=== PATIENT | female | born 1945 | race Caucasian/White ===

== ENCOUNTER 2016-08-23 15:45 | Inpatient (IN) | payer OTHER, MEDICAID, MEDICARE ==
[2016-08-23] VITALS (7 sets, daily range): BP systolic 137–163; BP diastolic 74–127; PULSE 76–88; RESP 15–22; TEMP 97.8–98.3; O2SAT 95–100
[~2016-08-23] VITALS: Ht 152.4 cm; Wt 60.0 kg
[~2016-08-23 15:45] MED LIST: AMLO5 PO; APIX5TAB PO; ARIC5TAB PO; ASPI81TA11 PO; Aspirin Chew PO; FLUO20CA4 PO; LIPI10TA PO; METO25TA3 PO; METO50TA PO; VENTAER INH; WHEEMIS3
[2016-08-23] MEDS ORDERED: SODIUM CHLORIDE 0.9% FLUSH 10 ML FLUSH IVF PRN (16:00)
[2016-08-23] MEDS ORDERED: SODIUM CHLORID 0.9% 500 ML INJ 500 ML IV ONE (16:00)
--- NOTE | 2016-08-23 16:12 | PD ---
HPI Chief Complaint: Neuro Symptoms/ Deficits Time Seen by Provider: 15:57 Travel History International Travel<30 days: No Contact w/Intl Traveler<30days: No Traveled to known affect area: No History of Present Illness HPI This 70 year-old woman with a history of CVA who presents to the emergency department with slurred speech, imaging and blacked, and weakness. She is a history of A. fib. She supposed to be on blood thinners, most recently noted as Eliquis. She's had multiple strokes in the past. Granddaughter notes that patient went to bed at around 3 AM and was seen normal at that time. When she woke up she had speech difficulties including slurred speech and weakness. Was at about 3 PM. When the granddaughter went to go check on her she develop progressive symptoms including worsening facial droop, blanca-neglect, and weakness. Symptoms been progressive over the past hour, although again she woke up with symptoms and was last seen normal at 3 AM. History Past Medical History Narrative Medical A. fib CVA Hypertension Hyperlipidemia COPD Depression Influenza Vaccination: Yes Menopausal: Yes Social History Alcohol Use: No Tobacco Use: No (QUIT 04/2016) Allergies-Medications (Allergen,Severity, Reaction): Coded Allergies: Sulfa (Verified Allergy, Intermediate, 08/23/16) Reported Meds & Prescriptions Reported Meds & Active Scripts Active Aricept (Donepezil) 5 Mg Tab 5 Mg PO HS 30 Days Lipitor (Atorvastatin Calcium) 10 Mg Tab 10 Mg PO HS 30 Days Aspirin EC (Aspirin) 81 Mg Tabdr 81 Mg PO DAILY 30 Days Eliquis (Apixaban) 5 Mg Tab 5 Mg PO BID 30 Days Norvasc (Amlodipine Besylate) 5 Mg Tab 5 Mg PO DAILY 30 Days Ventolin Hfa 18 GM Inh (Albuterol Sulfate) 90 Mcg/Act Aer 2 Puff INH Q6H PRN 30 Days Reported [place] (Hydrocodone-Acetaminophen) 10-325 Mg Tab 1 Tab PO Q8HR PRN Baclofen 20 Mg Tab 20 Mg PO TID Metoprolol Tartrate 75 Mg Tab 75 Mg PO BID Fluoxetine (Fluoxetine HCl) 40 Mg Cap 40 Cap PO DAILY Review of Systems Except as stated in HPI: all other systems reviewed are Neg Physical Exam Narrative GENERAL: Ill-appearing 70 year-old woman, right sided gaze preference with left blanca-neglect, garbled speech. SKIN: Warm and dry. HEAD: Atraumatic. Normocephalic. EYES: Right sided gaze preference. ENT: No nasal bleeding or discharge. Mucous membranes pink and moist. NECK: Trachea midline. No JVD. CARDIOVASCULAR: Regular rate and rhythm. No murmur appreciated. RESPIRATORY: No accessory muscle use. Clear to auscultation. Breath sounds equal bilaterally. GASTROINTESTINAL: Abdomen soft, non-tender, nondistended. Hepatic and splenic margins not palpable. MUSCULOSKELETAL: No obvious deformities. No edema. NEUROLOGICAL: Awake but decreased alertness. Right sided gaze preference with left neglect. We'll follow commands. Can move purposefully with the left upper extremity although it's markedly weak. She appears to have no sensation on the left side. Unable to test visual tinsley. Data Data Last Documented VS Vital Signs Date Time Temp Pulse Resp B/P Pulse Ox O2 Delivery O2 Flow Rate FiO2 08/23/16 17:43 88 16 163/127 100 Nasal Cannula 2 08/23/16 15:53 98.3 Orders Electrocardiogram (08/23/16 15:57) Prothrombin Time / Inr (Pt) (08/23/16 15:57) Act Partial Throm Time (Ptt) (08/23/16 15:57) Complete Blood Count With Diff (08/23/16 15:57) Comprehensive Metabolic Panel (08/23/16 15:57) Creatine Kinase (Cpk) (08/23/16 15:57) Troponin I (08/23/16 15:57) Urinalysis - C+S If Indicated (08/23/16 15:57) Ct Brain W/O Iv Contrast(Rout) (08/23/16 15:57) Chest, Single Ap (08/23/16 15:57) Ecg Monitoring (08/23/16 15:57) Iv Access Insert/Monitor (08/23/16 15:57) Oximetry (08/23/16 15:57) Blood Glucose (08/23/16 15:57) Sodium Chloride 0.9% Flush (Ns Flush) (08/23/16 16:00) Sodium Chlorid 0.9% 500 Ml Inj (Ns 500 M (08/23/16 16:00) Admit Order (Ed Use Only) (08/23/16 ) Consult Neurology (08/23/16 ) Labs Laboratory Tests Test 08/23/16 08/23/16 15:56 16:03 White Blood Count 8.5 TH/MM3 Red Blood Count 3.88 MIL/MM3 Hemoglobin 8.4 GM/DL Hematocrit 27.4 % Mean Corpuscular Volume 70.7 FL Mean Corpuscular Hemoglobin 21.7 PG Mean Corpuscular Hemoglobin 30.8 % Concent Red Cell Distribution Width 18.9 % Platelet Count 526 TH/MM3 Mean Platelet Volume 7.4 FL Neutrophils (%) (Auto) 58.3 % Lymphocytes (%) (Auto) 27.8 % Monocytes (%) (Auto) 9.5 % Eosinophils (%) (Auto) 3.5 % Basophils (%) (Auto) 0.9 % Neutrophils # (Auto) 5.0 TH/MM3 Lymphocytes # (Auto) 2.4 TH/MM3 Monocytes # (Auto) 0.8 TH/MM3 Eosinophils # (Auto) 0.3 TH/MM3 Basophils # (Auto) 0.1 TH/MM3 CBC Comment AUTO DIFF Differential Comment AUTO DIFF CONFIRMED Platelet Estimate HIGH Platelet Morphology Comment NORMAL Target Cells 1+ Prothrombin Time 10.1 SEC Prothromb Time International 0.9 RATIO Ratio Activated Partial 24.0 SEC Thromboplast Time Sodium Level 137 MEQ/L Potassium Level 4.1 MEQ/L Chloride Level 104 MEQ/L Carbon Dioxide Level 26.5 MEQ/L Anion Gap 7 MEQ/L Blood Urea Nitrogen 12 MG/DL Creatinine 0.68 MG/DL Estimat Glomerular Filtration 86 ML/MIN Rate Random Glucose 89 MG/DL Calcium Level 8.8 MG/DL Total Bilirubin 0.2 MG/DL Aspartate Amino Transf 15 U/L (AST/SGOT) Alanine Aminotransferase 19 U/L (ALT/SGPT) Alkaline Phosphatase 127 U/L Total Creatine Kinase 84 U/L Troponin I LESS THAN 0.02 NG/ML Total Protein 7.1 GM/DL Albumin 3.1 GM/DL [facility] Medical Decision Making Medical Screen Exam Complete: Yes Emergency Medical Condition: Yes Interpretation(s) My review of EKG: Normal sinus rhythm at a rate of 74, normal axis, normal intervals, no definite evidence of acute ischemia. LABS: CBC remarkable for mild anemia. CMP is unremarkable. Troponins negative. Coags unremarkable. Chest x-ray negative. Head CT: Large areas encephalomalacia involving the right posterior parietal and occipital and temporal lobes in the left posterior parietal-occipital is consistent with old infarcts. No acute hemorrhage, acute infarct, mass effect, or extra-axial fluid collections. Differential Diagnosis CVA, TIA, dissection, seizure, bleed, other Narrative Course Medical decision making INITIAL: This 70 year-old woman presents to the emergency department with symptoms suggestive of large stroke with gaze preference, hemicolectomy neglect , weakness, and speech difficulties. We'll check labs, x-ray, CT head, neurology consult, admission. Symptoms been progressive over the past hour however the exact time of onset is unknown. We'll discuss with neurology whether there would be any role for CTA. Patient is reportedly on blood thinners for history of A. fib all the granddaughter states that she's not sure that she's been getting the medicine or not. FINAL: I spoke with Dr. Liu with urology. He will consult on patient. Patient appears to have new CVA. Initial workups otherwise unremarkable. Patient will be admitted for further evaluation. Diagnosis Primary Impression: CVA (cerebral vascular accident) Curt Barber MD Aug 23, 2016 16:12
--- NOTE | 2016-08-23 16:14 | RADRPT ---
EXAM DATE/TIME: 08/23/2016 16:06 [facility] COMPARISON: CHEST SINGLE AP, April 04, 2016, 16:04. INDICATIONS : Short of breath MEDICAL HISTORY : Cardiovascular disease. SURGICAL HISTORY : None. ENCOUNTER: Initial ACUITY: 1 day PAIN SCORE: Non-responsive. LOCATION: chest FINDINGS: A single view of the chest demonstrates the lungs to be symmetrically aerated without evidence of mas s, infiltrate or effusion. The cardiomediastinal contours are unremarkable. Osseous structures are intact. CONCLUSION: No acute disease. Jb Rodriguez MD on August 23, 2016 at 16:13 Board Certified Radiologist. This report was verified electronically.
[2016-08-23] MEDS ORDERED: METO-426 PO (16:17)
[2016-08-23] MEDS ORDERED: FLUO40CA PO (16:17)
[2016-08-23] MEDS ORDERED: BACL20TA PO (16:18)
[2016-08-23] MEDS ORDERED: HYDR-3366 PO (16:18)
[2016-08-23 16:19] LABS: BASOPHIL # 0.1 TH/MM3 (0-0.2); BASOPHIL % 0.9 % (0.0-2.0); EOSINOPHIL # 0.3 TH/MM3 (0-0.4); EOSINOPHIL % 3.5 % (0.0-4.0); HEMATOCRIT 27.4 % (35.0-46.0); LYMPH % 27.8 % (9.0-44.0); LYMPHOCYTE # 2.4 TH/MM3 (1.0-4.8); MEAN CELL VOLUME 70.7 FL (80.0-100.0); MEAN CORPUSCULAR HEMOGLOBIN 21.7 PG (27.0-34.0); MEAN CORPUSCULAR HGB CONC 30.8 % (32.0-36.0); MONO % 9.5 % (0.0-8.0); NEUT % 58.3 % (16.0-70.0); PLATELET COUNT 526 TH/MM3 (150-450); RED BLOOD COUNT 3.88 MIL/MM3 (4.00-5.30); RED CELL DISTRIBUTION WIDTH 18.9 % (11.6-17.2); WHITE BLOOD COUNT 8.5 TH/MM3 (4.0-11.0)
[2016-08-23 16:29] LABS: HEMO FLAGS AUTO DIFF
[2016-08-23 16:39] LABS: INTERNATIONAL NORMALIZED RATIO 0.9 RATIO; PROTHROMBIN TIME - PATIENT 10.1 SEC (9.8-11.6)
[2016-08-23 16:43] LABS: ALT (GPT) 19 U/L (10-53); ANION GAP 7 MEQ/L (5-15); AST (GOT) 15 U/L (15-37); BICARBONATE 26.5 MEQ/L (21.0-32.0); BLOOD UREA NITROGEN 12 MG/DL (7-18); CHLORIDE 104 MEQ/L (98-107); GLOMERULAR FILTRATION RATE 86 ML/MIN (>89); POTASSIUM 4.1 MEQ/L (3.5-5.1); SODIUM (NA) 137 MEQ/L (136-145)
[2016-08-23 16:47] LABS: ALKALINE PHOSPHATASE 127 U/L (45-117); TOTAL BILIRUBIN ADULT 0.2 MG/DL (0.2-1.0)
[2016-08-23 16:49] LABS: CREATINE KINASE 84 U/L (26-192)
--- NOTE | 2016-08-23 16:49 | RADRPT ---
EXAM DATE/TIME: 08/23/2016 16:29 [facility] COMPARISON: CT BRAIN W/O CONTRAST, May 01, 2016, 15:03. INDICATIONS : Altered mental status and slurred speech. RADIATION DOSE: 28.70 CTDIvol (mGy) MEDICAL HISTORY : Hypertension. Cerebrovascular disease. Chronic obstructive pulmonary disease.Previous stroke. SURGICAL HISTORY : None. ENCOUNTER: Initial ACUITY: 1 day PAIN SCALE: 0/10 LOCATION: cranial TECHNIQUE: Multiple contiguous axial images were obtained of the head. Using automated exposure control and adj ustment of the mA and/or kV according to patient size, radiation dose was kept as low as reasonably a chievable to obtain optimal diagnostic quality images. FINDINGS: There are large areas of encephalomalacia involving the right posterior parietal, occipital and tempo ral lobes and the left posterior parietal and occipital lobes consistent with old infarcts. There is no acute hemorrhage, midline shift or extra-axial fluid collections. The ventricles are stable. CONCLUSION: 1. Large areas of encephalomalacia involving the right posterior parietal, occipital and temporal lob es and left posterior parietal and occipital lobes consistent with old infarcts. 2. No acute hemorrhage, acute infarct, mass effect or extra-axial fluid collections. Jb Rodriguez MD on August 23, 2016 at 16:41 Board Certified Radiologist. This report was verified electronically.
[2016-08-23 17:37] LABS: PLATELET ESTIMATE SMEAR HIGH (NORMAL); PLATELET MORPHOLOGY NORMAL (NORMAL); SCAN/DIFF AUTO DIFF CONFIRMED; TARGET CELLS 1+ (NORMAL)
--- NOTE | 2016-08-23 18:03 | HHI.HP ---
[facility] Service Family Medicine Primary Care Physician Demetrius Villarreal, Admission Diagnosis CVA Diagnoses: International Travel<30 Days: No Contact w/Intl Traveler<30days: No Known Affected Area: No History of Present Illness Patient is a 70-year-old female with history significant for recurrent CVA, A. fib, COPD. Of note patient was recently admitted in April 2016 for similar symptoms and was found to have new acute infarct of left occipital, posterior temporal and right thalamus. Neurology was consulted during that hospitalization and recommended continuing Eliquis and ASA. Today, presented to the ED due to slurred speech and confusion. Patient reports that she does not know why she is in the hospital and that she feels well enough to go home. Granddaughter provided most of the history who stated that she was last seen normal at 3:00 in the morning. She went to bed at that time and did not wake up until 3 PM at which time she had slurred speech and was having confused speech. She was able to walk but was drooling from the left side of her mouth. Since the afternoon, symptoms have progressed and now involve her left arm and left leg. Granddaughter reports that she now is only looking to her right. Her eyes also deviated to the right. At baseline, she had poor vision and would get confused with direction. She also required minimal assistance when walking. Prior to the onset of events, patient was at her baseline and granddaughter denied any other symptoms. Review of Systems ROS Limitations: Clinical Condition Past Family Social History Past Medical History CVA Tobacco abuse Hyperlipidemia Atrial fibrillation Hypertension COPD/emphysema Chronic back pain Depression Dementia Remote history of DVT; patient not sure which side it was on Past Surgical History Vertebral fusion Cholecystectomy Tonsillectomy Reported Medications Reported Meds & Active Scripts Active Aricept (Donepezil) 5 Mg Tab 5 Mg PO HS 30 Days Lipitor (Atorvastatin Calcium) 10 Mg Tab 10 Mg PO HS 30 Days Aspirin EC (Aspirin) 81 Mg Tabdr 81 Mg PO DAILY 30 Days Eliquis (Apixaban) 5 Mg Tab 5 Mg PO BID 30 Days Norvasc (Amlodipine Besylate) 5 Mg Tab 5 Mg PO DAILY 30 Days Ventolin Hfa 18 GM Inh (Albuterol Sulfate) 90 Mcg/Act Aer 2 Puff INH Q6H PRN 30 Days Reported [place] (Hydrocodone-Acetaminophen) 10-325 Mg Tab 1 Tab PO Q8HR PRN Baclofen 20 Mg Tab 20 Mg PO TID Metoprolol Tartrate 75 Mg Tab 75 Mg PO BID Fluoxetine (Fluoxetine HCl) 40 Mg Cap 40 Cap PO DAILY Allergies: Coded Allergies: Sulfa (Verified Allergy, Intermediate, 08/23/16) Family History Mother- DM Type 2, [place] Father- Prostate cancer Social History Tobacco: 1-1.5 ppd x 50 years Alcohol: None Illicit drug use: None Lives with daughter in [place] Physical Exam Vital Signs Vital Signs Date Time Temp Pulse Resp B/P Pulse Ox O2 Delivery O2 Flow Rate FiO2 08/23/16 17:43 88 16 163/127 100 Nasal Cannula 2 08/23/16 15:57 78 16 146/74 99 Nasal Cannula 2 08/23/16 15:53 98.3 76 15 146/74 97 Physical Exam GENERAL: Thin elderly woman laying in bed staring to the right with both her eyes and head. In no acute distress. Poorly follows commands. Does respond better when granddaughter is addressing patient. SKIN: No rashes, ecchymoses or lesions. Cool and dry. EYES: Evaluation limited due to patient not opening her right eye. Small pupils but grossly equal and reactive to light. No scleral icterus. No injection or drainage. ENT: Nose without bleeding, purulent drainage. Throat without erythema, tonsillar hypertrophy or exudate. Uvula slightly deviated to the right. NECK: No lymphadenopathy. CARDIOVASCULAR: Regular rate and rhythm without murmurs, gallops, or rubs. RESPIRATORY: Decreased air movement but clear to auscultation. Breath sounds equal bilaterally. No wheezes, rales, or rhonchi. GASTROINTESTINAL: Abdomen soft, non-tender, nondistended. No hepato-splenomegaly , or palpable masses. No guarding. MUSCULOSKELETAL: Extremities without clubbing, cyanosis, or edema. No calf tenderness. NEUROLOGICAL: Awake and alert. Oriented to name and place. Oriented to current president. States the year 2013. * CN II: intact * CN III, IV,: Eyes deviated to the right * CN V: intact * CN VII: left lower facial drop with decreased facial wrinkles. Left eyelid easily opened again resistance * CN IX-XII: mild right uvula deviation. No tongue deviation. Unable to assses SCD * Left arm/leg: flaccid left arm and leg. No reflexes on L arm and leg. Laboratory Laboratory Tests Test 3/23/17 3/23/17 15:56 16:03 White Blood Count 8.5 Red Blood Count 3.88 Hemoglobin 8.4 Hematocrit 27.4 Mean Corpuscular Volume 70.7 Mean Corpuscular Hemoglobin 21.7 Mean Corpuscular Hemoglobin 30.8 Concent Red Cell Distribution Width 18.9 Platelet Count 526 Mean Platelet Volume 7.4 Neutrophils (%) (Auto) 58.3 Lymphocytes (%) (Auto) 27.8 Monocytes (%) (Auto) 9.5 Eosinophils (%) (Auto) 3.5 Basophils (%) (Auto) 0.9 Neutrophils # (Auto) 5.0 Lymphocytes # (Auto) 2.4 Monocytes # (Auto) 0.8 Eosinophils # (Auto) 0.3 Basophils # (Auto) 0.1 CBC Comment AUTO DIFF Differential Comment AUTO DIFF CONFIRMED Platelet Estimate HIGH Platelet Morphology Comment NORMAL Target Cells 1+ Prothrombin Time 10.1 Prothromb Time International 0.9 Ratio Activated Partial 24.0 Thromboplast Time Sodium Level 137 Potassium Level 4.1 Chloride Level 104 Carbon Dioxide Level 26.5 Anion Gap 7 Blood Urea Nitrogen 12 Creatinine 0.68 Estimat Glomerular Filtration 86 Rate Random Glucose 89 Calcium Level 8.8 Total Bilirubin 0.2 Aspartate Amino Transf 15 (AST/SGOT) Alanine Aminotransferase 19 (ALT/SGPT) Alkaline Phosphatase 127 Total Creatine Kinase 84 Troponin I LESS THAN 0.02 Total Protein 7.1 Albumin 3.1 Result Diagram: 08/23/16 1556 08/23/16 1603 Imaging Last Impressions Head CT 08/23/16 1557 Signed Impressions: Service Date/Time: August 16:29 - CONCLUSION: 1. Large areas of encephalomalacia involving the right posterior parietal, occipital and temporal lobes and left posterior parietal and occipital lobes consistent with old infarcts. 2. No acute hemorrhage, acute infarct, mass effect or extra- axial fluid collections. Jb Rodriguez MD Chest X-Ray 08/23/16 1557 Signed Impressions: Service Date/Time: August 16:06 - CONCLUSION: No acute disease. Jb Rodriguez MD Assessment and Plan Assessment and Plan 70-year-old female with history significant for recurrent CVA, A. fib, COPD. Admitted for acute ischemic stroke. Code Status Full Problem List: (1) CVA (cerebral vascular accident) Status: Acute Plan: History of prior CVA with the most recent in April 2016. Was last seen normal on 0300 on day of admission and was therefore out of the window of TPA. She was also not a candidate for direct thrombolytic due to anticoagulation with Eliquis. New symptoms included slurred speech, left facial droop, eye deviation to the right and left sided flaccid weakness. Etiology of recurrence likely due to extensive tobacco use and/or afib -Permissive HTN, neuro checks, HOB flat -ACS evaluation not indicated due to lack of symptoms and initial EKG and troponin negative -Swallow eval by ST -A1c and lipid panel from 04/2016 were unremarkable -ECHO from 04/2016: EF of 60-65% Neurology consulted: appreciate recommendations Imaging: * MRI and MRA ordered * Head CT: large areas of encephalomalacia involving the right posterior parietal, occipital and temporal lobes and left posterior parietal adn occipital lobes consistent with old infarcts. No acute hemorrhage, acute infarct , mass effect or extra-axial fluid collections. * CXR: negative Medications * upon review of records, Eliquis was resumed after last stroke. However, due to concern for reperfusion hemorrhage and quick review of literature indicating that deferred anticoagulation resumption is warranted, will defer restarting until evaluated by neurology. * Amlodipine (to be started 08/25 * Aspirin 325mg daily * Started Plavix 75mg daily * metoprolol 50mg BID * Increased Atorvastatin to 40mg daily (2) Atrial fibrillation Status: Chronic Plan: Currently rate controlled. -Continue metoprolol at the dosing used at last hospitalization as granddaughter was unsure of dosing -Eliquis has been held until seen by neurology (3) COPD (chronic obstructive pulmonary disease) Status: Chronic Plan: Albuterol + Duo nebs (4) Nutrition, metabolism, and development symptoms Status: Acute Plan: Diet: NPO until eval by ST Electrolytes: unremarkable Fluids: NS at 70 DVT PPX: SCDs, previously on Eliquis but currently being held GI PPX: none indicated Chronic Conditions: * Dementia: Aricept * Depression: Fluoxetine Physician Certification 2 Midnight Certification Type: Admission for Inpatient Services Order for Inpatient Services The services are ordered in accordance with Medicare regulations or non- Medicare payer requirements, as applicable. In the case of services not specified as inpatient-only, they are appropriately provided as inpatient services in accordance with the 2-midnight benchmark. Estimated LOS (days): 2 days is the estimated time the patient will need to remain in the hospital, assuming treatment plan goals are met and no additional complications. Post-Hospital Plan: Not yet determined Laurie Toro MD R2 Aug 23, 2016 18:03
[2016-08-23] MEDS ORDERED: ALBUTEROL SULFATE 90 MCG/ACT HFA 8 GM INHALER INH PRN (18:30)
[2016-08-23] MEDS ORDERED: ENALAPRILAT 1.25 MG/ML VIAL IV PRN (19:00)
[2016-08-23] MEDS ORDERED: SODIUM CHLORIDE 0.9% FLUSH 10 ML FLUSH IV FLUSH PRN (19:00)
[2016-08-23] MEDS ORDERED: DEXTROSE 50% IN WATER 50 ML VIAL(D50) IV PUSH PRN (19:00)
[2016-08-23] MEDS: ASPIRIN 325 MG TAB PO SCH (19:00)
[2016-08-23] MEDS ORDERED: GLUCAGON 1 MG/ML VIAL IM/SQ PRN (19:00)
[2016-08-23 19:37] LABS: BLOOD, URINE NEG (NEG); GLUCOSE,URINE NEG (NEG); KETONE, URINE NEG (NEG); NITRITE,URINE NEG (NEG); PH, URINE 6.5 (5.0-8.5); SQUAMOUS EPITHELIAL CELL URINE <1 /hpf (0-5); URINE COLOR LIGHT-YELLOW (YELLW/STRAW)
[2016-08-23 19:44] LABS: COMMENT (UR) CATH-CULT NOT IND; CULTURE IF INDICATED CATH CULTURE NOT IND
[2016-08-23] MEDS: SODIUM CHLOR 0.9% 1000 ML INJ 1,000 ML IV SCH (20:02)
[2016-08-23] MEDS: SODIUM CHLORIDE 0.9% FLUSH 10 ML FLUSH IV FLUSH SCH (20:02)
[2016-08-23] MEDS: DONEPEZIL HCL 5 MG TAB PO SCH (20:51)
[2016-08-23] MEDS: METOPROLOL TARTRATE 50 MG TAB PO SCH (20:52)
[2016-08-23] MEDS: ATORVASTATIN 40 MG TAB PO SCH (20:52)
[2016-08-23] MEDS ORDERED: ATORVASTATIN 10 MG TAB PO SCH (21:00)
[2016-08-23] MEDS: INSULIN ASPART SUPPLEMENTAL SCALE SQ SCH (21:00)
[2016-08-23] MEDS ORDERED: RESP: ALBUTEROL 2.5 MG/3 ML NEB (PRN) INH (21:45)
[2016-08-23] MEDS ORDERED: ACETAMINOPHEN 325 MG TAB PO PRN (22:00)
[2016-08-23] MEDS ORDERED: RESP: ALBUTEROL 2.5 MG/IPRATROPIUM 0.5 MG NEB (PRN) NEB (22:00)
[2016-08-23] MEDS ORDERED: ACETAMINOPHEN/HYDROcodone 325 MG/7.5 MG TAB PO PRN (22:00)
[2016-08-24 03:58] VITALS: BP 149/75; PULSE 90; RESP 20; TEMP 98.5; O2SAT 95
[2016-08-24 06:02] LABS: AUTOMATED NEUTROPHIL # 6.6 TH/MM3 (1.8-7.7); BASOPHIL # 0.1 TH/MM3 (0-0.2); BASOPHIL % 0.7 % (0.0-2.0); EOSINOPHIL # 0.3 TH/MM3 (0-0.4); EOSINOPHIL % 2.6 % (0.0-4.0); HEMATOCRIT 23.6 % (35.0-46.0); LYMPH % 24.1 % (9.0-44.0); LYMPHOCYTE # 2.6 TH/MM3 (1.0-4.8); MEAN CELL VOLUME 70.7 FL (80.0-100.0); MEAN CORPUSCULAR HEMOGLOBIN 21.5 PG (27.0-34.0); MEAN CORPUSCULAR HGB CONC 30.4 % (32.0-36.0); MONO % 11.4 % (0.0-8.0); NEUT % 61.2 % (16.0-70.0); PLATELET COUNT 440 TH/MM3 (150-450); RED BLOOD COUNT 3.33 MIL/MM3 (4.00-5.30); RED CELL DISTRIBUTION WIDTH 18.7 % (11.6-17.2); WHITE BLOOD COUNT 10.8 TH/MM3 (4.0-11.0)
[2016-08-24 06:12] LABS: HEMO FLAGS AUTO DIFF
[2016-08-24 06:20] LABS: BICARBONATE 25.6 MEQ/L (21.0-32.0); POTASSIUM 3.8 MEQ/L (3.5-5.1)
[2016-08-24] MEDS: INSULIN ASPART SUPPLEMENTAL SCALE SQ SCH ×4 (06:54→22:46)
[2016-08-24 08:08] LABS: SCAN/DIFF AUTO DIFF CONFIRMED; TARGET CELLS 1+ (NORMAL)
[2016-08-24 08:24] VITALS: BP 144/78; PULSE 74; RESP 18; O2SAT 95
--- NOTE | 2016-08-24 08:33 | PD.CONS ---
History of Present Illness Service Neurology Consult Requested By medical Reason for Consult stroke Primary Care Physician Demetrius Villarreal DO History of Present Illness 70-year-old female admitted for possible recurrent stroke. noticed to have left sided weakness and rt gaze by family. ct brain shows old multiple strokes, no ich. hx of afib, was placed on eliquis and aspirin for her previous stroke. was on coumadin and was changed to eliquis late 2015. unclear if she is reliably taking the medication. had confusional episodes and vision changes previous stroke, 04/2016. Review of Systems ROS Limitations: as above and admit hp Past Family Social History Past Medical History CVA Tobacco abuse-has quit Hyperlipidemia Atrial fibrillation Hypertension COPD/emphysema Chronic back pain Depression Dementia Remote history of DVT; patient not sure which side it was on Past Surgical History Vertebral fusion Cholecystectomy Tonsillectomy Reported Medications Reported Meds & Active Scripts Active Aricept (Donepezil) 5 Mg Tab 5 Mg PO HS 30 Days Lipitor (Atorvastatin Calcium) 10 Mg Tab 10 Mg PO HS 30 Days Aspirin EC (Aspirin) 81 Mg Tabdr 81 Mg PO DAILY 30 Days Eliquis (Apixaban) 5 Mg Tab 5 Mg PO BID 30 Days Norvasc (Amlodipine Besylate) 5 Mg Tab 5 Mg PO DAILY 30 Days Ventolin Hfa 18 GM Inh (Albuterol Sulfate) 90 Mcg/Act Aer 2 Puff INH Q6H PRN 30 Days Allergies: Coded Allergies: Sulfa (Verified Allergy, Intermediate, 08/23/16) Family History Mother- DM Type 2, [place] Father- Prostate cancer Social History Tobacco: 1-1.5 ppd x 50 years Alcohol: None Illicit drug use: None Lives with daughter in [place] Review of Systems All other ROS: ROS reviewed as documented in chart Past Family Social History Allergies: Coded Allergies: Sulfa (Verified Allergy, Intermediate, 08/23/16) Active Ordered Medications Current Medications Medications (Trade) Dose Ordered Sig/Haley Route Start Time Stop Time Status Last Admin (Aricept) 5 mg HS PO 08/23/16 21:00 (PROzac) 40 mg DAILY PO 08/24/16 09:00 (Norvasc) 5 mg DAILY PO 08/25/16 09:00 (NS Flush) 2 ml BID IV FLUSH 08/23/16 21:00 08/23/16 20:02 Sodium Chloride 2 ml 2 ml UNSCH PRN IV FLUSH 08/23/16 19:00 (NS 1000 ml Inj) 1,000 ml @ 70 mls/hr [id number] IV 08/23/16 18:52 08/23/16 20:02 (Vasotec Inj) 1.25 mg Q4H PRN IV 08/23/16 19:00 (Aspirin) 325 mg DAILY PO 08/23/16 19:00 (D50w (Vial) Inj) 25 ml UNSCH PRN IV PUSH 08/23/16 19:00 (Glucagon Inj) 1 mg UNSCH PRN IM/SQ 08/23/16 19:00 (Lopressor) 50 mg Q12HR PO 08/23/16 21:00 (Lipitor) 40 mg HS PO 08/23/16 21:00 (Plavix) 75 mg DAILY PO 08/24/16 09:00 (Tylenol) 650 mg Q6H PRN PO 08/23/16 22:00 ([place] 5-325 Mg) 1 tab Q4H PRN PO 08/23/16 22:00 ([place] 7.5-325 Mg) 1 tab Q4H PRN PO 08/23/16 22:00 Exam I&O / VS Vital Signs Date Time Temp Pulse Resp B/P Pulse Ox O2 Delivery O2 Flow Rate FiO2 08/24/16 03:58 98.5 90 20 149/75 95 08/23/16 23:40 97.8 78 20 148/78 98 08/23/16 22:45 86 18 142/76 95 Room Air 08/23/16 20:00 99 08/23/16 19:55 82 22 137/80 96 Room Air 08/23/16 17:43 88 16 163/127 100 Nasal Cannula 2 08/23/16 15:57 78 16 146/74 99 Nasal Cannula 2 08/23/16 15:53 98.3 76 15 146/74 97 General: Alert and Oriented, No acute distress Respiratory: Lungs CTA, Non-labored respirations Cardiology: Irregular Rhythm, Other Musculoskeletal: ROM Neurologic: Alert Psychiatric: Cooperative Exam Comments ox 2. follows, rt gaze preference, ou 3-2mm, left hh>rt, reduced left nlf, left ataxic-hemiparesis 2-3/5, sensory not reliable, gait not assessed 2/2 fall risk Review/Management Diagnosis/Plan: (1) Acute ischemic right MCA stroke Plan: probable new infarct; likely cardioembolic r/o partial sz recs needs to change to alternate OAC if she was compliantly taking eliquis; there is some question that she may not have been on plavix; although OAC is her best protection for stroke recurrence p.t. 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
[2016-08-24] MEDS: SODIUM CHLORIDE 0.9% FLUSH 10 ML FLUSH IV FLUSH SCH ×2 (09:00→22:50)
[2016-08-24] MEDS ORDERED: ASPIRIN EC 81 MG TABEC PO SCH (09:00)
[2016-08-24] MEDS ORDERED: amLODIPine BESYLATE 5 MG TAB PO SCH (09:00)
--- NOTE | 2016-08-24 09:51 | RADRPT ---
EXAM DATE/TIME: 08/24/2016 08:53 [facility] COMPARISON: CT BRAIN W/O CONTRAST, August 23, 2016, 16:29. MRI BRAIN W/O CONTRAST, August 24, 2016, 8:53. INDICATIONS : Stroke. MEDICAL HISTORY : Hypertension. SURGICAL HISTORY : Cholecystectomy. Fusion, lumbar. Tonsillectomy. ENCOUNTER: Initial ACUITY: 2 day PAIN SCORE: 0/10 LOCATION: head Please note a normal MRA of the brain does not entirely exclude the possibility of a small aneurysm, nor the possibility of distal intracranial vessel disease. TECHNIQUE: 3D time of flight MRA was performed. Source images, multiplanar STS MIP, and 3D volume MIP reconstru ctions were reviewed. FINDINGS: There is diffuse tapering of the distal right MCA and attenuation of right MCA branch vessels. The co ntralateral left MCA and anterior cerebral vessels are intact and unremarkable. The posterior circula tion is intact and unremarkable. There is no evidence of aneurysm or vascular malformation. CONCLUSION: Chronic appearing steno-occlusive disease in the right MCA territory. Fidencio Padilla MD on August 24, 2016 at 9:38 Board Certified Radiologist. This report was verified electronically.
[2016-08-24 10:17] VITALS: O2SAT 95
--- NOTE | 2016-08-24 10:27 | HHI.FPPN ---
Subjective Remarks Patient with mild expressive aphagia. Knows why she is here. Reports some pain over her back. Says that she does sometimes forget to take medication as prescribed. Objective Vitals Vital Signs Date Time Temp Pulse Resp B/P Pulse Ox O2 Delivery O2 Flow Rate FiO2 08/24/16 10:17 95 21 08/24/16 08:24 74 18 144/78 95 08/24/16 03:58 98.5 90 20 149/75 95 08/23/16 23:40 97.8 78 20 148/78 98 08/23/16 22:45 86 18 142/76 95 Room Air 08/23/16 20:00 99 08/23/16 19:55 82 22 137/80 96 Room Air 08/23/16 17:43 88 16 163/127 100 Nasal Cannula 2 08/23/16 15:57 78 16 146/74 99 Nasal Cannula 2 08/23/16 15:53 98.3 76 15 146/74 97 Result Diagram: 08/24/16 0431 08/24/16 0431 A/P Assessment and Plan 70-year-old female with history significant for recurrent CVA, A. fib, COPD. Admitted for acute ischemic stroke. Discharge Planning pending further neuro workup, likely 1-2 days Problem List: (1) CVA (cerebral vascular accident) Status: Acute Plan: History of prior CVA with the most recent in April 2016. Was last seen normal on 0300 on day of admission and was therefore out of the window of TPA. She was also not a candidate for direct thrombolytic due to anticoagulation with Eliquis. New symptoms included slurred speech, left facial droop, eye deviation to the right and left sided flaccid weakness. Etiology of recurrence likely due to extensive tobacco use and/or afib -Permissive HTN, neuro checks, HOB flat -ACS evaluation not indicated due to lack of symptoms and initial EKG and troponin negative -Swallow eval by ST -A1c and lipid panel from 04/2016 were unremarkable -ECHO from 04/2016: EF of 60-65% Neurology consulted: appreciate recommendations Imaging: * MRI and MRA ordered * Head CT: large areas of encephalomalacia involving the right posterior parietal, occipital and temporal lobes and left posterior parietal adn occipital lobes consistent with old infarcts. No acute hemorrhage, acute infarct , mass effect or extra-axial fluid collections. * CXR: negative Medications * upon review of records, Eliquis was resumed after last stroke. However, due to concern for reperfusion hemorrhage and quick review of literature indicating that deferred anticoagulation resumption is warranted, will defer restarting until evaluated by neurology. * Amlodipine (to be started 08/25 * Aspirin 325mg daily * Started Plavix 75mg daily * metoprolol 50mg BID * Increased Atorvastatin to 40mg daily (2) Atrial fibrillation Status: Chronic Plan: Currently rate controlled. -Continue metoprolol at the dosing used at last hospitalization as granddaughter was unsure of dosing -Eliquis has been held until seen by neurology (3) COPD (chronic obstructive pulmonary disease) Status: Chronic Plan: Albuterol + Duo nebs (4) Nutrition, metabolism, and development symptoms Status: Acute Plan: Diet: NPO until eval by ST Electrolytes: unremarkable Fluids: NS at 70 DVT PPX: SCDs, previously on Eliquis but currently being held GI PPX: none indicated Chronic Conditions: * Dementia: Aricept * Depression: Fluoxetine Problem Qualifiers (1) Atrial fibrillation: Qualified Code: I48.91 - Atrial fibrillation, unspecified type Rosaura Sandoval MD Aug 24, 2016 10:27
--- NOTE | 2016-08-24 11:06 | RADRPT ---
EXAM DATE/TIME: 08/24/2016 08:53 [facility] COMPARISON: MRI BRAIN W/O CONTRAST, May 01, 2016, 18:43. INDICATIONS : Left sided weakness. Slurred speech. MEDICAL HISTORY : Hypertension. SURGICAL HISTORY : Cholecystectomy. Tonsillectomy. Fusion, lumbar. ENCOUNTER: Initial ACUITY: 2 day PAIN SCORE: 0/10 LOCATION: head TECHNIQUE: Multiplanar, multisequence MRI of the brain was performed without contrast. FINDINGS: CEREBRUM: Old bilateral FLOW MATCH SOFA CUTTER aren't infarcts are identified. There is also an old water shed infarct in the righ t temporal occipital region. However, a new area of diffusion restriction is identified insular richmond x on the right. There is some T2 shine through the posterior right temporoparietal region. No extraa xial fluid collections are seen. The pituitary gland and suprasellar cistern are normal in configura tion. WHITE MATTER: Scattered deep white matter tract and posterior periventricular areas of abnormal signal intensity. POSTERIOR FOSSA: The cerebellum and brainstem are intact. The 4th ventricle is midline. The cerebellopontine angle is unremarkable. The cerebellar tonsils are normal in position. DIFFUSION IMAGING: Linear area of diffusion restriction in the right parietal lobe and insular cortex as well as the whi te matter tract at the junction of the velásquez radiata and centrum semiovale on the right. EXTRACRANIAL: The visualized portions of the orbits and paranasal sinuses are unremarkable. CONCLUSION: 1. Acute or subacute infarct in the right MCA territory involving portions of the parietal lobe, subi nsular cortex and the white matter tract at the junction of the velásquez radiata and centrum semi-ovale . 2. Old infarcts in the FLOW MATCH SOFA CUTTER territories bilaterally as well as the right temporal-parietal/occipital w atershed area. Colin Patterson MD on August 24, 2016 at 10:58 Board Certified Radiologist. This report was verified electronically.
--- NOTE | 2016-08-24 12:48 | HHI.FPPN ---
Subjective Remarks This is a 70-year-old female with history of CVA and atrial fibrillation in April. She usually goes to bed at 3 AM and yesterday afternoon, upon awakening around 3 PM, she was noted to have slurred speech, some confusion and some drooling. Family reports that prior to her going to bed at 3 AM, she was in her normal state of health. While in the emergency department, her symptoms progressed, and she developed left neglect. Does have a smoking history. Patient admits that she has not been taking her Eliquis regularly, when she misses a dose she just takes it the next day. She also presumably is not taking her aspirin on a regular basis. Please see history and physical examination for this admission for additional past, family, social history and review of systems. This morning, patient denies any particular complaints. She is having some back discomfort which could be attributed to her positioning in the bed. Objective Vitals Vital Signs Date Time Temp Pulse Resp B/P Pulse Ox O2 Delivery O2 Flow Rate FiO2 08/24/16 10:17 95 21 08/24/16 08:24 74 18 144/78 95 08/24/16 03:58 98.5 90 20 149/75 95 08/23/16 23:40 97.8 78 20 148/78 98 08/23/16 22:45 86 18 142/76 95 Room Air 08/23/16 20:00 99 08/23/16 19:55 82 22 137/80 96 Room Air 08/23/16 17:43 88 16 163/127 100 Nasal Cannula 2 08/23/16 15:57 78 16 146/74 99 Nasal Cannula 2 08/23/16 15:53 98.3 76 15 146/74 97 Result Diagram: 08/24/16 0431 08/24/16 0431 Other Results Laboratory Tests Test 08/23/16 08/23/16 08/24/16 15:56 16:03 04:31 Red Blood Count 3.88 MIL/MM3 3.33 MIL/MM3 Hemoglobin 8.4 GM/DL 7.2 GM/DL Hematocrit 27.4 % 23.6 % Mean Corpuscular Volume 70.7 FL 70.7 FL Mean Corpuscular Hemoglobin 21.7 PG 21.5 PG Mean Corpuscular Hemoglobin 30.8 % 30.4 % Concent Red Cell Distribution Width 18.9 % 18.7 % Platelet Count 526 TH/MM3 Monocytes (%) (Auto) 9.5 % 11.4 % Platelet Estimate HIGH Target Cells 1+ 1+ Activated Partial 24.0 SEC Thromboplast Time Estimat Glomerular Filtration 86 ML/MIN Rate Alkaline Phosphatase 127 U/L Troponin I LESS THAN 0.02 NG/ML Albumin 3.1 GM/DL Monocytes # (Auto) 1.2 TH/MM3 Imaging Last Impressions Head Magnetic Resonance Angiography 08/24/16 0000 Signed Impressions: Service Date/Time: Wednesday, August 24, 2016 08:53 - CONCLUSION: Chronic appearing steno-occlusive disease in the right MCA territory. Fidencio Padilla MD Brain MRI 08/24/16 0000 Signed Impressions: Service Date/Time: Wednesday, August 24, 2016 08:53 - CONCLUSION: 1. Acute or subacute infarct in the right MCA territory involving portions of the parietal lobe, subinsular cortex and the white matter tract at the junction of the velásquez radiata and centrum semi-ovale. 2. Old infarcts in the BURR BENCH HAND territories bilaterally as well as the right temporal-parietal/occipital watershed area. Colin Patterson MD Head CT 08/23/16 1557 Signed Impressions: Service Date/Time: August 16:29 - CONCLUSION: 1. Large areas of encephalomalacia involving the right posterior parietal, occipital and temporal lobes and left posterior parietal and occipital lobes consistent with old infarcts. 2. No acute hemorrhage, acute infarct, mass effect or extra- axial fluid collections. Jb Rodriguez MD Chest X-Ray 08/23/16 4637 Signed Impressions: Service Date/Time: August 16:06 - CONCLUSION: No acute disease. Jb Rodriguez MD Objective Remarks O. CONSTITUTIONAL/GEN: normally nourished, in NAD. EYES: conjunctiva normal, pupils small and barely reactive, gaze deviated to the right ENT: Mouth and pharynx normal. NECK: Supple LUNGS: clear A-P, respiratory effort is normal. CARDIOVASCULAR: RR without murmur or gallop. No significant edema. GI/ABD: soft without masses, without organomegaly. Nontender NEURO: Left neglect. Absent patellar reflex on the left, right is normal. Sensation in left upper extremity is diminished, she is able to appose her hands and she is able to move her left leg. SKIN: color normal, no rashes noted. HEME/LYMPH: no bruising, petechia or significant adenopathy MUSC: Extremities are normal in appearance. PSYCH/MENTAL STATUS: Alert and oriented x 3. A/P Assessment and Plan 70-year-old female with history significant for recurrent CVA, A. fib, COPD. Admitted for acute ischemic stroke. Discharge Planning pending further neuro workup, likely 1-2 days Attending Attestation Patient seen and examined. Case reviewed and discussed with the resident team. Agree with plan of care as discussed with me and documented in the resident note. Problem List: (1) CVA (cerebral vascular accident) Status: Acute Plan: History of prior CVA with the most recent in April 2016. Was last seen normal on 0300 on day of admission and was therefore out of the window of TPA. She was also not a candidate for direct thrombolytic due to anticoagulation with Eliquis. New symptoms included slurred speech, left facial droop, eye deviation to the right and left sided flaccid weakness. Etiology of recurrence likely due to extensive tobacco use and/or afib -Permissive HTN, neuro checks, HOB flat -ACS evaluation not indicated due to lack of symptoms and initial EKG and troponin negative -Swallow eval by ST -A1c and lipid panel from 04/2016 were unremarkable -ECHO from 04/2016: EF of 60-65% Neurology consulted: appreciate recommendations Imaging: * MRI and MRA obtained; see results above * Head CT: large areas of encephalomalacia involving the right posterior parietal, occipital and temporal lobes and left posterior parietal adn occipital lobes consistent with old infarcts. No acute hemorrhage, acute infarct , mass effect or extra-axial fluid collections. * CXR: negative Medications * Will restart eloquence as patient admits she was not adherent to daily dosing. * Amlodipine (to be started 08/25) * Aspirin 325mg daily * Started Plavix 75mg daily * metoprolol 50mg BID * Increased Atorvastatin to 40mg daily (2) Atrial fibrillation Status: Chronic Plan: Currently rate controlled. -Continue metoprolol at the dosing used at last hospitalization as granddaughter was unsure of dosing -Eliquis has been held until seen by neurology (3) COPD (chronic obstructive pulmonary disease) Status: Chronic Plan: Albuterol + Duo nebs (4) Nutrition, metabolism, and development symptoms Status: Acute Plan: Diet: NPO until eval by ST Electrolytes: unremarkable Fluids: NS at 70 DVT PPX: SCDs, previously on Eliquis, restarted GI PPX: none indicated Chronic Conditions: * Dementia: Aricept * Depression: Fluoxetine (5) Anemia Status: Chronic Plan: Repeat H&H, occult blood for stool ordered. Problem Qualifiers (1) Atrial fibrillation: Qualified Code: I48.91 - Atrial fibrillation, unspecified type (2) Anemia: Qualified Code: D64.9 - Anemia, unspecified type Jessica Pimentel MD Aug 24, 2016 12:48
[2016-08-24 14:02] LABS: HEMOGLOBIN A1a 2.1 %; HEMOGLOBIN A1b 1.8 %; HEMOGLOBIN Ao 84.3 %; HEMOGLOBIN LA1C 1.7 %; HEMOGLOBIN P3 3.8 %
[2016-08-24] MEDS: CLOPIDOGREL 75 MG TAB PO SCH (14:47)
[2016-08-24] MEDS: ASPIRIN 325 MG TAB PO SCH (14:47)
[2016-08-24] MEDS: METOPROLOL TARTRATE 50 MG TAB PO SCH ×2 (14:47→22:48)
[2016-08-24] MEDS: FLUoxetine HCL 20 MG CAP PO SCH (14:47)
[2016-08-24] MEDS: SODIUM CHLOR 0.9% 1000 ML INJ 1,000 ML IV SCH (15:06)
[2016-08-24 15:25] VITALS: BP 132/90; PULSE 78; RESP 17; TEMP 97.9; O2SAT 95
[2016-08-24 16:14] LABS: HEMATOCRIT 25.5 % (35.0-46.0)
[2016-08-24 16:19] LABS: REVIEW FLAG FINAL
[2016-08-24 18:53] VITALS: BP 144/68; RESP 18; TEMP 98.1; O2SAT 97
[2016-08-24 21:04] LABS: MEAN CORPUSCULAR HGB CONC 29.8 % (32.0-36.0)
[2016-08-24 21:50] VITALS: BP 112/75; PULSE 62; RESP 22; TEMP 97.3; O2SAT 95
[2016-08-24] MEDS: ATORVASTATIN 40 MG TAB PO SCH (22:48)
[2016-08-24] MEDS: DONEPEZIL HCL 5 MG TAB PO SCH (22:48)
[2016-08-25] VITALS (8 sets, daily range): BP systolic 111–151; BP diastolic 59–79; PULSE 56–93; RESP 17–20; TEMP 96.8–97.8; O2SAT 94–97
[2016-08-25 05:02] LABS: HEMATOCRIT 26.3 % (35.0-46.0); MEAN CELL VOLUME 71.1 FL (80.0-100.0); MEAN CORPUSCULAR HEMOGLOBIN 21.2 PG (27.0-34.0); PLATELET COUNT 470 TH/MM3 (150-450); RED BLOOD COUNT 3.69 MIL/MM3 (4.00-5.30); RED CELL DISTRIBUTION WIDTH 19.1 % (11.6-17.2); WHITE BLOOD COUNT 9.2 TH/MM3 (4.0-11.0)
[2016-08-25 05:07] LABS: REVIEW FLAG FINAL
[2016-08-25 05:34] LABS: ANION GAP 9 MEQ/L (5-15); BICARBONATE 26.4 MEQ/L (21.0-32.0); BLOOD UREA NITROGEN 7 MG/DL (7-18); CHLORIDE 105 MEQ/L (98-107); GLOMERULAR FILTRATION RATE 108 ML/MIN (>89); POTASSIUM 3.6 MEQ/L (3.5-5.1); SODIUM (NA) 140 MEQ/L (136-145); TRANSFERRIN IRON PROFILE 281 MG/DL (200-360)
[2016-08-25] MEDS: INSULIN ASPART SUPPLEMENTAL SCALE SQ SCH ×4 (07:00→21:00)
[2016-08-25] MEDS: SODIUM CHLORIDE 0.9% FLUSH 10 ML FLUSH IV FLUSH SCH ×2 (09:00→21:00)
[2016-08-25] MEDS: METOPROLOL TARTRATE 50 MG TAB PO SCH ×2 (09:00→21:06)
[2016-08-25] MEDS: amLODIPine BESYLATE 5 MG TAB PO SCH (09:00)
[2016-08-25] MEDS: FLUoxetine HCL 20 MG CAP PO SCH (09:06)
[2016-08-25] MEDS: CLOPIDOGREL 75 MG TAB PO SCH (09:06)
[2016-08-25] MEDS: ASPIRIN 325 MG TAB PO SCH (09:06)
--- NOTE | 2016-08-25 11:16 | HHI.PR ---
Review/Management Diagnosis/Plan: (1) Acute ischemic right MCA stroke Plan: probable new infarct; likely cardioembolic r/o partial sz mri brain images reviewed rt mca steno-occlusive dz recs ok to restart aspirin 81mg and eliquis bid; she states she was only taking it qdaily. her daughter sets her pills for her. 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 Subjective Subjective Comments No acute events reported No headache No chest pain No dyspnea Active Medications Current Medications Medications (Trade) Dose Ordered Sig/Haley Route Start Time Stop Time Status Last Admin (Aricept) 5 mg HS PO 08/23/16 21:00 08/24/16 22:48 (PROzac) 40 mg DAILY PO 08/24/16 09:00 08/25/16 09:06 (Norvasc) 5 mg DAILY PO 08/25/16 09:00 (NS Flush) 2 ml BID IV FLUSH 08/23/16 21:00 08/25/16 09:00 (NS Flush) 2 ml UNSCH PRN IV FLUSH 08/23/16 19:00 (Vasotec Inj) 1.25 mg Q4H PRN IV 08/23/16 19:00 (Aspirin) 325 mg DAILY PO 08/23/16 19:00 08/25/16 09:06 (D50w (Vial) Inj) 25 ml UNSCH PRN IV PUSH 08/23/16 19:00 (Glucagon Inj) 1 mg UNSCH PRN IM/SQ 08/23/16 19:00 (Lopressor) 50 mg Q12HR PO 08/23/16 21:00 08/24/16 22:48 (Lipitor) 40 mg HS PO 08/23/16 21:00 08/24/16 22:48 (Plavix) 75 mg DAILY PO 08/24/16 09:00 08/25/16 09:06 (Tylenol) 650 mg Q6H PRN PO 08/23/16 22:00 ([place] 5-325 Mg) 1 tab Q4H PRN PO 08/23/16 22:00 ([place] 7.5-325 Mg) 1 tab Q4H PRN PO 08/23/16 22:00 Allergies Allergies Coded Allergies Sulfa (Verified Allergy, Intermediate, 08/23/16) Review of Systems All other ROS: ROS reviewed as documented in chart Exam I&O / VS 08/24/16 08/24/16 08/25/16 15:00 23:00 07:00 Intake Total 150 ml Balance 150 ml Intake Oral 150 ml # Voids 1 # Bowel Movements 0 Vital Signs Date Time Temp Pulse Resp B/P Pulse Ox O2 Delivery O2 Flow Rate FiO2 08/25/16 08:00 97.5 62 17 128/63 94 08/25/16 04:00 96.9 93 18 119/59 95 08/25/16 00:00 97.3 60 20 123/79 96 08/24/16 21:50 97.3 62 22 112/75 95 08/24/16 18:53 98.1 18 144/68 97 08/24/16 15:25 97.9 78 17 132/90 95 General: Alert and Oriented, No acute distress Respiratory: Lungs CTA, Non-labored respirations Cardiology: Irregular Rhythm, Other Musculoskeletal: ROM Neurologic: Alert Psychiatric: Cooperative Exam Comments alert. pleasant, ox 2-3. follows, rt gaze preference, ou 3-2mm, left hh>rt, reduced left nlf, left ataxic-hemiparesis 2-3/5, sensory not reliable, gait not assessed 2/2 fall risk Objective Micro and Labs Laboratory Tests Test 08/24/16 08/25/16 15:08 03:45 Hemoglobin 7.9 7.8 Hematocrit 25.5 26.3 White Blood Count 9.2 Red Blood Count 3.69 Mean Corpuscular Volume 71.1 Mean Corpuscular Hemoglobin 21.2 Mean Corpuscular Hemoglobin 29.8 Concent Red Cell Distribution Width 19.1 Platelet Count 470 Mean Platelet Volume 7.6 Sodium Level 140 Potassium Level 3.6 Chloride Level 105 Carbon Dioxide Level 26.4 Anion Gap 9 Blood Urea Nitrogen 7 Creatinine 0.56 Estimat Glomerular Filtration 108 Rate Random Glucose 75 Calcium Level 8.5 Iron Level 17 Total Iron Binding Capacity 393 Percent Iron Saturation 4.3 Problem Qualifiers (1) Atrial fibrillation: Qualified Code: I48.91 - Atrial fibrillation, unspecified type (2) Vascular dementia: Qualified Code: F01.50 - Vascular dementia without behavioral disturbance Gokul Jang MD Aug 25, 2016 11:16
--- NOTE | 2016-08-25 11:17 | EKG ---
Date Performed: 08/23/2016 Time Performed: 15:56:22 PTAGE: 70 years EKG: SUPRAVENTRICULAR RHYTHM BORDERLINE LEFT AXIS DEVIATION INCOMPLETE RIGHT BUNDLE BRANCH BLOCK MODERATE ST DEPRESSION ABNORMAL ECG PREVIOUS TRACING : 05/03/2016 02.07 DOCTOR: Ceasar Danielle Interpretating Date/Time 08/25/2016 11:14:08
--- NOTE | 2016-08-25 11:17 | HHI.FPPN ---
Subjective Remarks No acute events overnight. Vital signs unremarkable. This morning patient reports that she feels well but only has her chronic back pain. She otherwise has no complaints and wants to know when she can go home. (Laurie Toro MD R2) Objective Vitals Vital Signs Date Time Temp Pulse Resp B/P Pulse Ox O2 Delivery O2 Flow Rate FiO2 08/25/16 08:00 97.5 62 17 128/63 94 08/25/16 04:00 96.9 93 18 119/59 95 08/25/16 00:00 97.3 60 20 123/79 96 08/24/16 21:50 97.3 62 22 112/75 95 08/24/16 18:53 98.1 18 144/68 97 08/24/16 15:25 97.9 78 17 132/90 95 I/O 08/24/16 08/24/16 08/24/16 08/25/16 08/25/16 08/25/16 07:00 15:00 23:00 07:00 15:00 23:00 Intake Total 150 ml Balance 150 ml Intake Oral 150 ml # Voids 2 1 1 # Bowel Movements 0 (Laurie Toro MD R2) Result Diagram: 08/25/16 0345 08/25/16 0345 Objective Remarks GEN: Thin normally nourished lady laying in bed. No acute distress. CV: Regular rate and rhythm without obvious murmurs LUNGS: Clear to auscultation bilaterally. Normal respiratory effort. No wheezes , rales, rhonchi. EXT: No edema. No calf tenderness. NEURO/PSYCH: Awake, alert. Eyes more midline and able to make good eye contact. Patient becoming more aware of left side. Able to move left arm purposefully and on command. Dexterity still poor. Limited vision to the left. Appropriate insight and judgment. Slurred but more clear speech. (Laurie Toro MD R2) A/P Assessment and Plan 70-year-old female with history significant for recurrent CVA, A. fib, COPD. Admitted for acute ischemic stroke. Discharge Planning Once cleared by neurology and placement established for rehabilitation * Disposition may be postponed due to prior authorization from insurance required for inpatient rehabilitation dw Dr. Pimentel (Laurie Toro MD R2) Attending Attestation Patient seen and examined. Case reviewed and discussed with the resident team. Agree with plan of care as discussed with me and documented in the resident note. (Jessica Pimentel MD) Problem List: (1) CVA (cerebral vascular accident) Status: Acute Plan: History of prior CVA with the most recent in April 2016. Was last seen normal on 0300 on day of admission and was therefore out of the window of TPA. She was also not a candidate for direct thrombolytic due to anticoagulation with Eliquis. New symptoms included slurred speech, left facial droop, eye deviation to the right and left sided flaccid weakness. Etiology of recurrence likely due to extensive tobacco use and/or afib -A1c and lipid panel from 04/2016 were unremarkable -ECHO from 04/2016: EF of 60-65% Neurology consulted: appreciate recommendations * EEG ordered * will determine timeline of restarting eliquis oncer MRI/MRA is reviewed Imaging: * MRI/MRA: Acute or subacute infarct in the right MCA territory. Old infarcts present in the FOOD SAFETY SCIENTIST territory. Chronic appearing steno-occlusive disease in right MCA territory * Head CT: large areas of encephalomalacia involving the right posterior parietal, occipital and temporal lobes and left posterior parietal and occipital lobes consistent with old infarcts. No acute hemorrhage, acute infarct , mass effect or extra-axial fluid collections. * CXR: negative Medications * Will restart Eliquis as patient admits she was not adherent to daily dosing. * Amlodipine (to be started 08/25) * Aspirin 325mg daily * Started Plavix 75mg daily * metoprolol 50mg BID * Increased Atorvastatin to 40mg daily (2) Atrial fibrillation Status: Chronic Plan: Currently rate controlled. -Continue metoprolol at the dosing used at last hospitalization as granddaughter was unsure of dosing -Eliquis has been held until seen by neurology (3) Anemia Status: Chronic Plan: Repeat H&H, occult blood for stool ordered. -Occult blood not obtained but H&H is stable. Continue to monitor (4) COPD (chronic obstructive pulmonary disease) Status: Chronic Plan: Albuterol + Duo nebs (5) Nutrition, metabolism, and development symptoms Status: Acute Plan: Diet: Heart Healthy by ST Electrolytes: unremarkable Fluids: none DVT PPX: SCDs, previously on Eliquis, restarted GI PPX: none indicated Chronic Conditions: * Dementia: Aricept * Depression: Fluoxetine (Laurie Toro MD R2) Problem Qualifiers (1) Atrial fibrillation: Qualified Code: I48.91 - Atrial fibrillation, unspecified type (2) Anemia: Qualified Code: D64.9 - Anemia, unspecified type Laurie Toro MD R2 Aug 25, 2016 11:17 Jessica Pimentel MD Aug 25, 2016 14:16
[2016-08-25] MEDS ORDERED: METO-309 PO (12:02)
[2016-08-25] MEDS ORDERED: XARE10TA PO (12:02)
[2016-08-25] MEDS ORDERED: LIPI40TA PO (12:02)
[2016-08-25] MEDS ORDERED: XARE20TA PO (12:02)
--- NOTE | 2016-08-25 12:03 | HHI.DCPOC ---
Discharge Care Plan Diagnosis: (1) CVA (cerebral vascular accident) (2) Atrial fibrillation (3) COPD (chronic obstructive pulmonary disease) Goals to Promote Your Health * To prevent worsening of your condition and complications * To maintain your health at the optimal level Directions to Meet Your Goals Take your medications as prescribed Follow your dietary instruction Follow activity as directed Keep your appointments as scheduled Take your immunizations and boosters as scheduled If your symptoms worsen call your PCP, if no PCP go to Urgent Care Center or Emergency Room Smoking is Dangerous to Your Health. Avoid second hand smoke Call the 24-hour hour crisis hotline for domestic abuse at Laurie Toro MD R2 Aug 25, 2016 12:02
[2016-08-25 12:35] LABS: HDL CHOLESTEROL 58.6 MG/DL (40.0-60.0)
--- NOTE | 2016-08-25 16:50 | MG ---
cc: KIEL TREVIZO MD Lab No: [id number] Date: 08/24/16 Age: 70 Sex: F Race: 1945 A 70-year-old history of slurred speech, weakness, previous strokes with neglect. Asymmetric right hemispheric slowing noted. Overall generalized slowing, 20-50 microvolts with sharp transients T3 epoch 10. Limited driving with photic stimulation. Good EEG variability reactivity. Tiny phase reversal T4 epoch 126. Single lead EKG showing sinus rhythm. INTERPRETATION Mild to moderate encephalopathy with asymmetric right frontotemporal region slowing. There are bitemporal tiny sharp transients. No active seizures. Clinical correlation. MD JESSE Spence/ /4:56 PM /5:33 PM
[2016-08-25] MEDS: DONEPEZIL HCL 5 MG TAB PO SCH (21:06)
[2016-08-25] MEDS: ATORVASTATIN 40 MG TAB PO SCH (21:06)
[2016-08-25] MEDS: ACETAMINOPHEN/HYDROcodone 325 MG/5 MG TAB PO PRN (21:06)
[2016-08-26] VITALS (8 sets, daily range): BP systolic 101–129; BP diastolic 56–71; PULSE 55–75; RESP 16–22; TEMP 95.8–97.5; O2SAT 94–98
[2016-08-26 05:54] LABS: HEMATOCRIT 26.1 % (35.0-46.0)
[2016-08-26 06:00] LABS: REVIEW FLAG FINAL
--- NOTE | 2016-08-26 08:30 | HHI.FPPN ---
Subjective Remarks Pt seen and examined this morning. No acute events overnight. Having some back pain, but nothing new. Feels well otherwise. No chest pain, SOB, abdominal pain , leg pain. (Abhay Renteria MD R1) Objective Vitals Vital Signs Date Time Temp Pulse Resp B/P Pulse Ox O2 Delivery O2 Flow Rate FiO2 08/26/16 04:00 96.0 58 22 114/64 98 08/26/16 00:00 96.3 75 18 101/59 95 08/25/16 21:00 58 08/25/16 20:00 97.0 73 20 111/62 97 08/25/16 16:30 97.8 68 18 118/63 95 08/25/16 12:00 96.8 56 18 116/69 97 I/O 08/25/16 08/25/16 08/25/16 08/26/16 08/26/16 08/26/16 07:00 15:00 23:00 07:00 15:00 23:00 Intake Total 150 ml 600 ml 480 ml 240 ml Balance 150 ml 600 ml 480 ml 240 ml Intake Oral 150 ml 600 ml 480 ml 240 ml # Voids 1 4 2 2 # Bowel Movements 0 1 0 (Abhay Renteria MD R1) Result Diagram: 08/26/16 0442 08/25/16 0345 Objective Remarks GEN: Thin normally nourished lady laying in bed. No acute distress. CV: Regular rate and rhythm without obvious murmurs LUNGS: Clear to auscultation bilaterally. No wheezes, rales, rhonchi. EXT: No edema. No calf tenderness. NEURO/PSYCH: Awake, alert. Patient becoming more aware of left side. Eyes tend to drift to gaze toward right. Able to move left arm ok. Decreased strength on left, but improved. Dexterity still poor. Limited vision to the left. Appropriate insight and judgment. (Abhay Renteria MD R1) A/P Assessment and Plan 70-year-old female with history significant for recurrent CVA, A. fib, COPD. Admitted for acute ischemic stroke. Discharge Planning Once cleared by neurology and placement established for rehabilitation * Disposition may be postponed due to prior authorization from insurance required for inpatient rehabilitation dw Dr. Pimentel (Abhay Renteria MD R1) Attending Attestation Patient seen and examined. Case reviewed and discussed with the resident team. Agree with plan of care as discussed with me and documented in the resident note. (Jessica Pimentel MD) Problem List: (1) CVA (cerebral vascular accident) Status: Acute Plan: History of prior CVA with the most recent in April 2016. Was last seen normal on 0300 on day of admission and was therefore out of the window of TPA. She was also not a candidate for direct thrombolytic due to anticoagulation with Eliquis. New symptoms included slurred speech, left facial droop, eye deviation to the right and left sided flaccid weakness. Etiology of recurrence likely due to extensive tobacco use and/or afib -A1c and lipid panel from 04/2016 were unremarkable -ECHO from 04/2016: EF of 60-65% Neurology consulted: appreciate recommendations * Restart anticoagulation * Follow exam Imaging: * MRI/MRA: Acute or subacute infarct in the right MCA territory. Old infarcts present in the SUBASSEMBLY ASSEMBLER territory. Chronic appearing steno-occlusive disease in right MCA territory * Head CT: large areas of encephalomalacia involving the right posterior parietal, occipital and temporal lobes and left posterior parietal and occipital lobes consistent with old infarcts. No acute hemorrhage, acute infarct , mass effect or extra-axial fluid collections. * CXR: negative * EEG: MIld to moderate encephalopathy with asymmetric right frontotemporal slowing. Bitemporal tiny sharp transients. No active seizures Medications * Started Xarelto this morning (10mg daily x 2w, then 20mg daily; to improve compliance vs Eliquis) * Amlodipine * Aspirin 325mg daily * Plavix 75mg daily * Metoprolol 50mg BID * Increased Atorvastatin to 40mg daily (2) Atrial fibrillation Status: Chronic Plan: Currently rate controlled. -Continue metoprolol at the dosing used at last hospitalization as granddaughter was unsure of dosing -Change to Xarelto from Eliquis to improve compliance (3) Anemia Status: Chronic Plan: Repeat H&H, occult blood for stool ordered. -Occult blood not obtained but H&H is stable. Continue to monitor (4) COPD (chronic obstructive pulmonary disease) Status: Chronic Plan: Albuterol + Duo nebs (5) Nutrition, metabolism, and development symptoms Status: Acute Plan: Diet: Heart Healthy by ST Electrolytes: unremarkable Fluids: none DVT PPX: SCDs, Xarelto GI PPX: none indicated Chronic Conditions: * Dementia: Aricept * Depression: Fluoxetine (Abhay Renteria MD R1) Problem Qualifiers (1) CVA (cerebral vascular accident): Qualified Code: I63.9 - Cerebrovascular accident (CVA), unspecified mechanism (2) Atrial fibrillation: Qualified Code: I48.91 - Atrial fibrillation, unspecified type (3) Anemia: Qualified Code: D64.9 - Anemia, unspecified type (4) COPD (chronic obstructive pulmonary disease): Qualified Code: J44.9 - Chronic obstructive pulmonary disease, unspecified COPD type Abhay Renteria MD R1 Aug 26, 2016 08:30 Jessica Pimentel MD Aug 26, 2016 10:29
[2016-08-26] MEDS: SODIUM CHLORIDE 0.9% FLUSH 10 ML FLUSH IV FLUSH SCH ×2 (09:00→19:42)
[2016-08-26] MEDS: ASPIRIN EC 81 MG TABEC PO SCH (09:04)
[2016-08-26] MEDS: METOPROLOL TARTRATE 50 MG TAB PO SCH ×2 (09:04→19:42)
[2016-08-26] MEDS: amLODIPine BESYLATE 5 MG TAB PO SCH (09:04)
[2016-08-26] MEDS: RIVAROXABAN 10 MG TAB PO SCH (09:04)
[2016-08-26] MEDS: FLUoxetine HCL 20 MG CAP PO SCH (09:04)
--- NOTE | 2016-08-26 10:13 | HHI.PR ---
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 Subjective Subjective Comments No acute events reported No headache No chest pain No dyspnea Active Medications Current Medications Medications (Trade) Dose Ordered Sig/Haley Route Start Time Stop Time Status Last Admin (Aricept) 5 mg HS PO 08/23/16 21:00 08/25/16 21:06 (PROzac) 40 mg DAILY PO 08/24/16 09:00 08/26/16 09:04 (Norvasc) 5 mg DAILY PO 08/25/16 09:00 08/26/16 09:04 (NS Flush) 2 ml BID IV FLUSH 08/23/16 21:00 08/26/16 09:00 (NS Flush) 2 ml UNSCH PRN IV FLUSH 08/23/16 19:00 (Vasotec Inj) 1.25 mg Q4H PRN IV 08/23/16 19:00 (Lopressor) 50 mg Q12HR PO 08/23/16 21:00 08/26/16 09:04 (Lipitor) 40 mg HS PO 08/23/16 21:00 08/25/16 21:06 (Tylenol) 650 mg Q6H PRN PO 08/23/16 22:00 ([place] 5-325 Mg) 1 tab Q4H PRN PO 08/23/16 22:00 08/25/16 21:06 ([place] 7.5-325 Mg) 1 tab Q4H PRN PO 08/23/16 22:00 (Ecotrin Ec) 81 mg DAILY PO 08/26/16 09:00 08/26/16 09:04 (Xarelto) 10 mg DAILY PO 08/26/16 09:00 08/26/16 09:04 (Ferrous Sulfate) 325 mg DAILY PO 08/27/16 09:00 Allergies Allergies Coded Allergies Sulfa (Verified Allergy, Intermediate, 08/23/16) Review of Systems All other ROS: ROS reviewed as documented in chart Exam I&O / VS 08/25/16 08/25/16 08/26/16 15:00 23:00 07:00 Intake Total 600 ml 480 ml 240 ml Balance 600 ml 480 ml 240 ml Intake Oral 600 ml 480 ml 240 ml # Voids 4 2 2 # Bowel Movements 1 0 Vital Signs Date Time Temp Pulse Resp B/P Pulse Ox O2 Delivery O2 Flow Rate FiO2 08/26/16 08:00 96.9 59 19 129/59 98 08/26/16 04:00 96.0 58 22 114/64 98 08/26/16 00:00 96.3 75 18 101/59 95 08/25/16 21:00 58 08/25/16 20:00 97.0 73 20 111/62 97 08/25/16 16:30 97.8 68 18 118/63 95 08/25/16 12:00 96.8 56 18 116/69 97 General: Alert and Oriented, No acute distress Respiratory: Lungs CTA, Non-labored respirations Cardiology: Irregular Rhythm, Other Musculoskeletal: ROM Neurologic: Alert Psychiatric: Cooperative Exam Comments alert. pleasant, ox 2, not to date. follows, rt gaze preference, ou 3-2mm, left hh>rt, reduced left nlf, left ataxic-hemiparesis 2-3/5, sensory not reliable, gait not assessed 2/2 fall risk Objective Micro and Labs Laboratory Tests Test 08/26/16 04:42 Hemoglobin 8.1 Hematocrit 26.1 Problem Qualifiers (1) Atrial fibrillation: Qualified Code: I48.91 - Atrial fibrillation, unspecified type (2) Vascular dementia: Qualified Code: F01.50 - Vascular dementia without behavioral disturbance Gokul Jang MD Aug 26, 2016 10:13 Qualified Code: F01.50 - Vascular dementia without behavioral disturbance Gokul Jang MD Aug 26, 2016 10:13
[2016-08-26] MEDS: DONEPEZIL HCL 5 MG TAB PO SCH (19:42)
[2016-08-26] MEDS: ATORVASTATIN 40 MG TAB PO SCH (19:42)
[2016-08-27] VITALS (8 sets, daily range): BP systolic 104–134; BP diastolic 56–74; PULSE 50–101; RESP 16–18; TEMP 96.6–97.7; O2SAT 94–98
[2016-08-27 06:21] LABS: HEMATOCRIT 28.1 % (35.0-46.0)
[2016-08-27 06:24] LABS: REVIEW FLAG FINAL
[2016-08-27] MEDS: amLODIPine BESYLATE 5 MG TAB PO SCH (08:34)
[2016-08-27] MEDS: FERROUS SULFATE 325 MG (65 MG ELEMENTAL IRON) TAB PO SCH (08:34)
[2016-08-27] MEDS: RIVAROXABAN 10 MG TAB PO SCH (08:34)
[2016-08-27] MEDS: ASPIRIN EC 81 MG TABEC PO SCH (08:34)
[2016-08-27] MEDS: DOCUSATE SODIUM 50 MG/SENNA 8.6 MG TAB PO SCH (08:34)
[2016-08-27] MEDS: METOPROLOL TARTRATE 50 MG TAB PO SCH ×2 (08:34→20:33)
[2016-08-27] MEDS: FLUoxetine HCL 20 MG CAP PO SCH (08:34)
[2016-08-27] MEDS: SODIUM CHLORIDE 0.9% FLUSH 10 ML FLUSH IV FLUSH SCH ×2 (08:37→20:34)
--- NOTE | 2016-08-27 09:05 | HHI.FPPN ---
Subjective Remarks No acute events overnight. Vital signs unremarkable. This morning patient reports that she feels well and wants to go home. She is agreeable to go to rehab (Laurie Toro MD R2) Objective Vitals Vital Signs Date Time Temp Pulse Resp B/P Pulse Ox O2 Delivery O2 Flow Rate FiO2 08/27/16 08:00 96.6 56 18 110/69 94 08/27/16 04:00 97.0 55 17 117/56 94 08/27/16 00:00 97.7 58 16 134/61 94 08/26/16 23:15 66 08/26/16 20:00 97.5 66 16 122/58 96 116/59 08/26/16 16:00 95.8 56 19 128/71 98 08/26/16 12:35 55 08/26/16 12:00 96.4 61 19 108/56 94 I/O 08/26/16 08/26/16 08/26/16 08/27/16 08/27/16 08/27/16 07:00 15:00 23:00 07:00 15:00 23:00 Intake Total 240 ml 720 ml 240 ml 240 ml Balance 240 ml 720 ml 240 ml 240 ml Intake Oral 240 ml 720 ml 240 ml 240 ml # Voids 2 2 2 2 # Bowel Movements 0 0 0 0 (Laurie Toro MD R2) Result Diagram: 08/27/16 0549 08/25/16 0345 Objective Remarks GEN: Thin normally nourished lady laying in bed. No acute distress. CV: Regular rate and rhythm without obvious murmurs LUNGS: Clear to auscultation bilaterally. No wheezes, rales, rhonchi. EXT: No edema. No calf tenderness. NEURO/PSYCH: Awake, alert. Patient becoming more aware of left side. Makes good eye contact. Able to look and move to the left. Appropriate insight and judgment. (Laurie Toro MD R2) A/P Assessment and Plan 70-year-old female with history significant for recurrent CVA, A. fib, COPD. Admitted for acute ischemic stroke. Discharge Planning Today pending authorization from insurance. dw Dr. Renteria and Dr. Pimentel (Laurie Toro MD R2) Attending Attestation Patient seen and examined. Case reviewed and discussed with the resident team. Agree with plan of care as discussed with me and documented in the resident note. (Jessica Pimentel MD) Problem List: (1) CVA (cerebral vascular accident) Status: Acute Plan: History of prior CVA with the most recent in April 2016. Was last seen normal on 0300 on day of admission and was therefore out of the window of TPA. She was also not a candidate for direct thrombolytic due to anticoagulation with Eliquis. Etiology of recurrence likely due to extensive tobacco use and/or afib -A1c and lipid panel from 04/2016 were unremarkable -ECHO from 04/2016: EF of 60-65% Neurology consulted: appreciate recommendations * Restart anticoagulation Imaging: * MRI/MRA: Acute or subacute infarct in the right MCA territory. 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 Chronic appearing steno-occlusive disease in right MCA territory * Head CT: large areas of encephalomalacia involving the right posterior parietal, occipital and temporal lobes and left posterior parietal and occipital lobes consistent with old infarcts. No acute hemorrhage, acute infarct , mass effect or extra-axial fluid collections. * CXR: negative * EEG: Mild to moderate encephalopathy with asymmetric right frontotemporal slowing. Bitemporal tiny sharp transients. No active seizures Medications * Xarelto (10mg daily x 2w, then 20mg daily; to improve compliance vs Eliquis) * Amlodipine * Aspirin 81mg daily * Plavix 75mg daily * Metoprolol 50mg BID * Atorvastatin to 40mg daily (2) Atrial fibrillation Status: Chronic Plan: Currently rate controlled. -Continue metoprolol at the dosing used at last hospitalization as granddaughter was unsure of dosing (3) Anemia Status: Chronic Plan: Repeat H&H, occult blood for stool ordered. -Occult blood not obtained but H&H is stable. -iron supplementation (4) COPD (chronic obstructive pulmonary disease) Status: Chronic Plan: Albuterol + Duo nebs (5) Nutrition, metabolism, and development symptoms Status: Acute Plan: Diet: Heart Healthy by ST Electrolytes: unremarkable Fluids: none DVT PPX: SCDs, Xarelto GI PPX: none indicated Chronic Conditions: * Dementia: Aricept * Depression: Fluoxetine (Laurie Toro MD R2) Problem Qualifiers (1) CVA (cerebral vascular accident): Qualified Code: I63.9 - Cerebrovascular accident (CVA), unspecified mechanism (2) Atrial fibrillation: Qualified Code: I48.91 - Atrial fibrillation, unspecified type (3) Anemia: Qualified Code: D64.9 - Anemia, unspecified type (4) COPD (chronic obstructive pulmonary disease): Qualified Code: J44.9 - Chronic obstructive pulmonary disease, unspecified COPD type aLurie Toro MD R2 Aug 27, 2016 09:04 Jessica Pimentel MD Aug 27, 2016 09:10
[2016-08-27] MEDS: ACETAMINOPHEN/HYDROcodone 325 MG/5 MG TAB PO PRN (17:45)
[2016-08-27] MEDS: ATORVASTATIN 40 MG TAB PO SCH (20:33)
[2016-08-27] MEDS: DONEPEZIL HCL 5 MG TAB PO SCH (20:33)
[2016-08-28] VITALS (9 sets, daily range): BP systolic 89–145; BP diastolic 54–63; PULSE 48–58; RESP 16–18; TEMP 96.6–97.8; O2SAT 94–98
--- NOTE | 2016-08-28 08:24 | HHI.PR ---
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 Subjective Subjective Comments No acute events reported No headache No chest pain No dyspnea Active Medications Current Medications Medications (Trade) Dose Ordered Sig/Haley Route Start Time Stop Time Status Last Admin (Aricept) 5 mg HS PO 08/23/16 21:00 08/27/16 20:33 (PROzac) 40 mg DAILY PO 08/24/16 09:00 08/27/16 08:34 (Norvasc) 5 mg DAILY PO 08/25/16 09:00 08/27/16 08:34 (NS Flush) 2 ml BID IV FLUSH 08/23/16 21:00 08/27/16 08:37 (NS Flush) 2 ml UNSCH PRN IV FLUSH 08/23/16 19:00 (Vasotec Inj) 1.25 mg Q4H PRN IV 08/23/16 19:00 (Lopressor) 50 mg Q12HR PO 08/23/16 21:00 08/27/16 20:33 (Lipitor) 40 mg HS PO 08/23/16 21:00 08/27/16 20:33 (Tylenol) 650 mg Q6H PRN PO 08/23/16 22:00 ([place] 5-325 Mg) 1 tab Q4H PRN PO 08/23/16 22:00 08/27/16 17:45 ([place] 7.5-325 Mg) 1 tab Q4H PRN PO 08/23/16 22:00 (Ecotrin Ec) 81 mg DAILY PO 08/26/16 09:00 08/27/16 08:34 (Xarelto) 10 mg DAILY PO 08/26/16 09:00 08/27/16 08:34 (Ferrous Sulfate) 325 mg DAILY PO 08/27/16 09:00 08/27/16 08:34 (Aylin-Colace) 1 tab DAILY PO 08/27/16 09:00 08/27/16 08:34 Allergies Allergies Coded Allergies Sulfa (Verified Allergy, Intermediate, 3/23/17) Review of Systems All other ROS: ROS reviewed as documented in chart Exam I&O / VS 08/27/16 08/27/16 08/28/16 14:59 22:59 06:59 Intake Total 1200 ml 240 ml 240 ml Balance 1200 ml 240 ml 240 ml Intake Oral 1200 ml 240 ml 240 ml # Voids 2 1 1 # Bowel Movements 0 0 0 Vital Signs Date Time Temp Pulse Resp B/P Pulse Ox O2 Delivery O2 Flow Rate FiO2 08/28/16 06:50 Room Air 08/28/16 04:00 97.1 53 16 117/63 94 08/28/16 03:00 53 08/28/16 00:00 96.6 48 17 145/59 96 08/27/16 22:00 55 08/27/16 20:04 51 16 120/61 94 08/27/16 20:00 96.9 50 16 114/65 94 08/27/16 16:00 97.4 101 18 107/66 98 08/27/16 12:00 96.8 57 18 104/74 94 General: Alert and Oriented, No acute distress Respiratory: Lungs CTA, Non-labored respirations Cardiology: Irregular Rhythm, Other Musculoskeletal: ROM Neurologic: Alert Psychiatric: Cooperative Exam Comments alert. pleasant, ox 2, not to date. follows, rt gaze preference, ou 3-2mm, left hh>rt, reduced left nlf, left ataxic-hemiparesis 2-3/5, sensory not reliable, gait not assessed 2/2 fall risk Problem Qualifiers (1) Atrial fibrillation: Qualified Code: I48.91 - Atrial fibrillation, unspecified type (2) Vascular dementia: Qualified Code: F01.50 - Vascular dementia without behavioral disturbance Gokul Jang MD Aug 28, 2016 08:24
[2016-08-28] MEDS: SODIUM CHLORIDE 0.9% FLUSH 10 ML FLUSH IV FLUSH SCH ×2 (08:49→20:20)
[2016-08-28] MEDS: ASPIRIN EC 81 MG TABEC PO SCH (08:49)
[2016-08-28] MEDS: RIVAROXABAN 10 MG TAB PO SCH (08:50)
[2016-08-28] MEDS: METOPROLOL TARTRATE 50 MG TAB PO SCH ×2 (08:50→20:20)
[2016-08-28] MEDS: FERROUS SULFATE 325 MG (65 MG ELEMENTAL IRON) TAB PO SCH (08:50)
[2016-08-28] MEDS: amLODIPine BESYLATE 5 MG TAB PO SCH (08:50)
[2016-08-28] MEDS: DOCUSATE SODIUM 50 MG/SENNA 8.6 MG TAB PO SCH (08:50)
[2016-08-28] MEDS: FLUoxetine HCL 20 MG CAP PO SCH (08:50)
--- NOTE | 2016-08-28 12:22 | HHI.FPPN ---
Subjective Remarks Pt seen and examined this morning. No acute events overnight. Pt feels improved , ready to go to rehab. Complains of chronic lower back pain, no other concerns. (Abhay Renteria MD R1) Objective Vitals Vital Signs Date Time Temp Pulse Resp B/P Pulse Ox O2 Delivery O2 Flow Rate FiO2 08/28/16 12:03 58 08/28/16 12:03 57 08/28/16 11:37 96.8 57 17 89/54 96 08/28/16 08:14 97.6 55 18 113/57 98 08/28/16 06:50 Room Air 08/28/16 04:00 97.1 53 16 117/63 94 08/28/16 03:00 53 08/28/16 00:00 96.6 48 17 145/59 96 08/27/16 22:00 55 08/27/16 20:04 51 16 120/61 94 08/27/16 20:00 96.9 50 16 114/65 94 08/27/16 16:00 97.4 101 18 107/66 98 I/O 08/27/16 08/27/16 08/27/16 08/28/16 08/28/16 08/28/16 07:00 15:00 23:00 07:00 15:00 23:00 Intake Total 240 ml 1200 ml 240 ml 240 ml Balance 240 ml 1200 ml 240 ml 240 ml Intake Oral 240 ml 1200 ml 240 ml 240 ml # Voids 2 2 1 1 # Bowel Movements 0 0 0 0 (Abhay Renteria MD R1) Result Diagram: 08/27/16 0549 08/25/16 0345 Objective Remarks GEN: Thin normally nourished lady sitting up in bed. NAD. CV: Regular rate and rhythm without obvious murmurs LUNGS: Clear to auscultation bilaterally. No wheezes, rales, rhonchi. EXT: No edema. No calf tenderness. NEURO/PSYCH: Awake, alert. Makes good eye contact. Gaze improving. Able to look and move to the left. Appropriate insight and judgment. Strength improving. ( Abhay Renteria MD R1) A/P Assessment and Plan 70-year-old female with history significant for recurrent CVA, A. fib, COPD. Admitted for acute ischemic stroke. Discharge Planning Today pending authorization from insurance. (Abhay Renteria MD R1) Attending Attestation Patient seen and examined. Case reviewed and discussed with the resident team. Agree with plan of care as discussed with me and documented in the resident note. (Jessica Pimentel MD) Problem List: (1) CVA (cerebral vascular accident) Status: Acute Plan: History of prior CVA with the most recent in April 2016. Was last seen normal on 0300 on day of admission and was therefore out of the window of TPA. She was also not a candidate for direct thrombolytic due to anticoagulation with Eliquis. Etiology of recurrence likely due to extensive tobacco use and/or afib -A1c and lipid panel from 04/2016 were unremarkable -ECHO from 04/2016: EF of 60-65% Neurology consulted: appreciate recommendations * Restart anticoagulation Imaging: * MRI/MRA: Acute or subacute infarct in the right MCA territory. 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 Chronic appearing steno-occlusive disease in right MCA territory * Head CT: large areas of encephalomalacia involving the right posterior parietal, occipital and temporal lobes and left posterior parietal and occipital lobes consistent with old infarcts. No acute hemorrhage, acute infarct , mass effect or extra-axial fluid collections. * CXR: negative * EEG: Mild to moderate encephalopathy with asymmetric right frontotemporal slowing. Bitemporal tiny sharp transients. No active seizures Medications * Xarelto (10mg daily x 2w, then 20mg daily; to improve compliance vs Eliquis) * Amlodipine * Aspirin 81mg daily * Plavix 75mg daily * Metoprolol 50mg BID * Atorvastatin to 40mg daily (2) Atrial fibrillation Status: Chronic Plan: Currently rate controlled. -Continue metoprolol at the dosing used at last hospitalization as granddaughter was unsure of dosing (3) Anemia Status: Chronic Plan: Repeat H&H, occult blood for stool ordered. -Occult blood not obtained but H&H is stable. -iron supplementation (4) COPD (chronic obstructive pulmonary disease) Status: Chronic Plan: Albuterol + Duo nebs (5) Nutrition, metabolism, and development symptoms Status: Acute Plan: Diet: Heart Healthy by ST Electrolytes: unremarkable Fluids: none DVT PPX: SCDs, Xarelto GI PPX: none indicated Chronic Conditions: * Dementia: Aricept * Depression: Fluoxetine (Abhay Renteria MD R1) Problem Qualifiers (1) CVA (cerebral vascular accident): Qualified Code: I63.9 - Cerebrovascular accident (CVA), unspecified mechanism (2) Atrial fibrillation: Qualified Code: I48.91 - Atrial fibrillation, unspecified type (3) Anemia: Qualified Code: D64.9 - Anemia, unspecified type (4) COPD (chronic obstructive pulmonary disease): Qualified Code: J44.9 - Chronic obstructive pulmonary disease, unspecified COPD type Abhay Renteria MD R1 Aug 28, 2016 12:22 Jessica Pimentel MD Aug 29, 2016 09:14
[2016-08-28] MEDS: ATORVASTATIN 40 MG TAB PO SCH (20:20)
[2016-08-28] MEDS: DONEPEZIL HCL 5 MG TAB PO SCH (20:20)
[2016-08-29 00:30] VITALS: BP 106/52; PULSE 62; RESP 18; TEMP 96.6; O2SAT 95
[2016-08-29 03:40] VITALS: BP 118/58; PULSE 53; RESP 16; TEMP 97.5; O2SAT 95
[2016-08-29 07:30] VITALS: BP 133/71; PULSE 62; RESP 20; TEMP 97.5; O2SAT 93
[2016-08-29] MEDS: METOPROLOL TARTRATE 50 MG TAB PO SCH (08:48)
[2016-08-29] MEDS: ASPIRIN EC 81 MG TABEC PO SCH (08:48)
[2016-08-29] MEDS: FERROUS SULFATE 325 MG (65 MG ELEMENTAL IRON) TAB PO SCH (08:48)
[2016-08-29] MEDS: DOCUSATE SODIUM 50 MG/SENNA 8.6 MG TAB PO SCH (08:49)
[2016-08-29] MEDS: amLODIPine BESYLATE 5 MG TAB PO SCH (08:49)
[2016-08-29] MEDS: FLUoxetine HCL 20 MG CAP PO SCH (08:49)
[2016-08-29] MEDS: RIVAROXABAN 10 MG TAB PO SCH (08:49)
[2016-08-29] MEDS: ACETAMINOPHEN/HYDROcodone 325 MG/5 MG TAB PO PRN (08:50)
--- NOTE | 2016-08-29 09:59 | HHI.FPPN ---
Subjective Remarks No acute events overnight. VS unremarkable except for some low BP but patient has been asymptomatic. This morning patient reports feeling well and has no concerns except for wanting to be discharged. (Laurie Toro MD R2) Objective Vitals Vital Signs Date Time Temp Pulse Resp B/P Pulse Ox O2 Delivery O2 Flow Rate FiO2 08/29/16 07:30 97.5 62 20 133/71 93 08/29/16 03:40 97.5 53 16 118/58 95 08/29/16 00:30 96.6 62 18 106/52 95 08/28/16 20:00 96 Room Air 08/28/16 20:00 58 08/28/16 20:00 58 08/28/16 19:50 96.8 58 18 103/55 96 08/28/16 15:40 97.8 57 18 89/58 95 08/28/16 12:03 58 08/28/16 12:03 57 08/28/16 11:37 96.8 57 17 89/54 96 I/O 08/28/16 08/28/16 08/28/16 08/29/16 08/29/16 08/29/16 07:00 15:00 23:00 07:00 15:00 23:00 Intake Total 240 ml 480 ml 600 ml 600 ml Balance 240 ml 480 ml 600 ml 600 ml Intake Oral 240 ml 480 ml 600 ml 600 ml # Voids 1 2 3 2 # Bowel Movements 0 2 0 0 (Laurie Toro MD R2) Result Diagram: 08/27/16 0549 08/25/16 0345 Objective Remarks GEN: Thin normally nourished lady sitting up in bed eating breakfast. NAD. CV: Regular rate and rhythm without obvious murmurs LUNGS: Clear to auscultation bilaterally. No wheezes, rales, rhonchi. NEURO/PSYCH: Awake, alert. Makes good eye contact. Gaze improving. Able to look and move to the left. Appropriate insight and judgment. Strength improving. ( Laurie Toro MD R2) A/P Assessment and Plan 70-year-old female with history significant for recurrent CVA, A. fib, COPD. Admitted for acute ischemic stroke. Discharge Planning Today, pre auth approved. sdw Dr. Pimentel (Laurie Toro MD R2) Attending Attestation Patient seen and examined. Case reviewed and discussed with the resident team. Agree with plan of care as discussed with me and documented in the resident note. (Jessica Pimentel MD) Problem List: (1) CVA (cerebral vascular accident) Status: Acute Plan: History of prior CVA with the most recent in April 2016. Was last seen normal on 0300 on day of admission and was therefore out of the window of TPA. She was also not a candidate for direct thrombolytic due to anticoagulation with Eliquis. Etiology of recurrence likely due to extensive tobacco use and/or afib -A1c and lipid panel from 04/2016 were unremarkable -ECHO from 04/2016: EF of 60-65% Neurology consulted: appreciate recommendations * Restart anticoagulation Imaging: * MRI/MRA: Acute or subacute infarct in the right MCA territory. 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 Chronic appearing steno-occlusive disease in right MCA territory * Head CT: large areas of encephalomalacia involving the right posterior parietal, occipital and temporal lobes and left posterior parietal and occipital lobes consistent with old infarcts. No acute hemorrhage, acute infarct , mass effect or extra-axial fluid collections. * CXR: negative * EEG: Mild to moderate encephalopathy with asymmetric right frontotemporal slowing. Bitemporal tiny sharp transients. No active seizures Medications * Xarelto (10mg daily x 2w, then 20mg daily; to improve compliance vs Eliquis) * Amlodipine * Aspirin 81mg daily * Plavix 75mg daily * Metoprolol 50mg BID * Atorvastatin to 40mg daily (2) Atrial fibrillation Status: Chronic Plan: Currently rate controlled. -Continue metoprolol at the dosing used at last hospitalization as granddaughter was unsure of dosing (3) Anemia Status: Chronic Plan: Repeat H&H, occult blood for stool ordered. -Occult blood not obtained but H&H is stable. -iron supplementation (4) COPD (chronic obstructive pulmonary disease) Status: Chronic Plan: Albuterol + Duo nebs (5) Nutrition, metabolism, and development symptoms Status: Acute Plan: Diet: Heart Healthy by ST Electrolytes: unremarkable Fluids: none DVT PPX: SCDs, Xarelto GI PPX: none indicated Chronic Conditions: * Dementia: Aricept * Depression: Fluoxetine (Laurie Toro MD R2) Problem Qualifiers (1) CVA (cerebral vascular accident): Qualified Code: I63.9 - Cerebrovascular accident (CVA), unspecified mechanism (2) Atrial fibrillation: Qualified Code: I48.91 - Atrial fibrillation, unspecified type (3) Anemia: Qualified Code: D64.9 - Anemia, unspecified type (4) COPD (chronic obstructive pulmonary disease): Qualified Code: J44.9 - Chronic obstructive pulmonary disease, unspecified COPD type Laurie Toro MD R2 Aug 29, 2016 09:59 Jessica Pimentel MD Aug 29, 2016 13:40
[2016-08-29] MEDS ORDERED: FERR325T PO (10:02)
[2016-08-29] MEDS ORDERED: XARE20TA PO (10:02)
[2016-08-29] MEDS ORDERED: XARE10TA PO (10:02)
[2016-08-29 11:20] VITALS: BP 114/58; PULSE 56; RESP 12; TEMP 96.8; O2SAT 95
--- NOTE | 2016-08-29 15:00 | HHI.DS ---
Discharge Summary Admission Date Aug 23, 2016 at 18:01 Discharge Date: Aug 29, 2016 Admitting Diagnosis CVA (1) CVA (cerebral vascular accident) Plan: History of prior CVA with the most recent in April 2016. Was last seen normal on 0300 on day of admission and was therefore out of the window of TPA. She was also not a candidate for direct thrombolytic due to anticoagulation with Eliquis. Etiology of recurrence likely due to extensive tobacco use and/or afib -A1c and lipid panel from 04/2016 were unremarkable -ECHO from 04/2016: EF of 60-65% Neurology consulted: appreciate recommendations * Restart anticoagulation Imaging: * MRI/MRA: Acute or subacute infarct in the right MCA territory. Old infarcts present in the [employer] territory. Chronic appearing steno-occlusive disease in right MCA territory * Head CT: large areas of encephalomalacia involving the right posterior parietal, occipital and temporal lobes and left posterior parietal and occipital lobes consistent with old infarcts. No acute hemorrhage, acute infarct , mass effect or extra-axial fluid collections. * CXR: negative * EEG: Mild to moderate encephalopathy with asymmetric right frontotemporal slowing. Bitemporal tiny sharp transients. No active seizures Medications * Xarelto (10mg daily x 2w, then 20mg daily; to improve compliance vs Eliquis) * Amlodipine * Aspirin 81mg daily * Plavix 75mg daily * Metoprolol 50mg BID * Atorvastatin to 40mg daily (2) Atrial fibrillation Plan: Currently rate controlled. -Continue metoprolol at the dosing used at last hospitalization as granddaughter was unsure of dosing (3) Anemia Plan: Repeat H&H, occult blood for stool ordered. -Occult blood not obtained but H&H is stable. -iron supplementation (4) COPD (chronic obstructive pulmonary disease) Plan: Albuterol + Duo nebs (5) Nutrition, metabolism, and development symptoms Plan: Diet: Heart Healthy by ST Electrolytes: unremarkable Fluids: none DVT PPX: SCDs, Xarelto GI PPX: none indicated Chronic Conditions: * Dementia: Aricept * Depression: Fluoxetine [facility] Neu[facility] Brief History Patient is a 70-year-old female with history significant for recurrent CVA, A. fib, COPD. Of note patient was recently admitted in April 2016 for similar symptoms and was found to have new acute infarct of left occipital, posterior temporal and right thalamus. Neurology was consulted during that hospitalization and recommended continuing Eliquis and ASA. Today, presented to the ED due to slurred speech and confusion. Patient reports that she does not know why she is in the hospital and that she feels well enough to go home. Granddaughter provided most of the history who stated that she was last seen normal at 3:00 in the morning. She went to bed at that time and did not wake up until 3 PM at which time she had slurred speech and was having confused speech. She was able to walk but was drooling from the left side of her mouth. Since the afternoon, symptoms have progressed and now involve her left arm and left leg. Granddaughter reports that she now is only looking to her right. Her eyes also deviated to the right. At baseline, she had poor vision and would get confused with direction. She also required minimal assistance when walking. Prior to the onset of events, patient was at her baseline and granddaughter denied any other symptoms. CBC/BMP: 08/27/16 0549 08/25/16 0345 Significant Findings Laboratory Tests Test 08/27/16 05:49 Hemoglobin 8.3 GM/DL (11.6-15.3) Hematocrit 28.1 % (35.0-46.0) Imaging Last Impressions Head Magnetic Resonance Angiography 08/24/16 0000 Signed Impressions: Service Date/Time: Wednesday, August 24, 2016 08:53 - CONCLUSION: Chronic appearing steno-occlusive disease in the right MCA territory. Fidencio Padilla MD Brain MRI 08/24/16 0000 Signed Impressions: Service Date/Time: Wednesday, August 24, 2016 08:53 - CONCLUSION: 1. Acute or subacute infarct in the right MCA territory involving portions of the parietal lobe, subinsular cortex and the white matter tract at the junction of the velásquez radiata and centrum semi-ovale. 2. Old infarcts in the [employer] territories bilaterally as well as the right temporal-parietal/occipital watershed area. Colin Patterson MD Head CT 08/23/16 1557 Signed Impressions: Service Date/Time: August 16:29 - CONCLUSION: 1. Large areas of encephalomalacia involving the right posterior parietal, occipital and temporal lobes and left posterior parietal and occipital lobes consistent with old infarcts. 2. No acute hemorrhage, acute infarct, mass effect or extra- axial fluid collections. Jb Rodriguez MD Chest X-Ray 08/23/16 1557 Signed Impressions: Service Date/Time: August 16:06 - CONCLUSION: No acute disease. Jb Rodriguez MD PE at Discharge GEN: Thin normally nourished lady sitting up in bed eating breakfast. NAD. CV: Regular rate and rhythm without obvious murmurs LUNGS: Clear to auscultation bilaterally. No wheezes, rales, rhonchi. NEURO/PSYCH: Awake, alert. Makes good eye contact. Gaze improving. Able to look and move to the left. Appropriate insight and judgment. Strength improving. Hospital Course 70-year-old female with history significant for recurrent CVA, A. fib, COPD. Presented due to slurred speech and left-sided weakness that was suspected to be due to stroke. Patient was not a candidate for TPA due to timeline as well as patient being on Eliquis. MRI was significant for acute/subacute infarct in the right MCA territory. Symptomatically, patient developed left-sided neglect and flaccid paralysis that did improve during hospitalization. Patient was noncompliant with anticoagulant and was then changed to Xarelto as this is only a daily dosing. Patient was otherwise asymptomatic and was discharged in stable condition to inpatient rehabilitation. Pt Condition on Discharge: Stable Discharge Disposition: Rehab Inpatient Discharge Instructions DIET: Follow Instructions for: Heart Healthy Diet Activities you can perform: See Additionl Instruction Other Activity Instructions: Per PT recommendation Follow up Referrals: Appointment for Follow Up - 1 Week with Demetrius Villarreal DO Neurology - 1 Week with Gokul Jang MD New Medications: Rivaroxaban (Xarelto) 20 Mg Tab 20 MG PO DAILY Take the Xarelto 10mg for 10days before starting Xarelto 20mg. DO NOT TAKE BOTH AT THE SAME TIME Blood Clot Prevention #60 Ref 0 TAB Ferrous Sulfate (Ferrous Sulfate) 325 Mg Tab 325 MG PO DAILY #30 TAB Metoprolol Tartrate (Lopressor) 50 Mg Tab 50 MG PO Q12HR #60 TAB Rivaroxaban (Xarelto) 10 Mg Tab 10 MG PO DAILY Complete Xarelto 10mg before beginning Xarelto 20mg. DO NOT TAKE BOTH AT THE SAME TIME #10 TAB Continued Medications: Albuterol 18 GM Inh (Ventolin Hfa 18 GM Inh) 90 Mcg/Act Aer 2 PUFF INH Q6H PRN SHORTNESS OF BREATH Days 30 INHALER Amlodipine (Norvasc) 5 Mg Tab 5 MG PO DAILY Days [address] (Aspirin EC) 81 Mg Tabdr 81 MG PO DAILY Days 30 TAB Baclofen (Baclofen) 20 Mg Tab 20 MG PO TID Muscle Spasm Ref 0 TAB Donepezil (Aricept) 5 Mg Tab 5 MG PO HS Days 30 TAB Fluoxetine (Fluoxetine) 40 Mg Cap 40 CAP PO DAILY #30 Ref 0 CAP Hydrocodone-Acetaminophen (Brashear) 10-325 Mg Tab 1 TAB PO Q8HR PRN PAIN Ref 0 TAB Discontinued Medications: Apixaban (Eliquis) 5 Mg Tab 5 MG PO BID Days 30 TAB Atorvastatin (Lipitor) 10 Mg Tab 10 MG PO HS Days 30 TAB Metoprolol Tartrate (Metoprolol Tartrate) 75 Mg Tab 75 MG PO BID #60 Ref 0 TAB Laurie Toro MD R2 Aug 29, 2016 15:00
[2016-09-10] MEDS ORDERED: ATOR40TA16 PO (13:05)
[2016-09-10] MEDS ORDERED: AMLO10 PO (13:05)
[2016-09-10] MEDS ORDERED: FOLI1TAB4 PO (13:05)
[2016-09-10] MEDS ORDERED: BACL10TA PO (13:05)
[2016-09-10] MEDS ORDERED: XARE20TA PO ×2 (13:05→13:14)
[2016-09-10] MEDS ORDERED: FERR325T PO (13:05)
[2016-09-10] MEDS ORDERED: ARIC5TAB PO (13:05)
[2016-09-10] MEDS ORDERED: Pill Splitter OTHER (13:05)
[2016-09-10] MEDS ORDERED: FLUO40CA PO (13:05)
[2016-09-10] MEDS ORDERED: ASPI81TA11 PO (13:05)
[2016-09-10] MEDS ORDERED: VENTAER INH (13:05)
[2016-09-11] MEDS ORDERED: PANT20 PO (08:57)
[2016-09-11] MEDS ORDERED: HYDR-3516 PO (09:02)
[2016-09-11] MEDS ORDERED: METO25TA3 PO (09:03)
[2016-09-11] MEDS ORDERED: COMMODE 3-IN-11 MIS ×2 (11:32→11:40)
[2016-09-11] MEDS ORDERED: GETGO ROLLING W1 MI1 (11:32)
== END 2016-08-29 11:23 | DRG 65 ==
LOC: NEPE 15:45 → NEDA 18:01 → NEPFCDU 23:37 → N06A 08-24 20:32
PROVIDERS: ADMIT Family Medicine; ATTEND Family Medicine
DX: I63.511 Cerebral infarction due to unspecified occlusion or stenosis of right middle cerebral artery (principal); R41.4 Neurologic neglect syndrome; G81.04 Flaccid hemiplegia affecting left nondominant side; I48.91 Unspecified atrial fibrillation; F01.50 Vascular dementia, unspecified severity, without behavioral disturbance, psychotic disturbance, mood disturbance, and anxiety; I10 Essential (primary) hypertension; F32.9 Major depressive disorder, single episode, unspecified; R47.81 Slurred speech; R29.810 Facial weakness; J44.9 Chronic obstructive pulmonary disease, unspecified; E78.5 Hyperlipidemia, unspecified; D64.9 Anemia, unspecified; F17.210 Nicotine dependence, cigarettes, uncomplicated; Z86.73 Personal history of transient ischemic attack (TIA), and cerebral infarction without residual deficits; Z79.02 Long term (current) use of antithrombotics/antiplatelets; Z91.19 Patient's noncompliance with other medical treatment and regimen; Z86.718 Personal history of other venous thrombosis and embolism; G89.29 Other chronic pain; M54.5 Low back pain
CPT/HCPCS: 70450; 70544; 70551; 71010; 80048; 80053; 80061; 81001; 82550; 82948; 83036; 83540; 83550; 83735; 84484; 85014; 85018; 85025; 85027; 85610; 85730; 93005; 95819; 96360; J7030; J7040

== ENCOUNTER 2016-09-20 10:00 | Inpatient (IN) | payer OTHER, MEDICAID, MEDICARE ==
[2016-09-20] VITALS (14 sets, daily range): BP systolic 62–117; BP diastolic 40–65; PULSE 70–119; RESP 15–18; TEMP 97.4–98.4; O2SAT 97–99
[~2016-09-20] VITALS: Ht 152.4 cm; Wt 62.2 kg
[~2016-09-20 10:00] MED LIST changes: +AMLO10 PO; -AMLO5 PO; -APIX5TAB PO; +ATOR40TA16 PO; -Aspirin Chew PO; +BACL10TA PO; +COMMODE 3-IN-11 MIS; +FERR325T PO; -FLUO20CA4 PO; +FLUO40CA PO; +FOLI1TAB4 PO; +GETGO ROLLING W1 MI1; +HYDR-3516 PO; -LIPI10TA PO; -METO50TA PO; +PANT20 PO; +Pill Splitter OTHER; -WHEEMIS3; +XARE20TA PO
[2016-09-20] MEDS ORDERED: SODIUM CHLOR 0.9% 1000 ML INJ 1,000 ML IV ONE ×2 (10:15→11:15)
[2016-09-20] MEDS ORDERED: SODIUM CHLOR 0.9% 1000 ML INJ 1,000 ML IV SCH (10:15)
[2016-09-20] MEDS ORDERED: SODIUM CHLORIDE 0.9% FLUSH 10 ML FLUSH IVF PRN (10:15)
[2016-09-20 10:53] LABS: BASOPHIL # 0.1 TH/MM3 (0-0.2); BASOPHIL % 0.7 % (0.0-2.0); EOSINOPHIL # 0.2 TH/MM3 (0-0.4); EOSINOPHIL % 2.2 % (0.0-4.0); LYMPH % 21.8 % (9.0-44.0); LYMPHOCYTE # 2.2 TH/MM3 (1.0-4.8); MEAN CELL VOLUME 76.9 FL (80.0-100.0); MEAN CORPUSCULAR HEMOGLOBIN 23.8 PG (27.0-34.0); MONO % 6.4 % (0.0-8.0); NEUT % 68.9 % (16.0-70.0); PLATELET COUNT 510 TH/MM3 (150-450); RED BLOOD COUNT 2.28 MIL/MM3 (4.00-5.30); WHITE BLOOD COUNT 10.1 TH/MM3 (4.0-11.0)
--- NOTE | 2016-09-20 10:59 | RADRPT ---
EXAM DATE/TIME: 09/20/2016 10:27 [facility] COMPARISON: CT ABDOMEN & PELVIS W/O CONTRAST, September 20, 2016, 10:27. INDICATIONS : Nausea and vomiting. Evaluate for aneurysm. RADIATION DOSE: 5.32 CTDIvol (mGy) ; Combined studies - Thorax/Abdomen/Pelvis MEDICAL HISTORY : Hypertension. Stroke Chronic obstructive pulmonary disease. SURGICAL HISTORY : Cholecystectomy. Spinal fusion ENCOUNTER: Initial ACUITY: 1 day PAIN SCALE: 5/10 LOCATION: Bilateral cranial TECHNIQUE: Volumetric scanning of the chest was performed. Using automated exposure control and adjustment of the mA and/or kV according to patient size, radiation dose was kept as low as reasonab ly achievable to obtain optimal diagnostic quality images. FINDINGS: The lungs are clear without infiltrate, nodule, or mass. There is no pleural effusion. No appreciab le pathological adenopathy is seen within the mediastinum. There are tiny gas bubbles anterior to the sternum in the subcutaneous tissues of the couplet gas bubbles adjacent to the right internal mammar y chain could be postprocedural if the patient has had injections at these sites. Coronary artery michael cifications are seen typically seen with CAD and need to be evaluated clinically. There is an approxi mate 2.3 cm cystic mass in the left hepatic lobe not adequately characterize possibly a small cyst. T here is also an approximate 2.6 cm mass in the left adrenal gland low attenuating possibly an adenoma . CONCLUSION: 1. Cystic mass in the liver possibly simple cyst, however not adequately characterized. 2. Left adrenal mass most likely an adenoma. 3. Gas bubbles anterior to the sternum in the subcutaneous tissues of the couplet gas bubbles adjacen t to the right internal mammary chain could be postprocedural if the patient has had injections at [facility] sites. Jordi Bañuelos MD on September 20, 2016 at 10:50 Board Certified Radiologist. This report was verified electronically.
[2016-09-20 11:00] LABS: HEMO FLAGS AUTO DIFF
[2016-09-20 11:01] LABS: INTERNATIONAL NORMALIZED RATIO 1.4 RATIO; PROTHROMBIN TIME - PATIENT 15.3 SEC (9.8-11.6)
[2016-09-20 11:02] LABS: HEMATOCRIT 17.5 % (35.0-46.0)
[2016-09-20 11:11] LABS: ALT (GPT) 25 U/L (10-53); ANION GAP 11 MEQ/L (5-15); AST (GOT) 17 U/L (15-37); BICARBONATE 24.2 MEQ/L (21.0-32.0); BLOOD UREA NITROGEN 21 MG/DL (7-18); CHLORIDE 105 MEQ/L (98-107); GLOMERULAR FILTRATION RATE 73 ML/MIN (>89); POTASSIUM 3.7 MEQ/L (3.5-5.1); SODIUM (NA) 140 MEQ/L (136-145)
--- NOTE | 2016-09-20 11:13 | RADRPT ---
EXAM DATE/TIME: 09/20/2016 10:27 [facility] COMPARISON: No previous studies available for comparison. INDICATIONS : Nausea and vomiting. Evaluate for aneurysm. ORAL CONTRAST: No oral contrast ingested. RADIATION DOSE: 5.32 CTDIvol (mGy) ; Combined studies - Thorax/Abdomen/Pelvis MEDICAL HISTORY : Stroke. Hypertension. Chronic obstructive pulmonary disease. SURGICAL HISTORY : Cholecystectomy. Spinal fusion ENCOUNTER: Initial ACUITY: 1 day PAIN SCALE: 5/10 LOCATION: Bilateral cranial TECHNIQUE: Volumetric scanning of the abdomen and pelvis was performed. Using automated exposure control and ad justment of the mA and/or kV according to patient size, radiation dose was kept as low as reasonably achievable to obtain optimal diagnostic quality images. FINDINGS: CT Abdomen: There is an approximate 2.4 cm cyst in the left hepatic lobe. There is an approximate 2.6 cm mass in the left adrenal gland possibly an adenoma, however indeterminant. The spleen, pancreas, left kidney, right adrenal are unremarkable. There is no evidence for any appreciable pathological ad enopathy, free fluid, or bowel obstruction. There is evidence for prior cholecystectomy. There are p unctate calcifications in the kidneys probably vascular. There is probably a tiny exophytic 1 cm cyst coming off the right lower pole kidney. CT pelvis: There is no evidence for abscess formation, or any significant adenopathy within the pelvi s. There are calcified fibroids in the uterus. Old healed fracture of right inferior pubic ramus is s een. There are postsurgical changes in the right lowers lumbosacral spine and deformity of the sacrum due to old trauma. CONCLUSION: 1. Left adrenal mass nonspecific most likely an adenoma. 2. Hepatic cystic mass not adequately characterized most likely a simple cyst. 3. Uterine fibroids. Jordi Bañuelos MD on September 20, 2016 at 10:57 Board Certified Radiologist. This report was verified electronically.
--- NOTE | 2016-09-20 11:14 | RADRPT ---
EXAM DATE/TIME: 09/20/2016 10:27 [facility] COMPARISON: CT BRAIN W/O CONTRAST, August 23, 2016, 16:29. INDICATIONS : Cephalgia, nausea, and dizziness. History of stroke. RADIATION DOSE: 56.35 CTDIvol (mGy) MEDICAL HISTORY : Hypertension. Chronic obstructive pulmonary disease. Stroke. SURGICAL HISTORY : Cholecystectomy. Spinal fusion ENCOUNTER: Initial ACUITY: 1 day PAIN SCALE: 5/10 LOCATION: Bilateral cranial TECHNIQUE: Multiple contiguous axial images were obtained of the head. Using automated exposure control and adj ustment of the mA and/or kV according to patient size, radiation dose was kept as low as reasonably a chievable to obtain optimal diagnostic quality images. FINDINGS: CEREBRUM: Encephalomalacia consistent with prior strokes remain evident in both occipital lobes and in the righ t parietal lobe. No significant changes seen compared to the most recent study. There is no evidence of new stroke or hemorrhage. There is no evidence of mass effect. POSTERIOR FOSSA: The cerebellum and brainstem are intact. The 4th ventricle is midline. The cerebellopontine angle i s unremarkable. EXTRACRANIAL: The visualized portion of the orbits is intact. SKULL: The calvaria is intact. No evidence of skull fracture. CONCLUSION: Stable evaluation of the brain demonstrating post infarct encephalomalacia in the the right parietal and occipital lobes. No evidence of acute infarct, hemorrhage, mass or increasing edema. Isaias Sandhu MD on September 20, 2016 at 11:09 Board Certified Radiologist. This report was verified electronically.
[2016-09-20] MEDS ORDERED: SODIUM CHLOR 0.9% 250 ML INJ 250 ML IV ONE (11:15)
[2016-09-20 11:17] LABS: BLOOD, URINE NEG (NEG); GLUCOSE,URINE NEG (NEG); HYALINE CAST, URINE 1 /lpf (RARE); KETONE, URINE NEG (NEG); MUCUS URINE FEW /lpf (OCC); NITRITE,URINE NEG (NEG); SQUAMOUS EPITHELIAL CELL URINE 1 /hpf (0-5); URINE COLOR YELLOW (YELLW/STRAW)
[2016-09-20 11:19] LABS: COMMENT (UR) CATH-CULT NOT IND; CULTURE IF INDICATED CATH CULTURE NOT IND
[2016-09-20 11:21] LABS: ALKALINE PHOSPHATASE 92 U/L (45-117); TOTAL BILIRUBIN ADULT 0.2 MG/DL (0.2-1.0)
[2016-09-20 11:23] LABS: CREATINE KINASE 61 U/L (26-192)
--- NOTE | 2016-09-20 11:25 | PD ---
HPI Chief Complaint: Altered Mental Status Time Seen by Provider: 10:15 Travel History International Travel<30 days: No Contact w/Intl Traveler<30days: No Traveled to known affect area: No History of Present Illness HPI 70-year-old female came to the emergency room with history of dizziness, altered mental status. Her granddaughter brought her in saying that this morning when she woke up she was complaining of dizziness, headache and no back pain. Patient has a home health care nurse visiting her and she was there and she checked her blood pressure. She was told that the blood pressure was very high and the patient should be taken to the emergency room. However upon arrival to the emergency room triage patient's blood pressure was 68 systolic. She appeared to be in distress and she was brought back emergently. Once in the room, and her blood pressure had to be obtained which was 60 systolic. Patient was awake and answering questions but appeared to be anxious. She kept saying her head was hurting. Patient has history of recent CVA bleeding to hospitalization followed by rehabilitation and then was at home for past 2 weeks. Her granddaughter is her main health care provider. Patient appeared to be very pale as well. [facility] Past Medical History Narrative Medical List of her past medical, surgical, social and family history the nursing note. Hx Anticoagulant Therapy: Yes (ELIQUIS) Arthritis: Yes (back, hands, knees / OSTEOARTHRITIS) Asthma: Yes Atrial Fibrillation: Yes Autoimmune Disease: No Blood Disorders: No Anxiety: Yes Depression: Yes Heart Rhythm Problems: Yes (A-fib w/ RVR) Cancer: No Cardiovascular Problems: Yes (A-FIB / HYPERTENSION) High Cholesterol: Yes Chemotherapy: No Chest Pain: No Congestive Heart Failure: No COPD: Yes Cerebrovascular Accident: Yes (MULTIPLE STROKES just dc from [place] 09/11/16) Diabetes: No Diminished Hearing: Yes Endocrine: No Gastrointestinal Disorders: Yes GERD: Yes Glaucoma: No Genitourinary: Yes (urge incontinence) Headaches: Yes Hiatal Hernia: No Hypertension: Yes Immune Disorder: No Implanted Vascular Access Dvce: Yes Kidney Stones: No Musculoskeletal: Yes Neurologic: Yes (CVA) Psychiatric: Yes Reproductive: No Respiratory: Yes (COPD) Migraines: Yes Myocardial Infarction: No Radiation Therapy: No Renal Failure: No Seizures: No Sickle Cell Disease: No Sleep Apnea: No Thyroid Disease: No Ulcer: No Tetanus Vaccination: Unknown Influenza Vaccination: Yes Menopausal: Yes Past Surgical History Abdominal Surgery: Yes (gallbladder removal ) AICD: No Arteriovenous Shunt: No Body Medical Devices: nuts and bolts in back Cardiac Surgery: No Cholecystectomy: Yes Ear Surgery: No Endocrine Surgery: No Eye Surgery: No Genitourinary Surgery: No Gynecologic Surgery: No Insulin Pump: No Joint Replacement: No Neurologic Surgery: Yes (SPINAL FUSION) Oral Surgery: No Pacemaker: No Thoracic Surgery: No Tonsillectomy: Yes Other Surgery: Yes (BACK FUSION, GALL BLADDER REMOVAL,TONSILECTOMY) Social History Alcohol Use: No Tobacco Use: No (QUIT 04/2016) Substance Use: No (PT DENIES) Allergies-Medications (Allergen,Severity, Reaction): Coded Allergies: Sulfa (Verified Allergy, Intermediate, 08/29/16) Comments List of her allergies reviewed from the nursing note. Reported Meds & Prescriptions Reported Meds & Active Scripts Active Commode 3-in-1 (Device) 1 Mis Mis 1 Ea .ROUTE DIRECTED Walker Rolling/GetGo (Device) 1 Mis Mis 1 Ea .ROUTE DIRECTED Metoprolol Tartrate 25 Mg Tab 12.5 Mg PO Q12HR Protonix (Pantoprazole Sodium) 20 Mg Tab 20 Mg PO DAILY Xarelto (Rivaroxaban) 20 Mg Tab 20 Mg PO DAILY [Pill Splitter] 1 EA Misc 1 Ea OTHER UNSCH PRN Folate (Folic Acid) 1 Mg Tab 1 Mg PO DAILY Atorvastatin (Atorvastatin Calcium) 40 Mg Tab 40 Mg PO HS Norvasc (Amlodipine Besylate) 10 Mg Tab 10 Mg PO DAILY Ferrous Sulfate 325 Mg Tab 325 Mg PO DAILY Fluoxetine (Fluoxetine HCl) 40 Mg Cap 40 Cap PO DAILY Aricept (Donepezil) 5 Mg Tab 5 Mg PO HS 30 Days Aspirin EC (Aspirin) 81 Mg Tabdr 81 Mg PO DAILY 30 Days Ventolin Hfa 18 GM Inh (Albuterol Sulfate) 90 Mcg/Act Aer 2 Puff INH Q6H PRN 30 Days Reported Hydrocodone-Acetaminophen 10-325 mg Tab 1 Tab PO Q8HR PRN Narrative Medication List of her home medications reviewed from the nursing note. Review of Systems Except as stated in HPI: all other systems reviewed are Neg Physical Exam Narrative GENERAL: Anxious, moderate distress, looks older than her age SKIN: Focused skin assessment warm/dry. Pale HEAD: Atraumatic. Normocephalic. EYES: Pupils equal and round. No scleral icterus. No injection or drainage. Pallor ENT: No nasal bleeding or discharge. Mucous membranes pink and moist. NECK: Trachea midline. No JVD. CARDIOVASCULAR: Regular rate and rhythm. No murmur appreciated. RESPIRATORY: No accessory muscle use. Clear to auscultation. Breath sounds equal bilaterally. GASTROINTESTINAL: Abdomen soft, non-tender, nondistended. Hepatic and splenic margins not palpable. MUSCULOSKELETAL: No obvious deformities. No clubbing. No cyanosis. No edema. NEUROLOGICAL: Awake and alert. No obvious cranial nerve deficits. Motor grossly within normal limits. Normal speech. PSYCHIATRIC: Appropriate mood and affect; insight and judgment normal. Data Data Last Documented VS Vital Signs Date Time Temp Pulse Resp B/P Pulse Ox O2 Delivery O2 Flow Rate FiO2 09/20/16 11:34 105 95/50 Nasal Cannula 2 Manual Cuff/Auscultation 09/20/16 10:04 97.7 15 99 Orders Complete Blood Count With Diff (09/20/16 10:15) Comprehensive Metabolic Panel (09/20/16 10:15) Creatine Kinase (Cpk) (09/20/16 10:15) Prothrombin Time / Inr (Pt) (09/20/16 10:15) Troponin I (09/20/16 10:15) Thyroid Stimulating Hormone (09/20/16 10:15) Lactic Acid Sepsis Protocol (09/20/16 10:15) Urinalysis - C+S If Indicated (09/20/16 10:15) Blood Culture (09/20/16 10:15) Chest, Single Ap (09/20/16 10:15) Ct Brain W/O Iv Contrast(Rout) (09/20/16 10:15) Blood Glucose (09/20/16 10:15) Ecg Monitoring (09/20/16 10:15) Iv Access Insert/Monitor (09/20/16 10:15) Oximetry (09/20/16 10:15) Sodium Chloride 0.9% Flush (Ns Flush) (09/20/16 10:15) Sodium Chlor 0.9% 1000 Ml Inj (Ns 1000 M (09/20/16 10:15) Ct Thorax/ Chest Wo Iv Contras (09/20/16 ) Ct Abd/Pel W/O Iv Contrast (09/20/16 ) Type And Screen (09/20/16 10:15) Sodium Chlor 0.9% 1000 Ml Inj (Ns 1000 M (09/20/16 10:15) Red Blood Cells (Rbc) (09/20/16 11:06) Blood Product Administration .UPON TRANSFUSION (09/20/16 11:06) Sodium Chlor 0.9% 250 Ml Inj (Ns 250 Ml (09/20/16 11:15) Sodium Chlor 0.9% 1000 Ml Inj (Ns 1000 M (09/20/16 11:15) Pantoprazole Inj (Protonix Inj) (09/20/16 12:15) Pantoprazole Inj (Protonix Inj) (09/20/16 12:15) Admit To Inpatient (09/20/16 ) Code Status (09/20/16 11:44) Vital Signs (Adult) DANYEL.Q1H (09/20/16 11:44) Diet Npo (09/20/16 Lunch) Sodium Chlor 0.9% 1000 Ml Inj (Ns 1000 M (09/20/16 12:00) Sodium Chloride 0.9% Flush (Ns Flush) (09/20/16 11:45) Sodium Chloride 0.9% Flush (Ns Flush) (09/20/16 21:00) Albuterol-Ipratropium Neb (Duoneb Neb) (09/20/16 11:45) Complete Blood Count With Diff (09/21/16 04:00) Comprehensive Metabolic Panel (09/21/16 04:00) Sputum Culture And Gram Stain (09/20/16 11:44) Urine Culture (09/20/16 11:44) Chest, Single Ap (09/21/16 ) Fulfillment Coordinator / Telemetry DANYEL.Q8H (09/20/16 11:44) Scd Bilateral/Knee High DANYEL.BID (09/20/16 11:44) Nicolás Bilateral/Knee High DANYEL.QSHIFT (09/20/16 11:44) ^ Initiate Protocol (09/20/16 11:44) ^ Instruction (09/20/16 11:44) Misc Nursing Information (09/20/16 11:45) Chlorhexidine 2% Cloth (Chlorhexidine 2% (09/21/16 04:00) Chlorhexidine 2% Cloth (Chlorhexidine 2% (09/20/16 11:45) Mrsa Pcr Surveillance (09/20/16 11:44) Inpatient Certification (09/20/16 ) Hemoglobin (Hgb) (09/20/16 21:00) Hemoglobin (Hgb) (09/21/16 13:00) Hemoglobin (Hgb) (09/21/16 21:00) Fresh Frozen Plasma (Ffp) (09/20/16 11:48) Serum Total Iron (Fe) (09/20/16 11:49) Admit Order (Ed Use Only) (09/20/16 11:50) Labs Laboratory Tests Test 09/20/16 09/20/16 09/20/16 09/20/16 10:00 10:20 11:20 11:48 White Blood Count 10.1 TH/MM3 Red Blood Count 2.28 MIL/MM3 Hemoglobin 5.4 GM/DL Hematocrit 17.5 % Mean Corpuscular Volume 76.9 FL Mean Corpuscular Hemoglobin 23.8 PG Mean Corpuscular Hemoglobin 31.0 % Concent Red Cell Distribution Width 26.0 % Platelet Count 510 TH/MM3 Mean Platelet Volume 7.6 FL Neutrophils (%) (Auto) 68.9 % Lymphocytes (%) (Auto) 21.8 % Monocytes (%) (Auto) 6.4 % Eosinophils (%) (Auto) 2.2 % Basophils (%) (Auto) 0.7 % Neutrophils # (Auto) 7.0 TH/MM3 Lymphocytes # (Auto) 2.2 TH/MM3 Monocytes # (Auto) 0.7 TH/MM3 Eosinophils # (Auto) 0.2 TH/MM3 Basophils # (Auto) 0.1 TH/MM3 CBC Comment AUTO DIFF Differential Comment AUTO DIFF CONFIRMED Platelet Estimate HIGH Platelet Morphology Comment NORMAL Prothrombin Time 15.3 SEC Prothromb Time International 1.4 RATIO Ratio Sodium Level 140 MEQ/L Potassium Level 3.7 MEQ/L Chloride Level 105 MEQ/L Carbon Dioxide Level 24.2 MEQ/L Anion Gap 11 MEQ/L Blood Urea Nitrogen 21 MG/DL Creatinine 0.78 MG/DL Estimat Glomerular Filtration 73 ML/MIN Rate Random Glucose 145 MG/DL Lactic Acid Level 2.8 mmol/L Calcium Level 8.3 MG/DL Iron Level 9 MCG/DL Total Bilirubin 0.2 MG/DL Aspartate Amino Transf 17 U/L (AST/SGOT) Alanine Aminotransferase 25 U/L (ALT/SGPT) Alkaline Phosphatase 92 U/L Total Creatine Kinase 61 U/L Troponin I LESS THAN 0.02 NG/ML Total Protein 6.0 GM/DL Albumin 2.9 GM/DL Thyroid Stimulating Hormone 4.280 uIU/ML 3rd Gen Urine Color YELLOW Urine Turbidity CLEAR Urine pH 5.0 Urine Specific [place] 1.016 Urine Protein NEG mg/dL Urine Glucose (UA) NEG mg/dL Urine Ketones NEG mg/dL Urine Occult Blood NEG Urine Nitrite NEG Urine Bilirubin NEG Urine Urobilinogen LESS THAN 2.0 MG/DL Urine Leukocyte Esterase TRACE Urine RBC LESS THAN 1 /hpf Urine WBC 2 /hpf Urine Squamous Epithelial 1 /hpf Cells Urine Hyaline Casts 1 /lpf Urine Mucus FEW /lpf Microscopic Urinalysis Comment CATH-CULT NOT IND Blood Type O POSITIVE Antibody Screen NEGATIVE Crossmatch Leukocyte-Reduced Red Blood Cells Blood Bank Comment MDM Medical Decision Making Medical Screen Exam Complete: Yes Emergency Medical Condition: Yes Medical Record Reviewed: Yes Interpretation(s) Twelve-lead EKG was reviewed by me. Atrial fibrillation, normal axis, RVR. Heart rate of 108 bpm Differential Diagnosis AAA, GI bleed, anemia, dehydration Narrative Course 11:21 AM patient was resuscitated with IV fluid. So far she has received 2 L of IV fluid bolus and a third one has been ordered. Her current blood pressure is 97 systolic. Patient has critical hemoglobin of 5.5. I've ordered 2 units of PRBC for transfusion. I've been in constant communication with her and daughter and answered all her questions to the best of my ability. I have started her on Protonix bolus and drip as well. I spoke with Dr. Venegas from GI. She will consult on the patient and do an endoscopy. Awaiting for the seasoning mixer to call back for admission. I'm still unclear about the etiology her profound hypotension. Could be a combination of the anemia along with patient taking her blood pressure medication and hydrocodone 10 mg this morning prior to coming to the emergency room. Critical Care Narrative Aggregate critical care time was 75 minutes. Time to perform other separately billable procedures was not included in the critical care time. My time did not include minutes spent treating any other patients simultaneously or on activities that did not directly contribute to the patient's treatment. The services I provided to this patient were to treat and/or prevent clinically significant deterioration that could result in: Severe hypertension, symptomatic anemia, GI bleed I provided critical care services requiring my management, as noted below: Chart data review, documentation time, medication orders and management, vital sign assessments/reviewing monitor data, ordering and reviewing lab tests, ordering and interpreting/reviewing x-rays and diagnostic studies, care of the patient and discussion of the patient with the admitting physicians. Procedures EKG Prior to Arrival: Yes HemaPrompt Point of Care Internal Pos. & Neg. Controls: Passed Fecal Specimen Occult Blood: Positive Physician Communication Physician Communication Dr. Venegas, Dr. Nicolas Diagnosis Primary Impression: Hypovolemic shock Additional Impressions: Hypotension Qualified Code: I95.9 - Hypotension, unspecified hypotension type GI bleed Qualified Code: K92.2 - Gastrointestinal hemorrhage, unspecified gastrointestinal hemorrhage type Symptomatic anemia Atrial fibrillation Qualified Code: I48.91 - Atrial fibrillation, unspecified type Admitting Information Admitting Physician Requests: Nomi Hand MD Sep 20, 2016 11:25
[2016-09-20] MEDS ORDERED: HYDR-3583 PO (11:38)
--- NOTE | 2016-09-20 11:39 | RADRPT ---
EXAM DATE/TIME: 09/20/2016 10:56 [facility] COMPARISON: CHEST SINGLE AP, August 23, 2016, 16:06. INDICATIONS : Syncope, nausea, vomiting. MEDICAL HISTORY : Hypertension. SURGICAL HISTORY : None. ENCOUNTER: Initial ACUITY: 1 day PAIN SCORE: 0/10 LOCATION: Bilateral chest FINDINGS: A single view of the chest demonstrates the lungs to be symmetrically aerated without evidence of mas s, infiltrate or effusion. The cardiomediastinal contours are unremarkable except for some stable to rtuosity of the mid descending thoracic aorta. Osseous structures are intact. CONCLUSION: No acute cardiopulmonary process. Colin Patterson MD on September 20, 2016 at 11:35 Board Certified Radiologist. This report was verified electronically.
[2016-09-20] MEDS ORDERED: CHLORHEXIDINE GLUCONATE 2 % 1 PACK (2 CLOTHS) TOP PRN (11:45)
[2016-09-20] MEDS ORDERED: SODIUM CHLORIDE 0.9% FLUSH 10 ML FLUSH IV FLUSH PRN (11:45)
[2016-09-20] MEDS ORDERED: RESP: ALBUTEROL 2.5 MG/IPRATROPIUM 0.5 MG NEB (PRN) INH (11:45)
[2016-09-20] MEDS ORDERED: MISCELLANEOUS NURSING INFORMATION XX SCH (11:45)
[2016-09-20 11:53] LABS: PLATELET ESTIMATE SMEAR HIGH (NORMAL)
[2016-09-20 11:54] LABS: PLATELET MORPHOLOGY NORMAL (NORMAL); SCAN/DIFF AUTO DIFF CONFIRMED
--- NOTE | 2016-09-20 12:13 | PD.CONS ---
HPI History of Present Illness This is a 70 year old female with hx of past CVAs, DVT, CVA, Atrial Fibrillation , HTN, Hyperlipidemia, and COPD, who was recently hospitalized in August with slurred speech and left sided weakness and was found to have an acute vs. subacute infarct in the right MCA territory and old infarcts in the S[employer] territory. She was started on Xarelto and admitted to [facility] on 08/29 for intensive rehabilitation prior to her discharge home on 09/11. She has since been at home with her granddaughter. She reports that she has been weak at home, but able to ambulate with a walker. This morning, she reports that she was having lightheadedness, dizziness, and "was unable to function." She was brought to the ER for evaluation and found to have severe anemia with an HH of 5.4/17.5. Of note, her HH on 09/09 was 8.3/27.5. She denies any prior hx of GI blood loss or peptic ulcer disease. She has never had an EGD or colonoscopy. She denies does report that she has GERD and will have breakthrough symptoms about twice a week, despite taking Protonix 40mg po daily. She had one episode of nausea and vomiting this am, with a small amount of emesis, but she cannot tell me if this was dark or had blood in it. She denies any abdominal pain, melena, or hematochezia. She has only had sips of water with her pills, but does believe she took her Xarelto this am. (Yadi Lopez) PFSH Past Medical History Multiple CVAs Atrial fibrillation COPD HTN Hyperlipidemia DVT Recent hospitalization for acute vs. subacute infarct in the right MCA territory and old infarcts in the [employer] territory. Depression Dementia Past Surgical History Cholecystectomy Lumbar spine fusion Tonsillectomy (Yadi Lopez) Coded Allergies: Sulfa (Verified Allergy, Intermediate, 08/29/16) Medications Allergies Coded Allergies Type Severity Reaction Last Updated Verified Sulfa Allergy Intermediate 08/29/16 Yes Active Scripts Medications Dose Route/Sig Days Date Category Hydrocodone-Acetaminophen 10-325 mg Tab 1 Tab PO Q8HR PRN 09/20/16 Reported Commode 3-in-1 (Device) 1 Mis Mis 1 Ea .ROUTE DIRECTED 09/11/16 Rx Walker Rolling/GetGo (Device) 1 Mis Mis 1 Ea .ROUTE DIRECTED 09/11/16 Rx Metoprolol Tartrate 25 Mg Tab 12.5 Mg PO Q12HR 09/11/16 Rx Protonix (Pantoprazole Sodium) 20 Mg Tab 20 Mg PO DAILY 09/11/16 Rx Xarelto (Rivaroxaban) 20 Mg Tab 20 Mg PO DAILY 09/10/16 Rx [Pill Splitter] 1 EA Misc 1 Ea OTHER UNSCH PRN 09/10/16 Rx Folate (Folic Acid) 1 Mg Tab 1 Mg PO DAILY 09/10/16 Rx Atorvastatin (Atorvastatin Calcium) 40 Mg Tab 40 Mg PO HS 09/10/16 Rx Norvasc (Amlodipine Besylate) 10 Mg Tab 10 Mg PO DAILY 09/10/16 Rx Ferrous Sulfate 325 Mg Tab 325 Mg PO DAILY 09/10/16 Rx Fluoxetine (Fluoxetine HCl) 40 Mg Cap 40 Cap PO DAILY 09/10/16 Rx Aricept (Donepezil) 5 Mg Tab 5 Mg PO HS 30 09/10/16 Rx Aspirin EC (Aspirin) 81 Mg Tabdr 81 Mg PO DAILY 30 09/10/16 Rx Ventolin Hfa 18 GM Inh (Albuterol Sulfate) 90 Mcg/Act Aer 2 Puff INH Q6H PRN 30 09/10/16 Rx Family History According to EMR, mother had DM, from [place] Father had prostate cancer. Social History Smoked 1-1.5 PPD x 50 years, recently quit No ETOH use. (Yadi Lopez) Review of Systems Constitutional: COMPLAINS OF: Fatigue, Dizziness, DENIES: Fever, Weight loss, Chills Eyes: COMPLAINS OF: Blurred vision Respiratory: DENIES: Cough Cardiovascular: DENIES: Chest pain Gastrointestinal: COMPLAINS OF: Nausea, Vomiting, Heartburn, DENIES: Abdominal pain, Black stools, Bloody stools, Constipation, Diarrhea Musculoskeletal: COMPLAINS OF: Joint pain, Back pain Integumentary: DENIES: Abnormal pigmentation Hematologic/lymphatic: DENIES: Bruising Neurologic: DENIES: Headache Psychiatric: DENIES: Confusion (Yadi Lopez) GI Exam Vitals I&O Vital Signs Date Time Temp Pulse Resp B/P Pulse Ox O2 Delivery O2 Flow Rate FiO2 09/20/16 11:34 105 95/50 Nasal Cannula 2 Manual Cuff/Auscultation 09/20/16 11:02 Nasal Cannula 2 09/20/16 10:51 88 94/62 Nasal Cannula 2 Automatic Cuff 09/20/16 10:07 70 62/40 09/20/16 10:04 97.7 104 15 64/44 99 Imaging Last Impressions Head CT 09/20/16 1015 Signed Impressions: Service Date/Time: September 10:27 - CONCLUSION: Stable evaluation of the brain demonstrating post infarct encephalomalacia in the the right parietal and occipital lobes. No evidence of acute infarct, hemorrhage , mass or increasing edema. Isaias Sandhu MD Chest CT 09/20/16 0000 Signed Impressions: Service Date/Time: September 10:27 - CONCLUSION: 1. Cystic mass in the liver possibly simple cyst, however not adequately characterized. 2. Left adrenal mass most likely an adenoma. 3. Gas bubbles anterior to the sternum in the subcutaneous tissues of the couplet gas bubbles adjacent to the right internal mammary chain could be postprocedural if the patient has had injections at these sites. Jordi Bañuelos MD Abdomen/Pelvis CT 09/20/16 0000 Signed Impressions: Service Date/Time: September 10:27 - CONCLUSION: 1. Left adrenal mass nonspecific most likely an adenoma. 2. Hepatic cystic mass not adequately characterized most likely a simple cyst. 3. Uterine fibroids. Jordi Bañuelos MD Laboratory Test 09/20/16 09/20/16 10:00 10:20 White Blood Count 10.1 TH/MM3 Red Blood Count 2.28 MIL/MM3 Hemoglobin 5.4 GM/DL Hematocrit 17.5 % Mean Corpuscular Volume 76.9 FL Mean Corpuscular Hemoglobin 23.8 PG Mean Corpuscular Hemoglobin 31.0 % Concent Red Cell Distribution Width 26.0 % Platelet Count 510 TH/MM3 Mean Platelet Volume 7.6 FL Neutrophils (%) (Auto) 68.9 % Lymphocytes (%) (Auto) 21.8 % Monocytes (%) (Auto) 6.4 % Eosinophils (%) (Auto) 2.2 % Basophils (%) (Auto) 0.7 % Neutrophils # (Auto) 7.0 TH/MM3 Lymphocytes # (Auto) 2.2 TH/MM3 Monocytes # (Auto) 0.7 TH/MM3 Eosinophils # (Auto) 0.2 TH/MM3 Basophils # (Auto) 0.1 TH/MM3 CBC Comment AUTO DIFF Differential Comment AUTO DIFF CONFIRMED Platelet Estimate HIGH Platelet Morphology Comment NORMAL Prothrombin Time 15.3 SEC Prothromb Time International 1.4 RATIO Ratio Sodium Level 140 MEQ/L Potassium Level 3.7 MEQ/L Chloride Level 105 MEQ/L Carbon Dioxide Level 24.2 MEQ/L Anion Gap 11 MEQ/L Blood Urea Nitrogen 21 MG/DL Creatinine 0.78 MG/DL Estimat Glomerular Filtration 73 ML/MIN Rate Random Glucose 145 MG/DL Calcium Level 8.3 MG/DL Total Bilirubin 0.2 MG/DL Aspartate Amino Transf 17 U/L (AST/SGOT) Alanine Aminotransferase 25 U/L (ALT/SGPT) Alkaline Phosphatase 92 U/L Total Creatine Kinase 61 U/L Troponin I LESS THAN 0.02 NG/ML Total Protein 6.0 GM/DL Albumin 2.9 GM/DL Thyroid Stimulating Hormone 4.280 uIU/ML 3rd Gen Urine Color YELLOW Urine Turbidity CLEAR Urine pH 5.0 Urine Specific [place] 1.016 Urine Protein NEG mg/dL Urine Glucose (UA) NEG mg/dL Urine Ketones NEG mg/dL Urine Occult Blood NEG Urine Nitrite NEG Urine Bilirubin NEG Urine Urobilinogen LESS THAN 2.0 MG/DL Urine Leukocyte Esterase TRACE Urine RBC LESS THAN 1 /hpf Urine WBC 2 /hpf Urine Squamous Epithelial 1 /hpf Cells Urine Hyaline Casts 1 /lpf Urine Mucus FEW /lpf Microscopic Urinalysis Comment CATH-CULT NOT IND Date/Time Procedure Status Source Growth 09/20/16 10:52 Aerobic Blood Culture Received Blood Peripheral Pending 09/20/16 10:52 Anaerobic Blood Culture Received Blood Peripheral Pending Physical Examination HEENT: Normocephalic; atraumatic; no jaundice. CHEST: CTA CARDIAC: RRR. ABDOMEN: Soft, nondistended, nontender; no hepatosplenomegaly; bowel sounds are present in all four quadrants. EXTREMITIES: No clubbing, cyanosis, or edema. SKIN: Normal; no rash; no jaundice. 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 Somewhat poor historian (Yadi Lopez) Assessment and Plan Plan ASSESSMENT: - Severe anemia. Presented to ER with lightheadedness, dizziness, AMS. On admission to the ER, she was found to have HH of 5.4/17.5. She was recently hospitalized for an acute vs. subacute CVA and HH on 09/09 was 8.3/27.5. She is on Xarelto and last had this this am. She has GERD, with breakthrough symptoms about twice a week despite protonix. She denies any hx of GIB or PUD. She has never had an EGD/Colonoscopy. PRBC has been ordered. Protonix Gtt. Will need EGD , timing to be determined- will d/w Dr. Venegas. - Hx multiple CVAs and recent hospitalization in August for acute vs. subacute infarct in the right MCA territory and old infarcts in the [employer] territory. She was started on Xarelto and admitted to [facility] on 08/29/16 for intensive rehabilitation prior to her discharge home on 09/11. - Atrial fibrillation, Hx DVT, Multiple CVAs, per primary. On Xarelto at home, had today. - Elevated TSH 4.280. Per primary - HTN, Hyperlipidemia, COPD per primary PLAN: - Plan for EGD- timing to be determined after I speak with Dr. Venegas (had xarelto this am) - Obtain consents - NPO for now - Protonix Gtt - Agree with transfusion - Monitor HH - Transfuse as necessary - Hold Xarelto for now - Supportive care - Further recommendations to follow based on results of above - Pt seen and examined by Dr. Venegas and myself and this note is written on her behalf (Yadi Lopez) Physician Comments seen, examined agree with above if egd negative will need a colonoscopy (Leigh Ann Venegas MD) Yadi Lopez Sep 20, 2016 12:13 Leigh Ann Venegas MD Sep 20, 2016 18:35
[2016-09-20] MEDS ORDERED: PANTOPRAZOLE INJ 80 MG in SODIUM CHLORIDE 0.9% INJ 35 ML IV ONE (12:15)
[2016-09-20] MEDS: SODIUM CHLOR 0.9% 1000 ML INJ 1,000 ML IV SCH ×2 (12:22→23:44)
[2016-09-20] MEDS: PANTOPRAZOLE INJ 80 MG in SODIUM CHLORIDE 0.9% INJ 100 ML IV SCH ×2 (13:51→23:44)
--- NOTE | 2016-09-20 15:44 | HHI.HP ---
[facility] Service Critical Care Medicine Primary Care Physician Demetrius Villarreal, DO Admission Diagnosis hypovolemic shock, symptomatic anemia Diagnosis: (1) Hypotension Diagnosis: Principal (2) Symptomatic anemia Diagnosis: Principal (3) GI bleed Diagnosis: Principal (4) Elevated INR Diagnosis: Principal (5) CVA (cerebral vascular accident) Diagnosis: Secondary (6) Thrombocytosis Diagnosis: Secondary (7) Hyperlipidemia Diagnosis: Secondary (8) COPD (chronic obstructive pulmonary disease) Diagnosis: Secondary Chief Complaint: Anemia, hypotension, dizziness Travel History International Travel<30 Days: No Contact w/Intl Traveler <30 Da: No Traveled to Known Affected Are: No Sepsis Criteria SIRS Criteria (2 or more): Heart rate over 90 Severe Sepsis (+one): Lactate >2 History of Present Illness Patient is a 70-year-old female with history of chronic atrial fibrillation on Xarelto, history of recurrent CVA, DVT,HTN, Hyperlipidemia, and COPD, who was recently admitted (08/23/16) to [facility] with acute vs.subacute infarct in the right MCA territory. During this hospitalization she was started on Xarelto. Patient was transferred to [facility] on 08/29/16 and from the discharged home on 09/11/16. This morning am patient was dizzy, light headed, and was brought to the ER for evaluation. Lab work showed hemoglobin/hematocrit 5.4/ 17.5. Last admission Hb was 8.3. She deniesany blood in stools or any hematemesis. Initially patient was very hypotensive 64/44 in the ED. She was given a total of 3 L of IV fluids normal saline, systolic blood pressure improvement to 90s. Patient was ordered 2 units of PRBC, I have added [address] head showed old infarcts. CT chest abdomen pelvis negative for any acute source of infection or bleeding. Hemoccult was positive. GI had been consulted. I evaluated the patient in ICU. Lactic acid came back at 2.8. She appears critically ill systolic blood pressure in the 90s and HR 110-115. I placed her on empiric Zosyn also. She is receiving her first units of PRBC. 2-D echo done on May 02, 2016 showed EF normal Review of Systems ROS Limitations: Other (as per HPI) Past Family Social History Allergies: Coded Allergies: Sulfa (Verified Allergy, Intermediate, 08/29/16) Past Medical History Multiple CVAs Atrial fibrillation COPD History of DVT Hypertension Hyperlipidemia Recent hospitalization for acute vs. subacute infarct in the right MCA territory and old infarcts in the [employer] territory. Depression Dementia Past Surgical History Cholecystectomy Lumbar spine fusion Tonsillectomy Reported Medications Metoprolol Tartrate 25 Mg Tab 12.5 Mg PO Q12HR Protonix (Pantoprazole Sodium) 20 Mg Tab 20 Mg PO DAILY Xarelto (Rivaroxaban) 20 Mg Tab 20 Mg PO DAILY Folate (Folic Acid) 1 Mg Tab 1 Mg PO DAILY Atorvastatin (Atorvastatin Calcium) 40 Mg Tab 40 Mg PO HS Norvasc (Amlodipine Besylate) 10 Mg Tab 10 Mg PO DAILY Ferrous Sulfate 325 Mg Tab 325 Mg PO DAILY Fluoxetine (Fluoxetine HCl) 40 Mg Cap 40 Cap PO DAILY Aricept (Donepezil) 5 Mg Tab 5 Mg PO HS 30 Days Aspirin EC (Aspirin) 81 Mg Tabdr 81 Mg PO DAILY 30 Days Ventolin Hfa 18 GM Inh (Albuterol Sulfate) 90 Mcg/Act Aer 2 Puff INH Q6H PRN 30 Days Hydrocodone-Acetaminophen 10-325 mg Tab 1 Tab PO Q8HR PRN Active Ordered Medications Reviewed Family History CAD in family Social History Quit smoking recently, no alcohol use Physical Exam Vital Signs Vital Signs Date Time Temp Pulse Resp B/P Pulse Ox O2 Delivery O2 Flow Rate FiO2 09/20/16 14:00 107 09/20/16 14:00 97.4 103 16 103/52 97 09/20/16 12:26 103 84/56 09/20/16 11:34 105 95/50 Nasal Cannula 2 Manual Cuff/Auscultation 09/20/16 11:02 Nasal Cannula 2 09/20/16 10:51 88 94/62 Nasal Cannula 2 Automatic Cuff 09/20/16 10:07 70 62/40 09/20/16 10:04 97.7 104 15 64/44 99 Physical Exam GENERAL: 70-year-old female who is anxious, appears. SKIN: Skin warm/dry. Pale HEAD: Atraumatic. Normocephalic. EYES: Pupils equal and round. No scleral icterus. No injection or drainage. severe pallor ENT: No nasal bleeding or discharge. Mucous membranes pink and moist. NECK: Trachea midline. No JVD. CARDIOVASCULAR: Tachycardic rate and rhythm. No murmur appreciated. RESPIRATORY: No accessory muscle use. Clear to auscultation. Breath sounds equal bilaterally. GASTROINTESTINAL: Abdomen soft, non-tender, nondistended. No organomegaly MUSCULOSKELETAL: No obvious deformities. No clubbing. No cyanosis. No edema. NEUROLOGICAL: Awake and alert. No obvious cranial nerve deficits. Motor grossly within normal limits. Normal speech. Laboratory Laboratory Tests Test 09/20/16 09/20/16 09/20/16 09/20/16 10:00 10:20 11:20 11:48 White Blood Count 10.1 Red Blood Count 2.28 Hemoglobin 5.4 Hematocrit 17.5 Mean Corpuscular Volume 76.9 Mean Corpuscular Hemoglobin 23.8 Mean Corpuscular Hemoglobin 31.0 Concent Red Cell Distribution Width 26.0 Platelet Count 510 Mean Platelet Volume 7.6 Neutrophils (%) (Auto) 68.9 Lymphocytes (%) (Auto) 21.8 Monocytes (%) (Auto) 6.4 Eosinophils (%) (Auto) 2.2 Basophils (%) (Auto) 0.7 Neutrophils # (Auto) 7.0 Lymphocytes # (Auto) 2.2 Monocytes # (Auto) 0.7 Eosinophils # (Auto) 0.2 Basophils # (Auto) 0.1 CBC Comment AUTO DIFF Differential Comment AUTO DIFF CONFIRMED Platelet Estimate HIGH Platelet Morphology Comment NORMAL Prothrombin Time 15.3 Prothromb Time International 1.4 Ratio Sodium Level 140 Potassium Level 3.7 Chloride Level 105 Carbon Dioxide Level 24.2 Anion Gap 11 Blood Urea Nitrogen 21 Creatinine 0.78 Estimat Glomerular Filtration 73 Rate Random Glucose 145 Lactic Acid Level 2.8 Calcium Level 8.3 Iron Level 9 Total Bilirubin 0.2 Aspartate Amino Transf 17 (AST/SGOT) Alanine Aminotransferase 25 (ALT/SGPT) Alkaline Phosphatase 92 Total Creatine Kinase 61 Troponin I LESS THAN 0.02 Total Protein 6.0 Albumin 2.9 Thyroid Stimulating Hormone 4.280 3rd Gen Urine Color YELLOW Urine Turbidity CLEAR Urine pH 5.0 Urine Specific [place] 1.016 Urine Protein NEG Urine Glucose (UA) NEG Urine Ketones NEG Urine Occult Blood NEG Urine Nitrite NEG Urine Bilirubin NEG Urine Urobilinogen LESS THAN 2.0 Urine Leukocyte Esterase TRACE Urine RBC LESS THAN 1 Urine WBC 2 Urine Squamous Epithelial 1 Cells Urine Hyaline Casts 1 Urine Mucus FEW Microscopic Urinalysis Comment CATH-CULT NOT IND Blood Type O POSITIVE Antibody Screen NEGATIVE Crossmatch Leukocyte-Reduced Red Blood Cells Blood Bank Comment Date/Time Procedure Status Source Growth 09/20/16 10:52 Aerobic Blood Culture Received Blood Peripheral Pending 09/20/16 10:52 Anaerobic Blood Culture Received Blood Peripheral Pending Result Diagram: 09/20/16 1000 09/20/16 1000 Imaging Images reviewed Septic Shock Reassessment Heart: Irregular, Other (tachycardic) Lungs: Diminished Skin: Cold Peripheral Pulses: Weak Right Radial Weak Left Radial Assessment and Plan Assessment and Plan NEURO: Multiple CVAs in the past -Minimize sedation -Hold Aricept and fluoxetine RESP: Previous tobacco abuse Probable COPD -Nasal cannula oxygen -Every 6 hours when necessary CV: Hypotension secondary to hypovolemia and severe anemia History of hypertension Chronic atrial fibrillation on Xarelto -Normal saline IV fluids 3L bolus and 84 ml per hor -Trend lactic acid, 2d echo 05/02/16 EF 60% -Levophed if needed to keep map of 65 -Hold Xarelto and aspirin due to GI bleed -Beta blockers and Norvasc held due to hypotension GI/HEME: GI bleed Severe anemia requiring transfusion -GI consult of plan for EGD and possibly colonoscopy -Continue Protonix infusion -Transfuse to keep hemoglobin more than 8 due to hypotension -2 units of PRBC and 2 units of FFP ordered : -Monitor renal function closely. Aggressive hydration as above ID: -No Evidence of infection, but sepsis is possible with hypotension and elevated lactic acid -Empiric Treatment with Zosyn until cultures are back ENDO: -Electrolyte replacement protocol PROPH: -Bilateral lower extremity SCDs. Chemical DVT prophylaxis is contraindicated due to GI bleed LINES: -Utilize peripheral IVs, central line if needed CC time 45 min Code Status Full Discussed Condition With Dr. Daigle Problem Qualifiers (1) Hypotension: Qualified Code: I95.9 - Hypotension, unspecified hypotension type (2) GI bleed: Qualified Code: K92.2 - Gastrointestinal hemorrhage, unspecified gastrointestinal hemorrhage type Kiko Nicolas MD Sep 20, 2016 15:44
[2016-09-20] MEDS: PIPERACIL-TAZO 3.375 GM PREMIX 50 ML IV SCH ×2 (17:22→23:43)
[2016-09-20] MEDS: SODIUM CHLORIDE 0.9% FLUSH 10 ML FLUSH IV FLUSH SCH (23:43)
[2016-09-20] MEDS: CHLORHEXIDINE GLUCONATE 2 % 1 PACK (2 CLOTHS) TOP SCH (23:44)
[2016-09-21] VITALS (14 sets, daily range): BP systolic 121–140; BP diastolic 62–85; PULSE 69–132; RESP 15–18; TEMP 98–98.6; O2SAT 91–99
--- NOTE | 2016-09-21 04:57 | RADRPT ---
EXAM DATE/TIME: 09/21/2016 04:07 [facility] COMPARISON: CHEST SINGLE AP, September 20, 2016, 10:56. INDICATIONS : Shortness of breath. MEDICAL HISTORY : Hypertension. SURGICAL HISTORY : None. ENCOUNTER: Subsequent ACUITY: 2 days PAIN SCORE: Non-responsive. LOCATION: chest FINDINGS: A single view of the chest demonstrates the lungs to be symmetrically aerated without evidence of mas s, infiltrate or effusion. The cardiomediastinal contours are unremarkable. Osseous structures are intact. CONCLUSION: No acute disease. Gerard Hernandes Jr., MD on September 21, 2016 at 4:55 Board Certified Radiologist. This report was verified electronically.
[2016-09-21] MEDS: SODIUM CHLOR 0.9% 1000 ML INJ 1,000 ML IV SCH (05:09)
[2016-09-21] MEDS: PIPERACIL-TAZO 3.375 GM PREMIX 50 ML IV SCH ×4 (05:09→19:50)
[2016-09-21 05:22] LABS: AUTOMATED NEUTROPHIL # 7.3 TH/MM3 (1.8-7.7); BASOPHIL # 0.1 TH/MM3 (0-0.2); BASOPHIL % 0.6 % (0.0-2.0); EOSINOPHIL # 0.2 TH/MM3 (0-0.4); EOSINOPHIL % 1.9 % (0.0-4.0); HEMATOCRIT 26.3 % (35.0-46.0); HEMO FLAGS DIFF FINAL; LYMPHOCYTE # 1.7 TH/MM3 (1.0-4.8); MEAN CELL VOLUME 79.6 FL (80.0-100.0); MEAN CORPUSCULAR HEMOGLOBIN 25.5 PG (27.0-34.0); MEAN CORPUSCULAR HGB CONC 32.1 % (32.0-36.0); NEUT % 71.5 % (16.0-70.0); PLATELET COUNT 345 TH/MM3 (150-450); WHITE BLOOD COUNT 10.2 TH/MM3 (4.0-11.0)
[2016-09-21 05:52] LABS: ALKALINE PHOSPHATASE 101 U/L (45-117); ALT (GPT) 57 U/L (10-53); ANION GAP 7 MEQ/L (5-15); AST (GOT) 42 U/L (15-37); BICARBONATE 25.7 MEQ/L (21.0-32.0); BLOOD UREA NITROGEN 8 MG/DL (7-18); CHLORIDE 108 MEQ/L (98-107); GLOMERULAR FILTRATION RATE 120 ML/MIN (>89); SODIUM (NA) 141 MEQ/L (136-145); TOTAL BILIRUBIN ADULT 0.8 MG/DL (0.2-1.0)
[2016-09-21] MEDS ORDERED: POTASSIUM PHOSPHATE MONOBASIC 500 MG TAB PO PRN (08:00)
[2016-09-21] MEDS ORDERED: POTASSIUM PHOSPHATE MONOBASIC 500 MG TAB PO/TUBE PRN (08:00)
[2016-09-21] MEDS ORDERED: POTASSIUM PHOSPHATE INJ 30 MMOL in SODIUM CHLOR 0.9% 250 ML INJ 250 ML IV PRN (08:00)
[2016-09-21] MEDS ORDERED: MAGNESIUM SULFATE INJ 2 GM in SODIUM CHLORIDE 0.9% INJ 96 ML IV PRN (08:00)
[2016-09-21] MEDS ORDERED: POTASSIUM CHLOR 40 MEQ PREMIX 100 ML IV PRN ×2 (08:00)
[2016-09-21] MEDS ORDERED: MAGNESIUM OXIDE 400 MG TAB PO PRN (08:00)
[2016-09-21] MEDS ORDERED: SODIUM PHOSPHATE INJ 30 MMOL in SODIUM CHLOR 0.9% 250 ML INJ 240 ML IV PRN (08:00)
[2016-09-21] MEDS ORDERED: MAGNESIUM SULFATE INJ 4 GM in SODIUM CHLORIDE 0.9% INJ 92 ML IV PRN (08:00)
[2016-09-21] MEDS ORDERED: POTASSIUM CHLOR 20 MEQ PREMIX 100 ML IV PRN (08:00)
[2016-09-21] MEDS ORDERED: POTASSIUM CHLORIDE 25 MEQ EFFERVESCENT TAB PO PRN (08:00)
[2016-09-21] MEDS: POTASSIUM CHLOR 20 MEQ PREMIX 100 ML IV PRN ×4 (08:10→16:48)
[2016-09-21] MEDS: SODIUM CHLORIDE 0.9% FLUSH 10 ML FLUSH IV FLUSH SCH ×2 (08:11→19:50)
[2016-09-21] MEDS: PANTOPRAZOLE INJ 80 MG in SODIUM CHLORIDE 0.9% INJ 100 ML IV SCH ×2 (08:11→19:48)
--- NOTE | 2016-09-21 08:22 | PD.TRANSFR ---
Transfer Summary Admission Date Sep 20, 2016 at 11:52 Admitting Diagnosis hypovolemic shock, symptomatic anemia Diagnoses: (1) Hypotension Diagnosis: Principal (2) Symptomatic anemia Diagnosis: Principal (3) GI bleed Diagnosis: Principal (4) Elevated INR Diagnosis: Principal (5) CVA (cerebral vascular accident) Diagnosis: Secondary (6) Thrombocytosis Diagnosis: Secondary (7) Hyperlipidemia Diagnosis: Secondary (8) COPD (chronic obstructive pulmonary disease) Diagnosis: Secondary Transfer Summary/Subjective Patient is a 70-year-old female with history of chronic atrial fibrillation on Xarelto, history of recurrent CVA, DVT, HTN, Hyperlipidemia, and COPD, who was recently admitted (08/23/16) to [facility] with acute vs.subacute infarct in the right MCA territory. During this hospitalization she was started on Xarelto. Patient was transferred to [facility] on 08/29/16 and from there discharged home on 09/11/16. This am (09/20/16) patient was dizzy, light headed, and was brought to the ER for evaluation. Lab work showed hemoglobin/hematocrit 5.4/17.5. Last admission Hb was 8.3. She denies any blood in stools or any hematemesis. Initially patient was very hypotensive 64/44 in the ED. She was given a total of 3 L of IV fluids normal saline, systolic blood pressure improvement to 90s. Patient was ordered to get 2 units of PRBC, I have added [address] head showed old infarcts. CT chest abdomen pelvis negative for any acute source of infection or bleeding. Hemoccult was positive. GI had been consulted. I evaluated the patient in ICU. Lactic acid came back at 2.8. She appears critically ill systolic blood pressure in the 90s and HR 110-115. I placed her on empiric Zosyn also. She is receiving her first units of PRBC. 2- D echo done on May 02, 2016 showed EF normal SUBJ: Patient remained stable overnight. Hemoglobin is 8.4 today. No active bleeding. GI planning on endoscopy today Objective Vital Signs Date Time Temp Pulse Resp B/P Pulse Ox O2 Delivery O2 Flow Rate FiO2 09/21/16 06:00 75 09/21/16 04:00 98.0 15 135/63 96 09/20/16 20:03 Nasal Cannula 2.00 Intake and Output 09/20/16 09/20/16 09/21/16 08:00 16:00 00:00 Intake Total 437 ml 1390 ml Output Total 400 ml 900 ml Balance 37 ml 490 ml Result Diagram: 09/21/1642409/21/16424 Imaging Images reviewed Objective Remarks GENERAL: 70-year-old female who is anxious, pale. SKIN: Skin warm/dry. Pale HEAD: Atraumatic. Normocephalic. EYES: Pupils equal and round. No scleral icterus. No injection or drainage. ENT: No nasal bleeding or discharge. Mucous membranes pink and moist. NECK: Trachea midline. No JVD. CARDIOVASCULAR: Tachycardic rate and rhythm. No murmur appreciated. RESPIRATORY: No accessory muscle use. Clear to auscultation. Breath sounds equal bilaterally. GASTROINTESTINAL: Abdomen soft, non-tender, nondistended. No organomegaly MUSCULOSKELETAL: No obvious deformities. No clubbing. No cyanosis. No edema. NEUROLOGICAL: Awake and alert. No obvious cranial nerve deficits. Motor grossly within normal limits. Normal speech. Urinary Catheter: Yes Assessment to: Continue Vascular Central Line Catheter: Yes Assessment to: Continue A/P Assessment and Plan NEURO: Multiple CVAs in the past -Minimize sedation -Resume Aricept and fluoxetine RESP: Previous tobacco abuse Probable COPD -Nasal cannula oxygen -DuoNeb every 6 hours when necessary CV: Hypotension secondary to hypovolemia and severe anemia History of hypertension Chronic atrial fibrillation on Xarelto -s/p Normal saline IV fluids 3L bolus and 84 ml per hour. Will DC IVF today -Trend lactic acid, 2d echo 05/02/16 EF 60% -Hold Xarelto and aspirin due to GI bleed -Beta blockers and Norvasc held due to hypotension GI/HEME: GI bleed Severe anemia requiring transfusion -GI consulted, plan for Endoscopy today -Continue Protonix infusion -Transfuse to keep hemoglobin more than 8 due to hypotension -s/p 2 units of PRBC and 2 units of FFP : -Monitor renal function closely. Aggressive hydration as above ID: -No Evidence of infection, but sepsis is possible with hypotension and elevated lactic acid -Empiric treatment with Zosyn until cultures are back ENDO: Hypokalemia -Electrolyte replacement protocol PROPH: -Bilateral lower extremity SCDs. Chemical DVT prophylaxis is contraindicated due to GI bleed LINES: -Utilize peripheral IVs, central line if needed Level 2. [facility] consulted to assume care in am 09/21/16 Kiko Nicolas MD Sep 21, 2016 08:22
[2016-09-21 08:28] LABS: MAGNESIUM 1.8 MG/DL (1.5-2.5)
[2016-09-21] MEDS ORDERED: PROPOFOL 200 MG/20 ML AMP IV ONE (09:56)
--- NOTE | 2016-09-21 10:02 | GIPROC ---
[facility] [address] [facility]. [facility], [address] EGD PROCEDURE REPORT EXAM DATE: 09/21/2016 PATIENT NAME: Ale Carroll MR #: [id number] BIRTHDATE: 1945 ATTENDING: Leigh Ann Venegas MD ORDER #: [id number] LOAN REVIEW MANAGER: Benedicto Wray and Ezekiel Easley STATUS: inpatient INDICATIONS: The patient is a 70 yr old female here for an EGD due to anemia PROCEDURE PERFORMED: EGD w/ biopsy MEDICATIONS: None and Per Anesthesia. TOPICAL ANESTHETIC: none CONSENT: The patient understands the risks and benefits of the procedure and understands that these risks include, but are not limited to: sedation, allergic reaction, infection, perforation and/or bleeding. Alternative means of evaluation and treatment include, among others: physical exam, x-rays, and/or surgical intervention. The patient elects to proceed with this endoscopic procedure. medical equipment was checked for proper function. Hand hygiene and appropriate measures for infection prevention was taken. After the risks, benefits and alternatives of the procedure were thoroughly explained, Informed consent was verified, confirmed and timeout was successfully executed by the treatment team. The patient was anesthetized with topical anesthesia and the [employer] [id number] endoscope was introduced through the mouth and advanced to the second portion of the duodenum. Retroflexed views revealed a hiatal hernia The gastroscope was then slowly withdrawn and removed. Gastritis antrum-biopsy. Irregular z line-biopsy duodenum normal-biopsy. ADVERSE EVENTS: There were no complications. IMPRESSIONS: 1. Gastritis antrum-biopsy 2. Retroflexed views revealed a hiatal hernia RECOMMENDATIONS: 1. Await biopsy results. Biopsy results will not be ready for 7-10 days. If you don't hear from us in two weeks, call our office for biopsy results. 2. Avoid NSAIDS 3. Clear liquid diet colonoscopy in am PATIENT CONDITION: stable DISPOSITION: Inpatient REPEAT EXAM: EGD pending biopsy results Leigh Ann Venegas MD eSigned: Leigh Ann Venegas MD 09/21/2016 10:02 AM cc: PATIENT NAME: Ale Carroll MR#: [id number]
[2016-09-21] MEDS ORDERED: MAGNESIUM CITRATE SOLN 300 ML BTL PO ONE (10:15)
[2016-09-21] MEDS: FLUoxetine HCL 20 MG CAP PO SCH (11:08)
[2016-09-21] MEDS ORDERED: DO NOT ADM ANY ANTICOAGULANT DRUGS PRN (11:15)
--- NOTE | 2016-09-21 18:46 | EKG ---
Date Performed: 09/20/2016 Time Performed: 10:09:54 PTAGE: 70 years EKG: ATRIAL FIBRILLATION WITH RAPID VENTRICULAR RESPONSE INDETERMINATE AXIS INCOMPLETE RIGHT BUN DLE BRANCH BLOCK MODERATE ST DEPRESSION Compared to previous tracing, atrial fibrillation has replace d Sinus rhythm ABNORMAL ECG PREVIOUS TRACING : 08/23/2016 15.56 DOCTOR: Quoc Dixon Interpretating Date/Time 09/21/2016 18:42:21
[2016-09-21] MEDS: DONEPEZIL HCL 5 MG TAB PO SCH (19:48)
[2016-09-21] MEDS ORDERED: METOPROLOL TARTRATE 5 MG/5 ML VIAL IV PUSH ONE ×2 (23:15→23:45)
[2016-09-22] VITALS (14 sets, daily range): BP systolic 98–115; BP diastolic 53–87; PULSE 61–129; RESP 14–20; TEMP 97.3–98.6; O2SAT 95–100
[2016-09-22] MEDS: PANTOPRAZOLE INJ 80 MG in SODIUM CHLORIDE 0.9% INJ 100 ML IV SCH ×2 (03:22→18:56)
[2016-09-22] MEDS: CHLORHEXIDINE GLUCONATE 2 % 1 PACK (2 CLOTHS) TOP SCH (03:22)
[2016-09-22] MEDS: PIPERACIL-TAZO 3.375 GM PREMIX 50 ML IV SCH ×4 (03:22→21:53)
[2016-09-22] MEDS ORDERED: AMIODARONE INJ 150 MG in DEXTROSE 5% IN WATER 100ML INJ 97 ML IV ONE ×2 (03:30)
[2016-09-22] MEDS ORDERED: AMIODARONE INJ 450 MG in DEXTROSE 5% IN WATE(EXCEL) INJ 241 ML IV SCH ×2 (03:30)
[2016-09-22 09:03] LABS: BICARBONATE 28.8 MEQ/L (21.0-32.0); POTASSIUM 3.2 MEQ/L (3.5-5.1)
[2016-09-22] MEDS ORDERED: PILL SPLITTER OTHER PRN (09:15)
[2016-09-22] MEDS: FLUoxetine HCL 20 MG CAP PO SCH (09:36)
[2016-09-22] MEDS: SODIUM CHLORIDE 0.9% FLUSH 10 ML FLUSH IV FLUSH SCH ×2 (09:45→20:46)
[2016-09-22 10:28] LABS: AUTOMATED NEUTROPHIL # 6.9 TH/MM3 (1.8-7.7); BASOPHIL % 0.2 % (0.0-2.0); EOSINOPHIL # 0.2 TH/MM3 (0-0.4); EOSINOPHIL % 2.6 % (0.0-4.0); HEMO FLAGS DIFF FINAL; LYMPH % 14.5 % (9.0-44.0); LYMPHOCYTE # 1.4 TH/MM3 (1.0-4.8); MEAN CELL VOLUME 78.3 FL (80.0-100.0); MEAN CORPUSCULAR HEMOGLOBIN 25.2 PG (27.0-34.0); MEAN CORPUSCULAR HGB CONC 32.2 % (32.0-36.0); MONO % 8.7 % (0.0-8.0); PLATELET COUNT 468 TH/MM3 (150-450); RED BLOOD COUNT 4.09 MIL/MM3 (4.00-5.30); RED CELL DISTRIBUTION WIDTH 21.4 % (11.6-17.2); WHITE BLOOD COUNT 9.4 TH/MM3 (4.0-11.0)
[2016-09-22] MEDS ORDERED: MAGNESIUM SULFATE 1 GM PREMIX 100 ML IV ONE (10:30)
[2016-09-22] MEDS: METOPROLOL TARTRATE 25 MG TAB PO SCH ×2 (11:32→20:47)
[2016-09-22] MEDS: POTASSIUM CHLOR 10 MEQ PREMIX 100 ML IV SCH ×3 (11:33→20:46)
[2016-09-22] MEDS ORDERED: LACTATED RINGER'S 1000 ML INJ 1,000 ML IV ONE (12:00)
[2016-09-22] MEDS ORDERED: PROPOFOL 200 MG/20 ML AMP IV ONE (15:40)
--- NOTE | 2016-09-22 16:59 | GIPROC ---
[facility] [address] [facility]. [facility], [address] COLONOSCOPY PROCEDURE REPORT EXAM DATE: 09/22/2016 PATIENT NAME: Ale Carroll MR #: [id number] BIRTHDATE: 1945 ENDOSCOPIST: Leigh Ann Venegas MD ORDER #: [id number] SERVICE CREW LEADER: Sheyla Adams Hogan, Darren, and Olinda Rose STATUS: inpatient INDICATIONS: The patient is a 70 yr old female here for a colonoscopy due to anemia, questionable gi bleeding PROCEDURE PERFORMED: clip applience MEDICATIONS: Per Anesthesia and None. PREP QUALITY: 30 % obscured PREP TYPE:Magnesium Citrate ESTIMATED BLOOD LOSS: None CONSENT: The patient understands the risks and benefits of the procedure and understands that these risks include, but are not limited to: sedation, allergic reaction, infection, perforation and/or bleeding. Alternative means of evaluation and treatment include, among others: physical exam, x-rays, and/or surgical intervention. The patient elects to proceed with this endoscopic procedure. medical equipment was checked for proper function. Hand hygiene and appropriate measures for infection prevention was taken. After the risks, benefits and alternatives of the procedure were thoroughly explained, Informed consent was verified, confirmed and timeout was successfully executed by the treatment team. A digital exam revealed external hemorrhoids The [employer] [id number] endoscope was introduced through the anus and advanced to the cecum, which was identified by both the appendix and ileocecal valve. The instrument was then slowly withdrawn as the colon was fully examined. COLON FINDINGS: Diverticulosis sigmoid,descending pedunculated polyp in descending polyp -2 cm-hot snare polypectomy with complete removal, one clip applied at the base to prevent bleeding sessile polyp at solenic flexure-7 mm-hot snare polypectomy with complete removal two sessile polyps in midtransverse-8 mm-each-hot snare polypectomy with complete removal two polyps hepatic felxure-one 8 mm-hot snare polypectomy with complete removal-net used to retrieve, another5 mm falt polyp near it-hot snare polypectomy two polyps in ascending colon-flat 9 mm each hot snare polypectomy with complete removal prominent IC valve/polyp-biopsy. Retroflexed views revealed internal hemorrhoids and Retroflexed views revealed small internal hemorrhoids The scope was then completely withdrawn from the patient and the procedure terminated. see record ADVERSE EVENTS: There were no complications. IMPRESSIONS: 1. Diverticulosis sigmoid,descending pedunculated polyp in descending polyp -2 cm-hot snare polypectomy with complete removal, one clip applied at the base to prevent bleeding sessile polyp at solenic flexure-7 mm-hot snare polypectomy with complete removal two sessile polyps in midtransverse-8 mm-each-hot snare polypectomy with complete removal two polyps hepatic felxure-one 8 mm-hot snare polypectomy with complete removal-net used to retrieve, another5 mm falt polyp near it-hot snare polypectomy two polyps in ascending colon-flat 9 mm each hot snare polypectomy with complete removal prominent IC valve/polyp-biopsy 2. Retroflexed views revealed internal hemorrhoids 3. Retroflexed views revealed small internal hemorrhoids 4. Revealed external hemorrhoids RECOMMENDATIONS: 1. Await biopsy results. Biopsy results will not be ready for 7-10 days. If you don't hear from us in two weeks, call our office for results. 2. Benefiber 2 tsp daily 3. Avoid NSAIDS and Aspirin 4. Probiotics from any [facility] or health food store 5. Yearly rectal exams 6. Resume diet RECALL: Colonoscopy, pending biopsy results 2-4 weeks Leigh Ann Venegas MD eSigned: Leigh Ann Venegas MD 09/22/2016 4:59 PM cc: PATIENT NAME: Ale Carroll MR#: [id number]
[2016-09-22 18:16] LABS: HEMATOCRIT 31.3 % (35.0-46.0)
[2016-09-22 18:30] LABS: REVIEW FLAG FINAL
--- NOTE | 2016-09-22 18:35 | HHI.PR ---
Subjective Remarks patient seen this morning prior to colonoscopy. Says she is feeling better than on admission. Reports fatigue is improved. Denies any chest pain. Objective Vital Signs Date Time Temp Pulse Resp B/P Pulse Ox O2 Delivery O2 Flow Rate FiO2 09/22/16 16:55 97.9 76 14 114/51 95 09/22/16 16:00 61 09/22/16 16:00 98.6 105 20 115/87 97 09/22/16 14:00 106 09/22/16 12:00 110 09/22/16 10:00 113 09/22/16 08:06 95 Nasal Cannula 2.00 09/22/16 08:00 102 09/22/16 08:00 97.6 102 16 110/71 98 09/22/16 06:00 109 09/22/16 04:00 98.4 129 18 101/63 98 09/22/16 04:00 129 09/22/16 02:00 114 09/22/16 00:00 117 09/21/16 23:21 98.6 129 18 121/65 96 09/21/16 22:00 132 09/21/16 20:00 85 09/21/16 19:51 98.1 88 18 139/71 97 09/21/16 19:05 97 Nasal Cannula 2.00 I/O 09/21/16 09/21/16 09/21/16 09/22/16 09/22/16 09/22/16 07:00 15:00 23:00 07:00 15:00 23:00 Intake Total 702 ml 1639 ml 674 ml 188 ml 450 ml 500 ml Output Total 1500 ml 1450 ml 2900 ml 925 ml Balance -798 ml 189 ml 674 ml -2712 ml -475 ml 500 ml Intake Oral 350 ml IV Total 702 ml 1139 ml 674 ml 188 ml 450 ml Other 150 ml 500 ml Output Urine Total 1500 ml 1450 ml 2900 ml 925 ml # Bowel Movements 7 2 Result Diagram: 09/22/16 0936 09/22/16 0813 Objective Remarks GENERAL: 70-year-old female who appears older than stated age. She is awake and alert. SKIN: Warm and dry. HEAD: Normocephalic. EYES: No scleral icterus. No injection or drainage. NECK: Supple, trachea midline. No JVD. CARDIOVASCULAR: Regular rate and rhythm without murmurs, gallops, or rubs. RESPIRATORY: Breath sounds equal bilaterally. No accessory muscle use. GASTROINTESTINAL: Abdomen soft, non-tender, nondistended. MUSCULOSKELETAL: No cyanosis, or edema. BACK: Nontender without obvious deformity. No CVA tenderness. A/P Assessment and Plan NEURO: //Multiple CVAs in the past -Minimize sedation -Continue Aricept and fluoxetine RESP: //Previous tobacco abuse //Probable COPD -Nasal cannula oxygen -DuoNeb every 6 hours when necessary -Estrace test stable. Continue to monitor. CV: //Hypotension secondary to hypovolemia and severe anemia //History of hypertension //Chronic atrial fibrillation on Xarelto //Atrial fibrillation RVR overnight 09/2121. -s/p Normal saline IV fluids 3L bolus and 84 ml per hour. Will DC IVF today -Lactic acid initially elevated from hypovolemic shock, improved., 2d echo 05/02 EF 60% -Hold Xarelto and aspirin due to GI bleed -Norvasc held due to hypotension -09/22. A. fib with RVR. Restart metoprolol. Return to Sinus Rhythm after amiodarone load. We'll start on by mouth amiodarone and taper. -Continue to monitor blood pressure and heart rate. Continue to hold anticoagulation in setting of GI bleed. GI/HEME: //GI bleed //Severe anemia requiring transfusion -GI consulted, plan for Endoscopy today -Continue Protonix infusion -Transfuse to keep hemoglobin more than 8 due to hypotension -s/p 2 units of PRBC and 2 units of FFP = 09/22. Hemoglobin improved. Appreciate GI assistance. Status post colonoscopy. Follow results. : -Monitor renal function closely. Aggressive hydration as above //Hypokalemia. Replace. Follow. PROPH: -Bilateral lower extremity SCDs. Chemical DVT prophylaxis is contraindicated due to GI bleed Discharge Planning physical therapy evaluation ordered. Can be transferred to [facility]. May need IV medications for atrial fibrillation if recurs overnight. Reji Rogers MD Sep 22, 2016 18:35
[2016-09-22] MEDS: DONEPEZIL HCL 5 MG TAB PO SCH (20:47)
[2016-09-22] MEDS: AMIODARONE 200 MG TAB PO SCH (20:47)
[2016-09-23] VITALS (12 sets, daily range): BP systolic 96–136; BP diastolic 51–63; PULSE 61–78; RESP 14–20; TEMP 98–98.6; O2SAT 89–100
[2016-09-23 01:00] LABS: HEMATOCRIT 26.8 % (35.0-46.0); REVIEW FLAG FINAL
[2016-09-23] MEDS: CHLORHEXIDINE GLUCONATE 2 % 1 PACK (2 CLOTHS) TOP SCH (04:00)
[2016-09-23] MEDS: PANTOPRAZOLE INJ 80 MG in SODIUM CHLORIDE 0.9% INJ 100 ML IV SCH (04:15)
[2016-09-23] MEDS: PIPERACIL-TAZO 3.375 GM PREMIX 50 ML IV SCH ×4 (04:15→21:57)
[2016-09-23 06:41] LABS: AUTOMATED NEUTROPHIL # 8.1 TH/MM3 (1.8-7.7); BASOPHIL # 0.1 TH/MM3 (0-0.2); BASOPHIL % 0.8 % (0.0-2.0); EOSINOPHIL # 0.3 TH/MM3 (0-0.4); EOSINOPHIL % 2.7 % (0.0-4.0); HEMATOCRIT 27.3 % (35.0-46.0); HEMO FLAGS DIFF FINAL; LYMPH % 13.6 % (9.0-44.0); LYMPHOCYTE # 1.5 TH/MM3 (1.0-4.8); MEAN CORPUSCULAR HEMOGLOBIN 25.4 PG (27.0-34.0); MEAN CORPUSCULAR HGB CONC 32.1 % (32.0-36.0); MONO % 10.1 % (0.0-8.0); NEUT % 72.8 % (16.0-70.0); PLATELET COUNT 462 TH/MM3 (150-450); RED BLOOD COUNT 3.46 MIL/MM3 (4.00-5.30); RED CELL DISTRIBUTION WIDTH 21.8 % (11.6-17.2); WHITE BLOOD COUNT 11.2 TH/MM3 (4.0-11.0)
[2016-09-23 07:03] LABS: BICARBONATE 22.8 MEQ/L (21.0-32.0); MAGNESIUM 2.2 MG/DL (1.5-2.5)
[2016-09-23 07:21] LABS: POTASSIUM 4.7 MEQ/L (3.5-5.1)
[2016-09-23] MEDS: SODIUM CHLORIDE 0.9% FLUSH 10 ML FLUSH IV FLUSH SCH ×2 (08:33→21:57)
[2016-09-23] MEDS: FLUoxetine HCL 20 MG CAP PO SCH (08:33)
[2016-09-23] MEDS: AMIODARONE 200 MG TAB PO SCH ×2 (08:33→21:57)
[2016-09-23] MEDS: METOPROLOL TARTRATE 25 MG TAB PO SCH ×2 (08:33→21:57)
--- NOTE | 2016-09-23 09:30 | HHI.GIFU ---
Subjective Remarks Pt overall feeling better today. Pt tolerating oral diet She reports several loose stools yesterday but none so far today No reported melena or BRBPR Denies any abd pain (Laureen Farias E BREANA) Objective Vitals I&O Vital Signs Date Time Temp Pulse Resp B/P Pulse Ox O2 Delivery O2 Flow Rate FiO2 09/23/16 08:08 Nasal Cannula 3.50 09/23/16 06:00 61 09/23/16 04:00 72 09/23/16 04:00 98.6 72 14 120/56 100 09/23/16 02:00 68 09/23/16 00:00 66 09/23/16 00:00 98.2 67 16 113/58 100 09/22/16 22:00 66 09/22/16 20:00 69 09/22/16 20:00 97.3 69 14 98/53 100 09/22/16 19:02 100 Nasal Cannula 2.00 09/22/16 18:00 70 09/22/16 17:15 77 16 115/67 94 09/22/16 16:55 97.9 76 14 114/51 95 09/22/16 16:00 61 09/22/16 16:00 98.6 105 20 115/87 97 09/22/16 14:00 106 09/22/16 12:00 110 09/22/16 10:00 113 I/O 09/22/16 09/22/16 09/22/16 09/23/16 09/23/16 09/23/16 07:00 15:00 23:00 07:00 15:00 23:00 Intake Total 188 ml 450 ml 1525 ml 639 ml Output Total 2900 ml 925 ml 600 ml 800 ml Balance -2712 ml -475 ml 925 ml -161 ml Intake Oral 250 ml 250 ml IV Total 188 ml 450 ml 775 ml 389 ml Other 500 ml Output Urine Total 2900 ml 925 ml 600 ml 800 ml # Bowel Movements 2 0 0 Laboratory Laboratory Tests Test 09/22/16 09/22/16 09/23/16 09/23/16 09:36 17:52 00:34 05:01 White Blood Count 9.4 11.2 Red Blood Count 4.09 3.46 Hemoglobin 10.3 9.6 8.7 8.8 Hematocrit 32.0 31.3 26.8 27.3 Mean Corpuscular Volume 78.3 79.0 Mean Corpuscular Hemoglobin 25.2 25.4 Mean Corpuscular Hemoglobin 32.2 32.1 Concent Red Cell Distribution Width 21.4 21.8 Platelet Count 468 462 Mean Platelet Volume 7.6 7.5 Neutrophils (%) (Auto) 74.0 72.8 Lymphocytes (%) (Auto) 14.5 13.6 Monocytes (%) (Auto) 8.7 10.1 Eosinophils (%) (Auto) 2.6 2.7 Basophils (%) (Auto) 0.2 0.8 Neutrophils # (Auto) 6.9 8.1 Lymphocytes # (Auto) 1.4 1.5 Monocytes # (Auto) 0.8 1.1 Eosinophils # (Auto) 0.2 0.3 Basophils # (Auto) 0.0 0.1 CBC Comment DIFF FINAL DIFF FINAL Differential Comment Sodium Level 136 Potassium Level 4.7 Chloride Level 104 Carbon Dioxide Level 22.8 Anion Gap 9 Blood Urea Nitrogen 6 Creatinine 0.61 Estimat Glomerular Filtration 98 Rate Random Glucose 81 Calcium Level 8.0 Phosphorus Level 3.4 Magnesium Level 2.2 Albumin 2.4 Date/Time Procedure Status Source Growth 09/20/16 10:52 Aerobic Blood Culture - Preliminary Resulted Blood Peripheral Staphylococcus Epidermidis 09/20/16 10:52 Anaerobic Blood Culture - Preliminary Resulted Blood Peripheral NO GROWTH IN 2 DAYS 09/20/16 10:20 Urine Culture - Final Complete Urine Catheterized Urine NO GROWTH IN 48 HOURS. Imaging Last Impressions Chest X-Ray 09/21/16 0000 Signed Impressions: Service Date/Time: Wednesday, September 21, 2016 04:07 - CONCLUSION: No acute disease. Gerard Hernandes Jr., MD Head CT 09/20/16 1015 Signed Impressions: Service Date/Time: September 10:27 - CONCLUSION: Stable evaluation of the brain demonstrating post infarct encephalomalacia in the the right parietal and occipital lobes. No evidence of acute infarct, hemorrhage , mass or increasing edema. Isaias Sandhu MD Chest CT 09/20/16 0000 Signed Impressions: Service Date/Time: September 10:27 - CONCLUSION: 1. Cystic mass in the liver possibly simple cyst, however not adequately characterized. 2. Left adrenal mass most likely an adenoma. 3. Gas bubbles anterior to the sternum in the subcutaneous tissues of the couplet gas bubbles adjacent to the right internal mammary chain could be postprocedural if the patient has had injections at these sites. Jordi Bañuelos MD Abdomen/Pelvis CT 09/20/16 0000 Signed Impressions: Service Date/Time: September 10:27 - CONCLUSION: 1. Left adrenal mass nonspecific most likely an adenoma. 2. Hepatic cystic mass not adequately characterized most likely a simple cyst. 3. Uterine fibroids. Jordi Bañuelos MD Physical Exam HEENT: Pupils round and reactive to light; normocephalic; atraumatic; no jaundice. Throat is clear. NECK: Neck is supple. CHEST: CTA CARDIAC: Regular ABDOMEN: +BS, soft, nondistended, nontender EXTREMITIES: No clubbing, cyanosis, or edema. SKIN: Normal; no rash; no jaundice. 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 Presented to ER with lightheadedness, dizziness, AMS. On admission to the ER, she was found to have HH of 5.4/17.5. She was recently hospitalized for an acute vs. subacute CVA and HH on 09/09 was 8.3/27.5. She was on Xarelto and last took this on 09/20. Protonix Gtt. Pt was transfused with 2 units of PRBCs on 09/20/16. Pt s/p EGD on 09/21/16 ---> Gastritis and hiatal hernia. Pt s/p colonoscopy on 09/22/16 ---> Diverticulosis sigmoid, descending pedunculated polyp in descending polyp s/p polypectomy s/p clip applied at the base to prevent bleeding, sessile polyp at splenic flexure, two sessile polyps in midtransverse, two polyps at the hepatic flexure, another 5 mm flat polyp near it, two polyps in the ascending colon, and prominent IC valve/ polyp s/p biopsy, internal hemorrhoids, and external hemorrhoids. H/H 8.8/27.3 today - Hx multiple CVAs and recent hospitalization in August for acute vs. subacute infarct in the right MCA territory and old infarcts in the GEAR INSPECTOR territory. She was started on Xarelto and admitted to [facility] on 08/29/16 for intensive rehabilitation prior to her discharge home on 09/11. - Atrial fibrillation, Hx DVT, Multiple CVAs, per primary. On Xarelto at home, had today. - Elevated TSH 4.280. Per primary - HTN, Hyperlipidemia, COPD per primary PLAN: - Change Protonix Gtt to Protonix 40mg po BID - Monitor HH - Transfuse as necessary - Xarelto is on hold currently - Supportive care - Further recommendations as the case develops - Pt seen and examined by Dr. Venegas and myself and this note is written on her behalf (Laureen Farias) Physician Comments seen, examined agree with above ok to restart anticoagulation in 2 days will need repeat colonoscopy if no malignancy capsule endoscopy op consult hematology-anaemia (Leigh Ann Venegas MD) Laureen Farias Sep 23, 2016 09:30 Leigh Ann Venegas MD Sep 23, 2016 16:46
[2016-09-23 10:54] LABS: HEMATOCRIT 29.3 % (35.0-46.0); REVIEW FLAG FINAL
--- NOTE | 2016-09-23 16:10 | HHI.PR ---
Subjective Remarks Patient seen this morning around 11 AM. Says she is feeling well. Denies any chest pain or shortness of breath. Denies any abdominal pain. Like going home. Reviewed PTs note, which says rehabilitation. Objective Vital Signs Date Time Temp Pulse Resp B/P Pulse Ox O2 Delivery O2 Flow Rate FiO2 09/23/16 14:00 61 09/23/16 12:00 98.0 63 14 96/51 97 09/23/16 12:00 63 09/23/16 10:00 66 09/23/16 08:08 Nasal Cannula 3.50 09/23/16 08:00 73 09/23/16 08:00 98.5 64 16 104/53 100 09/23/16 06:00 61 09/23/16 04:00 72 09/23/16 04:00 98.6 72 14 120/56 100 09/23/16 02:00 68 09/23/16 00:00 66 09/23/16 00:00 98.2 67 16 113/58 100 09/22/16 22:00 66 09/22/16 20:00 69 09/22/16 20:00 97.3 69 14 98/53 100 09/22/16 19:02 100 Nasal Cannula 2.00 09/22/16 18:00 70 09/22/16 17:15 77 16 115/67 94 09/22/16 16:55 97.9 76 14 114/51 95 I/O 09/22/16 09/22/16 09/22/16 09/23/16 09/23/16 09/23/16 07:00 15:00 23:00 07:00 15:00 23:00 Intake Total 188 ml 450 ml 1525 ml 639 ml 502 ml Output Total 2900 ml 925 ml 600 ml 800 ml 600 ml Balance -2712 ml -475 ml 925 ml -161 ml -98 ml Intake Oral 250 ml 250 ml 400 ml IV Total 188 ml 450 ml 775 ml 389 ml 102 ml Other 500 ml Output Urine Total 2900 ml 925 ml 600 ml 800 ml 600 ml # Bowel Movements 2 0 0 3 Result Diagram: 09/23/16 1023 09/23/16 0501 Objective Remarks GENERAL: 70-year-old female who appears older than stated age. She is awake and alert. Exam unchanged from day prior. SKIN: Warm and dry. HEAD: Normocephalic. EYES: No scleral icterus. No injection or drainage. NECK: Supple, trachea midline. No JVD. CARDIOVASCULAR: Regular rate and rhythm without murmurs, gallops, or rubs. RESPIRATORY: Breath sounds equal bilaterally. No accessory muscle use. GASTROINTESTINAL: Abdomen soft, non-tender, nondistended. MUSCULOSKELETAL: No cyanosis, or edema. BACK: Nontender without obvious deformity. No CVA tenderness. A/P Assessment and Plan NEURO: //Multiple CVAs in the past -Minimize sedation -Continue Aricept and fluoxetine RESP: //Previous tobacco abuse //Probable COPD -Nasal cannula oxygen -DuoNeb every 6 hours when necessary -Respiratory status continues stable. Continue to monitor. CV: //Hypotension secondary to hypovolemia and severe anemia //History of hypertension //Chronic atrial fibrillation on Xarelto //Atrial fibrillation RVR overnight 09/2121. -s/p Normal saline IV fluids 3L bolus and 84 ml per hour. Will DC IVF today -Lactic acid initially elevated from hypovolemic shock, improved., 2d echo 05/02 EF 60% -Hold Xarelto and aspirin due to GI bleed -Norvasc held due to hypotension -09/22. A. fib with RVR. Restart metoprolol. Return to Sinus Rhythm after amiodarone load. We'll start on by mouth amiodarone and taper. -09/23. Atrial fibrillationnow in sinus rhythm. Taper amiodarone. Continue on metoprolol. -Continue to monitor blood pressure and heart rate. Continue to hold anticoagulation in setting of GI bleed. GI/HEME: //GI bleed //Severe anemia requiring transfusion -GI consulted, plan for Endoscopy today -Continue Protonix infusion -Transfuse to keep hemoglobin more than 8 due to hypotension -s/p 2 units of PRBC and 2 units of FFP = 09/22. Hemoglobin improved. Appreciate GI assistance. Status post colonoscopy. Follow results. = 09/23. Diverticulosis on colonoscopy. Hemoglobin stable. Continue to monitor. : -Monitor renal function closely. Aggressive hydration as above //Hypokalemia. Resolved after replacement. Follow. PROPH: -Bilateral lower extremity SCDs. Chemical DVT prophylaxis is contraindicated due to GI bleed Discharge Planning physical therapy to commence rehabilitation. Case management consult ordered [facility] be [facility]. Reji Rogers MD Sep 23, 2016 16:10
[2016-09-23] MEDS: PANTOPRAZOLE SOD 40 MG DELAYED RELEASE TAB PO SCH (21:57)
[2016-09-23] MEDS: DONEPEZIL HCL 5 MG TAB PO SCH (21:57)
[2016-09-24] VITALS (7 sets, daily range): BP systolic 110–135; BP diastolic 55–81; PULSE 63–72; RESP 16–19; TEMP 97.3–98.1; O2SAT 95–100
[2016-09-24] MEDS: PIPERACIL-TAZO 3.375 GM PREMIX 50 ML IV SCH ×2 (04:00→10:11)
[2016-09-24] MEDS: CHLORHEXIDINE GLUCONATE 2 % 1 PACK (2 CLOTHS) TOP SCH (04:00)
[2016-09-24] MEDS: FLUoxetine HCL 20 MG CAP PO SCH (08:42)
[2016-09-24] MEDS: METOPROLOL TARTRATE 25 MG TAB PO SCH ×2 (08:42→20:45)
[2016-09-24] MEDS: PANTOPRAZOLE SOD 40 MG DELAYED RELEASE TAB PO SCH ×2 (08:42→20:45)
[2016-09-24] MEDS: AMIODARONE 200 MG TAB PO SCH ×2 (08:42→20:46)
[2016-09-24] MEDS: SODIUM CHLORIDE 0.9% FLUSH 10 ML FLUSH IV FLUSH SCH ×2 (08:42→20:49)
[2016-09-24 09:01] LABS: AUTOMATED NEUTROPHIL # 5.4 TH/MM3 (1.8-7.7); BASOPHIL # 0.1 TH/MM3 (0-0.2); BASOPHIL % 1.5 % (0.0-2.0); EOSINOPHIL # 0.4 TH/MM3 (0-0.4); HEMO FLAGS DIFF FINAL; LYMPH % 18.2 % (9.0-44.0); LYMPHOCYTE # 1.5 TH/MM3 (1.0-4.8); MEAN CELL VOLUME 77.6 FL (80.0-100.0); MEAN CORPUSCULAR HEMOGLOBIN 25.8 PG (27.0-34.0); MEAN CORPUSCULAR HGB CONC 33.2 % (32.0-36.0); MONO % 10.3 % (0.0-8.0); PLATELET COUNT 378 TH/MM3 (150-450); RED BLOOD COUNT 3.48 MIL/MM3 (4.00-5.30); RED CELL DISTRIBUTION WIDTH 21.1 % (11.6-17.2); WHITE BLOOD COUNT 8.3 TH/MM3 (4.0-11.0)
[2016-09-24 09:12] LABS: BICARBONATE 30.5 MEQ/L (21.0-32.0); POTASSIUM 3.2 MEQ/L (3.5-5.1)
[2016-09-24] MEDS ORDERED: METOPROLOL TARTRATE 25 MG TAB PO ONE (10:00)
[2016-09-24] MEDS ORDERED: IRON SUCROSE INJ 200 MG in SODIUM CHLORIDE 0.9% INJ 100 ML IV ONE (10:00)
--- NOTE | 2016-09-24 11:00 | MB ---
cc: BENSON SALAZAR M.D. DATE OF CONSULTATION 09/24/2016 HISTORY OF PRESENT ILLNESS She is 70 years old, seen in neurological consultation. She was admitted on 09/20 with dizziness and found to be hypotensive in the emergency room with a history of the GI bleed and anemia. She takes Xarelto for her chronic atrial fibrillation. She has had multiple strokes in the past. In August she was admitted with the a right middle cerebral artery ischemic stroke and previous strokes involved both posterior cerebral arteries and also I believe the right middle cerebral artery. She had been previously on Eliquis and aspirin. She is now feeling that she is ready to go back home. PHYSICAL EXAMINATION She was awake, alert pleasant, cooperative. She just had a bowel movement and she is dirty and needs to be cleaned. The nursing staff was assisting her. Therefore my exam was somewhat limited. She was pleasant, cooperative. Ocular movements were full and she has fairly severe visual loss and has difficulty counting fingers and appears to have some preservation of central vision. There is no facial weakness. She is verbalizing and expressing herself well. She is moving the upper and lower extremities while sitting on the commode and I did not get her up. She admits that she uses a walker to get around. CURRENT LABS White count today 8.3, hemoglobin 9.0, platelets 378. Chemistry: Sodium 140, potassium 3.2, otherwise essentially normal basic chemistry. Calcium is 8.3. INR is 1.4. ASSESSMENT Multiple cerebrovascular ischemic events in the past. On this relatively limited search of her records, I did not see any hemorrhagic events. She has atrial fibrillation and she was treated with Eliquis and aspirin in the past but apparently when she fell, this was switched to Xarelto and aspirin which she is currently taking. She is admitted with hypotension and apparent GI bleed. She takes donepezil and Prozac on a chronic basis and apparently functioning at home with the care of family members and uses a walker. She has severe visual loss peripherally bilaterally from the bi-hemisphere occipital lobe strokes. Evidently, due to her cardiac arrhythmia, she is at high risk for additional ischemic embolic events and unless absolutely contraindicated, anticoagulation ought to be continued. This is a difficult decision and the benefits and risks need to be balanced. Please let me know if there is any other neurological concerns. Thank you for asking us to assist in her care. MD DARLYN Lala/RAAD /9:59 AM /10:52 AM
[2016-09-24 12:01] LABS: TRANSFERRIN IRON PROFILE 246 MG/DL (200-360)
[2016-09-24 12:04] LABS: FERRITIN 14 NG/ML (8-252)
[2016-09-24] MEDS ORDERED: POTASSIUM CHLORIDE 10 MEQ CONTROLLED RELEASE TAB PO ONE (13:00)
--- NOTE | 2016-09-24 13:29 | HHI.PR ---
Subjective Remarks seen this morning around 10 AM. Says she is feeling well. Denies any chest pain or shortness of breath. Denies any lightheadedness or dizziness. Objective Vital Signs Date Time Temp Pulse Resp B/P Pulse Ox O2 Delivery O2 Flow Rate FiO2 09/24/16 12:30 97.3 67 18 113/65 100 09/24/16 08:50 Nasal Cannula 2.00 09/24/16 08:47 69 09/24/16 08:24 97.7 72 18 126/71 95 09/24/16 04:00 97.4 66 19 110/55 99 09/24/16 00:00 97.9 70 19 128/81 97 09/23/16 22:12 Nasal Cannula 2.00 09/23/16 21:38 99 Nasal Cannula 2.00 09/23/16 20:00 98.6 74 19 136/63 100 09/23/16 17:35 98.6 78 20 118/58 100 09/23/16 16:00 73 09/23/16 16:00 98.6 67 18 114/58 97 09/23/16 14:00 61 I/O 09/23/16 09/23/16 09/23/16 09/24/16 09/24/16 09/24/16 07:00 15:00 23:00 07:00 15:00 23:00 Intake Total 639 ml 502 ml 220 ml Output Total 800 ml 600 ml Balance -161 ml -98 ml 220 ml Intake Oral 250 ml 400 ml 220 ml IV Total 389 ml 102 ml Output Urine Total 800 ml 600 ml # Voids 2 # Bowel Movements 0 3 Result Diagram: 09/24/16 0809 09/24/16 0809 Objective Remarks GENERAL: 70-year-old female who appears older than stated age. She is awake and alert. Eating up on edge of bed. Appears comfortable. SKIN: Warm and dry. HEAD: Normocephalic. EYES: No scleral icterus. No injection or drainage. NECK: Supple, trachea midline. No JVD. CARDIOVASCULAR: Regular rate and rhythm without murmurs, gallops, or rubs. RESPIRATORY: Breath sounds equal bilaterally. No accessory muscle use. GASTROINTESTINAL: Abdomen soft, non-tender, nondistended. MUSCULOSKELETAL: No cyanosis, or edema. BACK: Nontender without obvious deformity. No CVA tenderness. A/P Assessment and Plan NEURO: //Multiple CVAs in the past -Patient has both carotid plaque on ultrasound carotids, as well as history of atrial fibrillation. -Previous admission for recurrent CVA was thought to be secondary to poor compliance data coagulation. -Minimize sedation -Continue Aricept and fluoxetine -Necessary to hold anticoagulation with acute anemia. - have discussed with neurology. Given patient's acute presentation with suspected GI bleed from diverticulosis, is a difficult situation at this time. In the past I have seen patients manage with rhythm control for atrial fibrillation without will anticoagulation is a compromise between bleeding risk and stroke risk. Nevertheless, patient will need low-dose aspirin at least, as she does have a history of bilateral carotid atherosclerosis. Start aspirin. We'll consult cardiology for recommendations regarding rhythm control, with the understanding that there is no ideal regimen. RESP: //Previous tobacco abuse //Probable COPD -Nasal cannula oxygen -DuoNeb every 6 hours when necessary -Respiratory status continues stable. Continue to monitor. CV: //Hypotension secondary to hypovolemia and severe anemia //History of hypertension //Chronic atrial fibrillation on Xarelto //Atrial fibrillation RVR overnight 09/2121. -s/p Normal saline IV fluids 3L bolus and 84 ml per hour. Will DC IVF today -Lactic acid initially elevated from hypovolemic shock, improved., 2d echo 05/02 EF 60% -Hold Xarelto and aspirin due to GI bleed -Norvasc held due to hypotension -09/22. A. fib with RVR. Restart metoprolol. Return to Sinus Rhythm after amiodarone load. We'll start on by mouth amiodarone and taper. -09/23. Atrial fibrillationnow in sinus rhythm. Taper amiodarone. Continue on metoprolol. -Continue to monitor blood pressure and heart rate. Continue to hold anticoagulation in setting of GI bleed. -09/24. Continue amiodarone. Increase metoprolol. Consult cardiology for recommendations regarding rhythm control to possibly avoid full and coagulation. GI/HEME: //GI bleed //Severe anemia requiring transfusion -GI consulted, plan for Endoscopy today -Continue Protonix infusion -Transfuse to keep hemoglobin more than 8 due to hypotension -s/p 2 units of PRBC and 2 units of FFP = 09/22. Hemoglobin improved. Appreciate GI assistance. Status post colonoscopy. Follow results. = 09/23. Diverticulosis on colonoscopy. Hemoglobin stable. Continue to monitor. -09/24. Hematology consulted by gastroenterology. Await recommendations. I've also discussed with neurology, as well as consult cardiology to give recommendations regarding ongoing and coagulation in this patient at risk for diverticular bleed. Appreciate assistance. : -Monitor renal function closely. //Hypokalemia. Resolved after replacement. Follow. ID //1 out of 4 blood cultures on admission positive for staph epidermidis. This growth took over 24 hours. Contamination. Discontinue antibiotics. PROPH: -Bilateral lower extremity SCDs. Chemical DVT prophylaxis is contraindicated due to GI bleed Discharge Planning -We'll need to decide on anticoagulation going home as patient has suspected GI bleed with history of recurrent CVA. added aspirin back 09/24 --cardiology and hematology consultations. -She can likely discharge to SNF or rehab in the next 1-2 days. Reji Rogers MD Sep 24, 2016 13:29
[2016-09-24] MEDS: ASPIRIN EC 81 MG TABEC PO SCH (14:36)
[2016-09-24] MEDS: DONEPEZIL HCL 5 MG TAB PO SCH (20:45)
[2016-09-24] MEDS ORDERED: FERROUS FUMARATE 325 MG TAB (106 MG ELEMENTAL IRON) PO SCH (21:00)
[2016-09-25] VITALS (7 sets, daily range): BP systolic 117–144; BP diastolic 57–75; PULSE 62–89; RESP 14–18; TEMP 97.2–98.3; O2SAT 94–98
[2016-09-25] MEDS: CHLORHEXIDINE GLUCONATE 2 % 1 PACK (2 CLOTHS) TOP SCH (04:00)
[2016-09-25] MEDS: ASPIRIN EC 81 MG TABEC PO SCH (07:27)
[2016-09-25] MEDS: AMIODARONE 200 MG TAB PO SCH ×2 (07:27→20:45)
[2016-09-25] MEDS: FLUoxetine HCL 20 MG CAP PO SCH (07:27)
[2016-09-25] MEDS: METOPROLOL TARTRATE 25 MG TAB PO SCH ×2 (07:27→20:45)
[2016-09-25] MEDS: FERROUS FUMARATE 325 MG TAB (106 MG ELEMENTAL IRON) PO SCH ×3 (07:27→17:07)
[2016-09-25] MEDS: PANTOPRAZOLE SOD 40 MG DELAYED RELEASE TAB PO SCH ×2 (07:27→20:44)
[2016-09-25] MEDS: SODIUM CHLORIDE 0.9% FLUSH 10 ML FLUSH IV FLUSH SCH ×2 (07:28→20:44)
--- NOTE | 2016-09-25 07:44 | MB ---
cc: ANIHAYLIE DATE OF CONSULTATION: 09/24/2016 HISTORY OF PRESENT ILLNESS Ms. [facility] is a 70-year-old white female with a history of multiple CVAs, chronic atrial fibrillation and COPD. She was admitted on 08/23/2016 with a right MCA infarct and was started on Xarelto. She was discharged to rehabilitation and subsequently home. She was re-admitted with dizziness, lightheadedness and severe hypotension. She was found to have GI bleeding. She was transfused with improvement of her symptoms. She denies any chest pain, shortness of breath, PND, orthopnea, dizziness, lightheadedness, palpitations or peripheral edema. PAST MEDICAL HISTORY 1. Recurrent CVAs. 2. Chronic atrial fibrillation. 3. COPD. 4. DVT. 5. Hypertension. 6. Dyslipidemia. 7. Depression. 8. Dementia. PAST SURGICAL HISTORY 1. Tonsillectomy. 2. Lumbar spine fusion. 3. Cholecystectomy. MEDICATIONS 1. Metoprolol. 2. Iron. 3. Amiodarone 200 mg a day. 4. Aspirin. 5. Pantoprazole. 6. Omeprazole. 7. Fluoxetine. ALLERGIES SULFA. SOCIAL HISTORY The patient does not smoke but used to smoke in the past, quit smoking about six months ago. She does not drink alcohol. FAMILY HISTORY Negative for heart disease. REVIEW OF SYSTEMS Otherwise negative. PHYSICAL EXAMINATION VITAL SIGNS: Blood pressure 116/56, pulse 67 and irregular. HEENT: Negative. NECK: 2+ carotid upstrokes. No bruits. LUNGS: Clear. HEART: Irregularly irregular. No murmur, gallop or rub. ABDOMEN: Soft. No bruit. EXTREMITIES: Without edema. 2+ distal pulses. NEUROLOGIC: Grossly nonfocal. She has significant impairment of her vision. EKG EKG was reviewed and showed atrial fibrillation, normal axis, incomplete right bundle branch block and nonspecific ST-T changes. LABORATORY Hemoglobin 9.0. Potassium 3.2. Creatinine 0.5. DIAGNOSIS 1. GI bleeding. 2. Paroxysmal atrial fibrillation with rapid ventricular response. 3. Recurrent CVA. 4. Hypertension. 5. Anemia. 6. COPD. DISPOSITION Ms. [facility] has converted to sinus rhythm. I recommend to continue amiodarone to keep her in sinus rhythm at this time. She has high risk of stroke given her history of atrial fibrillation and high CHADS2-VASc score. I recommend to monitor her on telemetry. I will follow her for cardiology during her hospitalization. She has a history of chronic atrial fibrillation and at this time she is not a candidate for cardioversion due to high risk of stroke. I recommend to restart Xarelto as soon as it is OK with GI. I recommend to continue metoprolol for rate control and discontinue amiodarone. MD REY Antonio/EDEL /6:20 PM /7:31 AM [id number]
[2016-09-25 08:06] LABS: BASOPHIL # 0.1 TH/MM3 (0-0.2); BASOPHIL % 0.9 % (0.0-2.0); EOSINOPHIL # 0.4 TH/MM3 (0-0.4); EOSINOPHIL % 5.4 % (0.0-4.0); HEMATOCRIT 28.6 % (35.0-46.0); LYMPHOCYTE # 1.1 TH/MM3 (1.0-4.8); MEAN CORPUSCULAR HEMOGLOBIN 24.8 PG (27.0-34.0); MEAN CORPUSCULAR HGB CONC 31.4 % (32.0-36.0); NEUT % 70.7 % (16.0-70.0); PLATELET COUNT 437 TH/MM3 (150-450); RED BLOOD COUNT 3.63 MIL/MM3 (4.00-5.30); RED CELL DISTRIBUTION WIDTH 20.9 % (11.6-17.2); WHITE BLOOD COUNT 7.1 TH/MM3 (4.0-11.0)
[2016-09-25 08:11] LABS: HEMO FLAGS AUTO DIFF
[2016-09-25 08:25] LABS: BICARBONATE 30.5 MEQ/L (21.0-32.0); MAGNESIUM 2.1 MG/DL (1.5-2.5); POTASSIUM 3.4 MEQ/L (3.5-5.1)
[2016-09-25 09:07] LABS: PLATELET ESTIMATE SMEAR HIGH (NORMAL); PLATELET MORPHOLOGY NORMAL (NORMAL); SCAN/DIFF AUTO DIFF CONFIRMED
--- NOTE | 2016-09-25 14:53 | PD.CARD.PN ---
Subjective Subjective Remarks No CP or SOB, feels better Objective Medications Current Medications Medications (Trade) Dose Ordered Sig/Haley Route Start Time Stop Time Status Last Admin (NS Flush) 2 ml UNSCH PRN IV FLUSH 09/20/16 11:45 (NS Flush) 2 ml BID IV FLUSH 09/20/16 21:00 09/25/16 07:28 Miscellaneous Information 1 Q361D XX 09/20/16 11:45 (Chlorhexidine 2% Cloth) 3 pack Taper DAILY@04 TOP 09/21/16 04:00 09/17/17 03:59 09/23/16 04:00 (Chlorhexidine 2% Cloth) 3 pack UNSCH PRN TOP 09/20/16 11:45 (Aricept) 5 mg HS PO 09/21/16 21:00 09/24/16 20:45 (PROzac) 40 mg DAILY PO 09/21/16 09:00 09/25/16 07:27 (Pill Splitter) 1 ea UNSCH PRN OTHER 09/22/16 09:15 (Protonix) 40 mg Q12HR PO 09/23/16 21:00 09/25/16 07:27 (Lopressor) 25 mg Q12HR PO 09/24/16 21:00 09/25/16 07:27 (Cordarone) 200 mg Q12HR PO 09/24/16 21:00 09/25/16 07:27 (Ecotrin Ec) 81 mg DAILY PO 09/24/16 14:15 09/25/16 07:27 (Hemocyte) 325 mg TID PO 09/25/16 09:00 09/25/16 12:13 Vital Signs / I&O Vital Signs Date Time Temp Pulse Resp B/P Pulse Ox O2 Delivery O2 Flow Rate FiO2 09/25/16 12:00 97.4 70 16 129/75 95 09/25/16 07:52 64 09/25/16 07:47 Room Air 09/25/16 04:00 97.2 89 16 144/73 94 09/25/16 00:00 97.6 62 14 119/57 94 09/24/16 20:00 97.9 64 16 135/71 100 09/24/16 20:00 Nasal Cannula 2.00 09/24/16 20:00 63 09/24/16 16:22 98.1 67 18 116/56 98 I/O 09/24/16 09/24/16 09/24/16 09/25/16 09/25/16 09/25/16 07:00 15:00 23:00 07:00 15:00 23:00 Intake Total 220 ml 720 ml 0 ml 720 ml 480 ml Output Total 900 ml Balance 220 ml 720 ml 0 ml 720 ml -420 ml Intake Oral 220 ml 720 ml 0 ml 720 ml 480 ml Output Urine Total 900 ml # Voids 2 3 1 4 # Bowel Movements 3 0 0 2 Physical Exam GENERAL: In NAD SKIN: Warm and dry. HEAD: Normocephalic. EYES: No scleral icterus. No injection or drainage. NECK: Supple, trachea midline. No JVD or lymphadenopathy. CARDIOVASCULAR: Regular rate and rhythm without murmurs, gallops, or rubs. RESPIRATORY: Breath sounds equal bilaterally. No accessory muscle use. GASTROINTESTINAL: Abdomen soft, non-tender, nondistended. MUSCULOSKELETAL: No cyanosis, or edema. Laboratory Laboratory Tests Test 09/25/16 07:13 White Blood Count 7.1 TH/MM3 Red Blood Count 3.63 MIL/MM3 Hemoglobin 9.0 GM/DL Hematocrit 28.6 % Mean Corpuscular Volume 79.0 FL Mean Corpuscular Hemoglobin 24.8 PG Mean Corpuscular Hemoglobin 31.4 % Concent Red Cell Distribution Width 20.9 % Platelet Count 437 TH/MM3 Mean Platelet Volume 7.1 FL Neutrophils (%) (Auto) 70.7 % Lymphocytes (%) (Auto) 15.0 % Monocytes (%) (Auto) 8.0 % Eosinophils (%) (Auto) 5.4 % Basophils (%) (Auto) 0.9 % Neutrophils # (Auto) 5.0 TH/MM3 Lymphocytes # (Auto) 1.1 TH/MM3 Monocytes # (Auto) 0.6 TH/MM3 Eosinophils # (Auto) 0.4 TH/MM3 Basophils # (Auto) 0.1 TH/MM3 CBC Comment AUTO DIFF Differential Comment AUTO DIFF CONFIRMED Platelet Estimate HIGH Platelet Morphology Comment NORMAL Sodium Level 141 MEQ/L Potassium Level 3.4 MEQ/L Chloride Level 104 MEQ/L Carbon Dioxide Level 30.5 MEQ/L Anion Gap 7 MEQ/L Blood Urea Nitrogen 7 MG/DL Creatinine 0.46 MG/DL Estimat Glomerular Filtration 135 ML/MIN Rate Random Glucose 83 MG/DL Calcium Level 8.6 MG/DL Phosphorus Level 3.0 MG/DL Magnesium Level 2.1 MG/DL Albumin 2.6 GM/DL Imaging Last Impressions Chest X-Ray 09/21/16 0000 Signed Impressions: Service Date/Time: Wednesday, September 21, 2016 04:07 - CONCLUSION: No acute disease. Gerard Hernandes Jr., MD Head CT 09/20/16 1015 Signed Impressions: Service Date/Time: September 10:27 - CONCLUSION: Stable evaluation of the brain demonstrating post infarct encephalomalacia in the the right parietal and occipital lobes. No evidence of acute infarct, hemorrhage , mass or increasing edema. Isaias Sandhu MD Chest CT 09/20/16 0000 Signed Impressions: Service Date/Time: September 10:27 - CONCLUSION: 1. Cystic mass in the liver possibly simple cyst, however not adequately characterized. 2. Left adrenal mass most likely an adenoma. 3. Gas bubbles anterior to the sternum in the subcutaneous tissues of the couplet gas bubbles adjacent to the right internal mammary chain could be postprocedural if the patient has had injections at these sites. Jordi Bañuelos MD Abdomen/Pelvis CT 09/20/16 0000 Signed Impressions: Service Date/Time: September 10:27 - CONCLUSION: 1. Left adrenal mass nonspecific most likely an adenoma. 2. Hepatic cystic mass not adequately characterized most likely a simple cyst. 3. Uterine fibroids. Jordi Bañuelos MD Assessment and Plan Problem List: (1) CVA (cerebral vascular accident) (2) GI bleed (3) Atrial fibrillation (4) Hypertension (5) Anemia Assessment and Plan No cardiac symptoms. Continue amio for maintenance of SR. Restart Xarelto once OK w GI. Risk of stroke with a fib off anticoagulation is high. Increase activities. Problem Qualifiers (1) GI bleed: Qualified Code: K92.2 - Gastrointestinal hemorrhage, unspecified gastrointestinal hemorrhage type (2) Atrial fibrillation: Qualified Code: I48.91 - Atrial fibrillation, unspecified type Nicholas Snow MD Sep 25, 2016 14:53
[2016-09-25] MEDS ORDERED: IRON SUCROSE INJ 200 MG in SODIUM CHLORIDE 0.9% INJ 100 ML IV SCH (16:15)
[2016-09-25] MEDS ORDERED: RIVAROXABAN 20 MG TAB PO ONE (16:30)
--- NOTE | 2016-09-25 16:30 | HHI.PR ---
Subjective Remarks seen this morning around 9:30 AM. Weeping, wakes up for exam. Says she is feeling all right. Denies any chest pain or shortness of breath. Denies any bleeding. Objective Vital Signs Date Time Temp Pulse Resp B/P Pulse Ox O2 Delivery O2 Flow Rate FiO2 09/25/16 12:00 97.4 70 16 129/75 95 09/25/16 07:52 64 09/25/16 07:47 Room Air 09/25/16 04:00 97.2 89 16 144/73 94 09/25/16 00:00 97.6 62 14 119/57 94 09/24/16 20:00 97.9 64 16 135/71 100 09/24/16 20:00 Nasal Cannula 2.00 09/24/16 20:00 63 09/24/16 16:22 98.1 67 18 116/56 98 I/O 09/24/16 09/24/16 09/24/16 09/25/16 09/25/16 09/25/16 07:00 15:00 23:00 07:00 15:00 23:00 Intake Total 220 ml 720 ml 0 ml 720 ml 480 ml Output Total 900 ml Balance 220 ml 720 ml 0 ml 720 ml -420 ml Intake Oral 220 ml 720 ml 0 ml 720 ml 480 ml Output Urine Total 900 ml # Voids 2 3 1 4 # Bowel Movements 3 0 0 2 Result Diagram: 09/25/1671209/25/16712 Objective Remarks GENERAL: 70-year-old female who appears older than stated age. Sleeping, wakes up for exam. Appears comfortable. SKIN: Warm and dry. HEAD: Normocephalic. EYES: No scleral icterus. No injection or drainage. NECK: Supple, trachea midline. No JVD. CARDIOVASCULAR: Regular rate and rhythm without murmurs, gallops, or rubs. RESPIRATORY: Breath sounds equal bilaterally. No accessory muscle use. GASTROINTESTINAL: Abdomen soft, non-tender, nondistended. MUSCULOSKELETAL: No cyanosis, or edema. BACK: Nontender without obvious deformity. No CVA tenderness. A/P Assessment and Plan Patient with recurrent CVAs in the past, history of atrial fibrillation on rivaroxaban, who came in with a GI bleed, acute life-threatening anemia. Transfused, held anticoagulation with improvement in anemia. Panendoscopy with only diverticulosis and internal hemorrhoids. GI recommends restarting anticoagulation for atrial fibrillation on 09/25. Hospital course was palpated by atrial fibrillation with RVR, which patient was converted to sinus after amiodarone. If patient develops recurrent GI bleed, we'll need to balance the risks of stroke with the risks of GI bleed.-Patient is in sinus rhythm on amiodarone, and as a compromise could consider continuation of rhythm control with amiodarone and avoid full anticoagulation. NEURO: //Multiple CVAs in the past -Patient has both carotid plaque on ultrasound carotids, as well as history of atrial fibrillation. -Previous admission for recurrent CVA was thought to be secondary to poor compliance data coagulation. -Minimize sedation -Continue Aricept and fluoxetine -Necessary to hold anticoagulation with acute anemia. -09/24 have discussed with neurology. Given patient's acute presentation with suspected GI bleed from diverticulosis, is a difficult situation at this time. In the past I have seen patients manage with rhythm control for atrial fibrillation without will anticoagulation is a compromise between bleeding risk and stroke risk. Nevertheless, patient will need low-dose aspirin at least, as she does have a history of bilateral carotid atherosclerosis. Start aspirin. We'll consult cardiology for recommendations regarding rhythm control, with the understanding that there is no ideal regimen. 09/25. Discussed with hematology. Difficult situation. Will transfuse IV iron. Restart anticoagulation as per GI.. Appreciate assistance. Monitor hemoglobin for bleeding. RESP: //Previous tobacco abuse //Probable COPD -Nasal cannula oxygen -DuoNeb every 6 hours when necessary -Respiratory status continues stable. Continue to monitor. CV: //Hypotension secondary to hypovolemia and severe anemia //History of hypertension //Chronic atrial fibrillation on Xarelto //Atrial fibrillation RVR overnight 09/2121. -s/p Normal saline IV fluids 3L bolus and 84 ml per hour. Will DC IVF today -Lactic acid initially elevated from hypovolemic shock, improved., 2d echo 05/02 EF 60% -Hold Xarelto and aspirin due to GI bleed -Norvasc held due to hypotension -09/22. A. fib with RVR. Restart metoprolol. Return to Sinus Rhythm after amiodarone load. We'll start on by mouth amiodarone and taper. -09/23. Atrial fibrillationnow in sinus rhythm. Taper amiodarone. Continue on metoprolol. -Continue to monitor blood pressure and heart rate. Continue to hold anticoagulation in setting of GI bleed. -09/24. Continue amiodarone. Increase metoprolol. Consult cardiology for recommendations regarding rhythm control to possibly avoid full and coagulation. -09/25. Appreciate cardiology assistance. Cardiology says to continue amiodarone for rate control, that she would not be candidate for cardioversion, however she appears to be in sinus rhythm. Will get EKG. GI/HEME: //GI bleed //Severe anemia requiring transfusion -GI consulted, plan for Endoscopy today -Continue Protonix infusion -Transfuse to keep hemoglobin more than 8 due to hypotension -s/p 2 units of PRBC and 2 units of FFP = 09/22. Hemoglobin improved. Appreciate GI assistance. Status post colonoscopy. Follow results. = 09/23. Diverticulosis on colonoscopy. Hemoglobin stable. Continue to monitor. -09/24. Hematology consulted by gastroenterology. Await recommendations. I've also discussed with neurology, as well as consult cardiology to give recommendations regarding ongoing and coagulation in this patient at risk for diverticular bleed. Appreciate assistance. -09/25. Continue IV iron day 2 of 3. Discussed with hematology. No perfect answer. We'll restart anticoagulation as per GI recommendations. Monitor hemoglobin. : -Monitor renal function closely. //Hypokalemia. Resolved after replacement. Follow. ID //1 out of 4 blood cultures on admission positive for staph epidermidis. This growth took over 24 hours. Contamination. Discontinued antibiotics 09/24. PROPH: -Bilateral lower extremity SCDs. Restarting anticoagulation for atrial fibrillation. Discharge Planning - added aspirin back 09/24. Added back Rivaroxaban . Continue to monitor hemoglobin. --cardiology and hematology consultations. -If Hemoglobin stable by tomorrow with no bleeding, and after having completed her third dose of IV iron, consider discharge to SNF. Reji Rogers MD Sep 25, 2016 16:30
[2016-09-25] MEDS: SODIUM FERRIC GLUCONATE INJ 125 MG in SODIUM CHLORIDE 0.9% INJ 100 ML IV SCH (17:38)
--- NOTE | 2016-09-25 20:18 | MB ---
cc: JUANI CAMPBELL MD, AARON DO DATE OF CONSULTATION: 09/25/2016 Date of : 1945 CONSULT REQUESTED BY: Gastroenterology service REASON FOR CONSULTATION Microcytic anemia. CURRENT TREATMENT The patient is on intravenous iron replacement therapy with iron dextran. CHIEF COMPLAINT 1. 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 2. Generalized fatigue and weakness. She reports feeling as if there was "no strength in her legs on the day she came into the hospital." HISTORY OF PRESENT ILLNESS Ms. Carroll is a 70-year-old female, she is originally from [place]. 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 She also reports having close to 55 pack-year history of smoking about a pack a day. The patient has had recurrent ischemic strokes with significant encephalomalacia and with resultant cortical blindness (per the patient). She reports having had an ischemic stroke most recently about a month ago. She spent some time in rehab and was just recently discharged to her home. She reports feeling increasingly fatigued and tired, especially when ambulating short distances. She was brought into [facility] emergency department and was noted at the time of admission to have a hemoglobin of 5.4 gm/dl. This was associated with a hematocrit of 17.5 and an MCV of 76.9. She had a reactive thrombocytosis at that time. Serum iron studies performed following multiple transfusions indicated iron deficiency. The patient at the time of admission had been on therapeutic anticoagulation with Eliquis 5 mg twice daily. She has been evaluated by gastroenterology who performed an EGD on 09/21/2016. She was noted to have gastritis but no obvious bleeding. Biopsies were performed and there was no evidence of significant abnormalities appreciated. On 09/24/2016 she underwent a colonoscopy and multiple biopsies were obtained. 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 An additional tubulovillous adenoma was identified in the hepatic flexure. Stool for occult blood testing was negative on 09/25/2016. She has been initiated on therapeutic anticoagulation with Xarelto and has also been initiated on iron replacement therapy. The patient has been seen by steward/stewardess banquet as well as neurologist during this admission. PAST MEDICAL HISTORY 1. Personal history tobaccoism. 2. Peripheral arterial disease. 3. Anemia. 4. Recurrent strokes. 5. Reported history of deep venous thrombosis. 6. Atrial fibrillation 7. COPD. 8. Hyperlipidemia. 9. Dementia. PAST SURGICAL HISTORY 1. Cholecystectomy. 2. Spinal fusion. 3. Tonsillectomy. FAMILY HISTORY Father had prostate cancer, mom of complication of diabetes. 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 Reports smoking a pack a day for most of her adult life. She quit about a year ago. She lives at home presently with her granddaughter. ECOG performance status of three at baseline. ALLERGIES SULFA. CURRENT INPATIENT MEDICATIONS: 1. Ferrous gluconate 125 milligrams daily. 2. Amiodarone 200 milligrams p.o. q12 hours. 3. Aspirin 81 milligrams daily. 4. Aricept 5 milligrams p.o. q hs. 5. Ferrous sulfate 325 milligrams t.i.d. 6. Fluoxetine 40 milligrams daily. 7. Metoprolol 25 milligrams p.o. q12 hours. 8. Pantoprazole 40 milligrams p.o. q12 hours. REVIEW OF SYSTEMS: A 15 point review of systems are obtained. The following are the pertinent positives. The patient reports fatigue, weakness. She reports having a good appetite. She denies fevers, chills or night sweats. HEENT: She reports poor vision, she denies headaches, she tells me she is only able to make out some shapes, colors and light versus dark. She is unable to make out much more detail. Respiratory: Reports difficulty breathing with minimal exertion, denies cough or hemoptysis. Denies pleuritic chest pain. Cardiovascular: Denies angina-like chest pain, PND, orthopnea, lower extremity swelling. : Denies dysuria, hematuria, urine incontinence. GI: Denies change in bowel habits, gross hematuria (she admits she would not be able to tell if she was having hematuria). She denies diarrhea. 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 She reports her legs are generally weak. She reports recent stroke. PHYSICAL EXAMINATION Vital signs: Temperature 98.1 degrees Fahrenheit, heart rate 62 beats minute, respiratory rate 16, blood pressure 135/63, O2 sats 96% on room air. General physical appearance: Ms. Carroll is an elderly lady, she is laying in bed, she appears to be in no acute distress. HEENT: Head atraumatic, normocephalic, conjunctive are pale. Sclerae are anicteric. Pupils are not reactive to light or accommodation. She has cataracts bilaterally. EOMI. Oral exam: No pharyngeal erythema. Neck: Palpable cervical or supraclavicular lymphadenopathy. Respiratory exam: Prolonged expiratory phase, no added breath sounds. Cardiovascular: Irregular rhythm, S1-S2. No obvious murmurs, rubs or gallops. Abdomen: Thin belly, soft and nontender, nondistended, no palpable organ enlargement. Extremities: Lower extremities, no pretibial edema or calf tenderness. EGG PASTEURIZER: No focal sensory motor deficits. LABORATORY FINDINGS Blood work dated 09/25/2016: Sodium 141, potassium 3.4, chloride 104, bicarbonate 30.5, BUN 7, creatinine 0.46, EGFR 135, random glucose 83, calcium 8.6, phosphorus 3, magnesium 2.1, iron level 24, percent iron saturation 7%, ferritin level 14, albumin 2.6. CBC: Dated 09/25/2016, WBC count 7, hemoglobin 9 gm/dl, hematocrit 28.6%, MCV 79, platelet count 437. 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 ASSESSMENT Ms. Carroll is a very pleasant 70-year-old female with peripheral arterial disease, she has had an extensive past history of tobaccoism (proximal 55 pack years). Consequent to this and other contributing factors including hypertension and hyperlipidemia, she has had multiple strokes which has been mostly ischemic strokes. She has cortical blindness. She also has atrial fibrillation. For management of the atrial fibrillation and recurrent strokes, she had been on anticoagulation with Eliquis. She developed increasing fatigue and weakness prior to this admission and was brought into the hospital. She was found to have a hemoglobin of 5.5 gm/dl associated with microcytosis. The patient, after undergoing a GI evaluation was found to have no evidence of active bleeding and stool for occult blood was also negative. The patient has been initiated on iron replacement therapy appropriately and after undergoing a GI workup which revealed no evidence of active bleeding was resumed on both anticoagulation with Xarelto 20 mg daily as well as low dose enteric-coated aspirin 81 mg daily. RECOMMENDATIONS Iron deficiency anemia: I would recommend continuation of intravenous iron replacement with any of the current formulations. She is also on oral iron replacement therapy. I do anticipate her MCV and hemoglobin/hematocrit to improve. Unfortunately, she will remain at risk for recurrent GI bleeding given the ongoing therapy with aspirin and Xarelto. Unfortunately her history of recurrent strokes and consequent neurological deficits almost necessitate some form of treatment. I suspect her disease course will be punctuated in the future with recurrent GI bleeding. When she does bleed, she will likely have to come off of anticoagulation and be supported. I will arrange follow up with either myself or one of my associated in the outpatient setting. MD TITUS Britt/GRACIE /7:08 PM /7:33 PM
[2016-09-25] MEDS: DONEPEZIL HCL 5 MG TAB PO SCH (20:45)
[2016-09-26] VITALS (8 sets, daily range): BP systolic 115–140; BP diastolic 60–65; PULSE 58–71; RESP 16–20; TEMP 98–98.7; O2SAT 95–98
[2016-09-26] MEDS: CHLORHEXIDINE GLUCONATE 2 % 1 PACK (2 CLOTHS) TOP SCH (03:24)
[2016-09-26] MEDS: SODIUM CHLORIDE 0.9% FLUSH 10 ML FLUSH IV FLUSH SCH ×2 (09:00→20:18)
[2016-09-26] MEDS: METOPROLOL TARTRATE 25 MG TAB PO SCH ×2 (09:32→20:12)
[2016-09-26] MEDS: FERROUS FUMARATE 325 MG TAB (106 MG ELEMENTAL IRON) PO SCH ×3 (09:32→18:00)
[2016-09-26] MEDS: RIVAROXABAN 20 MG TAB PO SCH (09:32)
[2016-09-26] MEDS: ASPIRIN EC 81 MG TABEC PO SCH (09:32)
[2016-09-26] MEDS: AMIODARONE 200 MG TAB PO SCH ×2 (09:33→20:12)
[2016-09-26] MEDS: FLUoxetine HCL 20 MG CAP PO SCH (09:33)
[2016-09-26] MEDS: PANTOPRAZOLE SOD 40 MG DELAYED RELEASE TAB PO SCH ×2 (09:33→20:12)
--- NOTE | 2016-09-26 11:02 | HHI.PR ---
Review/Management Daily Summary 09/26 no cx pleasant and cooperative peripheral field loss bilaterally follows commands and happy poing home today GI eval seen and appreciated xarelto order in place could consider going off asa to reduce recurrence of GI bleed will follow prn Subjective Subjective Comments No acute events reported No headache No chest pain No dyspnea Active Medications Current Medications Medications (Trade) Dose Ordered Sig/Haley Route Start Time Stop Time Status Last Admin (NS Flush) 2 ml UNSCH PRN IV FLUSH 09/20/16 11:45 (NS Flush) 2 ml BID IV FLUSH 09/20/16 21:00 09/26/16 09:00 Miscellaneous Information 1 Q361D XX 09/20/16 11:45 (Chlorhexidine 2% Cloth) Taper DAILY@04 TOP 09/21/16 04:00 09/17/17 03:59 09/23/16 04:00 (Chlorhexidine 2% Cloth) 3 pack UNSCH PRN TOP 09/20/16 11:45 (Aricept) 5 mg HS PO 09/21/16 21:00 09/25/16 20:45 (PROzac) 40 mg DAILY PO 09/21/16 09:00 09/26/16 09:33 (Pill Splitter) 1 ea UNSCH PRN OTHER 09/22/16 09:15 (Protonix) 40 mg Q12HR PO 09/23/16 21:00 09/26/16 09:33 (Lopressor) 25 mg Q12HR PO 09/24/16 21:00 09/26/16 09:32 (Cordarone) 200 mg Q12HR PO 09/24/16 21:00 09/26/16 09:33 (Ecotrin Ec) 81 mg DAILY PO 09/24/16 14:15 09/26/16 09:32 (Hemocyte) 325 mg TID PO 09/25/16 09:00 09/26/16 09:32 Rivaroxaban 20 mg 20 mg DAILY PO 09/26/16 09:00 09/26/16 09:32 (Ferrlecit Inj/ NS Inj) 110 ml @ 110 mls/hr DAILY@18 IV 09/25/16 18:00 09/26/16 18:59 09/25/16 17:38 Allergies Allergies Coded Allergies Sulfa (Verified Allergy, Intermediate, 08/29/16) Review of Systems All other ROS: ROS reviewed as documented in chart Exam I&O / VS 09/25/16 09/25/16 09/26/16 15:00 23:00 07:00 Intake Total 480 ml 480 ml 240 ml Output Total 900 ml 700 ml 400 ml Balance -420 ml -220 ml -160 ml Intake Oral 480 ml 480 ml 240 ml Output Urine Total 900 ml 700 ml 400 ml # Bowel Movements 2 1 0 Vital Signs Date Time Temp Pulse Resp B/P Pulse Ox O2 Delivery O2 Flow Rate FiO2 09/26/16 09:45 Room Air 09/26/16 08:02 98.2 71 18 135/65 96 09/26/16 07:20 58 09/26/16 04:00 98.1 61 16 124/60 95 09/26/16 00:00 98.1 61 16 115/65 96 09/25/16 20:00 66 09/25/16 20:00 Room Air 09/25/16 20:00 98.3 69 18 117/71 98 09/25/16 17:38 96 Nasal Cannula 2.00 09/25/16 16:00 98.1 62 16 135/63 96 09/25/16 12:00 97.4 70 16 129/75 95 General: Alert and Oriented, No acute distress Respiratory: Lungs CTA, Non-labored respirations Cardiology: Irregular Rhythm, Other Musculoskeletal: ROM Neurologic: Alert Psychiatric: Cooperative Objective Micro and Labs Date/Time Procedure Status Source Growth 09/25/16 08:30 Stool Occult Blood ([facility]IRNA) - Final Complete Stool Stool HEMOCCULT NEGATIVE Rosalind Jackson MD Sep 26, 2016 11:01
[2016-09-26] MEDS ORDERED: POTASSIUM CHLORIDE 10 MEQ CONTROLLED RELEASE TAB PO ONE (11:30)
--- NOTE | 2016-09-26 13:56 | HHI.PR ---
Subjective Remarks Patient feels fine denies cp/sob denies dizziness stable vital signs hemoglobin stable As per RN the patient's heart rate dropping down to the high 40s to 50s. Objective Vitals Vital Signs Date Time Temp Pulse Resp B/P Pulse Ox O2 Delivery O2 Flow Rate FiO2 09/26/16 09:45 Room Air 09/26/16 08:02 98.2 71 18 135/65 96 09/26/16 07:20 58 09/26/16 04:00 98.1 61 16 124/60 95 09/26/16 00:00 98.1 61 16 115/65 96 09/25/16 20:00 66 09/25/16 20:00 Room Air 09/25/16 20:00 98.3 69 18 117/71 98 09/25/16 17:38 96 Nasal Cannula 2.00 09/25/16 16:00 98.1 62 16 135/63 96 I/O 09/25/16 09/25/16 09/25/16 09/26/16 09/26/16 09/26/16 07:00 15:00 23:00 07:00 15:00 23:00 Intake Total 720 ml 480 ml 480 ml 240 ml Output Total 900 ml 700 ml 400 ml Balance 720 ml -420 ml -220 ml -160 ml Intake Oral 720 ml 480 ml 480 ml 240 ml Output Urine Total 900 ml 700 ml 400 ml # Voids 4 # Bowel Movements 0 2 1 0 Result Diagram: 09/25/16 0713 09/25/16 0713 Imaging Last Impressions Chest X-Ray 09/21/16 0000 Signed Impressions: Service Date/Time: Wednesday, September 21, 2016 04:07 - CONCLUSION: No acute disease. Gerard Hernandes Jr., MD Head CT 09/20/16 1015 Signed Impressions: Service Date/Time: September 10:27 - CONCLUSION: Stable evaluation of the brain demonstrating post infarct encephalomalacia in the the right parietal and occipital lobes. No evidence of acute infarct, hemorrhage , mass or increasing edema. Isaias Sandhu MD Chest CT 09/20/16 0000 Signed Impressions: Service Date/Time: September 10:27 - CONCLUSION: 1. Cystic mass in the liver possibly simple cyst, however not adequately characterized. 2. Left adrenal mass most likely an adenoma. 3. Gas bubbles anterior to the sternum in the subcutaneous tissues of the couplet gas bubbles adjacent to the right internal mammary chain could be postprocedural if the patient has had injections at these sites. Jordi Bañuelos MD Abdomen/Pelvis CT 09/20/16 0000 Signed Impressions: Service Date/Time: September 10:27 - CONCLUSION: 1. Left adrenal mass nonspecific most likely an adenoma. 2. Hepatic cystic mass not adequately characterized most likely a simple cyst. 3. Uterine fibroids. Jordi Bañuelos MD Objective Remarks GENERAL: 70-year-old female who appears older than stated age. Sleeping, wakes up for exam. Appears comfortable. SKIN: Warm and dry. HEAD: Normocephalic. EYES: No scleral icterus. No injection or drainage. NECK: Supple, trachea midline. No JVD. CARDIOVASCULAR: Regular rate and rhythm without murmurs, gallops, or rubs. RESPIRATORY: Breath sounds equal bilaterally. No accessory muscle use. GASTROINTESTINAL: Abdomen soft, non-tender, nondistended. MUSCULOSKELETAL: No cyanosis, or edema. BACK: Nontender without obvious deformity. No CVA tenderness. Procedures EGD performed on 09/21/16 show gastritis, esophageal irregular Z line. Colonoscopy with polypectomies and biopsies on 09/22/16 which showed diverticulosis. Medications and IVs Current Medications Medications (Trade) Dose Ordered Sig/Haley Route Start Time Stop Time Status Last Admin (NS Flush) 2 ml UNSCH PRN IV FLUSH 09/20/16 11:45 (NS Flush) 2 ml BID IV FLUSH 09/20/16 21:00 09/26/16 09:00 Miscellaneous Information 1 Q361D XX 09/20/16 11:45 (Chlorhexidine 2% Cloth) Taper DAILY@04 TOP 09/21/16 04:00 09/17/17 03:59 09/23/16 04:00 (Chlorhexidine 2% Cloth) 3 pack UNSCH PRN TOP 09/20/16 11:45 (Aricept) 5 mg HS PO 09/21/16 21:00 09/25/16 20:45 (PROzac) 40 mg DAILY PO 09/21/16 09:00 09/26/16 09:33 (Pill Splitter) 1 ea UNSCH PRN OTHER 09/22/16 09:15 (Protonix) 40 mg Q12HR PO 09/23/16 21:00 09/26/16 09:33 (Lopressor) 25 mg Q12HR PO 09/24/16 21:00 09/26/16 09:32 (Cordarone) 200 mg Q12HR PO 09/24/16 21:00 09/26/16 09:33 (Ecotrin Ec) 81 mg DAILY PO 09/24/16 14:15 09/26/16 09:32 (Hemocyte) 325 mg TID PO 09/25/16 09:00 09/26/16 11:55 Rivaroxaban 20 mg 20 mg DAILY PO 09/26/16 09:00 09/26/16 09:32 (Ferrlecit Inj/ NS Inj) 110 ml @ 110 mls/hr DAILY@18 IV 09/25/16 18:00 09/26/16 18:59 09/25/16 17:38 Urinary Catheter: No Vascular Central Line Catheter: No A/P Problem List: (1) Hypotension ICD Code: I95.9 Status: Resolved Plan: Secondary to hypovolemia and severe anemia. Status post normal saline IV fluids to clear bolus and then maintenance. At the [facility] initially elevated from hypovolemic shock, now improved. Hypotension resolved. Blood pressure now stable. Continue to monitor vital signs. (2) Symptomatic anemia ICD Code: D64.9 Status: Resolved Plan: Status post transfusion of 2 units of packed red blood cells. Symptomatic anemia likely secondary to GI bleed. Iron studies showed iron deficiency anemia. Status post treatment with IV iron and oral iron as well. Hematology consulted. Patient will need to E on chronic anticoagulation given the history of CVA and atrial fibrillation. (3) GI bleed ICD Code: K92.2 Status: Resolved Plan: GI consulted. The patient was initially treated with Protonix infusion and packed red blood cell transfusion for severe anemia. Patient underwent EGD and colonoscopy. EGD showed gastritis and esophageal irregular Z line. Colonoscopy showed diverticulosis and polypectomy and biopsies were taken. 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 The patient will require repeat colonoscopy as per gastroenterology recommendations as an outpatient. (4) Elevated INR ICD Code: R79.1 Status: Chronic Plan: Due to chronic anti-coagulation. Continue to monitor INR. (5) Thrombocytosis ICD Code: D47.3 Status: Resolved Plan: Likely reactive thrombocytosis to severe iron deficiency anemia. Platelets trending down and now within normal level. (6) Hyperlipidemia ICD Code: E78.5 Status: Chronic Plan: Some statin. (7) COPD (chronic obstructive pulmonary disease) ICD Code: J44.9 Status: Chronic Plan: Seems to be stable. Continue DuoNeb as needed. (8) Atrial fibrillation ICD Code: I48.91 Status: Chronic Plan: Patient had episode of A. fib with RVR. Cardiology consulted. Amiodarone continue for rate control, not a candidate for cardioversion. EKG obtained on 09/25/16 shows sinus rhythm. Continue Xarelto. (9) Bradycardia ICD Code: R00.1 Status: Acute Plan: As per RN report, the patient with asymptomatic bradycardia. I will decrease the dose of the Toprol from 25 minutes by mouth twice a day to 12.5 mg by mouth twice a day and continue to monitor on telemetry. (10) Hypertension ICD Code: I10 Status: Chronic Plan: Pressure seems to be stable. Continue antihypertensive medications. The patient currently on metoprolol tartrate 25 maintenance by mouth every 12 hours which will be decreased to 12.5 mg by mouth twice a day. Monitor and if necessary resume the patient's amlodipine. Assessment and Plan GI prophylaxis: Continue pantoprazole 40 mg by mouth twice a day. DVT prophylaxis: SCDs. Currently on Xarelto. Discharge Planning Patient got her first dose of Xarelto today. Will monitor today as inpatient for bleeding. If hemoglobin stable tomorrow then the patient will be discharged home since patient and family do not want the patient to go to SNF. This was discussed with case management. Problem Qualifiers (1) Hypotension: Qualified Code: I95.9 - Hypotension, unspecified hypotension type (2) GI bleed: Qualified Code: K92.2 - Gastrointestinal hemorrhage, unspecified gastrointestinal hemorrhage type (3) Hyperlipidemia: Qualified Code: E78.5 - Hyperlipidemia, unspecified hyperlipidemia type (4) COPD (chronic obstructive pulmonary disease): Qualified Code: J44.9 - Chronic obstructive pulmonary disease, unspecified COPD type (5) Atrial fibrillation: Qualified Code: I48.91 - Atrial fibrillation, unspecified type Brooks Ritchie MD Sep 26, 2016 13:56
--- NOTE | 2016-09-26 14:29 | EKG ---
Date Performed: 09/25/2016 Time Performed: 17:57:39 PTAGE: 70 years EKG: Sinus rhythm BORDERLINE LEFT AXIS DEVIATION INCOMPLETE RIGHT BUNDLE BRANCH BLOCK Compared to the previous tracing the patient is no longer in atrial fibrillation BORDERLINE ECG PREVIOUS TRACING : 09/20/2016 10.09 DOCTOR: Thea Alvarenga Interpretating Date/Time 09/26/2016 14:29:15
[2016-09-26] MEDS: SODIUM FERRIC GLUCONATE INJ 125 MG in SODIUM CHLORIDE 0.9% INJ 100 ML IV SCH (18:00)
--- NOTE | 2016-09-26 18:50 | PD.CARD.PN ---
Subjective Subjective Remarks No CP or SOB, feels much better Objective Medications Current Medications Medications (Trade) Dose Ordered Sig/Haley Route Start Time Stop Time Status Last Admin (NS Flush) 2 ml UNSCH PRN IV FLUSH 09/20/16 11:45 (NS Flush) 2 ml BID IV FLUSH 09/20/16 21:00 09/26/16 09:00 Miscellaneous Information 1 Q361D XX 09/20/16 11:45 (Chlorhexidine 2% Cloth) Taper DAILY@04 TOP 09/21/16 04:00 09/17/17 03:59 09/23/16 04:00 (Chlorhexidine 2% Cloth) 3 pack UNSCH PRN TOP 09/20/16 11:45 (Aricept) 5 mg HS PO 09/21/16 21:00 09/25/16 20:45 (PROzac) 40 mg DAILY PO 09/21/16 09:00 09/26/16 09:33 (Pill Splitter) 1 ea UNSCH PRN OTHER 09/22/16 09:15 (Protonix) 40 mg Q12HR PO 09/23/16 21:00 09/26/16 09:33 (Cordarone) 200 mg Q12HR PO 09/24/16 21:00 09/26/16 09:33 (Ecotrin Ec) 81 mg DAILY PO 09/24/16 14:15 09/26/16 09:32 (Hemocyte) 325 mg TID PO 09/25/16 09:00 09/26/16 11:55 Rivaroxaban 20 mg 20 mg DAILY PO 09/26/16 09:00 09/26/16 09:32 (Ferrlecit Inj/ NS Inj) 110 ml @ 110 mls/hr DAILY@18 IV 09/25/16 18:00 09/26/16 18:59 09/25/16 17:38 (Lipitor) 40 mg HS PO 09/26/16 21:00 (Lopressor) 12.5 mg Q12HR PO 09/26/16 21:00 Vital Signs / I&O Vital Signs Date Time Temp Pulse Resp B/P Pulse Ox O2 Delivery O2 Flow Rate FiO2 09/26/16 09:45 Room Air 09/26/16 08:28 96 21 09/26/16 08:02 98.2 71 18 135/65 96 09/26/16 07:20 58 09/26/16 04:00 98.1 61 16 124/60 95 09/26/16 00:00 98.1 61 16 115/65 96 09/25/16 20:00 66 09/25/16 20:00 Room Air 09/25/16 20:00 98.3 69 18 117/71 98 I/O 09/25/16 09/25/16 09/25/16 09/26/16 09/26/16 09/26/16 07:00 15:00 23:00 07:00 15:00 23:00 Intake Total 720 ml 480 ml 480 ml 240 ml Output Total 900 ml 700 ml 400 ml Balance 720 ml -420 ml -220 ml -160 ml Intake Oral 720 ml 480 ml 480 ml 240 ml Output Urine Total 900 ml 700 ml 400 ml # Voids 4 # Bowel Movements 0 2 1 0 Physical Exam GENERAL: In NAD SKIN: Warm and dry. HEAD: Normocephalic. EYES: No scleral icterus. No injection or drainage. NECK: Supple, trachea midline. No JVD or lymphadenopathy. CARDIOVASCULAR: Regular rate and rhythm without murmurs, gallops, or rubs. RESPIRATORY: Breath sounds equal bilaterally. No accessory muscle use. GASTROINTESTINAL: Abdomen soft, non-tender, nondistended. MUSCULOSKELETAL: No cyanosis, or edema. Laboratory Laboratory Tests Test 09/24/16 09/25/16 08:09 07:13 Iron Level 24 MCG/DL Total Iron Binding Capacity 344 MCG/DL Percent Iron Saturation 7.0 % Ferritin 14 NG/ML White Blood Count 7.1 TH/MM3 Red Blood Count 3.63 MIL/MM3 Hemoglobin 9.0 GM/DL Hematocrit 28.6 % Mean Corpuscular Volume 79.0 FL Mean Corpuscular Hemoglobin 24.8 PG Mean Corpuscular Hemoglobin 31.4 % Concent Red Cell Distribution Width 20.9 % Platelet Count 437 TH/MM3 Mean Platelet Volume 7.1 FL Neutrophils (%) (Auto) 70.7 % Lymphocytes (%) (Auto) 15.0 % Monocytes (%) (Auto) 8.0 % Eosinophils (%) (Auto) 5.4 % Basophils (%) (Auto) 0.9 % Neutrophils # (Auto) 5.0 TH/MM3 Lymphocytes # (Auto) 1.1 TH/MM3 Monocytes # (Auto) 0.6 TH/MM3 Eosinophils # (Auto) 0.4 TH/MM3 Basophils # (Auto) 0.1 TH/MM3 CBC Comment AUTO DIFF Differential Comment AUTO DIFF CONFIRMED Platelet Estimate HIGH Platelet Morphology Comment NORMAL Sodium Level 141 MEQ/L Potassium Level 3.4 MEQ/L Chloride Level 104 MEQ/L Carbon Dioxide Level 30.5 MEQ/L Anion Gap 7 MEQ/L Blood Urea Nitrogen 7 MG/DL Creatinine 0.46 MG/DL Estimat Glomerular Filtration 135 ML/MIN Rate Random Glucose 83 MG/DL Calcium Level 8.6 MG/DL Phosphorus Level 3.0 MG/DL Magnesium Level 2.1 MG/DL Albumin 2.6 GM/DL Imaging Last Impressions Chest X-Ray 09/21/16 0000 Signed Impressions: Service Date/Time: Wednesday, September 21, 2016 04:07 - CONCLUSION: No acute disease. Gerard Hernandes Jr., MD Head CT 09/20/16 1015 Signed Impressions: Service Date/Time: September 10:27 - CONCLUSION: Stable evaluation of the brain demonstrating post infarct encephalomalacia in the the right parietal and occipital lobes. No evidence of acute infarct, hemorrhage , mass or increasing edema. Isaias Sandhu MD Chest CT 09/20/16 0000 Signed Impressions: Service Date/Time: September 10:27 - CONCLUSION: 1. Cystic mass in the liver possibly simple cyst, however not adequately characterized. 2. Left adrenal mass most likely an adenoma. 3. Gas bubbles anterior to the sternum in the subcutaneous tissues of the couplet gas bubbles adjacent to the right internal mammary chain could be postprocedural if the patient has had injections at these sites. Jordi Bañuelos MD Abdomen/Pelvis CT 09/20/16 0000 Signed Impressions: Service Date/Time: September 10:27 - CONCLUSION: 1. Left adrenal mass nonspecific most likely an adenoma. 2. Hepatic cystic mass not adequately characterized most likely a simple cyst. 3. Uterine fibroids. Jordi Bañuelos MD Assessment and Plan Problem List: (1) CVA (cerebral vascular accident) (2) GI bleed (3) Atrial fibrillation (4) Hypertension (5) Anemia Assessment and Plan No cardiac symptoms. Continue amiodarone for maintenance of SR. Started on Xarelto for stroke prevention, risk of stroke with a fib off anticoagulation is high. Increase activities. Anticipate discharge soon. Problem Qualifiers (1) GI bleed: Qualified Code: K92.2 - Gastrointestinal hemorrhage, unspecified gastrointestinal hemorrhage type (2) Atrial fibrillation: Qualified Code: I48.91 - Atrial fibrillation, unspecified type Nicholas Snow MD Sep 26, 2016 18:50
[2016-09-26] MEDS: DONEPEZIL HCL 5 MG TAB PO SCH (20:12)
[2016-09-26] MEDS ORDERED: ATORVASTATIN 40 MG TAB PO SCH (21:00)
[2016-09-27] VITALS (7 sets, daily range): BP systolic 119–138; BP diastolic 60–68; PULSE 58–74; RESP 16–20; TEMP 98–98.3; O2SAT 94–98
[2016-09-27] MEDS: CHLORHEXIDINE GLUCONATE 2 % 1 PACK (2 CLOTHS) TOP SCH (03:50)
[2016-09-27 06:46] LABS: HEMATOCRIT 30.2 % (35.0-46.0); MEAN CELL VOLUME 78.8 FL (80.0-100.0); MEAN CORPUSCULAR HEMOGLOBIN 25.5 PG (27.0-34.0); MEAN CORPUSCULAR HGB CONC 32.4 % (32.0-36.0); PLATELET COUNT 458 TH/MM3 (150-450); RED BLOOD COUNT 3.83 MIL/MM3 (4.00-5.30); RED CELL DISTRIBUTION WIDTH 21.3 % (11.6-17.2); REVIEW FLAG FINAL; WHITE BLOOD COUNT 7.8 TH/MM3 (4.0-11.0)
[2016-09-27 06:55] LABS: BICARBONATE 29.2 MEQ/L (21.0-32.0); POTASSIUM 3.5 MEQ/L (3.5-5.1)
[2016-09-27] MEDS: ASPIRIN EC 81 MG TABEC PO SCH (09:19)
[2016-09-27] MEDS: RIVAROXABAN 20 MG TAB PO SCH (09:19)
[2016-09-27] MEDS: PANTOPRAZOLE SOD 40 MG DELAYED RELEASE TAB PO SCH (09:19)
[2016-09-27] MEDS: METOPROLOL TARTRATE 25 MG TAB PO SCH (09:19)
[2016-09-27] MEDS: SODIUM CHLORIDE 0.9% FLUSH 10 ML FLUSH IV FLUSH SCH (09:20)
[2016-09-27] MEDS: FLUoxetine HCL 20 MG CAP PO SCH (09:20)
[2016-09-27] MEDS: FERROUS FUMARATE 325 MG TAB (106 MG ELEMENTAL IRON) PO SCH ×3 (09:20→16:33)
[2016-09-27] MEDS: AMIODARONE 200 MG TAB PO SCH (09:20)
--- NOTE | 2016-09-27 12:44 | PD.CARD.PN ---
Subjective Subjective Remarks No CP or SOB, feels well Objective Medications Current Medications Medications (Trade) Dose Ordered Sig/Haley Route Start Time Stop Time Status Last Admin (NS Flush) 2 ml UNSCH PRN IV FLUSH 09/20/16 11:45 (NS Flush) 2 ml BID IV FLUSH 09/20/16 21:00 09/27/16 09:20 Miscellaneous Information 1 Q361D XX 09/20/16 11:45 (Chlorhexidine 2% Cloth) Taper DAILY@04 TOP 09/21/16 04:00 09/17/17 03:59 09/23/16 04:00 (Chlorhexidine 2% Cloth) 3 pack UNSCH PRN TOP 09/20/16 11:45 (Aricept) 5 mg HS PO 09/21/16 21:00 09/26/16 20:12 (PROzac) 40 mg DAILY PO 09/21/16 09:00 09/27/16 09:20 (Pill Splitter) 1 ea UNSCH PRN OTHER 09/22/16 09:15 (Protonix) 40 mg Q12HR PO 09/23/16 21:00 09/27/16 09:19 (Cordarone) 200 mg Q12HR PO 09/24/16 21:00 09/27/16 09:20 (Ecotrin Ec) 81 mg DAILY PO 09/24/16 14:15 09/27/16 09:19 (Hemocyte) 325 mg TID PO 09/25/16 09:00 09/27/16 09:20 (Xarelto) 20 mg DAILY PO 09/26/16 09:00 09/27/16 09:19 (Lipitor) 40 mg HS PO 09/26/16 21:00 09/26/16 20:12 (Lopressor) 12.5 mg Q12HR PO 09/26/16 21:00 09/27/16 09:19 Vital Signs / I&O Vital Signs Date Time Temp Pulse Resp B/P Pulse Ox O2 Delivery O2 Flow Rate FiO2 09/27/16 12:00 98.3 60 18 119/68 96 09/27/16 09:25 63 09/27/16 09:25 Room Air 09/27/16 08:00 98.0 62 18 129/65 98 09/27/16 04:00 98.1 58 16 138/65 95 09/27/16 00:00 98.0 74 20 121/60 95 09/26/16 20:00 98.7 61 20 140/63 96 09/26/16 20:00 Room Air 09/26/16 20:00 58 09/26/16 16:03 98.0 62 18 123/60 98 I/O 09/26/16 09/26/16 09/26/16 09/27/16 09/27/16 09/27/16 07:00 15:00 23:00 07:00 15:00 23:00 Intake Total 240 ml 280 ml 240 ml Output Total 400 ml 840 ml Balance -160 ml 280 ml -600 ml Intake Oral 240 ml 280 ml 240 ml Output Urine Total 400 ml 840 ml # Voids 4 # Bowel Movements 0 1 Physical Exam GENERAL: In NAD SKIN: Warm and dry. HEAD: Normocephalic. EYES: No scleral icterus. No injection or drainage. NECK: Supple, trachea midline. No JVD or lymphadenopathy. CARDIOVASCULAR: Regular rate and rhythm without murmurs, gallops, or rubs. RESPIRATORY: Breath sounds equal bilaterally. No accessory muscle use. GASTROINTESTINAL: Abdomen soft, non-tender, nondistended. MUSCULOSKELETAL: No cyanosis, or edema. Laboratory Laboratory Tests Test 09/27/16 05:50 White Blood Count 7.8 TH/MM3 Red Blood Count 3.83 MIL/MM3 Hemoglobin 9.8 GM/DL Hematocrit 30.2 % Mean Corpuscular Volume 78.8 FL Mean Corpuscular Hemoglobin 25.5 PG Mean Corpuscular Hemoglobin 32.4 % Concent Red Cell Distribution Width 21.3 % Platelet Count 458 TH/MM3 Mean Platelet Volume 7.3 FL Sodium Level 141 MEQ/L Potassium Level 3.5 MEQ/L Chloride Level 105 MEQ/L Carbon Dioxide Level 29.2 MEQ/L Anion Gap 7 MEQ/L Blood Urea Nitrogen 7 MG/DL Creatinine 0.47 MG/DL Estimat Glomerular Filtration 132 ML/MIN Rate Random Glucose 85 MG/DL Calcium Level 8.7 MG/DL Imaging Last Impressions Chest X-Ray 09/21/16 0000 Signed Impressions: Service Date/Time: Wednesday, September 21, 2016 04:07 - CONCLUSION: No acute disease. Gerard Hernandes Jr., MD Head CT 09/20/16 1015 Signed Impressions: Service Date/Time: September 10:27 - CONCLUSION: Stable evaluation of the brain demonstrating post infarct encephalomalacia in the the right parietal and occipital lobes. No evidence of acute infarct, hemorrhage , mass or increasing edema. Isaias Sandhu MD Chest CT 09/20/16 0000 Signed Impressions: Service Date/Time: September 10:27 - CONCLUSION: 1. Cystic mass in the liver possibly simple cyst, however not adequately characterized. 2. Left adrenal mass most likely an adenoma. 3. Gas bubbles anterior to the sternum in the subcutaneous tissues of the couplet gas bubbles adjacent to the right internal mammary chain could be postprocedural if the patient has had injections at these sites. Jordi Bañuelos MD Abdomen/Pelvis CT 09/20/16 0000 Signed Impressions: Service Date/Time: September 10:27 - CONCLUSION: 1. Left adrenal mass nonspecific most likely an adenoma. 2. Hepatic cystic mass not adequately characterized most likely a simple cyst. 3. Uterine fibroids. Jordi Bañuelos MD Assessment and Plan Problem List: (1) CVA (cerebral vascular accident) (2) GI bleed (3) Atrial fibrillation (4) Hypertension (5) Anemia Assessment and Plan No new cardiac issues. Continue amiodarone for maintenance of SR. Started on Xarelto for stroke prevention, risk of stroke with a fib off anticoagulation is high. Increase activities. Stable from cardiac standpoint. Anticipate discharge soon. Problem Qualifiers (1) GI bleed: Qualified Code: K92.2 - Gastrointestinal hemorrhage, unspecified gastrointestinal hemorrhage type (2) Atrial fibrillation: Qualified Code: I48.91 - Atrial fibrillation, unspecified type Nicholas Snow MD Sep 27, 2016 12:43
--- NOTE | 2016-09-27 15:10 | HHI.FF ---
Face to Face Verification Diagnosis: (1) Symptomatic anemia (2) GI bleed (3) Hypertension (4) Weakness Physical Therapy Order: Improve ambulation, Strength and gait training Home Health Nursing Order: Medical education Signs/symptoms of disease process Nursing assessment with vital signs I have seen patient Ale Carroll on 09/27/16. My clinical findings support the need for the requested home health care services because: Deconditioned w/ increased weakness Need for psychosocial assistance Impaired cognition/judgement High risk of falls I certify that my clinical findings support that this patient is homebound because: Unsteady gait/balance Unsafe to leave home unassisted Unable to use public transportation Brooks Ritchie MD Sep 27, 2016 15:10
[2016-09-27] MEDS ORDERED: METO25TA3 PO (15:28)
[2016-09-27] MEDS ORDERED: HEMO324T PO (15:28)
[2016-09-27] MEDS ORDERED: PANT40TA3 PO (15:28)
[2016-09-27] MEDS ORDERED: AMIO200T PO (15:28)
[2016-09-27] MEDS ORDERED: XARE20TA PO (15:28)
--- NOTE | 2016-09-27 15:43 | HHI.DS ---
Discharge Summary Admission Date Sep 20, 2016 at 11:52 Discharge Date: Sep 27, 2016 Admitting Diagnosis hypovolemic shock, symptomatic anemia (1) Hypotension ICD Code: I95.9 Diagnosis: Principal (2) Symptomatic anemia ICD Code: D64.9 Diagnosis: Principal (3) GI bleed ICD Code: K92.2 Diagnosis: Principal (4) Elevated INR ICD Code: R79.1 Diagnosis: Principal (5) Thrombocytosis ICD Code: D47.3 Diagnosis: Principal (6) Hyperlipidemia ICD Code: E78.5 Diagnosis: Secondary (7) COPD (chronic obstructive pulmonary disease) ICD Code: J44.9 Diagnosis: Secondary (8) Atrial fibrillation ICD Code: I48.91 Diagnosis: Principal (9) Bradycardia ICD Code: R00.1 Diagnosis: Principal (10) Hypertension ICD Code: I10 Diagnosis: Secondary (11) Chronic anticoagulation ICD Code: Z79.01 Diagnosis: Principal (12) Iron deficiency anemia ICD Code: D50.9 Diagnosis: Principal Procedures EGD performed on 09/21/16 show gastritis, esophageal irregular Z line. Colonoscopy with polypectomies and biopsies on 09/22/16 which showed diverticulosis. Brief History - From Admission Patient is a 70-year-old female with history of chronic atrial fibrillation on Xarelto, history of recurrent CVA, DVT,HTN, Hyperlipidemia, and COPD, who was recently admitted (08/23/16) to [facility] with acute vs.subacute infarct in the right MCA territory. During this hospitalization she was started on Xarelto. Patient was transferred to [facility] on 08/29/16 and from the discharged home on 09/11/16. This morning am patient was dizzy, light headed, and was brought to the ER for evaluation. Lab work showed hemoglobin/hematocrit 5.4/ 17.5. Last admission Hb was 8.3. She deniesany blood in stools or any hematemesis. Initially patient was very hypotensive 64/44 in the ED. She was given a total of 3 L of IV fluids normal saline, systolic blood pressure improvement to 90s. Patient was ordered 2 units of PRBC, I have added [address] head showed old infarcts. CT chest abdomen pelvis negative for any acute source of infection or bleeding. Hemoccult was positive. GI had been consulted. I evaluated the patient in ICU. Lactic acid came back at 2.8. She appears critically ill systolic blood pressure in the 90s and HR 110-115. I placed her on empiric Zosyn also. She is receiving her first units of PRBC. 2-D echo done on May 02, 2016 showed EF normal CBC/BMP: 09/27/16 0550 09/27/16 0550 Significant Findings Laboratory Tests Test 09/25/16 09/27/16 07:13 05:50 Red Blood Count 3.63 MIL/MM3 3.83 MIL/MM3 (4.00-5.30) (4.00-5.30) Hemoglobin 9.0 GM/DL 9.8 GM/DL (11.6-15.3) (11.6-15.3) Hematocrit 28.6 % 30.2 % (35.0-46.0) (35.0-46.0) Mean Corpuscular Volume 79.0 FL 78.8 FL (80.0-100.0) (80.0-100.0) Mean Corpuscular Hemoglobin 24.8 PG 25.5 PG (27.0-34.0) (27.0-34.0) Mean Corpuscular Hemoglobin 31.4 % Concent (32.0-36.0) Red Cell Distribution Width 20.9 % 21.3 % (11.6-17.2) (11.6-17.2) Neutrophils (%) (Auto) 70.7 % (16.0-70.0) Eosinophils (%) (Auto) 5.4 % (0.0-4.0) Platelet Estimate HIGH (NORMAL) Potassium Level 3.4 MEQ/L (3.5-5.1) Creatinine 0.46 MG/DL 0.47 MG/DL (0.50-1.00) (0.50-1.00) Albumin 2.6 GM/DL (3.4-5.0) Platelet Count 458 TH/MM3 (150-450) PE at Discharge GENERAL: 70-year-old female who appears older than stated age. Sleeping, wakes up for exam. Appears comfortable. SKIN: Warm and dry. HEAD: Normocephalic. EYES: No scleral icterus. No injection or drainage. NECK: Supple, trachea midline. No JVD. CARDIOVASCULAR: Regular rate and rhythm without murmurs, gallops, or rubs. RESPIRATORY: Breath sounds equal bilaterally. No accessory muscle use. GASTROINTESTINAL: Abdomen soft, non-tender, nondistended. MUSCULOSKELETAL: No cyanosis, or edema. BACK: Nontender without obvious deformity. No CVA tenderness. Transfer Summary Patient is a 70-year-old female with history of chronic atrial fibrillation on Xarelto, history of recurrent CVA, DVT, HTN, Hyperlipidemia, and COPD, who was recently admitted (08/23/16) to [facility] with acute vs.subacute infarct in the right MCA territory. During this hospitalization she was started on Xarelto. Patient was transferred to [facility] on 08/29/16 and from there discharged home on 09/11/16. This am (09/20/16) patient was dizzy, light headed, and was brought to the ER for evaluation. Lab work showed hemoglobin/hematocrit 5.4/17.5. Last admission Hb was 8.3. She denies any blood in stools or any hematemesis. Initially patient was very hypotensive 64/44 in the ED. She was given a total of 3 L of IV fluids normal saline, systolic blood pressure improvement to 90s. Patient was ordered to get 2 units of PRBC, I have added [address] head showed old infarcts. CT chest abdomen pelvis negative for any acute source of infection or bleeding. Hemoccult was positive. GI had been consulted. I evaluated the patient in ICU. Lactic acid came back at 2.8. She appears critically ill systolic blood pressure in the 90s and HR 110-115. I placed her on empiric Zosyn also. She is receiving her first units of PRBC. 2- D echo done on May 02, 2016 showed EF normal SUBJ: Patient remained stable overnight. Hemoglobin is 8.4 today. No active bleeding. GI planning on endoscopy today Pt update on day of discharge The patient denies chest pain, short of breath. Denies dizziness. The patient' s hemoglobin remained stable and in fact is trending up being 9.8 on the day of discharge. There are no reports of hematochezia or melena. Hospital Course (1) Hypotension Secondary to hypovolemia and severe anemia. Status post normal saline IV fluids bolus and then maintenance. Patient initially with hypovolemic shock improved after IV fluids and blood transfusion. (2) Symptomatic anemia Status post transfusion of 2 units of packed red blood cells. Symptomatic anemia likely secondary to GI bleed. Iron studies showed iron deficiency anemia. Status post treatment with IV iron and oral iron as well. Hematology consulted. Patient will need to be on chronic anticoagulation given the history of CVA and atrial fibrillation. (3) GI bleed GI consulted. The patient was initially treated with Protonix infusion and packed red blood cell transfusion for severe anemia. Patient underwent EGD and colonoscopy. EGD showed gastritis and esophageal irregular Z line. Colonoscopy showed diverticulosis and polypectomy and biopsies were taken. 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 The patient will require repeat colonoscopy as per gastroenterology recommendations as an outpatient. (4) Elevated INR Due to chronic anti-coagulation. Continue to monitor INR. (5) Thrombocytosis Likely reactive thrombocytosis to severe iron deficiency anemia. These were monitored during hospital stay and trended down to normal levels. (6) Hyperlipidemia Statins were continued during hospital stay. Mitral lipid panel as an outpatient. (7) COPD (chronic obstructive pulmonary disease) Seems to be stable. Continue DuoNeb as needed. (8) Atrial fibrillation Patient had episode of A. fib with RVR. Cardiology consulted. Amiodarone continue for rate control, not a candidate for cardioversion. EKG obtained on 09/25/16 shows sinus rhythm. (9) Bradycardia As per RN report, the patient with asymptomatic bradycardia. Metoprolol dose was decreased from 25 mg twice a day to 12.5 mg by mouth twice a day with resolution of bradycardia. The patient was monitored on telemetry during hospital stay. (10) Hypertension Initially antihypertensive medications were held due to the patient in hypotensive. Later the Toprol was resumed, however the dose was decreased as is stated above due to some bradycardia. The patient's blood pressure remained stable without the need of restarting the patient's amlodipine. GI prophylaxis: Pantoprazole 40 mg by mouth twice a day. DVT prophylaxis: SCDs. Currently on Xarelto. Pt Condition on Discharge: Stable Discharge Disposition: Disch w/ Home Health Serv Discharge Time: > 30 minutes Discharge Instructions DIET: Follow Instructions for: Heart Healthy Diet Activities you can perform: See Additionl Instruction Other Activity Instructions: OOB with assitance Follow up Referrals: Appointment for Follow Up - 3 Weeks with Roberto Argueta MD Gastroenterology - 2 Weeks PCP Follow-up - 3-5 Days New Medications: Amiodarone (Amiodarone) 200 Mg Tab 200 MG PO Q12HR afib #62 TAB Ferrous Fumarate (Hemocyte) 324 Mg Tab 325 MG PO TID anemia #93 TAB Metoprolol Tartrate (Metoprolol Tartrate) 25 Mg Tab 12.5 MG PO Q12HR afib #62 TAB Pantoprazole (Pantoprazole) 40 Mg Tab 40 MG PO Q12HR gastritis #62 TAB Rivaroxaban (Xarelto) 20 Mg Tab 20 MG PO DAILY afib #31 TAB Continued Medications: Albuterol 18 GM Inh (Ventolin Hfa 18 GM Inh) 90 Mcg/Act Aer 2 PUFF INH Q6H PRN SHORTNESS OF BREATH Days 30 Ref 1 INHALER Atorvastatin (Atorvastatin) 40 Mg Tab 40 MG PO HS Cholesterol Management #30 Ref 1 TAB Donepezil (Aricept) 5 Mg Tab 5 MG PO HS Days 30 Ref 1 TAB Fluoxetine (Fluoxetine) 40 Mg Cap 40 CAP PO DAILY Depression Control #30 Ref 1 CAP Folic Acid (Folate) 1 Mg Tab 1 MG PO DAILY Nutritional Supplement #30 Ref 1 TAB Hydrocodone-Acetaminophen (Hydrocodone-Acetaminophen) 10-325 mg Tab 1 TAB PO Q8HR PRN PAIN #30 Ref 0 TAB Discontinued Medications: Amlodipine (Norvasc) 10 Mg Tab 10 MG PO DAILY Blood Pressure Management #30 Ref [address] (Aspirin EC) 81 Mg Tabdr 81 MG PO DAILY Stroke Prevention Days 30 TAB Ferrous Sulfate (Ferrous Sulfate) 325 Mg Tab 325 MG PO DAILY #30 Ref 1 TAB Metoprolol Tartrate (Metoprolol Tartrate) 25 Mg Tab 12.5 MG PO Q12HR #60 Ref 1 TAB Pantoprazole (Protonix) 20 Mg Tab 20 MG PO DAILY Reflux #30 Ref 1 TAB Rivaroxaban (Xarelto) 20 Mg Tab 20 MG PO DAILY Stroke Prevention #30 Ref 1 TAB ([Pill Splitter]) 1 EA MISC 1 EA OTHER UNSCH PRN SEE LABEL COMMENTS #1 EA Brooks Ritchie MD Sep 27, 2016 15:43
== END 2016-09-27 17:30 | disposition home health service (06) | DRG 377 ==
LOC: NEPE 10:00 → NEDH 11:52 → HIMN 13:25 → N04B 09-23 17:35
PROVIDERS: ADMIT Hospitalist; ATTEND Hospitalist
PROC: 30233K1 Transfusion of Nonautologous Frozen Plasma into Peripheral Vein, Percutaneous Approach (ICD-10-PCS; 2016-09-20)
PROC: 30233N1 Transfusion of Nonautologous Red Blood Cells into Peripheral Vein, Percutaneous Approach (ICD-10-PCS; 2016-09-20)
PROC: 0DB68ZX Excision of Stomach, Via Natural or Artificial Opening Endoscopic, Diagnostic (ICD-10-PCS; principal; 2016-09-21 09:35)
PROC: 0DBK8ZX Excision of Ascending Colon, Via Natural or Artificial Opening Endoscopic, Diagnostic (ICD-10-PCS; 2016-09-22)
PROC: 0DBL8ZX Excision of Transverse Colon, Via Natural or Artificial Opening Endoscopic, Diagnostic (ICD-10-PCS; 2016-09-22)
PROC: 0DBM8ZX Excision of Descending Colon, Via Natural or Artificial Opening Endoscopic, Diagnostic (ICD-10-PCS; 2016-09-22)
PROC: 0DBH8ZX Excision of Cecum, Via Natural or Artificial Opening Endoscopic, Diagnostic (ICD-10-PCS; 2016-09-22)
PROC: 0DBH8ZX Excision of Cecum, Via Natural or Artificial Opening Endoscopic, Diagnostic (ICD-10-PCS; 2016-09-22)
DX: K92.2 Gastrointestinal hemorrhage, unspecified (principal); R57.1 Hypovolemic shock; I48.0 Paroxysmal atrial fibrillation; D64.9 Anemia, unspecified; Z98.1 Arthrodesis status; J44.9 Chronic obstructive pulmonary disease, unspecified; I10 Essential (primary) hypertension; K21.9 Gastro-esophageal reflux disease without esophagitis; H91.90 Unspecified hearing loss, unspecified ear; E78.00 Pure hypercholesterolemia, unspecified; J45.909 Unspecified asthma, uncomplicated; M47.9 Spondylosis, unspecified; M19.90 Unspecified osteoarthritis, unspecified site; F41.9 Anxiety disorder, unspecified; F32.9 Major depressive disorder, single episode, unspecified; Z79.02 Long term (current) use of antithrombotics/antiplatelets; Z87.891 Personal history of nicotine dependence; D75.89 Other specified diseases of blood and blood-forming organs; E78.5 Hyperlipidemia, unspecified; F03.90 Unspecified dementia, unspecified severity, without behavioral disturbance, psychotic disturbance, mood disturbance, and anxiety; Z86.718 Personal history of other venous thrombosis and embolism; Z88.2 Allergy status to sulfonamides; H54.7 Unspecified visual loss; I69.398 Other sequelae of cerebral infarction; I45.10 Unspecified right bundle-branch block; H47.619 Cortical blindness, unspecified side of brain; K29.70 Gastritis, unspecified, without bleeding; I73.9 Peripheral vascular disease, unspecified; K57.90 Diverticulosis of intestine, part unspecified, without perforation or abscess without bleeding; K64.8 Other hemorrhoids; E87.6 Hypokalemia; K44.9 Diaphragmatic hernia without obstruction or gangrene; D12.4 Benign neoplasm of descending colon; D12.3 Benign neoplasm of transverse colon; D12.2 Benign neoplasm of ascending colon; K64.4 Residual hemorrhoidal skin tags; I65.23 Occlusion and stenosis of bilateral carotid arteries; R00.1 Bradycardia, unspecified
CPT/HCPCS: 36430; 70450; 71010; 71250; 74176; 76937; 80048; 80053; 80069; 81001; 82272; 82550; 82728; 83540; 83550; 83605; 83735; 84100; 84443; 84484; 85014; 85018; 85025; 85027; 85610; 86850; 86900; 86901; 86920; 86927; 87040; 87086; 87186; 87205; 87641; 88305; 88312; 93005; 96360; 96361; 99292; C9113; J0282; J1756; J2543; J2916; J3475; J3480; J7030; J7060; J7120; P9016; P9017

== ENCOUNTER 2018-05-18 00:59 | Inpatient (IN) ==
[2018-05-18] MEDS ORDERED: Piperacil/Tazo 4.5 GM Premix 4.5 GM/100 ML BAG IV.SIG SCH (02:15)
[2018-05-18] MEDS ORDERED: Sod Chloride 0.9% Inj 1,000 ML IV.SIG SCH (02:15)
--- NOTE | 2018-05-18 02:48 | XR ---
EXAM DATE: 05/18/2018 2:36 AM EST AGE/SEX: 72 years / Female INDICATIONS: Shortness of breath. Nausea and vomiting today. CLINICAL DATA: This is the patient's initial encounter. Patient reports that signs and symptoms have been present for 1 day and indicates a pain score of 0/10. MEDICAL/SURGICAL HISTORY: Hypertension. Fusion, lumbar. COMPARISON: No prior exams available for comparison. FINDINGS: A single AP view of the chest demonstrates the lungs to be symmetrically aerated without evidence of mass, infiltrate or effusion. The cardiomediastinal contours are unremarkable. Osseous structures a re intact. CONCLUSION: No acute abnormality is seen. Electronically signed by: Fidencio Emanuel MD Board Certified Radiologist 05/18/2018 2:46 AM EST
[2018-05-18 02:50] LABS: Baso # (Auto) 0.5 th/mm3 (0.0-0.2); Baso % (Auto) 1.3 % (0.0-2.0); Hematocrit 26.2 % (35.0-46.0); Lymph # (Auto) 0.8 th/mm3 (1.0-4.8); Lymph % (Auto) 2.1 % (9.0-44.0); Mean Platelet Volume 8.3 fL (7.0-11.0); Mono # (Auto) 2.1 th/mm3 (0.0-0.9); Mono % (Auto) 5.9 % (0.0-8.0); Neut # (Auto) 32.4 th/mm3 (1.8-7.7); Neut % (Auto) 90.7 % (16.0-70.0); Platelet Count 403 th/mm3 (150-450); Red Blood Count 4.29 mil/mm3 (4.00-5.30); Red Cell Distribution Width 22.2 % (11.6-17.2); White Blood Count 35.7 th/mm3 (4.0-11.0)
--- NOTE | 2018-05-18 02:50 | ED ---
HPI General Chief Complaint: Altered Mental Status Stated Complaint: V/N/D/AMS Time Seen by Provider: 05/18/18 02:05 Source: patient and family Mode of arrival: ambulatory Limitations: no limitations History of Present Illness MD complaint: Reports altered mental status, confusion and weakness Onset (ago): day(s) (3) Timing confirmed by: family member Severity: severe Consistency of symptoms: getting worse Context: Reports recent fever (100.4 F yesterday) and other (Patient with 3 days of progressive worsening associated with multiple episodes of nausea vomiting stomach contents without hematemesis or coffee-ground emesis and loose watery stools without gross blood. Patient is prescribed Eliquis for diagnosis of atrial fibrillation and has not been able to take her Eliquis and has not been able to take her blood pressure medication or medication for rate control of her atrial fibrillation due to multiple episodes of vomiting. Patient had poor oral intake. Patient was noted to have fever of 100.4 F. Patient has not recently been on antibiotic. Patient has had history of previous gastritis with GI bleed and anemia. Patient lives with her granddaughter who presents providing most of the history.); Denies alcohol abuse, drug abuse, diabetes and liver disease Associated symptoms: Reports fever (100.4 F), chills, loss of appetite, malaise , nausea/vomiting, weakness and diarrhea; Denies chest pain, cough, diaphoresis , headaches, seizure, shortness of breath, syncope and incontinence Treatments prior to arrival: Denies glucose, IV fluid, oxygen, intubation and spinal immobilization Related Data Home Medications Medication Instructions Recorded Confirmed amlodipine [Norvasc] 5 mg PO DAILY 05/18/18 05/18/18 atorvastatin [Lipitor] 20 mg PO DAILY 05/18/18 05/18/18 donepezil [Aricept] 10 mg PO DAILY 05/18/18 05/18/18 metoprolol tartrate 25 mg PO BID 05/18/18 05/18/18 pantoprazole [Protonix] 40 mg PO DAILY 05/18/18 05/18/18 rivaroxaban [Xarelto] 10 mg PO DAILY 05/18/18 05/18/18 Allergies Allergy/AdvReac Type Severity Reaction Status Date / Time Sulfa (Sulfonamide Allergy Intermediate Difficulty Verified 05/18/18 01:32 Antibiotics) Breathing Review of Systems ROS: all other systems reviewed are negative PMFSH History History Provided By: Family Member (Granddaughter: CVA anemia GI bleed atrial fibrillation copd coagulopathy) Medical History Medical History A-fib (Acute) Anemia (Acute) CVA (cerebral vascular accident) (Acute) Social History Social History Substance History: No History of Abuse Second Hand Smoke Exposure: Yes Smoking Status: Former smoker Tobacco Type: Cigarettes How Often Do You Have a Drink Containing Alcohol: Never Recent Travel in [facility] within the Last 8 Weeks: No Recent Out of Country Travel within the Last 8 Weeks: No Immunization History Tetanus Immunization: Unsure Exam Narrative Exam Narrative: GENERAL: Well-nourished, well-developed patient very ill appearing elderly female with pallor; mentation at baseline mildly altered due to dementia worsened per her granddaughter GCS 14 SKIN: Focused skin assessment warm/dry. HEAD: Normocephalic. EYES: No scleral icterus. No injection or drainage. Marked conjunctival pallor NECK: Supple, trachea midline. No JVD or lymphadenopathy. CARDIOVASCULAR: Increased irregularly irregular rate and rhythm without murmurs , gallops, or rubs. RESPIRATORY: Breath sounds equal bilaterally. No accessory muscle use. GASTROINTESTINAL: Abdomen soft, mildly diffusely tender without guarding or rebound, nondistended. Rectal exam watery brown stool briskly Hemoccult positive MUSCULOSKELETAL: No cyanosis, or edema. BACK: Nontender without obvious deformity. No CVA tenderness. Course Consultations Consultation #1: Discussed with and accepted by Dr. Leo Initial Documented Vital Signs Temperature 97.4 F L 05/18/18 01:46 Pulse Rate 137 H 05/18/18 01:46 Respiratory Rate 22 05/18/18 01:46 Blood Pressure 160/71 H 05/18/18 01:46 Pulse Oximetry 100 05/18/18 01:46 Last Documented Vital Signs Temperature 98.3 F 05/18/18 04:13 Pulse Rate 120 H 05/18/18 05:15 Respiratory Rate 18 05/18/18 05:15 Blood Pressure 140/60 05/18/18 05:15 Pulse Oximetry 99 05/18/18 05:15 Critical Care Time Critical Care Time: Yes Total Critical Care Time: 40 Attestation: Aggregate critical care time was 40 minutes. Time to perform other separately billable procedures was not included in the critical care time. My time did not include minutes spent treating any other patients simultaneously or on activities that did not directly contribute to the patient's treatment. The services I provided to this patient were to treat and/or prevent clinically significant deterioration that could result in: Cardiogenic shock septic shock hemorrhagic shock I provided critical care services requiring my management, as noted below: Chart data review, documentation time, medication orders and management, vital sign assessments/reviewing monitor data, ordering and reviewing lab tests, ordering and interpreting/reviewing x-rays and diagnostic studies, care of the patient and discussion of the patient with the admitting physicians. Medical Decision Making MDM Narrative Medical decision making narrative: Elderly very ill-appearing female with conjunctival pallor concerning for acute blood loss with tachycardia associated with probable blood loss along with sepsis as well as not able to take her medications due to vomiting and noted to have loose diarrheal-like stools without recent antibiotic use. Patient is also had fever 100.4 F at home. Concerning for colitis mesenteric ischemia prior history of gastritis/upper GI bleed and inadequate control of regular rate with history of atrial fibrillation on novel oral anticoagulant therapy. IV access obtained specimens collections of resulting patient placed on carbon furnace operator helper with continuous pulse oximetry bolus with normal saline times 1 L type and screen with blood products ordered. Anticipate patient will require at least 1 unit of transfused blood. Patient presumptively administered Zosyn 4.5 g IV piggyback will send for CT brain noncontrast in view of history of altered mentation and Eliquis use as well as CT abdomen pelvis to evaluate for possible GI etiology of fever. Chest x-ray performed shows no lobar infiltrate; EKG is atrial fibrillation with rapid ventricular rate of 144 patient has a right bundle branch block without acute ST elevation of the anterior posterior block. 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 Javier; will be coming in to see the patient is aware heparin has been ordered and request call placed to general surgery Patient's case discussed with Dr. Cabral states he will be available to Dr. Javier as needed. Dr. Javier informed of final reading of imaging study per reading radiologist Dr. Donato with proximal SMA occlusion and transverse colon induration and thickening concerning for ischemia. Medical Screen Exam Complete: Yes Emergency Medical Condition: Yes Lab Data Result diagrams: 05/18/18 02:20 05/18/18 02:20 Lab Results 05/18/18 05/18/18 05/18/18 Range/Units 02:20 02:20 02:20 WBC 35.7 H (4.0-11.0) th/mm3 RBC 4.29 (4.00-5.30) mil/mm3 Hgb 6.9 L* (11.6-15.3) gm/dL Hct 26.2 L (35.0-46.0) % MCV 61.0 L (80.0-100.0) fL MCH 16.0 L (27.0-34.0) pg MCHC 26.2 L (32.0-36.0) % RDW 22.2 H (11.6-17.2) % Plt Count 403 (150-450) th/mm3 MPV 8.3 (7.0-11.0) fL Prelim Diff (Auto) Slide review pending Neut % (Auto) 90.7 H (16.0-70.0) % Lymph % (Auto) 2.1 L (9.0-44.0) % Ogle % (Auto) 5.9 (0.0-8.0) % Eos % (Auto) 0.0 (0.0-4.0) % Baso % (Auto) 1.3 (0.0-2.0) % Neut # (Auto) 32.4 H (1.8-7.7) th/mm3 Lymph # (Auto) 0.8 L (1.0-4.8) th/mm3 Ogle # (Auto) 2.1 H (0.0-0.9) th/mm3 Eos # (Auto) 0.0 (0.0-0.4) th/mm3 Baso # (Auto) 0.5 H (0.0-0.2) th/mm3 WBC Differential Manual diff final Seg Neuts % (Manual) 74 H (16-70) % Band Neuts % (Manual) 14 H (0-6) % Lymphocytes % (Manual) 4 L (9-44) % Monocytes % (Manual) 8 (0-8) % Abs Neuts (Manual) 31.4 H (1.8-7.7) th/mm3 Nucleated RBCs/100 WBC 12 H (0-0) /100 WBC Differential Comment . Toxic Vacuolation Present H (None) Dohle Bodies Present H (None) Platelet Estimate Normal (Normal) Platelet Morphology Normal (Normal) Basophilic Stippling Faint H (None) Ovalocytes 1+ H (None) Acanthocytes (Spur) Occ H (None) PT 12.6 H (9.8-11.6) sec INR 1.2 Ratio APTT 24.5 (23.4-31.7) sec Puncture Site Patient Temperature O2 Saturation (90-100) % ABG pH (7.380-7.420) ABG pCO2 (38-42) mmHg ABG pO2 (61-120) mmHg ABG HCO3 (22-26) mmol/L ABG O2 Content (12.0-20.0) Vol % ABG Base Excess (-2-2) mmol/L ABG Methemoglobin (0-2) % Luke Test Hemoglobin (12.0-16.0) G/DL Carboxyhemoglobin (0-4) % O2 Delivery Device Inspired O2 % Critical Value Sodium 130 L (136-145) meq/L Potassium 3.0 L (3.5-5.1) meq/L Chloride 92 L (98-107) meq/L Carbon Dioxide 17.0 L (21.0-32.0) meq/L Anion Gap 21 H (5-15) meq/L BUN 20 H (7-18) mg/dL Creatinine 1.19 H (0.50-1.00) mg/dL Estimated GFR 45 L (>89) mL/min Random Glucose 163 H (74-106) mg/dL Lactic Acid (0.4-2.0) mmol/L Calcium 8.6 (8.5-10.1) mg/dL Magnesium 2.3 (1.5-2.5) mg/dL Total Bilirubin 1.1 H (0.2-1.0) mg/dL AST 62 H (15-37) U/L ALT 26 (10-53) U/L Alkaline Phosphatase 159 H (45-117) U/L Ammonia (11-32) mcmol/L Total Creatine Kinase 81 (26-192) U/L Troponin I 0.56 H (0.02-0.05) ng/mL Total Protein 8.5 H (6.4-8.2) g/dL Albumin 3.0 L (3.4-5.0) g/dL TSH 1.700 (0.358-3.740) uIU/mL Urine Color (Yellw/Straw) Urine Clarity (Clear) Urine pH (5.0-8.5) Ur Specific [place] (1.002-1.035) Urine Protein (Neg-Trace) mg/dL Urine Glucose (UA) (Negative) mg/dL Urine Ketones (Negative) mg/dL Urine Occult Blood (Negative) Urine Nitrate (Negative) Urine Bilirubin (Negative) Urine Urobilinogen (Less than 2) mg/dL Ur Leukocyte Esterase (Negative) Urine RBC (0-3) /hpf Urine WBC (0-5) /hpf Ur Squamous Epith Cells (0-5) /hpf Amorphous Sediment (None) /hpf Urine Bacteria (None) /hpf Hyaline Casts (0-3) /lpf Granular Casts (None) /lpf Urine Mucus (Occasional) /lpf Micro UA Comment Ur Microscopic Review Urine Culture Comments Blood Type Antibody Screen MTS Gel Crossmatch 05/18/18 05/18/18 05/18/18 Range/Units 02:20 02:20 02:20 WBC (4.0-11.0) th/mm3 RBC (4.00-5.30) mil/mm3 Hgb (11.6-15.3) gm/dL Hct (35.0-46.0) % MCV (80.0-100.0) fL MCH (27.0-34.0) pg MCHC (32.0-36.0) % RDW (11.6-17.2) % Plt Count (150-450) th/mm3 MPV (7.0-11.0) fL Prelim Diff (Auto) Neut % (Auto) (16.0-70.0) % Lymph % (Auto) (9.0-44.0) % Ogle % (Auto) (0.0-8.0) % Eos % (Auto) (0.0-4.0) % Baso % (Auto) (0.0-2.0) % Neut # (Auto) (1.8-7.7) th/mm3 Lymph # (Auto) (1.0-4.8) th/mm3 Ogle # (Auto) (0.0-0.9) th/mm3 Eos # (Auto) (0.0-0.4) th/mm3 Baso # (Auto) (0.0-0.2) th/mm3 WBC Differential Seg Neuts % (Manual) (16-70) % Band Neuts % (Manual) (0-6) % Lymphocytes % (Manual) (9-44) % Monocytes % (Manual) (0-8) % Abs Neuts (Manual) (1.8-7.7) th/mm3 Nucleated RBCs/100 WBC (0-0) /100 WBC Differential Comment Toxic Vacuolation (None) Dohle Bodies (None) Platelet Estimate (Normal) Platelet Morphology (Normal) Basophilic Stippling (None) Ovalocytes (None) Acanthocytes (Spur) (None) PT (9.8-11.6) sec INR Ratio APTT (23.4-31.7) sec Puncture Site Patient Temperature O2 Saturation (90-100) % ABG pH (7.380-7.420) ABG pCO2 (38-42) mmHg ABG pO2 (61-120) mmHg ABG HCO3 (22-26) mmol/L ABG O2 Content (12.0-20.0) Vol % ABG Base Excess (-2-2) mmol/L ABG Methemoglobin (0-2) % Luke Test Hemoglobin (12.0-16.0) G/DL Carboxyhemoglobin (0-4) % O2 Delivery Device Inspired O2 % Critical Value Sodium (136-145) meq/L Potassium (3.5-5.1) meq/L Chloride (98-107) meq/L Carbon Dioxide (21.0-32.0) meq/L Anion Gap (5-15) meq/L BUN (7-18) mg/dL Creatinine (0.50-1.00) mg/dL Estimated GFR (>89) mL/min Random Glucose (74-106) mg/dL Lactic Acid 14.0 H* (0.4-2.0) mmol/L Calcium (8.5-10.1) mg/dL Magnesium (1.5-2.5) mg/dL Total Bilirubin (0.2-1.0) mg/dL AST (15-37) U/L ALT (10-53) U/L Alkaline Phosphatase (45-117) U/L Ammonia 23 (11-32) mcmol/L Total Creatine Kinase (26-192) U/L Troponin I (0.02-0.05) ng/mL Total Protein (6.4-8.2) g/dL Albumin (3.4-5.0) g/dL TSH (0.358-3.740) uIU/mL Urine Color (Yellw/Straw) Urine Clarity (Clear) Urine pH (5.0-8.5) Ur Specific [place] (1.002-1.035) Urine Protein (Neg-Trace) mg/dL Urine Glucose (UA) (Negative) mg/dL Urine Ketones (Negative) mg/dL Urine Occult Blood (Negative) Urine Nitrate (Negative) Urine Bilirubin (Negative) Urine Urobilinogen (Less than 2) mg/dL Ur Leukocyte Esterase (Negative) Urine RBC (0-3) /hpf Urine WBC (0-5) /hpf Ur Squamous Epith Cells (0-5) /hpf Amorphous Sediment (None) /hpf Urine Bacteria (None) /hpf Hyaline Casts (0-3) /lpf Granular Casts (None) /lpf Urine Mucus (Occasional) /lpf Micro UA Comment Ur Microscopic Review Urine Culture Comments Blood Type O Positive Antibody Screen Negative MTS Gel Crossmatch See Detail 05/18/18 05/18/18 05/18/18 Range/Units 04:00 04:20 04:59 WBC (4.0-11.0) th/mm3 RBC (4.00-5.30) mil/mm3 Hgb (11.6-15.3) gm/dL Hct (35.0-46.0) % MCV (80.0-100.0) fL MCH (27.0-34.0) pg MCHC (32.0-36.0) % RDW (11.6-17.2) % Plt Count (150-450) th/mm3 MPV (7.0-11.0) fL Prelim Diff (Auto) Neut % (Auto) (16.0-70.0) % Lymph % (Auto) (9.0-44.0) % Ogle % (Auto) (0.0-8.0) % Eos % (Auto) (0.0-4.0) % Baso % (Auto) (0.0-2.0) % Neut # (Auto) (1.8-7.7) th/mm3 Lymph # (Auto) (1.0-4.8) th/mm3 Ogle # (Auto) (0.0-0.9) th/mm3 Eos # (Auto) (0.0-0.4) th/mm3 Baso # (Auto) (0.0-0.2) th/mm3 WBC Differential Seg Neuts % (Manual) (16-70) % Band Neuts % (Manual) (0-6) % Lymphocytes % (Manual) (9-44) % Monocytes % (Manual) (0-8) % Abs Neuts (Manual) (1.8-7.7) th/mm3 Nucleated RBCs/100 WBC (0-0) /100 WBC Differential Comment Toxic Vacuolation (None) Dohle Bodies (None) Platelet Estimate (Normal) Platelet Morphology (Normal) Basophilic Stippling (None) Ovalocytes (None) Acanthocytes (Spur) (None) PT (9.8-11.6) sec INR Ratio APTT (23.4-31.7) sec Puncture Site Right radial Patient Temperature 98.6 O2 Saturation 89 L* (90-100) % ABG pH 7.44 H (7.380-7.420) ABG pCO2 35 L (38-42) mmHg ABG pO2 66 (61-120) mmHg ABG HCO3 23 (22-26) mmol/L ABG O2 Content 9.1 L (12.0-20.0) Vol % ABG Base Excess -0.7 (-2-2) mmol/L ABG Methemoglobin 0.9 (0-2) % Luke Test Present Hemoglobin 7.1 L* (12.0-16.0) G/DL Carboxyhemoglobin 2.0 (0-4) % O2 Delivery Device Room air Inspired O2 21 % Critical Value Yes Sodium (136-145) meq/L Potassium (3.5-5.1) meq/L Chloride (98-107) meq/L Carbon Dioxide (21.0-32.0) meq/L Anion Gap (5-15) meq/L BUN (7-18) mg/dL Creatinine (0.50-1.00) mg/dL Estimated GFR (>89) mL/min Random Glucose (74-106) mg/dL Lactic Acid 7.5 H* (0.4-2.0) mmol/L Calcium (8.5-10.1) mg/dL Magnesium (1.5-2.5) mg/dL Total Bilirubin (0.2-1.0) mg/dL AST (15-37) U/L ALT (10-53) U/L Alkaline Phosphatase (45-117) U/L Ammonia (11-32) mcmol/L Total Creatine Kinase (26-192) U/L Troponin I (0.02-0.05) ng/mL Total Protein (6.4-8.2) g/dL Albumin (3.4-5.0) g/dL TSH (0.358-3.740) uIU/mL Urine Color Yellow (Yellw/Straw) Urine Clarity Hazy H (Clear) Urine pH 5.0 (5.0-8.5) Ur Specific [place] 1.018 (1.002-1.035) Urine Protein 100 H (Neg-Trace) mg/dL Urine Glucose (UA) Negative (Negative) mg/dL Urine Ketones Trace H (Negative) mg/dL Urine Occult Blood Small H (Negative) Urine Nitrate Negative (Negative) Urine Bilirubin Negative (Negative) Urine Urobilinogen Less than 2 (Less than 2) mg/dL Ur Leukocyte Esterase Negative (Negative) Urine RBC Less than 1 (0-3) /hpf Urine WBC 3 (0-5) /hpf Ur Squamous Epith Cells <1 (0-5) /hpf Amorphous Sediment Rare H (None) /hpf Urine Bacteria Few H (None) /hpf Hyaline Casts 37 (0-3) /lpf Granular Casts 11 (None) /lpf Urine Mucus Few H (Occasional) /lpf Micro UA Comment Cath-culture ind Ur Microscopic Review Not Reportable Urine Culture Comments Cath-cult indicated Blood Type Antibody Screen MTS Gel Crossmatch 05/18/18 Range/Units 05:20 WBC (4.0-11.0) th/mm3 RBC (4.00-5.30) mil/mm3 Hgb (11.6-15.3) gm/dL Hct (35.0-46.0) % MCV (80.0-100.0) fL MCH (27.0-34.0) pg MCHC (32.0-36.0) % RDW (11.6-17.2) % Plt Count (150-450) th/mm3 MPV (7.0-11.0) fL Prelim Diff (Auto) Neut % (Auto) (16.0-70.0) % Lymph % (Auto) (9.0-44.0) % Ogle % (Auto) (0.0-8.0) % Eos % (Auto) (0.0-4.0) % Baso % (Auto) (0.0-2.0) % Neut # (Auto) (1.8-7.7) th/mm3 Lymph # (Auto) (1.0-4.8) th/mm3 Ogle # (Auto) (0.0-0.9) th/mm3 Eos # (Auto) (0.0-0.4) th/mm3 Baso # (Auto) (0.0-0.2) th/mm3 WBC Differential Seg Neuts % (Manual) (16-70) % Band Neuts % (Manual) (0-6) % Lymphocytes % (Manual) (9-44) % Monocytes % (Manual) (0-8) % Abs Neuts (Manual) (1.8-7.7) th/mm3 Nucleated RBCs/100 WBC (0-0) /100 WBC Differential Comment Toxic Vacuolation (None) Dohle Bodies (None) Platelet Estimate (Normal) Platelet Morphology (Normal) Basophilic Stippling (None) Ovalocytes (None) Acanthocytes (Spur) (None) PT (9.8-11.6) sec INR Ratio APTT (23.4-31.7) sec Puncture Site Right radial Patient Temperature 98.6 O2 Saturation 86 L* (90-100) % ABG pH 7.45 H (7.380-7.420) ABG pCO2 34 L (38-42) mmHg ABG pO2 55 L* (61-120) mmHg ABG HCO3 24 (22-26) mmol/L ABG O2 Content 9.1 L (12.0-20.0) Vol % ABG Base Excess 0.3 (-2-2) mmol/L ABG Methemoglobin 0.7 (0-2) % Luke Test Present Hemoglobin 7.5 L* (12.0-16.0) G/DL Carboxyhemoglobin 2.0 (0-4) % O2 Delivery Device Room air Inspired O2 21 % Critical Value Yes Sodium (136-145) meq/L Potassium (3.5-5.1) meq/L Chloride (98-107) meq/L Carbon Dioxide (21.0-32.0) meq/L Anion Gap (5-15) meq/L BUN (7-18) mg/dL Creatinine (0.50-1.00) mg/dL Estimated GFR (>89) mL/min Random Glucose (74-106) mg/dL Lactic Acid (0.4-2.0) mmol/L Calcium (8.5-10.1) mg/dL Magnesium (1.5-2.5) mg/dL Total Bilirubin (0.2-1.0) mg/dL AST (15-37) U/L ALT (10-53) U/L Alkaline Phosphatase (45-117) U/L Ammonia (11-32) mcmol/L Total Creatine Kinase (26-192) U/L Troponin I (0.02-0.05) ng/mL Total Protein (6.4-8.2) g/dL Albumin (3.4-5.0) g/dL TSH (0.358-3.740) uIU/mL Urine Color (Yellw/Straw) Urine Clarity (Clear) Urine pH (5.0-8.5) Ur Specific [place] (1.002-1.035) Urine Protein (Neg-Trace) mg/dL Urine Glucose (UA) (Negative) mg/dL Urine Ketones (Negative) mg/dL Urine Occult Blood (Negative) Urine Nitrate (Negative) Urine Bilirubin (Negative) Urine Urobilinogen (Less than 2) mg/dL Ur Leukocyte Esterase (Negative) Urine RBC (0-3) /hpf Urine WBC (0-5) /hpf Ur Squamous Epith Cells (0-5) /hpf Amorphous Sediment (None) /hpf Urine Bacteria (None) /hpf Hyaline Casts (0-3) /lpf Granular Casts (None) /lpf Urine Mucus (Occasional) /lpf Micro UA Comment Ur Microscopic Review Urine Culture Comments Blood Type Antibody Screen MTS Gel Crossmatch Imaging Data Radiologist's impression: Chest X-Ray 05/18/18 02:05 CONCLUSION: No acute abnormality is seen. Head CT 05/18/18 02:12 CONCLUSION: 1. Bilateral areas of encephalomalacia being worse on the right. These findings were present on the prior exam. 2. No acute areas of hemorrhage or mass effect are seen. 3. Small foci of fat seen in the posterior aspect of the superior sagittal sinus region. This is very likely an incidental finding. . Thoracic Aorta CT 05/18/18 04:01 CONCLUSION: 1. 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 There is filling of the mid and distal aspects of the SMA via collaterals. 2. Thickening of the transverse colon. Given the vascular abnormality one could consider ischemia in this region. 3. Small bowel dilatation likely related to obstruction or ileus. There is also some dilatation of the stomach and esophagus. 4. Occlusion of the left external iliac and common femoral arteries. 5. Hypodensities in the liver likely related to cysts or hemangiomas. 6. Bilateral adrenal gland masses. These are nonspecific. They likely represent adenomas. 7. Degenerative and postoperative change in the lumbar spine. There is chronic deformity seen in the pelvic bones. Discharge Plan Discharge Disposition Patient Disposition: ED Admit(ED Internal Use Only) Discharge Condition Condition: Serious Discharge Order Discharge Orders: ED Use Only Admit Order (Routine); Ordered 05/18/18 Ordered By: Waleska Anderson Discharge Details Diagnosis: Severe sepsis, Metabolic acidosis, increased anion gap, Acidosis, lactic, Elevated troponin I level, Acute GI bleeding, Acute mesenteric ischemia Physicians Team ED Provider: Waleska Anderson Primary Care Provider: Demetrius Villarreal Attending Provider: Izaiah Leo Other Providers: Derek Negrete Status ED Status: Admitted Patient
[2018-05-18 02:52] LABS: Mean Corpuscular HGB Conc 26.2 % (32.0-36.0)
[2018-05-18 02:55] LABS: Hemoglobin 6.9 gm/dL (11.6-15.3)
[2018-05-18 02:56] LABS: Activated Partial Thrombo Time 24.5 sec (23.4-31.7); INR 1.2 Ratio; Prothrombin Time 12.6 sec (9.8-11.6)
[2018-05-18 03:09] LABS: Alkaline Phosphatase 159 U/L (45-117); Total Protein 8.5 g/dL (6.4-8.2); Troponin I 0.56 ng/mL (0.02-0.05)
[2018-05-18 03:10] LABS: Alanine Aminotransferase 26 U/L (10-53); Anion Gap 21 meq/L (5-15); Aspartate Aminotransferase 62 U/L (15-37); Blood Urea Nitrogen 20 mg/dL (7-18); Calcium 8.6 mg/dL (8.5-10.1); Chloride 92 meq/L (98-107); Creatine Kinase 81 U/L (26-192); Glomerular Filtration Rate 45 mL/min (>89); Glucose,Random 163 mg/dL (74-106); Magnesium 2.3 mg/dL (1.5-2.5); Sodium 130 meq/L (136-145)
[2018-05-18 03:17] LABS: Lymphocytes 4 % (9-44); Monocytes 8 % (0-8); Tallied Nucleated RBC 12 (0-0)
[2018-05-18 03:20] LABS: Acanthocytes Occ; Ovalocytes 1+
[2018-05-18 03:21] LABS: Dohle Bodies Present; Platelet Estimate Normal (Normal); Platelet Morphology Normal (Normal); Toxic Vacuolation Present
--- NOTE | 2018-05-18 03:47 | CT ---
EXAM DATE: 05/18/2018 3:33 AM EST AGE/SEX: 72 years / Female INDICATIONS: Altered mental status. CLINICAL DATA: This is the patient's initial encounter. Patient reports that signs and symptoms have been present for 1 day and indicates a pain score of Nonresponsive. MEDICAL/SURGICAL HISTORY: None. None. RADIATION DOSE: 56.35 CTDI (mGy) COMPARISON: [facility] – [place], CT BRAIN W/O CONTRAST, 09/20/2016. . TECHNIQUE: CT of the head without contrast. Using automated exposure control and adjustment of the mA and/or kV according to patient size, radiation dose was kept as low as reasonably achievable to ob tain optimal diagnostic quality images. DICOM format image data is available electronically for revi ew and comparison. FINDINGS: Cerebrum: There are areas of encephalomalacia involving the right parietal and bilateral occipital l obes and portions of the right temporal lobe. The ventricles are normal for age. There is mild widen ing of the cortical sulci. No evidence of midline shift, mass lesion, hemorrhage or acute infarction. No extraaxial fluid collections are seen. There do appear to be small foci of fat seen in the poste rior superior sagittal sinus region. Posterior Fossa: The cerebellum and brainstem are intact. The 4th ventricle is midline. The cerebe llopontine angle is unremarkable. Extracranial: The visualized portion of the orbits is intact. There is right maxillary sinus disease . Skull: The calvaria is intact. No evidence of skull fracture. CONCLUSION: 1. Bilateral areas of encephalomalacia being worse on the right. These findings were present on the prior exam. 2. No acute areas of hemorrhage or mass effect are seen. 3. Small foci of fat seen in the posterior aspect of the superior sagittal sinus region. This is sharon y likely an incidental finding. . Electronically signed by: Fidencio Emanuel MD Board Certified Radiologist 05/18/2018 3:46 AM EST
[2018-05-18] MEDS: Pantoprazole Inj 80 MG in Sodium Chlor 0.9% Inj 100 ML IV.CONT SCH ×2 (03:53→15:54)
[2018-05-18] MEDS ORDERED: Vancomycin Inj 1,000 MG in Sodium Chlor 0.9% Inj 250 ML IV.SIG ONE (04:02)
[2018-05-18] MEDS ORDERED: Acetaminophen 325 MG Tablet PO PRN (04:28)
[2018-05-18] MEDS ORDERED: Morphine Inj 4 MG/ML Vial IV.PUSH PRN (04:28)
[2018-05-18] MEDS ORDERED: Bisacodyl 10 MG Supp RECTAL PRN (04:28)
--- NOTE | 2018-05-18 04:37 | P.HPCC ---
History of Present Illness Primary Care Physician: Demetrius Villarreal History of Present Illness: 72-year-old female with past medical history of atrial fibrillation, CVA on Xarelto reports recent fever (100.4 F yesterday) and 3 days of progressive worsening associated with multiple episodes of nausea vomiting stomach contents without hematemesis or coffee-ground emesis and loose watery stools without gross blood. Patient is prescribed Xarelto for her atrial fibrillation and has not been able to take it neither was able to take her blood pressure medication or medication for rate control of her atrial fibrillation due to multiple episodes of vomiting. Denies alcohol abuse, drug abuse, diabetes and or liver disease. Review of Systems All other systems reviewed negative except as stated in HPI [facility] - History History Provided By: Family Member (Granddaughter: CVA anemia GI bleed atrial fibrillation copd coagulopathy) - Medical History Medical History: Medical History (Last Updated 05/18/18 @ 05:15 by Izaiah Leo MD) A-fib Anemia CVA (cerebral vascular accident) - Tobacco History Second Hand Smoke Exposure: Yes Smoking Status: Former smoker Tobacco Type: Cigarettes - Alcohol History How Often Do You Have a Drink Containing Alcohol: Never - Substance Use History Substance History: No History of Abuse - Travel History Recent Travel in the [place] Within the Last 8 Weeks: No Recent Travel Out of the Country Within the Last 8 Weeks: No - Immunization History Tetanus Immunization: Unsure Medications and Allergies Active Medications: Active Medications Acetaminophen (Tylenol) 650 mg PO Q6H PRN PRN Reason: PAIN 1-10 AND/OR FEVER >101F Al Hydroxide/Mg Hydroxide (Milk Of Magnneris Liq) 30 ml PO Q12H PRN PRN Reason: Mild Constipation Albuterol (Duoneb Neb (Prn)) 1 ampul NEB Q2HR NEB PRN PRN Reason: WHEEZING Bisacodyl (Dulcolax Supp) 10 mg RECTAL DAILY PRN PRN Reason: SEVERE CONSITIPATION Chlorhexidine Gluconate (Chlorhexidine 2% Cloth) 3 pack TOPICAL DAILY@0400 GIBRAN Stop: 05/24/18 03:59 Chlorhexidine Gluconate (Chlorhexidine 2% Cloth) 3 pack TOPICAL DAILY@0400 PRN PRN Reason: Extra cloth needed Stop: 05/24/18 03:59 Piperacillin/Tazobactam/Dextrose (Zosyn 4.5 Gm Premix) 4.5 gm in 100 mls @ 200 mls/hr IV.SIG ONCE GIBRAN Last Infusion: 05/18/18 03:52 Dose: Infused Pantoprazole Sodium 80 mg/ (Sodium Chloride) 100 mls @ 10 mls/hr IV.CONT CONT GIBRAN Last Admin: 05/18/18 03:53 Dose: 10 mls/hr Vancomycin HCl 1,000 mg/ (Sodium Chloride) 250 mls @ 250 mls/hr IV.SIG ONCE ONE Stop: 05/18/18 05:01 Last Admin: 05/18/18 04:12 Dose: 250 mls/hr Piperacillin/Tazobactam/Dextrose (Zosyn 4.5 Gm Premix) 4.5 gm in 100 mls @ 200 mls/hr IV.SIG Q6H [facility] Lactulose (Lactulose Liq) 30 ml PO DAILY PRN PRN Reason: SEVERE CONSITIPATION Morphine Sulfate (Morphine Inj) 2 mg IV.PUSH Q2H PRN PRN Reason: PAIN SCALE 6 TO 10 Ondansetron HCl (Zofran Inj) 4 mg IV.PUSH Q6H PRN PRN Reason: NAUSEA OR VOMITING Pantoprazole Sodium (Protonix Inj) 40 mg IV.PUSH Q12H [facility] Senna/Docusate Sodium (Aylin-Colace) 1 tab PO BID [facility] Sennosides (Senokot) 17.2 mg PO Q12H PRN PRN Reason: Moderate Constipation Sodium Chloride (Ns Flush) 2 ml IV.FLUSH PRN PRN PRN Reason: FLUSH AFTER USING IV ACCESS Sodium Chloride (Ns Flush) 2 ml IV.FLUSH BID [facility] Sodium Chloride (Ns Flush) 2 ml IV.FLUSH PRN PRN PRN Reason: FLUSH AFTER USING IV ACCESS Allergies Allergy/AdvReac Type Severity Reaction Status Date / Time Sulfa (Sulfonamide Allergy Intermediate Difficulty Verified 05/18/18 01:32 Antibiotics) Breathing Home Medications Medication Instructions Recorded Confirmed Type amlodipine [Norvasc] 5 mg PO DAILY 05/18/18 05/18/18 History atorvastatin [Lipitor] 20 mg PO DAILY 05/18/18 05/18/18 History donepezil [Aricept] 10 mg PO DAILY 05/18/18 05/18/18 History metoprolol tartrate 25 mg PO BID 05/18/18 05/18/18 History pantoprazole [Protonix] 40 mg PO DAILY 05/18/18 05/18/18 History rivaroxaban [Xarelto] 10 mg PO DAILY 05/18/18 05/18/18 History Results - Labs CBC & Chem 7: 05/18/18 02:20 05/18/18 02:20 Labs: Short CBC 05/18/18 Range/Units 02:20 WBC 35.7 H (4.0-11.0) th/mm3 Hgb 6.9 L* (11.6-15.3) gm/dL Hct 26.2 L (35.0-46.0) % Plt Count 403 (150-450) th/mm3 BMP 05/18/18 02:20 Sodium 130 L Potassium 3.0 L Chloride 92 L Carbon Dioxide 17.0 L BUN 20 H Creatinine 1.19 H Calcium 8.6 Cardiac Enzymes 05/18/18 Range/Units 02:20 Total Creatine Kinase 81 (26-192) U/L Troponin I 0.56 H (0.02-0.05) ng/mL Liver Function 05/18/18 Range/Units 02:20 Total Bilirubin 1.1 H (0.2-1.0) mg/dL AST 62 H (15-37) U/L ALT 26 (10-53) U/L Alkaline Phosphatase 159 H (45-117) U/L Albumin 3.0 L (3.4-5.0) g/dL - Imaging Impressions Chest X-Ray 05/18/18 02:05 CONCLUSION: No acute abnormality is seen. Head CT 05/18/18 02:12 CONCLUSION: 1. Bilateral areas of encephalomalacia being worse on the right. These findings were present on the prior exam. 2. No acute areas of hemorrhage or mass effect are seen. 3. Small foci of fat seen in the posterior aspect of the superior sagittal sinus region. This is very likely an incidental finding. . Exam Vital signs: Vital Signs 05/18/18 01:46 05/18/18 03:28 05/18/18 03:57 Temperature 97.4 F L 97.6 F Pulse Rate 137 H 130 H Respiratory Rate 22 18 Blood Pressure 160/71 H 154/75 H Pulse Oximetry 100 98 100 05/18/18 04:13 05/18/18 04:20 Temperature 98.3 F Pulse Rate 124 H 132 H Respiratory Rate 22 Blood Pressure 152/66 H Pulse Oximetry 98 Intake & Output 05/17/18 05/17/18 05/18/18 06:59 18:59 06:59 Intake Total 1100 / 1100 Balance 1100 / 1100 Intake: IV 1100 / 1100 Zosyn 4.5 GM Premix 4.5 gm In 100 / 100 100 ml @ 200 mls/hr IV.SIG ONCE GIBRAN Rx#:[id number] NS Inj 1,000 ML @ 1000 mls/hr 1000 / 1000 IV.SIG BOLUS GIBRAN Rx#:[id number] Intake (Blood Product) Amt 0 / 0 Rbc As-3 Leukoreduced Unit 0 / 0 [id number] - Constitutional no acute distress - Routine HEENT Exam Head: Present: normocephalic, atraumatic Eye: Present: EOMI, PERRL ENT: Present: mucous membranes dry - Routine Neck Exam Present: supple, full ROM. Absent: JVD, carotid bruit - Routine Respiratory Exam Absent: accessory muscle use - Routine Cardiovascular Exam Present: irregularly irregular - Routine Abdominal Exam Present: soft, tenderness. Absent: distended Caprini VTE Risk Assessment Caprini Risk Assessment Model: Point Value = 1 Point Value = 2 Point Value = 3 Point Value = 5 Age 41-60 Minor surgery BMI > 25 kg/m2 Swollen legs Varicose veins or History of unexplained or recurrent spontaneous Oral contraceptives or hormone replacement Sepsis (< 1 month) Serious lung disease, including pneumonia (< 1 month) Abnormal pulmonary function Acute myocardial infarction Congestive heart failure (< 1 month) History of inflammatory bowel disease Medical patient at bed rest Age 61-74 Arthroscopic surgery Major open surgery (> 45 min) Laparoscopic surgery (> 45 min) Malignancy Confined to bed (> 72 hours) Immobilizing plaster cast Central venous access Age >= 75 History of VTE Family history of VTE Factor V Leiden Prothrombin [id number] Lupus anticoagulant Anticardiolipin antibodies Elevated serum homocysteine Heparin-induced thrombocytopenia Other congenital or acquired thrombophilia Stroke (< 1 month) Elective arthroplasty Hip, pelvis, or leg fracture Acute spinal cord injury (< 1 month) Prophylaxis Regimen: Total Risk Factor Score Risk Level Prophylaxis Regimen 0-1 Low Early ambulation 2 Moderate Order ONE of the following: *Sequential Compression Device (SCD) *Heparin 5000 units SQ BID 3-4 Higher Order ONE of the following medications: *Heparin 5000 units SQ TID *Enoxaparin/Lovenox 40 mg SQ daily (WT < 150 kg, CrCl > 30 mL/min) *Enoxaparin/Lovenox 30 mg SQ daily (WT < 150 kg, CrCl > 10-29 mL/min) *Enoxaparin/Lovenox 30 mg SQ BID (WT < 150 kg, CrCl > 30 mL/min) AND/OR *Sequential Compression Device (SCD) 5 or more Highest Order ONE of the following medications: *Heparin 5000 units SQ TID (Preferred with Epidurals) *Enoxaparin/Lovenox 40 mg SQ daily (WT < 150 kg, CrCl > 30 mL/min) *Enoxaparin/Lovenox 30 mg SQ daily (WT < 150 kg, CrCl > 10-29 mL/min) *Enoxaparin/Lovenox 30 mg SQ BID (WT < 150 kg, CrCl > 30 mL/min) AND *Sequential Compression Device (SCD) Assessment and Plan - Assessment and Plan Plan: Ischemic bowel -SMA occlusion -Vascular surgery consultation -Further per vascular surgeon Metabolic acidosis -Due to above -Sodium bicarbonate infusion -Monitor trend of lactic acid GI bleed -Due to ischemic bowel -Protonix -Monitor trend of H&H -GI consultation Anemia -Due to above -1 unit transfused in the ED -Continue to monitor H&H and transfusing to keep hemoglobin above 7 Atrial fibrillation -Cardizem IV as needed for rate control DVT GI prophylaxis -Teds SCDs -Protonix -IV heparin 35 minutes of critical care
[2018-05-18 04:40] LABS: Amorphous Sediment,Urine Rare /hpf; Bacteria,Urine Few /hpf; Bilirubin,Urine Negative (Negative); Clarity,Urine Hazy (Clear); Color,Urine Yellow (Yellw/Straw); Glucose,Urine (UA) Negative (Negative); Hyaline Casts,Urine 37 /lpf (0-3); Leukocyte Esterase,Urine Negative (Negative); Mucus,Urine Few /lpf (Occasional); Nitrite,Urine Negative (Negative); Specific Gravity,Urine 1.018 (1.002-1.035); Squamous Epithelial Cell,Urine <1 /hpf (0-5)
[2018-05-18 05:09] LABS: ABG Base Excess -0.7 mmol/L (-2-2); ABG PCO2 35 mmHg (38-42); ABG PO2 66 mmHg (61-120)
[2018-05-18] MEDS ORDERED: Heparin Drip 25,000 UNIT/250 ML BAG IV.CONT PRN (05:09)
[2018-05-18] MEDS ORDERED: Heparin 10,000 UNITS/10 ML Vial (for IV use) IV.PUSH STA (05:09)
[2018-05-18] MEDS: Pantoprazole Inj 40 MG Vial IV.PUSH SCH ×2 (05:18→16:48)
[2018-05-18 05:29] LABS: ABG Base Excess 0.3 mmol/L (-2-2); ABG PCO2 34 mmHg (38-42); ABG PO2 55 mmHg (61-120)
--- NOTE | 2018-05-18 05:37 | CT ---
EXAM DATE: 05/18/2018 5:03 AM EST AGE/SEX: 72 years / Female INDICATIONS: Abdominal pain; possible mesenteric ischemia. CLINICAL DATA: This is the patient's initial encounter. Patient reports that signs and symptoms have been present for 1 day and indicates a pain score of 8/10. MEDICAL/SURGICAL HISTORY: Anemia. Cerebrovascular disease. None. RADIATION DOSE: 5.33 CTDI (mGy) COMPARISON: No prior exams available for comparison. TECHNIQUE: Volumetric scanning was performed using a multi-row detector CT scanner during bolus infu cecily of 80 ml Omnipaque 350 (iohexol) nonionic water-soluble contrast as a single exam dose. The da ta was post processed with a variety of visualization algorithms including full volume maximum intens ity projection, multi-planar sliding thin slab reformation, curved planar reformation, and surface re ndering techniques. Using automated exposure control and adjustment of the mA and/or kV according to patient size, radiation dose was kept as low as reasonably achievable to obtain optimal diagnostic q uality images. DICOM format image data is available electronically for review and comparison. FINDINGS: Lungs: There is mild emphysematous change. There some minimal suspected atelectasis at the posterior left lingula. Mediastinum: No abnormally enlarged lymph nodes by CT criteria. No axillary or hilar abnormalities a re identified. Coronary artery calcifications are present. The esophagus is fluid-filled throughout t he chest. There is distention of the stomach. Abdomen: Again noted is distention of stomach. There is distention of the small bowel. There is thic kening of the transverse colon extending over a 9.5 cm in length. There are multiple hypodensities in the liver measuring up to 2.4 cm. The patient is status post cholecystectomy. There is some heteroge neity to the spleen which may be secondary to incomplete enhancement. The pancreas appears normal. Th ere are 2 masses seen in the left adrenal gland measuring 2.4 cm and 2.5 cm. There is a 1.4 cm right adrenal gland mass. There are small hypodensities seen in the kidneys measuring up to 1 cm likely rel ated to cysts. No hydronephrosis is seen. Pelvis: There is a Ma catheter in the urinary bladder. Calcifications are seen in the posterior a spect of the uterus presumably in a leiomyoma. There is degenerative and postsurgical change in the l umbar spine. There are chronic deformities in the pelvis from prior fracturing at the pubic regions b ilaterally and in the right sacrum calcifications are seen in the left gluteal region likely from jasmine or injury and/or injection granulomas. Thoracic Aorta: Atherosclerotic calcifications are present. The thoracic aortic root is normal with n ormal branching of the great vessels. There is no evidence of aneurysm or dissection. Abdominal Aorta: Scattered calcifications are seen throughout. There is thrombus seen in the anterio r aspect of the aorta at the level of the SMA. This extends into the SMA completely occluding it. The re is reconstitution of the mid SMA approximately 3 cm from the SMA origin. There is calcified plaque at the origin of the celiac. The celiac artery is patent. The JOSE is patent. The main renal arteries are normal bilaterally. There is a smaller accessory renal artery seen inferiorly on the left. Pelvic Vessels: Transcribed calcifications are seen throughout. There is occlusion of the left exter nal iliac artery and left common femoral artery. There is reconstitution of the profunda femoris nigel ry on the right. CONCLUSION: 1. 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 There is filling of the mid and distal aspects o f the SMA via collaterals. 2. Thickening of the transverse colon. Given the vascular abnormality one could consider ischemia in this region. 3. Small bowel dilatation likely related to obstruction or ileus. There is also some dilatation of t he stomach and esophagus. 4. Occlusion of the left external iliac and common femoral arteries. 5. Hypodensities in the liver likely related to cysts or hemangiomas. 6. Bilateral adrenal gland masses. These are nonspecific. They likely represent adenomas. 7. Degenerative and postoperative change in the lumbar spine. There is chronic deformity seen in the pelvic bones. Electronically signed by: Fidencio Emanuel MD Board Certified Radiologist 05/18/2018 5:36 AM EST
[2018-05-18] MEDS: Piperacil/Tazo 4.5 GM Premix 4.5 GM/100 ML BAG IV.SIG SCH ×5 (06:06→23:24)
[2018-05-18] MEDS: Sodium Bicarbonate 8.4% Inj 150 MEQ in Sodium Chloride 0.45 % Inj 850 ML IV.CONT SCH ×3 (06:06→23:00)
--- NOTE | 2018-05-18 06:37 | P.CONVS ---
History of Present Illness Service: Vascular surgery Consult date: 05/18/18 Primary Care Provider: Demetrius Villarreal Chief Complaint: Abdominal pain History of Present Illness: 72-year-old female with a past medical history of atrial fibrillation who presents with a chief complaint of 2-day history of abdominal pain that is significantly getting worse. She was noted to have an acute abdomen with leukocytosis and metabolic acidosis. 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 Review of Systems All other systems reviewed negative except as stated [facility] - History History Provided By: Family Member (Granddaughter: CVA anemia GI bleed atrial fibrillation copd coagulopathy) - Medical History Medical History: Medical History (Last Updated 05/18/18 @ 05:15 by Izaiah Leo MD) A-fib Anemia CVA (cerebral vascular accident) - Tobacco History Second Hand Smoke Exposure: Yes Smoking Status: Former smoker Tobacco Type: Cigarettes - Alcohol History How Often Do You Have a Drink Containing Alcohol: Never - Substance Use History Substance History: No History of Abuse - Travel History Recent Travel in the [place] Within the Last 8 Weeks: No Recent Travel Out of the Country Within the Last 8 Weeks: No - Immunization History Tetanus Immunization: Unsure Medications and Allergies Active Medications: Active Medications Acetaminophen (Tylenol) 650 mg PO Q6H PRN PRN Reason: PAIN 1-10 AND/OR FEVER >101F Al Hydroxide/Mg Hydroxide (Milk Of Jareth Márquez) 30 ml PO Q12H PRN PRN Reason: Mild Constipation Albuterol (Duoneb Neb (Prn)) 1 ampul NEB Q2HR NEB PRN PRN Reason: WHEEZING Atorvastatin Calcium (Lipitor) 20 mg PO DAILY GIBRAN Bisacodyl (Dulcolax Supp) 10 mg RECTAL DAILY PRN PRN Reason: SEVERE CONSITIPATION Chlorhexidine Gluconate (Chlorhexidine 2% Cloth) 3 pack TOPICAL DAILY@0400 GIBRAN Stop: 05/24/18 03:59 Chlorhexidine Gluconate (Chlorhexidine 2% Cloth) 3 pack TOPICAL DAILY@0400 PRN PRN Reason: Extra cloth needed Stop: 05/24/18 03:59 Donepezil HCl (Aricept) 10 mg PO DAILY GIBRAN Piperacillin/Tazobactam/Dextrose (Zosyn 4.5 Gm Premix) 4.5 gm in 100 mls @ 200 mls/hr IV.SIG ONCE [facility] Last Infusion: 05/18/18 03:52 Dose: Infused Pantoprazole Sodium 80 mg/ (Sodium Chloride) 100 mls @ 10 mls/hr IV.CONT CONT [facility] Last Admin: 05/18/18 03:53 Dose: 10 mls/hr Piperacillin/Tazobactam/Dextrose (Zosyn 4.5 Gm Premix) 4.5 gm in 100 mls @ 200 mls/hr IV.SIG Q6H [facility] Last Admin: 05/18/18 06:06 Dose: Not Given Sodium Bicarbonate 150 meq/ (Sodium Chloride) 1,000 mls @ 125 mls/hr IV.CONT .Q8H [facility] Last Admin: 05/18/18 06:06 Dose: 125 mls/hr Heparin Sodium/Dextrose (Heparin/D5w 25,000 U/250 Ml) 25,000 unit in 250 mls @ 0 mls/hr IV.CONT TITRATE PRN; Protocol PRN Reason: Per Protocol Last Admin: 05/18/18 06:00 Dose: 600 units/hr, 6 mls/hr Lactulose (Lactulose Liq) 30 ml PO DAILY PRN PRN Reason: SEVERE CONSITIPATION Metoprolol Tartrate (Lopressor) 25 mg PO BID [facility] Morphine Sulfate (Morphine Inj) 2 mg IV.PUSH Q2H PRN PRN Reason: PAIN SCALE 6 TO 10 Ondansetron HCl (Zofran Inj) 4 mg IV.PUSH Q6H PRN PRN Reason: NAUSEA OR VOMITING Pantoprazole Sodium (Protonix Inj) 40 mg IV.PUSH Q12H [facility] Last Admin: 05/18/18 05:18 Dose: 40 mg Senna/Docusate Sodium (Aylin-Colace) 1 tab PO BID [facility] Sennosides (Senokot) 17.2 mg PO Q12H PRN PRN Reason: Moderate Constipation Sodium Chloride (Ns Flush) 2 ml IV.FLUSH PRN PRN PRN Reason: FLUSH AFTER USING IV ACCESS Sodium Chloride (Ns Flush) 2 ml IV.FLUSH BID GIBRAN Sodium Chloride (Ns Flush) 2 ml IV.FLUSH PRN PRN PRN Reason: FLUSH AFTER USING IV ACCESS Allergies Allergy/AdvReac Type Severity Reaction Status Date / Time Sulfa (Sulfonamide Allergy Intermediate Difficulty Verified 05/18/18 01:32 Antibiotics) Breathing Home Medications Medication Instructions Recorded Confirmed Type amlodipine [Norvasc] 5 mg PO DAILY 05/18/18 05/18/18 History atorvastatin [Lipitor] 20 mg PO DAILY 05/18/18 05/18/18 History donepezil [Aricept] 10 mg PO DAILY 05/18/18 05/18/18 History metoprolol tartrate 25 mg PO BID 05/18/18 05/18/18 History pantoprazole [Protonix] 40 mg PO DAILY 05/18/18 05/18/18 History rivaroxaban [Xarelto] 10 mg PO DAILY 05/18/18 05/18/18 History Physical Exam Vital Signs / I&O: Vital Signs 05/18/18 01:46 05/18/18 03:28 05/18/18 03:57 Temperature 97.4 F L 97.6 F Pulse Rate 137 H 130 H Respiratory Rate 22 18 Blood Pressure 160/71 H 154/75 H Pulse Oximetry 100 98 100 05/18/18 04:13 05/18/18 04:20 05/18/18 04:45 Temperature 98.3 F Pulse Rate 124 H 132 H 120 H Respiratory Rate 22 20 Blood Pressure 152/66 H 135/87 Pulse Oximetry 98 100 05/18/18 05:15 Temperature Pulse Rate 120 H Respiratory Rate 18 Blood Pressure 140/60 Pulse Oximetry 99 Intake & Output 05/17/18 05/17/18 05/18/18 06:59 18:59 06:59 Intake Total 1350 / 1350 Balance 1350 / 1350 Weight 64 kg Intake: IV 1350 / 1350 Zosyn 4.5 GM Premix 4.5 gm In 100 / 100 100 ml @ 200 mls/hr IV.SIG ONCE GIBRAN Rx#:[id number] NS Inj 1,000 ML @ 1000 mls/hr 1000 / 1000 IV.SIG BOLUS GIBRAN Rx#:[id number] Vancomycin Inj 1,000 MG In NS 250 / 250 Inj 250 ML @ 250 mls/hr IV.SIG ONCE ONE Rx#:[id number] Intake (Blood Product) Amt 0 / 0 Rbc As-3 Leukoreduced Unit 0 / 0 [id number] Other: Weight On Admission 64 kg Neuro: alert awake oriented x2 HEENT: Normocephalic atraumatic Neck: Supple Heart: S1-S2 Lungs: Clear to auscultation Abdomen: Diffusely tender, diffuse rebound and involuntary guarding with peritoneal signs Vascular: Multiphasic pedal signals bilaterally Laboratory Results - last 24 hr 05/18/18 05/18/18 05/18/18 02:20 02:20 02:20 WBC 35.7 H RBC 4.29 Hgb 6.9 L* Hct 26.2 L MCV 61.0 L MCH 16.0 L MCHC 26.2 L RDW 22.2 H Plt Count 403 MPV 8.3 Prelim Diff (Auto) Slide review pending Neut % (Auto) 90.7 H Lymph % (Auto) 2.1 L [place] % (Auto) 5.9 Eos % (Auto) 0.0 Baso % (Auto) 1.3 Neut # (Auto) 32.4 H Lymph # (Auto) 0.8 L [place] # (Auto) 2.1 H Eos # (Auto) 0.0 Baso # (Auto) 0.5 H WBC Differential Manual diff final Seg Neuts % (Manual) 74 H Band Neuts % (Manual) 14 H Lymphocytes % (Manual) 4 L Monocytes % (Manual) 8 Abs Neuts (Manual) 31.4 H Nucleated RBCs/100 WBC 12 H Differential Comment . Toxic Vacuolation Present H Dohle Bodies Present H Platelet Estimate Normal Platelet Morphology Normal Basophilic Stippling Faint H Ovalocytes 1+ H Acanthocytes (Spur) Occ H PT 12.6 H INR 1.2 APTT 24.5 Puncture Site Patient Temperature O2 Saturation ABG pH ABG pCO2 ABG pO2 ABG HCO3 ABG O2 Content ABG Base Excess ABG Methemoglobin Luke Test Hemoglobin Carboxyhemoglobin O2 Delivery Device Inspired O2 Critical Value Sodium 130 L Potassium 3.0 L Chloride 92 L Carbon Dioxide 17.0 L Anion Gap 21 H BUN 20 H Creatinine 1.19 H Estimated GFR 45 L Random Glucose 163 H Lactic Acid Calcium 8.6 Magnesium 2.3 Total Bilirubin 1.1 H AST 62 H ALT 26 Alkaline Phosphatase 159 H Ammonia Total Creatine Kinase 81 Troponin I 0.56 H Total Protein 8.5 H Albumin 3.0 L TSH 1.700 Urine Color Urine Clarity Urine pH Ur Specific [place] Urine Protein Urine Glucose (UA) Urine Ketones Urine Occult Blood Urine Nitrate Urine Bilirubin Urine Urobilinogen Ur Leukocyte Esterase Urine RBC Urine WBC Ur Squamous Epith Cells Amorphous Sediment Urine Bacteria Hyaline Casts Granular Casts Urine Mucus Micro UA Comment Ur Microscopic Review Urine Culture Comments Blood Type Antibody Screen MTS Gel Crossmatch 05/18/18 05/18/18 05/18/18 02:20 02:20 02:20 WBC RBC Hgb Hct MCV MCH MCHC RDW Plt Count MPV Prelim Diff (Auto) Neut % (Auto) Lymph % (Auto) [place] % (Auto) Eos % (Auto) Baso % (Auto) Neut # (Auto) Lymph # (Auto) [place] # (Auto) Eos # (Auto) Baso # (Auto) WBC Differential Seg Neuts % (Manual) Band Neuts % (Manual) Lymphocytes % (Manual) Monocytes % (Manual) Abs Neuts (Manual) Nucleated RBCs/100 WBC Differential Comment Toxic Vacuolation Dohle Bodies Platelet Estimate Platelet Morphology Basophilic Stippling Ovalocytes Acanthocytes (Spur) PT INR APTT Puncture Site Patient Temperature O2 Saturation ABG pH ABG pCO2 ABG pO2 ABG HCO3 ABG O2 Content ABG Base Excess ABG Methemoglobin Luke Test Hemoglobin Carboxyhemoglobin O2 Delivery Device Inspired O2 Critical Value Sodium Potassium Chloride Carbon Dioxide Anion Gap BUN Creatinine Estimated GFR Random Glucose Lactic Acid 14.0 H* Calcium Magnesium Total Bilirubin AST ALT Alkaline Phosphatase Ammonia 23 Total Creatine Kinase Troponin I Total Protein Albumin TSH Urine Color Urine Clarity Urine pH Ur Specific [place] Urine Protein Urine Glucose (UA) Urine Ketones Urine Occult Blood Urine Nitrate Urine Bilirubin Urine Urobilinogen Ur Leukocyte Esterase Urine RBC Urine WBC Ur Squamous Epith Cells Amorphous Sediment Urine Bacteria Hyaline Casts Granular Casts Urine Mucus Micro UA Comment Ur Microscopic Review Urine Culture Comments Blood Type O Positive Antibody Screen Negative MTS Gel Crossmatch See Detail 05/18/18 05/18/18 05/18/18 04:00 04:20 04:59 WBC RBC Hgb Hct MCV MCH MCHC RDW Plt Count MPV Prelim Diff (Auto) Neut % (Auto) Lymph % (Auto) [place] % (Auto) Eos % (Auto) Baso % (Auto) Neut # (Auto) Lymph # (Auto) [place] # (Auto) Eos # (Auto) Baso # (Auto) WBC Differential Seg Neuts % (Manual) Band Neuts % (Manual) Lymphocytes % (Manual) Monocytes % (Manual) Abs Neuts (Manual) Nucleated RBCs/100 WBC Differential Comment Toxic Vacuolation Dohle Bodies Platelet Estimate Platelet Morphology Basophilic Stippling Ovalocytes Acanthocytes (Spur) PT INR APTT Puncture Site Right radial Patient Temperature 98.6 O2 Saturation 89 L* ABG pH 7.44 H ABG pCO2 35 L ABG pO2 66 ABG HCO3 23 ABG O2 Content 9.1 L ABG Base Excess -0.7 ABG Methemoglobin 0.9 Luke Test Present Hemoglobin 7.1 L* Carboxyhemoglobin 2.0 O2 Delivery Device Room air Inspired O2 21 Critical Value Yes Sodium Potassium Chloride Carbon Dioxide Anion Gap BUN Creatinine Estimated GFR Random Glucose Lactic Acid 7.5 H* Calcium Magnesium Total Bilirubin AST ALT Alkaline Phosphatase Ammonia Total Creatine Kinase Troponin I Total Protein Albumin TSH Urine Color Yellow Urine Clarity Hazy H Urine pH 5.0 Ur Specific [place] 1.018 Urine Protein 100 H Urine Glucose (UA) Negative Urine Ketones Trace H Urine Occult Blood Small H Urine Nitrate Negative Urine Bilirubin Negative Urine Urobilinogen Less than 2 Ur Leukocyte Esterase Negative Urine RBC Less than 1 Urine WBC 3 Ur Squamous Epith Cells <1 Amorphous Sediment Rare H Urine Bacteria Few H Hyaline Casts 37 Granular Casts 11 Urine Mucus Few H Micro UA Comment Cath-culture ind Ur Microscopic Review Not Reportable Urine Culture Comments Cath-cult indicated Blood Type Antibody Screen MTS Gel Crossmatch 05/18/18 05:20 WBC RBC Hgb Hct MCV MCH MCHC RDW Plt Count MPV Prelim Diff (Auto) Neut % (Auto) Lymph % (Auto) [place] % (Auto) Eos % (Auto) Baso % (Auto) Neut # (Auto) Lymph # (Auto) [place] # (Auto) Eos # (Auto) Baso # (Auto) WBC Differential Seg Neuts % (Manual) Band Neuts % (Manual) Lymphocytes % (Manual) Monocytes % (Manual) Abs Neuts (Manual) Nucleated RBCs/100 WBC Differential Comment Toxic Vacuolation Dohle Bodies Platelet Estimate Platelet Morphology Basophilic Stippling Ovalocytes Acanthocytes (Spur) PT INR APTT Puncture Site Right radial Patient Temperature 98.6 O2 Saturation 86 L* ABG pH 7.45 H ABG pCO2 34 L ABG pO2 55 L* ABG HCO3 24 ABG O2 Content 9.1 L ABG Base Excess 0.3 ABG Methemoglobin 0.7 Luke Test Present Hemoglobin 7.5 L* Carboxyhemoglobin 2.0 O2 Delivery Device Room air Inspired O2 21 Critical Value Yes Sodium Potassium Chloride Carbon Dioxide Anion Gap BUN Creatinine Estimated GFR Random Glucose Lactic Acid Calcium Magnesium Total Bilirubin AST ALT Alkaline Phosphatase Ammonia Total Creatine Kinase Troponin I Total Protein Albumin TSH Urine Color Urine Clarity Urine pH Ur Specific [place] Urine Protein Urine Glucose (UA) Urine Ketones Urine Occult Blood Urine Nitrate Urine Bilirubin Urine Urobilinogen Ur Leukocyte Esterase Urine RBC Urine WBC Ur Squamous Epith Cells Amorphous Sediment Urine Bacteria Hyaline Casts Granular Casts Urine Mucus Micro UA Comment Ur Microscopic Review Urine Culture Comments Blood Type Antibody Screen MTS Gel Crossmatch Impressions Chest X-Ray 05/18/18 02:05 CONCLUSION: No acute abnormality is seen. Head CT 05/18/18 02:12 CONCLUSION: 1. Bilateral areas of encephalomalacia being worse on the right. These findings were present on the prior exam. 2. No acute areas of hemorrhage or mass effect are seen. 3. Small foci of fat seen in the posterior aspect of the superior sagittal sinus region. This is very likely an incidental finding. . Thoracic Aorta CT 05/18/18 04:01 CONCLUSION: 1. 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 There is filling of the mid and distal aspects of the SMA via collaterals. 2. Thickening of the transverse colon. Given the vascular abnormality one could consider ischemia in this region. 3. Small bowel dilatation likely related to obstruction or ileus. There is also some dilatation of the stomach and esophagus. 4. Occlusion of the left external iliac and common femoral arteries. 5. Hypodensities in the liver likely related to cysts or hemangiomas. 6. Bilateral adrenal gland masses. These are nonspecific. They likely represent adenomas. 7. Degenerative and postoperative change in the lumbar spine. There is chronic deformity seen in the pelvic bones. Assessment and Plan - Assessment (1) Thrombosis of superior mesenteric artery Code(s): K55.069 - Acute infarction of intestine, part and extent unspecified Status: Acute (2) Metabolic acidosis, increased anion gap Code(s): E87.2 - Acidosis Status: Acute (3) Acute mesenteric ischemia Code(s): K55.059 - Acute (reversible) ischemia of intestine, part and extent unspecified Status: Acute - Plan Acute abdomen due to acute mesenteric ischemia. Currently hemodynamically stable CT reviewed: Thrombosis of the proximal SMA with thrombus extending in the abdominal aorta. 1. Patient started on heparin drip 2. I will take the patient emergently to the operating room for exploratory laparotomy, SMA thrombectomy possible bypass, possible bowel resection and possible ostomy. The general surgery service was informed I discussed this case with the patient granddaughter who was present at the bedside. I explained to her the risk of the operation including respiratory failure and the need for tracheostomy and PEG tube placement. I also explained to her that this is a high risk operation with a high mortality risk. She understood and she agreed to the procedure. The case was discussed with the ER physician and the OR team was called at 6:00 a.m. Thank you for allowing us to participate in this patient care. You have any questions please do not hesitate to call my cell phone Carlitos Javier [facility] [phone]
[2018-05-18] MEDS ORDERED: Sodium Chlor 0.9% Inj 250 ML IV.SIG SCH (07:00)
[2018-05-18] MEDS ORDERED: Sodium Chlor 0.9% Inj 500 ML IV.SIG SCH (07:00)
[2018-05-18] MEDS: dilTIAZem Inj 125 MG in Sodium Chlor 0.9% Inj 100 ML IV.CONT PRN ×2 (07:08→15:53)
[2018-05-18] MEDS ORDERED: Ketamine Inj 500 MG/10 ML Vial ONE (07:10)
--- NOTE | 2018-05-18 07:12 | P.PNCC ---
Subjective Subjective Remarks/Hospital Course: 72-year-old female with past medical history of atrial fibrillation, CVA on Xarelto reports recent fever and 3 days of progressive worsening associated with multiple episodes of nausea vomiting stomach contents without hematemesis and loose watery stools without gross blood. Patient is prescribed Xarelto for her atrial fibrillation and has not been able to take it neither was able to take her blood pressure medication or medication for rate control of her atrial fibrillation due to multiple episodes of vomiting. Denies alcohol abuse, drug abuse, diabetes and or liver disease. 2-day history of abdominal pain that is significantly getting worse. On exam acute abdomen with leukocytosis and metabolic acidosis. 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 SUBJ 05/18/18: Patient seen again at 6:30 AM she is very critical. Appears in acute distress due to severe abdominal pain and acute illness. She is tachycardic tachypneic heart rate is 140-150 range per minute. I have ordered additional 500 mL fluid bolus, additional 1 unit of PRBC. Vanco and Zosyn had been started. 10 mg additional IV push of Cardizem will be given and Cardizem infusion will be started. Discussed extensively with Dr. Javier. Patient is being taken emergently to the OR floor exploratory laparotomy, SMA thrombectomy possible bypass, possible bowel resection/possible ostomy. Objective Vital Signs / I&O: Vital Signs 05/18/18 01:46 05/18/18 03:28 05/18/18 03:57 Temperature 97.4 F L 97.6 F Pulse Rate 137 H 130 H Respiratory Rate 22 18 Blood Pressure 160/71 H 154/75 H Pulse Oximetry 100 98 100 05/18/18 04:13 05/18/18 04:20 05/18/18 04:45 Temperature 98.3 F Pulse Rate 124 H 132 H 120 H Respiratory Rate 22 20 Blood Pressure 152/66 H 135/87 Pulse Oximetry 98 100 05/18/18 05:15 05/18/18 05:42 05/18/18 05:47 Temperature Pulse Rate 120 H 154 H Respiratory Rate 18 29 H Blood Pressure 140/60 130/83 Pulse Oximetry 99 99 100 05/18/18 06:00 Temperature 97.2 F L Pulse Rate 151 H Respiratory Rate 27 H Blood Pressure 137/91 H Pulse Oximetry 100 Intake & Output 05/17/18 05/18/18 05/18/18 18:59 06:59 18:59 Intake Total 1750 / 1750 Balance 1750 / 1750 Weight 64 kg Intake: IV 1350 / 1350 Zosyn 4.5 GM Premix 4.5 gm In 100 / 100 100 ml @ 200 mls/hr IV.SIG ONCE GIBRAN Rx#:[id number] NS Inj 1,000 ML @ 1000 mls/hr 1000 / 1000 IV.SIG BOLUS GIBRAN Rx#:[id number] Vancomycin Inj 1,000 MG In NS 250 / 250 Inj 250 ML @ 250 mls/hr IV.SIG ONCE ONE Rx#:[id number] Intake (Blood Product) Amt 400 / 400 Rbc As-3 Leukoreduced Unit 400 / 400 [id number] Other: Weight On Admission 64 kg Result Diagrams: 05/18/18 02:20 05/18/18 02:20 Objective Remarks: GENERAL: Well-nourished, well-developed patient very ill appearing in moderate to severe distress SKIN: warm/dry. HEAD: Normocephalic. EYES: No scleral icterus. No injection or drainage. Conjunctival pallor NECK: Supple, trachea midline. No JVD or lymphadenopathy. CARDIOVASCULAR: Atrial fibrillation with RVR heart rate in 150s without murmurs , gallops, or rubs. RESPIRATORY: Breath sounds equal bilaterally. No accessory muscle use. Slightly tachypneic GASTROINTESTINAL: Abdomen diffusely tender with voluntary guarding. Exam is limited due to severe pain NEURO: Patient is alert awake. Exam is limited due to severe distress. Follows basic commands and answers questions, no focal deficits Assessment and Plan - Assessment and Plan Plan: Neuro: -Pain control with IV morphine -Otherwise minimize sedation CV: Atrial fibrillation with SMA Severe lactic acidosis -Cardizem additional 10 mg IV push and start Cardizem infusion per protocol -IV heparin -Continue aggressive fluid resuscitation and blood product resuscitation -Severe lactic acidosis secondary to ischemic bowel RESP: Respiratory insufficiency Metabolic acidosis -Aggressive pulmonary toilet -PRN bronchodilators -Leave intubated postop to facilitate resuscitation GI/HEME: Ischemic bowel Acute SMA occlusion GI bleed Anemia requiring transfusion Chronic Xarelto use -Vascular surgery consultation Dr. Javier -Patient is being taken emergently to the OR floor exploratory laparotomy, SMA thrombectomy possible bypass, possible bowel resection/possible ostomy. -Broad-spectrum antibiotics as below -1 unit PRBC ordered to give additional 1 unit PRBC. 4 units of PRBC and 4 units of FFP on hold for OR -IV Protonix for GI prophylaxis, continue IV heparin -GI bleeding secondary to ischemic bowel and will continue heparin, closely monitor H&H : Acute kidney injury metabolic acidosis -Due to above -Sodium bicarbonate infusion, fluid resuscitation total of about 2.5 L crystalloids -Monitor trend of lactic acid -Ma for accurate intake output ID Septic shock -Source of sepsis is ischemic bowel -Broad-spectrum antibiotics with Zosyn and 1 dose of vancomycin -Follow-up on blood cultures DVT GI prophylaxis -Teds SCDs -Protonix -IV heparin Additional critical care time 45 minutes discontinuously
[2018-05-18] MEDS ORDERED: Magnesium Sulfate Inj 2 GM in Sodium Chlor 0.9% Inj 96 ML IV.SIG PRN (07:30)
[2018-05-18] MEDS ORDERED: Sodium Phosphate Inj 30 MMOL in Sodium Chlor 0.9% Inj 250 ML IV.SIG PRN (07:30)
[2018-05-18] MEDS ORDERED: Potassium Phosphate 500 MG Soluble Tablet PO PRN ×2 (07:30)
[2018-05-18] MEDS ORDERED: Magnesium Sulfate Inj 4 GM in Sodium Chlor 0.9% Inj 92 ML IV.SIG PRN (07:30)
[2018-05-18] MEDS ORDERED: Potassium Chlor 40 mEq Premix 40 MEQ/100 ML PIGGYBACK IV.SIG PRN ×2 (07:30)
[2018-05-18] MEDS ORDERED: Potassium Chlor 20 mEq Premix 20 MEQ/100 ML PIGGYBACK IV.SIG PRN ×2 (07:30)
[2018-05-18] MEDS ORDERED: Potassium Chloride 25 MEQ Effervescent Tablet PO PRN (07:30)
[2018-05-18] MEDS ORDERED: Magnesium Oxide 400 MG Tablet PO PRN (07:30)
[2018-05-18] MEDS ORDERED: Potassium Phosphate Inj 30 MMOL in Sodium Chlor 0.9% Inj 250 ML IV.SIG PRN (07:30)
[2018-05-18] MEDS ORDERED: Protamine Sulfate Inj 50 MG/5 ML Vial ONE (07:59)
[2018-05-18] MEDS ORDERED: ceFAZolin 1 GM Premix Inj 0 GM/0 ML PIGGYBACK IV.SIG ONE (07:59)
[2018-05-18] MEDS ORDERED: Gelatin Size 100 Topical Foam ONE (07:59)
[2018-05-18] MEDS ORDERED: Heparin - SQ 10,000 UNITS/ML Vial ONE (08:00)
[2018-05-18] MEDS ORDERED: Heparin 10,000 UNITS/10 ML Vial (for IV use) ONE (08:00)
[2018-05-18] MEDS ORDERED: Thrombin Topical 20,000 UNIT Spray Kit TOPICAL ONE (08:00)
[2018-05-18] MEDS ORDERED: Heparin/NS PF Inj 0 ML ONE (08:00)
[2018-05-18] MEDS ORDERED: Metoprolol Tartrate 25 MG Tablet PO SCH (09:00)
--- NOTE | 2018-05-18 10:28 | P.OP ---
Preoperative Diagnosis: Acute mesenteric ischemia Postoperative Diagnosis: Acute mesenteric ischemia Date of procedure: 05/18/18 Procedure: [facility]: Carlitos Javier MD Estimated blood loss (mL): 5 Operation and Findings: Findings 1. Nonviable bowel with transmural ischemia involving almost the entire length of the small bowel from the ligament of Treitz, extending to the hepatic flexure. 2. Patient would require a resection of her entire small bowel and the right colon. 3. I discussed these findings with the family and they agreed to proceed with comfort measures. 4. I consulted with Dr. Carlitos Nation, general surgeon precision layout worker. He was unable to be present for the start of operation but he was available if needed for the remainder of the operation. Operation in detail The patient was taken to the operating room, laid supine on the OR table. After general endotracheal anesthesia the patient was prepped and draped in the standard sterile fashion. A midline incision was made dissection was taken down through the subcutaneous tissues electrocautery. The fascia was incised along the linea alba and the abdomen was entered. The bowel was ran for the ligament of Treitz to the ileocecal valve. We also inspected the stomach, ascending, transverse, descending colon, and sigmoid. The procedure terminated. The fascia was closed using double-stranded PDS suture in a running fashion and the skin was closed using dain. The patient tolerated the procedure well and she was taken back to the ICU in a critical condition.
[2018-05-18] MEDS ORDERED: fentaNYL Citrate Inj 100 MCG/2 ML Ampul ONE (11:15)
--- NOTE | 2018-05-18 11:53 | ECG ---
Date Performed: 05/18/2018 Time Performed: 02:40:27 PTAGE: 72 years EKG: ATRIAL FIBRILLATION WITH RAPID VENTRICULAR RESPONSE RIGHT BUNDLE BRANCH BLOCK LEFT ANTERIOR FASCICULAR BLOCK ABNORMAL ECG PREVIOUS TRACING : 09/25/2016 17.57 Compared to previous tracing, atrial fibrillation With rapi d ventricular response is now present. DOCTOR: Tim Sandoval Interpretating Date/Time 05/18/2018 11:52:33
[2018-05-18] MEDS ORDERED: Midazolam 100 MG/100 ML Inj 100 MG/100 ML BAG IV.CONT PRN (12:15)
[2018-05-18] MEDS ORDERED: fentaNYL 10 mcg/mL Premix Drip 2,500 MCG/250 ML BAG IV.SIG PRN (12:16)
[2018-05-18] MEDS: Senna/Docusate Sodium 8.6/50 MG Tablet PO SCH ×2 (13:58→20:41)
[2018-05-18 14:23] LABS: Hematocrit 35.8 % (35.0-46.0); Hemoglobin 11.3 gm/dL (11.6-15.3); Mean Corpuscular HGB Conc 31.5 % (32.0-36.0); Mean Corpuscular Hemoglobin 22.3 pg (27.0-34.0); Mean Platelet Volume 8.3 fL (7.0-11.0); Platelet Count 246 th/mm3 (150-450); Red Blood Count 5.04 mil/mm3 (4.00-5.30); Red Cell Distribution Width 29.7 % (11.6-17.2); White Blood Count 22.2 th/mm3 (4.0-11.0)
[2018-05-18 14:32] LABS: Activated Partial Thrombo Time 30.7 sec (23.4-31.7); INR 1.3 Ratio; Prothrombin Time 13.5 sec (9.8-11.6)
[2018-05-18 14:46] LABS: Albumin 1.8 g/dL (3.4-5.0); Calcium 6.6 mg/dL (8.5-10.1); Carbon Dioxide 30.9 meq/L (21.0-32.0); Magnesium 1.9 mg/dL (1.5-2.5); Potassium 3.2 meq/L (3.5-5.1); Total Protein 5.3 g/dL (6.4-8.2)
--- NOTE | 2018-05-18 15:31 | P.CONGI ---
History of Present Illness Consult date: 05/18/18 Consult reason: Anemia with positive Hemoccult Chief complaint: sever sepsis, GI bleed w/anemia, afrvr, non stemi History of Present Illness: This patient is a 72-year-old female with past medical history significant for atrial fibrillation, anemia and CVA. Patient currently on Xarelto for CVA. Patient presented to [place] emergency room with report of abdominal pain with multiple episodes of nausea and vomiting. Patient denied any noted blood in stool or emesis. Upon consultation, family member reports patient experienced abdominal pain for 2 days prior to admission. WBC noted to be 35.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 Patient was emergently taken to the OR. Our service was consulted for anemia with positive Hemoccult stools. <Nilsa Ellsworth - Last Filed: 05/18/18 15:16> Review of Systems unobtainable due to endotracheal tube <Nilsa Ellsworth - Last Filed: 05/18/18 15:16> PMFSH - History History Provided By: Family Member (Granddaughter: CVA anemia GI bleed atrial fibrillation copd coagulopathy) - Medical History Medical History: Medical History (Last Reviewed 05/18/18 @ 08:51 by Raghav Watson) A-fib Anemia CVA (cerebral vascular accident) - Tobacco History Second Hand Smoke Exposure: Yes Smoking Status: Former smoker Tobacco Type: Cigarettes - Alcohol History How Often Do You Have a Drink Containing Alcohol: Never - Substance Use History Substance History: No History of Abuse - Travel History Recent Travel in the [place] Within the Last 8 Weeks: No Recent Travel Out of the Country Within the Last 8 Weeks: No - Immunization History Tetanus Immunization: Unsure <Nilsa Ellsworth - Last Filed: 05/18/18 15:16> - Medical History Medical History: Medical History (Last Reviewed 05/18/18 @ 08:51 by Raghav Watson) A-fib Anemia CVA (cerebral vascular accident) <Derek Negrete - Last Filed: 05/19/18 08:59> Medications and Allergies Active Medications: Active Medications Acetaminophen (Tylenol) 650 mg PO Q6H PRN PRN Reason: PAIN 1-10 AND/OR FEVER >101F Al Hydroxide/Mg Hydroxide (Milk Of Magnesia Liq) 30 ml PO Q12H PRN PRN Reason: Mild Constipation Albuterol (Duoneb Neb (Prn)) 1 ampul NEB Q2HR NEB PRN PRN Reason: WHEEZING Atorvastatin Calcium (Lipitor) 20 mg PO DAILY [facility] Last Admin: 05/18/18 13:57 Dose: 20 mg Bisacodyl (Dulcolax Supp) 10 mg RECTAL DAILY PRN PRN Reason: SEVERE CONSITIPATION Chlorhexidine Gluconate (Chlorhexidine 2% Cloth) 3 pack TOPICAL DAILY@0400 [facility] Stop: 05/24/18 03:59 Chlorhexidine Gluconate (Chlorhexidine 2% Cloth) 3 pack TOPICAL DAILY@0400 PRN PRN Reason: Extra cloth needed Stop: 05/24/18 03:59 Chlorhexidine Gluconate (Peridex 0.12% Oral Kit) 15 ml OROPHARYNG BID@0800, 2000 [facility] Donepezil HCl (Aricept) 10 mg PO DAILY [facility] Last Admin: 05/18/18 13:58 Dose: 10 mg Piperacillin/Tazobactam/Dextrose (Zosyn 4.5 Gm Premix) 4.5 gm in 100 mls @ 200 mls/hr IV.SIG ONCE [facility] Last Infusion: 05/18/18 03:52 Dose: Infused Pantoprazole Sodium 80 mg/ (Sodium Chloride) 100 mls @ 10 mls/hr IV.CONT CONT [facility] Last Admin: 05/18/18 03:53 Dose: 10 mls/hr Piperacillin/Tazobactam/Dextrose (Zosyn 4.5 Gm Premix) 4.5 gm in 100 mls @ 200 mls/hr IV.SIG Q6H [facility] Last Admin: 05/18/18 12:00 Dose: 200 mls/hr Sodium Bicarbonate 150 meq/ (Sodium Chloride) 1,000 mls @ 125 mls/hr IV.CONT .Q8H [facility] Last Admin: 05/18/18 14:36 Dose: 125 mls/hr Heparin Sodium/Dextrose (Heparin/D5w 25,000 U/250 Ml) 25,000 unit in 250 mls @ 0 mls/hr IV.CONT TITRATE PRN; Protocol PRN Reason: Per Protocol Last Admin: 05/18/18 06:00 Dose: 600 units/hr, 6 mls/hr Diltiazem HCl 125 mg/ Sodium (Chloride) 125 mls @ 5 mls/hr IV.CONT TITRATE PRN ; Protocol PRN Reason: Per Protocol Last Admin: 05/18/18 07:08 Dose: 5 mg/hr, 5 mls/hr Sodium Chloride (Ns Inj) 250 mls @ 15 mls/hr IV.SIG ONCE [facility] Stop: 05/18/18 23:39 Potassium Chloride (Kcl 40 Meq Premix Inj) 40 meq in 100 mls @ 25 mls/hr IV.SIG Q2H PRN PRN Reason: For Potassium 2.8 - 3.2 mEq/L Last Admin: 05/18/18 13:57 Dose: 25 mls/hr Potassium Chloride (Kcl 20 Meq Premix Inj) 20 meq in 100 mls @ 50 mls/hr IV.SIG Q2H PRN PRN Reason: For Potassium 3.3 - 3.5 mEq/L Potassium Chloride (Kcl 40 Meq Premix Inj) 40 meq in 100 mls @ 25 mls/hr IV.SIG UNSCH PRN PRN Reason: For Potassium 3.3 - 3.5 mEq/L Sodium Phosphate 30 mmol/ (Sodium Chloride) 260 mls @ 42 mls/hr IV.SIG UNSCH PRN PRN Reason: For Phosphorus < 2.5 mg/dL Potassium Phosphate 30 mmol/ (Sodium Chloride) 260 mls @ 42 mls/hr IV.SIG UNSCH PRN PRN Reason: SEE LABEL COMMENTS Magnesium Sulfate 4 gm/ Sodium (Chloride) 100 mls @ 50 mls/hr IV.SIG UNSCH PRN PRN Reason: For Magnesium 0.9 - 1.1 mg/dL Potassium Chloride (Kcl 20 Meq Premix Inj) 20 meq in 100 mls @ 50 mls/hr IV.SIG Q2H PRN PRN Reason: For Potassium 2.8 - 3.2 mEq/L Magnesium Sulfate 2 gm/ Sodium (Chloride) 100 mls @ 50 mls/hr IV.SIG UNSCH PRN PRN Reason: For Magnesium 1.2 - 1.6 mg/dL Midazolam HCl (Versed Inj) 100 mg in 100 mls @ 2 mls/hr IV.CONT TITRATE PRN; Protocol PRN Reason: See protocol Last Admin: 05/18/18 13:56 Dose: 2 mg/hr, 2 mls/hr Fentanyl (Fentanyl 10 Mcg/Ml Premix Drip) 2,500 mcg in 250 mls @ 5 mls/hr IV.SIG TITRATE PRN; Protocol PRN Reason: Per Protocol Last Admin: 05/18/18 13:57 Dose: 50 mcg/hr, 5 mls/hr Lactulose (Lactulose Liq) 30 ml PO DAILY PRN PRN Reason: SEVERE CONSITIPATION Magnesium Oxide (Mag-Ox) 800 mg PO UNSCH PRN PRN Reason: For Magnesium 1.2 - 1.6 mg/dL Metoprolol Tartrate (Lopressor) 25 mg PO BID [facility] Last Admin: 05/18/18 13:58 Dose: 25 mg Miscellaneous Medication () 1 each OROPHARYNG 0000,0400,1200,1600 [facility] Morphine Sulfate (Morphine Inj) 2 mg IV.PUSH Q2H PRN PRN Reason: PAIN SCALE 6 TO 10 Ondansetron HCl (Zofran Inj) 4 mg IV.PUSH Q6H PRN PRN Reason: NAUSEA OR VOMITING Pantoprazole Sodium (Protonix Inj) 40 mg IV.PUSH Q12H [facility] Last Admin: 05/18/18 05:18 Dose: 40 mg Potassium Bicarb/Potassium Chloride (K-Lyte Cl Eff) 50 meq PO UNSCH PRN PRN Reason: For Potassium 3.3 - 3.5 mEq/L Potassium Phosphate (K-Phos Original) 2,000 mg PO Q4H PRN PRN Reason: Phosphorus Less Than 2.5 mg/dL Potassium Phosphate (K-Phos Original) 2,000 mg PO UNSCH PRN PRN Reason: SEE LABEL COMMENTS Senna/Docusate Sodium (Aylin-Colace) 1 tab PO BID [facility] Last Admin: 05/18/18 13:58 Dose: 1 tab Sennosides (Senokot) 17.2 mg PO Q12H PRN PRN Reason: Moderate Constipation Sodium Chloride (Ns Flush) 2 ml IV.FLUSH BID [facility] Last Admin: 05/18/18 13:58 Dose: 2 ml Sodium Chloride (Ns Flush) 2 ml IV.FLUSH PRN PRN PRN Reason: FLUSH AFTER USING IV ACCESS <Nilsa Ellsworth - Last Filed: 05/18/18 15:16> Active Medications: Active Medications Acetaminophen (Tylenol) 650 mg PO Q6H PRN PRN Reason: PAIN 1-10 AND/OR FEVER >101F Al Hydroxide/Mg Hydroxide (Milk Of Jareth Márquez) 30 ml PO Q12H PRN PRN Reason: Mild Constipation Albuterol (Duoneb Neb (Prn)) 1 ampul NEB Q2HR NEB PRN PRN Reason: WHEEZING Atorvastatin Calcium (Lipitor) 20 mg PO DAILY [facility] Last Admin: 05/18/18 13:57 Dose: 20 mg Bisacodyl (Dulcolax Supp) 10 mg RECTAL DAILY PRN PRN Reason: SEVERE CONSITIPATION Chlorhexidine Gluconate (Chlorhexidine 2% Cloth) 3 pack TOPICAL DAILY@0400 [facility] Stop: 05/24/18 03:59 Last Admin: 05/19/18 04:20 Dose: 3 pack Chlorhexidine Gluconate (Chlorhexidine 2% Cloth) 3 pack TOPICAL DAILY@0400 PRN PRN Reason: Extra cloth needed Stop: 05/24/18 03:59 Chlorhexidine Gluconate (Peridex 0.12% Oral Kit) 15 ml OROPHARYNG BID@0800, 2000 [facility] Last Admin: 05/18/18 20:41 Dose: 15 ml Donepezil HCl (Aricept) 10 mg PO DAILY [facility] Last Admin: 05/18/18 13:58 Dose: 10 mg Piperacillin/Tazobactam/Dextrose (Zosyn 4.5 Gm Premix) 4.5 gm in 100 mls @ 200 mls/hr IV.SIG ONCE [facility] Last Infusion: 05/18/18 03:52 Dose: Infused Pantoprazole Sodium 80 mg/ (Sodium Chloride) 100 mls @ 10 mls/hr IV.CONT CONT [facility] Last Infusion: 05/19/18 04:22 Dose: Infused Piperacillin/Tazobactam/Dextrose (Zosyn 4.5 Gm Premix) 4.5 gm in 100 mls @ 200 mls/hr IV.SIG Q6H [facility] Last Infusion: 05/19/18 05:16 Dose: Infused Sodium Bicarbonate 150 meq/ (Sodium Chloride) 1,000 mls @ 50 mls/hr IV.CONT .Q20H [facility] Last Admin: 05/19/18 05:24 Dose: Not Given Heparin Sodium/Dextrose (Heparin/D5w 25,000 U/250 Ml) 25,000 unit in 250 mls @ 0 mls/hr IV.CONT TITRATE PRN; Protocol PRN Reason: Per Protocol Last Titration: 05/19/18 07:00 Dose: 0 units/hr, 0 mls/hr Diltiazem HCl 125 mg/ Sodium (Chloride) 125 mls @ 5 mls/hr IV.CONT TITRATE PRN ; Protocol PRN Reason: Per Protocol Last Titration: 05/19/18 06:18 Dose: 10 mg/hr, 10 mls/hr Potassium Chloride (Kcl 40 Meq Premix Inj) 40 meq in 100 mls @ 25 mls/hr IV.SIG Q2H PRN PRN Reason: For Potassium 2.8 - 3.2 mEq/L Last Infusion: 05/18/18 18:00 Dose: Infused Potassium Chloride (Kcl 20 Meq Premix Inj) 20 meq in 100 mls @ 50 mls/hr IV.SIG Q2H PRN PRN Reason: For Potassium 3.3 - 3.5 mEq/L Potassium Chloride (Kcl 40 Meq Premix Inj) 40 meq in 100 mls @ 25 mls/hr IV.SIG UNSCH PRN PRN Reason: For Potassium 3.3 - 3.5 mEq/L Sodium Phosphate 30 mmol/ (Sodium Chloride) 260 mls @ 42 mls/hr IV.SIG UNSCH PRN PRN Reason: For Phosphorus < 2.5 mg/dL Potassium Phosphate 30 mmol/ (Sodium Chloride) 260 mls @ 42 mls/hr IV.SIG UNSCH PRN PRN Reason: SEE LABEL COMMENTS Magnesium Sulfate 4 gm/ Sodium (Chloride) 100 mls @ 50 mls/hr IV.SIG UNSCH PRN PRN Reason: For Magnesium 0.9 - 1.1 mg/dL Potassium Chloride (Kcl 20 Meq Premix Inj) 20 meq in 100 mls @ 50 mls/hr IV.SIG Q2H PRN PRN Reason: For Potassium 2.8 - 3.2 mEq/L Magnesium Sulfate 2 gm/ Sodium (Chloride) 100 mls @ 50 mls/hr IV.SIG UNSCH PRN PRN Reason: For Magnesium 1.2 - 1.6 mg/dL Midazolam HCl (Versed Inj) 100 mg in 100 mls @ 2 mls/hr IV.CONT TITRATE PRN; Protocol PRN Reason: See protocol Last Titration: 05/18/18 21:28 Dose: 0 mg/hr, 0 mls/hr Fentanyl (Fentanyl 10 Mcg/Ml Premix Drip) 2,500 mcg in 250 mls @ 5 mls/hr IV.SIG TITRATE PRN; Protocol PRN Reason: Per Protocol Last Titration: 05/18/18 18:15 Dose: 50 mcg/hr, 5 mls/hr Lactulose (Lactulose Liq) 30 ml PO DAILY PRN PRN Reason: SEVERE CONSITIPATION Magnesium Oxide (Mag-Ox) 800 mg PO UNSCH PRN PRN Reason: For Magnesium 1.2 - 1.6 mg/dL Metoprolol Tartrate (Lopressor) 25 mg PO BID [facility] Last Admin: 05/18/18 13:58 Dose: 25 mg Miscellaneous Medication () 1 each OROPHARYNG 0000,0400,1200,1600 [facility] Last Admin: 05/19/18 04:20 Dose: 1 each Morphine Sulfate (Morphine Inj) 2 mg IV.PUSH Q2H PRN PRN Reason: PAIN SCALE 6 TO 10 Ondansetron HCl (Zofran Inj) 4 mg IV.PUSH Q6H PRN PRN Reason: NAUSEA OR VOMITING Pantoprazole Sodium (Protonix Inj) 40 mg IV.PUSH Q12H [facility] Last Admin: 05/19/18 04:25 Dose: 40 mg Potassium Bicarb/Potassium Chloride (K-Lyte Cl Eff) 50 meq PO UNSCH PRN PRN Reason: For Potassium 3.3 - 3.5 mEq/L Potassium Phosphate (K-Phos Original) 2,000 mg PO Q4H PRN PRN Reason: Phosphorus Less Than 2.5 mg/dL Potassium Phosphate (K-Phos Original) 2,000 mg PO UNSCH PRN PRN Reason: SEE LABEL COMMENTS Senna/Docusate Sodium (Aylin-Colace) 1 tab PO BID [facility] Last Admin: 05/18/18 20:41 Dose: 1 tab Sennosides (Senokot) 17.2 mg PO Q12H PRN PRN Reason: Moderate Constipation Sodium Chloride (Ns Flush) 2 ml IV.FLUSH BID [facility] Last Admin: 05/18/18 20:41 Dose: 2 ml Sodium Chloride (Ns Flush) 2 ml IV.FLUSH PRN PRN PRN Reason: FLUSH AFTER USING IV ACCESS <Derek Negrete - Last Filed: 05/19/18 08:59> Allergies Allergy/AdvReac Type Severity Reaction Status Date / Time Sulfa (Sulfonamide Allergy Intermediate Difficulty Verified 05/18/18 01:32 Antibiotics) Breathing Home Medications Medication Instructions Recorded Confirmed Type amlodipine [Norvasc] 5 mg PO DAILY 05/18/18 05/18/18 History atorvastatin [Lipitor] 20 mg PO DAILY 05/18/18 05/18/18 History donepezil [Aricept] 10 mg PO DAILY 05/18/18 05/18/18 History metoprolol tartrate 25 mg PO BID 05/18/18 05/18/18 History pantoprazole [Protonix] 40 mg PO DAILY 05/18/18 05/18/18 History rivaroxaban [Xarelto] 10 mg PO DAILY 05/18/18 05/18/18 History Exam Vital signs: Vital Signs 05/18/18 01:46 05/18/18 03:28 05/18/18 03:57 Temperature 97.4 F L 97.6 F Pulse Rate 137 H 130 H Respiratory Rate 22 18 Blood Pressure 160/71 H 154/75 H Pulse Oximetry 100 98 100 05/18/18 04:13 05/18/18 04:20 05/18/18 04:45 Temperature 98.3 F Pulse Rate 124 H 132 H 120 H Respiratory Rate 22 20 Blood Pressure 152/66 H 135/87 Pulse Oximetry 98 100 05/18/18 05:15 05/18/18 05:42 05/18/18 05:47 Temperature Pulse Rate 120 H 154 H Respiratory Rate 18 29 H Blood Pressure 140/60 130/83 Pulse Oximetry 99 99 100 05/18/18 06:00 05/18/18 08:00 05/18/18 10:37 Temperature 97.2 F L 97.9 F Pulse Rate 122 H 122 H Respiratory Rate 27 H 24 10 L Blood Pressure 137/91 H 189/99 H Pulse Oximetry 100 97 05/18/18 12:00 Temperature 97.6 F Pulse Rate 107 H Respiratory Rate 18 Blood Pressure 115/64 Pulse Oximetry 97 Intake & Output 05/17/18 05/18/18 05/18/18 18:59 06:59 18:59 Intake Total 1750 / 1750 3400 / 3400 Output Total 760 / 760 Balance 1750 / 1750 2640 / 2640 Weight 64 kg Intake: IV 1350 / 1350 1100 / 1100 Sodium Bicarbonate 8.4% Inj 150 1000 / 1000 MEQ In 1/2 Normal Saline Inj 850 ML @ 125 mls/hr IV.CONT . Q8H [facility] Rx#:[id number] Zosyn 4.5 GM Premix 4.5 gm In 100 / 100 100 / 100 100 ml @ 200 mls/hr IV.SIG Q6H [facility] Rx#:[id number] NS Inj 1,000 ML @ 1000 mls/hr 1000 / 1000 IV.SIG BOLUS [facility] Rx#:[id number] Vancomycin Inj 1,000 MG In NS 250 / 250 Inj 250 ML @ 250 mls/hr IV.SIG ONCE ONE Rx#:[id number] Anesthesia Amount 1500 / 1500 Intake (Blood Product) Amt 400 / 400 Rbc As-3 Leukoreduced Unit 400 / 400 [id number] Mass Transfusion Protocol 800 / 800 Output: Estimated Blood Loss 10 / 10 Urine Amount (Catheter) 750 / 750 Indwelling Urethral Catheter 750 / 750 Other: Weight On Admission 64 kg - Constitutional chronically ill appearing Comments: Intubated and mechanically ventilated - Routine Respiratory Exam Present: patient mechanically ventilated, CTA bilaterally - Routine Cardiovascular Exam Present: irregularly irregular - Routine Abdominal Exam Present: soft, tenderness, distended. Absent: normoactive bowel sounds, guarding, firm Comments: Midline abdominal incision with dressing in place Patient post exploratory lap - Routine Skin Exam Present: dry, warm - Routine Neurological Exam Present: alert <Ellsworth,Nilsa - Last Filed: 05/18/18 15:16> Vital signs: Vital Signs 05/18/18 10:01 05/18/18 10:37 05/18/18 10:47 Temperature Pulse Rate 116 H Respiratory Rate 10 L 0 L Blood Pressure 121/86 Pulse Oximetry 76 L 77 L 05/18/18 10:49 05/18/18 11:00 05/18/18 12:00 Temperature 97.6 F Pulse Rate 112 H 110 H 113 H Respiratory Rate 0 L 0 L 20 Blood Pressure 128/84 129/82 123/78 Pulse Oximetry 97 97 78 L 05/18/18 13:00 05/18/18 14:00 05/18/18 15:00 Temperature Pulse Rate 110 H 113 H 113 H Respiratory Rate 20 16 16 Blood Pressure 117/74 101/63 90/65 L Pulse Oximetry 97 97 97 05/18/18 15:19 05/18/18 16:00 05/18/18 17:00 Temperature 98.5 F Pulse Rate 116 H 111 H Respiratory Rate 16 16 16 Blood Pressure 95/59 L 85/58 L Pulse Oximetry 96 96 95 05/18/18 18:00 05/18/18 18:31 05/18/18 19:00 Temperature Pulse Rate 113 H 113 H 109 H Respiratory Rate 16 16 16 Blood Pressure 97/60 L 97/56 L 90/63 L Pulse Oximetry 95 95 95 05/18/18 19:45 05/18/18 19:50 05/18/18 20:00 Temperature 99.1 F Pulse Rate 115 H Respiratory Rate 16 16 Blood Pressure 96/73 L Pulse Oximetry 96 96 96 05/18/18 21:00 05/18/18 22:00 05/18/18 23:00 Temperature Pulse Rate 118 H 119 H 117 H Respiratory Rate 16 16 16 Blood Pressure 113/74 108/63 115/64 Pulse Oximetry 97 100 96 05/19/18 00:00 05/19/18 00:16 05/19/18 01:00 Temperature 99 F Pulse Rate 124 H 125 H Respiratory Rate 16 16 16 Blood Pressure 121/73 132/72 Pulse Oximetry 93 L 100 95 05/19/18 02:00 05/19/18 03:00 05/19/18 03:33 Temperature Pulse Rate 126 H 125 H Respiratory Rate 16 16 16 Blood Pressure 106/71 108/75 Pulse Oximetry 96 94 L 98 05/19/18 04:00 05/19/18 06:00 05/19/18 08:37 Temperature 98.6 F Pulse Rate 124 H 118 H Respiratory Rate 16 16 Blood Pressure 103/76 Pulse Oximetry 83 L 94 L Intake & Output 05/18/18 05/19/18 05/19/18 18:59 06:59 18:59 Intake Total 6100 / 6100 2024 Output Total 970 / 970 125 / 125 Balance 5130 / 5130 1900 / 1900 Weight 67 kg Intake: IV 1500 / 1500 2024 Protonix Inj 80 MG In NS Inj 100 / 100 100 / 100 100 ML @ 10 mls/hr IV.CONT CONT [facility] Rx#:[id number] Sodium Bicarbonate 8.4% Inj 150 1000 / 1000 1000 / 1000 MEQ In 1/2 Normal Saline Inj 850 ML @ 125 mls/hr IV.CONT . Q8H [facility] Rx#:[id number] Cardizem Inj 125 MG In NS Inj 100 / 100 125 / 125 100 ML @ 5 MG/HR 5 mls/hr IV. CONT TITRATE PRN Rx#:[id number] Zosyn 4.5 GM Premix 4.5 gm In 200 / 200 300 / 300 100 ml @ 200 mls/hr IV.SIG Q6H [facility] Rx#:[id number] KCl 40 mEq Premix Inj 40 meq In 100 / 100 100 ml @ 25 mls/hr IV.SIG Q2H [facility] Rx#:[id number] Tube Feeding 0 / 0 Anesthesia Amount 3000 / 3000 Mass Transfusion Protocol 1600 / 1600 Output: Urine 125 / 125 Estimated Blood Loss 20 / 20 Urine Amount (Catheter) 950 / 950 Indwelling Urethral Catheter 950 / 950 <Derek Negrete - Last Filed: 05/19/18 08:59> Results - Labs CBC & Chem 7: 05/18/18 14:00 05/18/18 14:00 Labs: Laboratory Results - last 24 hr 05/18/18 05/18/18 05/18/18 02:20 02:20 02:20 WBC 35.7 H RBC 4.29 Hgb 6.9 L* Hct 26.2 L MCV 61.0 L MCH 16.0 L MCHC 26.2 L RDW 22.2 H Plt Count 403 MPV 8.3 Prelim Diff (Auto) Slide review pending Neut % (Auto) 90.7 H Lymph % (Auto) 2.1 L Moffat % (Auto) 5.9 Eos % (Auto) 0.0 Baso % (Auto) 1.3 Neut # (Auto) 32.4 H Lymph # (Auto) 0.8 L Moffat # (Auto) 2.1 H Eos # (Auto) 0.0 Baso # (Auto) 0.5 H WBC Differential Manual diff final Seg Neuts % (Manual) 74 H Band Neuts % (Manual) 14 H Lymphocytes % (Manual) 4 L Monocytes % (Manual) 8 Abs Neuts (Manual) 31.4 H Nucleated RBCs/100 WBC 12 H Differential Comment . Toxic Vacuolation Present H Dohle Bodies Present H Platelet Estimate Normal Platelet Morphology Normal Basophilic Stippling Faint H Ovalocytes 1+ H Acanthocytes (Spur) Occ H PT 12.6 H INR 1.2 APTT 24.5 Puncture Site Patient Temperature O2 Saturation ABG pH ABG pCO2 ABG pO2 ABG HCO3 ABG O2 Content ABG Base Excess ABG Methemoglobin Luke Test Hemoglobin Carboxyhemoglobin O2 Delivery Device Inspired O2 Critical Value Sodium 130 L Potassium 3.0 L Chloride 92 L Carbon Dioxide 17.0 L Anion Gap 21 H BUN 20 H Creatinine 1.19 H Estimated GFR 45 L Random Glucose 163 H Lactic Acid Calcium 8.6 Calcium Adj for Albumin Magnesium 2.3 Total Bilirubin 1.1 H AST 62 H ALT 26 Alkaline Phosphatase 159 H Ammonia Total Creatine Kinase 81 Troponin I 0.56 H Total Protein 8.5 H Albumin 3.0 L TSH 1.700 Urine Color Urine Clarity Urine pH Ur Specific [place] Urine Protein Urine Glucose (UA) Urine Ketones Urine Occult Blood Urine Nitrate Urine Bilirubin Urine Urobilinogen Ur Leukocyte Esterase Urine RBC Urine WBC Ur Squamous Epith Cells Amorphous Sediment Urine Bacteria Hyaline Casts Granular Casts Urine Mucus Micro UA Comment Ur Microscopic Review Urine Culture Comments Nasal Screen MRSA (PCR) Blood Type Antibody Screen MTS Gel Crossmatch Blood Bank Comment 05/18/18 05/18/18 05/18/18 02:20 02:20 02:20 WBC RBC Hgb Hct MCV MCH MCHC RDW Plt Count MPV Prelim Diff (Auto) Neut % (Auto) Lymph % (Auto) [place] % (Auto) Eos % (Auto) Baso % (Auto) Neut # (Auto) Lymph # (Auto) Moffat # (Auto) Eos # (Auto) Baso # (Auto) WBC Differential Seg Neuts % (Manual) Band Neuts % (Manual) Lymphocytes % (Manual) Monocytes % (Manual) Abs Neuts (Manual) Nucleated RBCs/100 WBC Differential Comment Toxic Vacuolation Dohle Bodies Platelet Estimate Platelet Morphology Basophilic Stippling Ovalocytes Acanthocytes (Spur) PT INR APTT Puncture Site Patient Temperature O2 Saturation ABG pH ABG pCO2 ABG pO2 ABG HCO3 ABG O2 Content ABG Base Excess ABG Methemoglobin Luke Test Hemoglobin Carboxyhemoglobin O2 Delivery Device Inspired O2 Critical Value Sodium Potassium Chloride Carbon Dioxide Anion Gap BUN Creatinine Estimated GFR Random Glucose Lactic Acid 14.0 H* Calcium Calcium Adj for Albumin Magnesium Total Bilirubin AST ALT Alkaline Phosphatase Ammonia 23 Total Creatine Kinase Troponin I Total Protein Albumin TSH Urine Color Urine Clarity Urine pH Ur Specific [place] Urine Protein Urine Glucose (UA) Urine Ketones Urine Occult Blood Urine Nitrate Urine Bilirubin Urine Urobilinogen Ur Leukocyte Esterase Urine RBC Urine WBC Ur Squamous Epith Cells Amorphous Sediment Urine Bacteria Hyaline Casts Granular Casts Urine Mucus Micro UA Comment Ur Microscopic Review Urine Culture Comments Nasal Screen MRSA (PCR) Blood Type O Positive Antibody Screen Negative MTS Gel Crossmatch See Detail Blood Bank Comment 05/18/18 05/18/18 05/18/18 04:00 04:20 04:59 WBC RBC Hgb Hct MCV MCH MCHC RDW Plt Count MPV Prelim Diff (Auto) Neut % (Auto) Lymph % (Auto) [place] % (Auto) Eos % (Auto) Baso % (Auto) Neut # (Auto) Lymph # (Auto) [place] # (Auto) Eos # (Auto) Baso # (Auto) WBC Differential Seg Neuts % (Manual) Band Neuts % (Manual) Lymphocytes % (Manual) Monocytes % (Manual) Abs Neuts (Manual) Nucleated RBCs/100 WBC Differential Comment Toxic Vacuolation Dohle Bodies Platelet Estimate Platelet Morphology Basophilic Stippling Ovalocytes Acanthocytes (Spur) PT INR APTT Puncture Site Right radial Patient Temperature 98.6 O2 Saturation 89 L* ABG pH 7.44 H ABG pCO2 35 L ABG pO2 66 ABG HCO3 23 ABG O2 Content 9.1 L ABG Base Excess -0.7 ABG Methemoglobin 0.9 Luke Test Present Hemoglobin 7.1 L* Carboxyhemoglobin 2.0 O2 Delivery Device Room air Inspired O2 21 Critical Value Yes Sodium Potassium Chloride Carbon Dioxide Anion Gap BUN Creatinine Estimated GFR Random Glucose Lactic Acid 7.5 H* Calcium Calcium Adj for Albumin Magnesium Total Bilirubin AST ALT Alkaline Phosphatase Ammonia Total Creatine Kinase Troponin I Total Protein Albumin TSH Urine Color Yellow Urine Clarity Hazy H Urine pH 5.0 Ur Specific [place] 1.018 Urine Protein 100 H Urine Glucose (UA) Negative Urine Ketones Trace H Urine Occult Blood Small H Urine Nitrate Negative Urine Bilirubin Negative Urine Urobilinogen Less than 2 Ur Leukocyte Esterase Negative Urine RBC Less than 1 Urine WBC 3 Ur Squamous Epith Cells <1 Amorphous Sediment Rare H Urine Bacteria Few H Hyaline Casts 37 Granular Casts 11 Urine Mucus Few H Micro UA Comment Cath-culture ind Ur Microscopic Review Not Reportable Urine Culture Comments Cath-cult indicated Nasal Screen MRSA (PCR) Blood Type Antibody Screen MTS Gel Crossmatch Blood Bank Comment 05/18/18 05/18/18 05/18/18 05:20 05:50 06:46 WBC RBC Hgb Hct MCV MCH MCHC RDW Plt Count MPV Prelim Diff (Auto) Neut % (Auto) Lymph % (Auto) [place] % (Auto) Eos % (Auto) Baso % (Auto) Neut # (Auto) Lymph # (Auto) Moffat # (Auto) Eos # (Auto) Baso # (Auto) WBC Differential Seg Neuts % (Manual) Band Neuts % (Manual) Lymphocytes % (Manual) Monocytes % (Manual) Abs Neuts (Manual) Nucleated RBCs/100 WBC Differential Comment Toxic Vacuolation Dohle Bodies Platelet Estimate Platelet Morphology Basophilic Stippling Ovalocytes Acanthocytes (Spur) PT INR APTT Puncture Site Right radial Patient Temperature 98.6 O2 Saturation 86 L* ABG pH 7.45 H ABG pCO2 34 L ABG pO2 55 L* ABG HCO3 24 ABG O2 Content 9.1 L ABG Base Excess 0.3 ABG Methemoglobin 0.7 Luke Test Present Hemoglobin 7.5 L* Carboxyhemoglobin 2.0 O2 Delivery Device Room air Inspired O2 21 Critical Value Yes Sodium Potassium Chloride Carbon Dioxide Anion Gap BUN Creatinine Estimated GFR Random Glucose Lactic Acid Calcium Calcium Adj for Albumin Magnesium Total Bilirubin AST ALT Alkaline Phosphatase Ammonia Total Creatine Kinase Troponin I Total Protein Albumin TSH Urine Color Urine Clarity Urine pH Ur Specific Creal [place] Urine Protein Urine Glucose (UA) Urine Ketones Urine Occult Blood Urine Nitrate Urine Bilirubin Urine Urobilinogen Ur Leukocyte Esterase Urine RBC Urine WBC Ur Squamous Epith Cells Amorphous Sediment Urine Bacteria Hyaline Casts Granular Casts Urine Mucus Micro UA Comment Ur Microscopic Review Urine Culture Comments Nasal Screen MRSA (PCR) Not detected Blood Type Antibody Screen MTS Gel Crossmatch Blood Bank Comment 05/18/18 05/18/18 05/18/18 06:47 07:02 14:00 WBC RBC Hgb Hct MCV MCH MCHC RDW Plt Count MPV Prelim Diff (Auto) Neut % (Auto) Lymph % (Auto) [place] % (Auto) Eos % (Auto) Baso % (Auto) Neut # (Auto) Lymph # (Auto) [place] # (Auto) Eos # (Auto) Baso # (Auto) WBC Differential Seg Neuts % (Manual) Band Neuts % (Manual) Lymphocytes % (Manual) Monocytes % (Manual) Abs Neuts (Manual) Nucleated RBCs/100 WBC Differential Comment Toxic Vacuolation Dohle Bodies Platelet Estimate Platelet Morphology Basophilic Stippling Ovalocytes Acanthocytes (Spur) PT 13.5 H INR 1.3 APTT 30.7 D Puncture Site Patient Temperature O2 Saturation ABG pH ABG pCO2 ABG pO2 ABG HCO3 ABG O2 Content ABG Base Excess ABG Methemoglobin Luke Test Hemoglobin Carboxyhemoglobin O2 Delivery Device Inspired O2 Critical Value Sodium Potassium Chloride Carbon Dioxide Anion Gap BUN Creatinine Estimated GFR Random Glucose Lactic Acid Calcium Calcium Adj for Albumin Magnesium Total Bilirubin AST ALT Alkaline Phosphatase Ammonia Total Creatine Kinase Troponin I Total Protein Albumin TSH Urine Color Urine Clarity Urine pH Ur Specific [place] Urine Protein Urine Glucose (UA) Urine Ketones Urine Occult Blood Urine Nitrate Urine Bilirubin Urine Urobilinogen Ur Leukocyte Esterase Urine RBC Urine WBC Ur Squamous Epith Cells Amorphous Sediment Urine Bacteria Hyaline Casts Granular Casts Urine Mucus Micro UA Comment Ur Microscopic Review Urine Culture Comments Nasal Screen MRSA (PCR) Blood Type Antibody Screen MTS Gel Crossmatch See Detail See Detail Blood Bank Comment 05/18/18 05/18/18 14:00 14:00 WBC 22.2 H RBC 5.04 Hgb 11.3 L D Hct 35.8 MCV 71.0 L D MCH 22.3 L MCHC 31.5 L RDW 29.7 H D Plt Count 246 D MPV 8.3 Prelim Diff (Auto) Neut % (Auto) Lymph % (Auto) [place] % (Auto) Eos % (Auto) Baso % (Auto) Neut # (Auto) Lymph # (Auto) [place] # (Auto) Eos # (Auto) Baso # (Auto) WBC Differential Seg Neuts % (Manual) Band Neuts % (Manual) Lymphocytes % (Manual) Monocytes % (Manual) Abs Neuts (Manual) Nucleated RBCs/100 WBC Differential Comment Toxic Vacuolation Dohle Bodies Platelet Estimate Platelet Morphology Basophilic Stippling Ovalocytes Acanthocytes (Spur) PT INR APTT Puncture Site Patient Temperature O2 Saturation ABG pH ABG pCO2 ABG pO2 ABG HCO3 ABG O2 Content ABG Base Excess ABG Methemoglobin Luke Test Hemoglobin Carboxyhemoglobin O2 Delivery Device Inspired O2 Critical Value Sodium 140 D Potassium 3.2 L Chloride 101 D Carbon Dioxide 30.9 D Anion Gap 8 BUN 16 Creatinine 0.69 Estimated GFR 84 L Random Glucose 126 H Lactic Acid Calcium 6.6 L* D Calcium Adj for Albumin 8.4 L Magnesium 1.9 Total Bilirubin 2.9 H AST 119 H ALT 57 H Alkaline Phosphatase 115 Ammonia Total Creatine Kinase Troponin I Total Protein 5.3 L D Albumin 1.8 L D TSH Urine Color Urine Clarity Urine pH Ur Specific [place] Urine Protein Urine Glucose (UA) Urine Ketones Urine Occult Blood Urine Nitrate Urine Bilirubin Urine Urobilinogen Ur Leukocyte Esterase Urine RBC Urine WBC Ur Squamous Epith Cells Amorphous Sediment Urine Bacteria Hyaline Casts Granular Casts Urine Mucus Micro UA Comment Ur Microscopic Review Urine Culture Comments Nasal Screen MRSA (PCR) Blood Type Antibody Screen MTS Gel Crossmatch Blood Bank Comment - Imaging Impressions Chest X-Ray 05/18/18 02:05 CONCLUSION: No acute abnormality is seen. Head CT 05/18/18 02:12 CONCLUSION: 1. Bilateral areas of encephalomalacia being worse on the right. These findings were present on the prior exam. 2. No acute areas of hemorrhage or mass effect are seen. 3. Small foci of fat seen in the posterior aspect of the superior sagittal sinus region. This is very likely an incidental finding. . Thoracic Aorta CT 05/18/18 04:01 CONCLUSION: 1. 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 There is filling of the mid and distal aspects of the SMA via collaterals. 2. Thickening of the transverse colon. Given the vascular abnormality one could consider ischemia in this region. 3. Small bowel dilatation likely related to obstruction or ileus. There is also some dilatation of the stomach and esophagus. 4. Occlusion of the left external iliac and common femoral arteries. 5. Hypodensities in the liver likely related to cysts or hemangiomas. 6. Bilateral adrenal gland masses. These are nonspecific. They likely represent adenomas. 7. Degenerative and postoperative change in the lumbar spine. There is chronic deformity seen in the pelvic bones. <Nilsa Ellsworth - Last Filed: 05/18/18 15:16> - Labs CBC & Chem 7: 05/19/18 04:07 05/19/18 04:07 Labs: Laboratory Results - last 24 hr 05/18/18 05/18/18 05/18/18 05:50 06:47 14:00 WBC RBC Hgb Hct MCV MCH MCHC RDW Plt Count MPV Prelim Diff (Auto) WBC Differential Seg Neuts % (Manual) Band Neuts % (Manual) Lymphocytes % (Manual) Monocytes % (Manual) Metamyelocytes % (Man) Abs Neuts (Manual) Nucleated RBCs/100 WBC Differential Comment Toxic Vacuolation Keratocytes PT 13.5 H INR 1.3 APTT 30.7 D Sodium Potassium Chloride Carbon Dioxide Anion Gap BUN Creatinine Estimated GFR POC Glucose Random Glucose Lactic Acid Calcium Calcium Adj for Albumin Phosphorus Magnesium Total Bilirubin AST ALT Alkaline Phosphatase Total Protein Albumin Nasal Screen MRSA (PCR) Not detected MTS Gel Crossmatch See Detail 05/18/18 05/18/18 05/18/18 14:00 14:00 23:08 WBC 22.2 H RBC 5.04 Hgb 11.3 L D Hct 35.8 MCV 71.0 L D MCH 22.3 L MCHC 31.5 L RDW 29.7 H D Plt Count 246 D MPV 8.3 Prelim Diff (Auto) WBC Differential Seg Neuts % (Manual) Band Neuts % (Manual) Lymphocytes % (Manual) Monocytes % (Manual) Metamyelocytes % (Man) Abs Neuts (Manual) Nucleated RBCs/100 WBC Differential Comment Toxic Vacuolation Keratocytes PT INR APTT Sodium 140 D Potassium 3.2 L Chloride 101 D Carbon Dioxide 30.9 D Anion Gap 8 BUN 16 Creatinine 0.69 Estimated GFR 84 L POC Glucose 98 Random Glucose 126 H Lactic Acid Calcium 6.6 L* D Calcium Adj for Albumin 8.4 L Phosphorus Magnesium 1.9 Total Bilirubin 2.9 H AST 119 H ALT 57 H Alkaline Phosphatase 115 Total Protein 5.3 L D Albumin 1.8 L D Nasal Screen MRSA (PCR) MTS Gel Crossmatch 05/19/18 05/19/18 05/19/18 04:07 04:07 04:07 WBC 33.6 H D RBC 5.12 Hgb 11.3 L Hct 35.6 MCV 69.5 L MCH 22.1 L MCHC 31.8 L RDW 29.8 H Plt Count 241 MPV 8.6 Prelim Diff (Auto) Manual diff required WBC Differential Manual diff final Seg Neuts % (Manual) 53 Band Neuts % (Manual) 38 H Lymphocytes % (Manual) 2 L Monocytes % (Manual) 2 Metamyelocytes % (Man) 5 H Abs Neuts (Manual) 32.3 H Nucleated RBCs/100 WBC 8 H Differential Comment . Toxic Vacuolation Present H Keratocytes Occ H PT 16.7 H INR 1.7 APTT 36.6 H Sodium 143 Potassium 3.6 Chloride 102 Carbon Dioxide 30.9 Anion Gap 10 BUN 24 H Creatinine 1.32 H Estimated GFR 40 L POC Glucose Random Glucose 113 H Lactic Acid Calcium 6.4 L* Calcium Adj for Albumin 8.5 Phosphorus 2.6 Magnesium 1.8 Total Bilirubin 4.3 H AST 257 H ALT 127 H Alkaline Phosphatase 119 H Total Protein 4.9 L Albumin 1.4 L Nasal Screen MRSA (PCR) MTS Gel Crossmatch 05/19/18 05/19/18 04:07 07:50 WBC RBC Hgb Hct MCV MCH MCHC RDW Plt Count MPV Prelim Diff (Auto) WBC Differential Seg Neuts % (Manual) Band Neuts % (Manual) Lymphocytes % (Manual) Monocytes % (Manual) Metamyelocytes % (Man) Abs Neuts (Manual) Nucleated RBCs/100 WBC Differential Comment Toxic Vacuolation Keratocytes PT INR APTT Sodium Potassium Chloride Carbon Dioxide Anion Gap BUN Creatinine Estimated GFR POC Glucose Random Glucose Lactic Acid 4.7 H* 5.0 H* Calcium Calcium Adj for Albumin Phosphorus Magnesium Total Bilirubin AST ALT Alkaline Phosphatase Total Protein Albumin Nasal Screen MRSA (PCR) MTS Gel Crossmatch - Imaging Impressions Chest X-Ray 05/18/18 00:00 CONCLUSION: No acute cardiopulmonary disease. <Derek Negrete - Last Filed: 05/19/18 08:59> Assessment and Plan (1) Acute GI bleeding Status: Acute Code(s): K92.2 - Gastrointestinal hemorrhage, unspecified (2) Acute mesenteric ischemia Status: Acute Code(s): K55.059 - Acute (reversible) ischemia of intestine, part and extent unspecified - Plan This patient is a 72-year-old female with past medical history significant for atrial fibrillation, anemia and CVA. Patient currently on Xarelto for CVA. Patient presented to [place] emergency room with report of abdominal pain with multiple episodes of nausea and vomiting. Patient denied any noted blood in stool or emesis. Upon consultation, family member reports patient experienced abdominal pain for 2 days prior to admission. WBC noted to be 35.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 Patient was emergently taken to the OR. Our service was consulted for anemia with positive Hemoccult stools. Anemia Positive Hemoccult stools 05/18/2018 0220 WBC 35.7 hemoglobin 6.9 hematocrit 26.2 platelet count 403 INR 1.2 Potassium 3.0 lactic acid 14.0 total bilirubin 1.1 AST 62 ALT 26 alk phos 159 troponin 0.56 05/18/2018 CT of the thoracic aorta 1. 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 There is filling of the mid and distal aspects of the SMA via collaterals. 2. Thickening of the transverse colon. Given the vascular abnormality one could consider ischemia in this region. 3. Small bowel dilatation likely related to obstruction or ileus. There is also some dilatation of the stomach and esophagus. 4. Occlusion of the left external iliac and common femoral arteries. 5. Hyperdensities in the liver likely related to cysts or hemangiomas. 6. Bilateral adrenal gland masses. These are nonspecific. They likely represent adenomas. -Agree with diagnosis of mesenteric ischemia due to SMA thrombus. 05/18/2018 exploratory laparotomy: 1.Nonviable bowel with transmural ischemia involving almost the entire length of the small bowel from the ligament of Treitz, extending to the hepatic flexure. 2.Patient would require a resection of her entire small bowel and the right colon. -At this time, patient's family members have agreed to proceed with comfort measures only. Plan -N.p.o. -Plan per critical care medicine -Monitor for active bleeding -Monitor labs -Continue PPI -Anti-medics as per attending -Supportive care -GI will sign off at this time, please notify for any further assistance This patient has been seen by myself and Dr. Negrete and this note is written on his behalf - Attending Attestation Dr. Negrete <Nilsa Ellsworth - Last Filed: 05/18/18 15:16> (1) Acute GI bleeding Status: Acute Code(s): K92.2 - Gastrointestinal hemorrhage, unspecified (2) Acute mesenteric ischemia Status: Acute Code(s): K55.059 - Acute (reversible) ischemia of intestine, part and extent unspecified - Attending Attestation The patient was seen and examined. Agree with above. <Derek Negrete - Last Filed: 05/19/18 08:59>
[2018-05-18] MEDS: Oral Hygiene Kit OROPHARYNG SCH ×2 (16:48→23:25)
--- NOTE | 2018-05-18 20:15 | XR ---
EXAM DATE: 05/18/2018 8:12 PM EST AGE/SEX: 72 years / Female INDICATIONS: Post intubation and left IJ line placement. CLINICAL DATA: This is the patient's initial encounter. Patient reports that signs and symptoms have been present for 1 day and indicates a pain score of Nonresponsive. MEDICAL/SURGICAL HISTORY: . Hypertension. Fusion, lumbar. . COMPARISON: [facility] [place], CHEST 1V SINGLE AP, 05/18/2018. . FINDINGS: The lungs are clear without infiltrate, nodule, or mass. There is no appreciable pleural effusion for technique. Heart and mediastinum are unremarkable. NG tube is present with tip in the stomach. Left subclavian line is present with tip overlapping the expected region of the SVC. ET tube is present with tip overlapping approximately 1 above the ca mac. CONCLUSION: No acute cardiopulmonary disease. Electronically signed by: Brent Bañuelos MD Board Certified Radiologist 05/18/2018 8:14 PM EST
[2018-05-18] MEDS: Chlorhexidine 0.12% Oral Kit 15 ML UDC OROPHARYNG SCH (20:41)
[2018-05-19] MEDS ORDERED: Chlorhexidine Gluconate 2% 1 Pack (2 Cloths) TOPICAL PRN (04:00)
[2018-05-19] MEDS ORDERED: Chlorhexidine Gluconate 2% 1 Pack (2 Cloths) TOPICAL SCH (04:00)
[2018-05-19] MEDS: Oral Hygiene Kit OROPHARYNG SCH ×3 (04:20→17:14)
[2018-05-19] MEDS: Piperacil/Tazo 4.5 GM Premix 4.5 GM/100 ML BAG IV.SIG SCH ×2 (04:25→10:03)
[2018-05-19] MEDS: Pantoprazole Inj 40 MG Vial IV.PUSH SCH ×2 (04:25→17:15)
[2018-05-19 04:26] LABS: Hematocrit 35.6 % (35.0-46.0); Hemoglobin 11.3 gm/dL (11.6-15.3); Mean Corpuscular HGB Conc 31.8 % (32.0-36.0); Mean Corpuscular Hemoglobin 22.1 pg (27.0-34.0); Mean Corpuscular Volume 69.5 fL (80.0-100.0); Mean Platelet Volume 8.6 fL (7.0-11.0); Platelet Count 241 th/mm3 (150-450); Red Blood Count 5.12 mil/mm3 (4.00-5.30); Red Cell Distribution Width 29.8 % (11.6-17.2); White Blood Count 33.6 th/mm3 (4.0-11.0)
[2018-05-19 04:31] LABS: Activated Partial Thrombo Time 36.6 sec (23.4-31.7); INR 1.7 Ratio; Prothrombin Time 16.7 sec (9.8-11.6)
[2018-05-19 04:37] LABS: Albumin 1.4 g/dL (3.4-5.0); Calcium 6.4 mg/dL (8.5-10.1); Carbon Dioxide 30.9 meq/L (21.0-32.0); Magnesium 1.8 mg/dL (1.5-2.5); Phosphorus 2.6 mg/dL (2.5-4.9); Potassium 3.6 meq/L (3.5-5.1); Total Protein 4.9 g/dL (6.4-8.2)
[2018-05-19 05:07] LABS: Lymphocytes 2 % (9-44); Metamyelocytes 5 % (0-1); Monocytes 2 % (0-8); Tallied Nucleated RBC 8 (0-0); Toxic Vacuolation Present
[2018-05-19] MEDS: dilTIAZem Inj 125 MG in Sodium Chlor 0.9% Inj 100 ML IV.CONT PRN (05:17)
[2018-05-19] MEDS: Sodium Bicarbonate 8.4% Inj 150 MEQ in Sodium Chloride 0.45 % Inj 850 ML IV.CONT SCH ×2 (05:24→15:16)
--- NOTE | 2018-05-19 08:34 | P.PNCC ---
Subjective Subjective Remarks/Hospital Course: 72-year-old female with past medical history of atrial fibrillation, CVA on Xarelto reports recent fever and 3 days of progressive worsening associated with multiple episodes of nausea vomiting stomach contents without hematemesis and loose watery stools without gross blood. Patient is prescribed Xarelto for her atrial fibrillation and has not been able to take it neither was able to take her blood pressure medication or medication for rate control of her atrial fibrillation due to multiple episodes of vomiting. Denies alcohol abuse, drug abuse, diabetes and or liver disease. 2-day history of abdominal pain that is significantly getting worse. On exam acute abdomen with leukocytosis and metabolic acidosis. A CT angiography shows occlusion of the proximal superior mesenteric artery with a large thrombus extending into the abdominal aorta The patient was started on a heparin drip and admitted to [facility]. SUBJ 05/18/18: Patient seen again at 6:30 AM she is very critical. Appears in acute distress due to severe abdominal pain and acute illness. She is tachycardic tachypneic heart rate is 140-150 range per minute. I have ordered additional 500 mL fluid bolus, additional 1 unit of PRBC. Vanco and Zosyn had been started. 10 mg additional IV push of Cardizem will be given and Cardizem infusion will be started. Discussed extensively with Dr. Javier. Patient is being taken emergently to the OR floor exploratory laparotomy, SMA thrombectomy possible bypass, possible bowel resection/possible ostomy. 05/19: Went to the OR yesterday, after laparotomy it was found that patient has transmural ischemia involving almost the entire length of the small bowel from the ligament of Treitz, extending to the hepatic flexure. This a terminal condition. Incision was closed no resection was carried out. Currently patient is remaining on the ventilator. [facility]. Palliative care consulted to assist with withdrawal of life support and transition to comfort measures and possibly hospice Objective Vital Signs / I&O: Vital Signs 05/18/18 10:01 05/18/18 10:37 05/18/18 10:47 Temperature Pulse Rate 116 H Respiratory Rate 10 L 0 L Blood Pressure 121/86 Pulse Oximetry 76 L 77 L 05/18/18 10:49 05/18/18 11:00 05/18/18 12:00 Temperature 97.6 F Pulse Rate 112 H 110 H 113 H Respiratory Rate 0 L 0 L 20 Blood Pressure 128/84 129/82 123/78 Pulse Oximetry 97 97 78 L 05/18/18 13:00 05/18/18 14:00 05/18/18 15:00 Temperature Pulse Rate 110 H 113 H 113 H Respiratory Rate 20 16 16 Blood Pressure 117/74 101/63 90/65 L Pulse Oximetry 97 97 97 05/18/18 15:19 05/18/18 16:00 05/18/18 17:00 Temperature 98.5 F Pulse Rate 116 H 111 H Respiratory Rate 16 16 16 Blood Pressure 95/59 L 85/58 L Pulse Oximetry 96 96 95 05/18/18 18:00 05/18/18 18:31 05/18/18 19:00 Temperature Pulse Rate 113 H 113 H 109 H Respiratory Rate 16 16 16 Blood Pressure 97/60 L 97/56 L 90/63 L Pulse Oximetry 95 95 95 05/18/18 19:45 05/18/18 19:50 05/18/18 20:00 Temperature 99.1 F Pulse Rate 115 H Respiratory Rate 16 16 Blood Pressure 96/73 L Pulse Oximetry 96 96 96 05/18/18 21:00 05/18/18 22:00 05/18/18 23:00 Temperature Pulse Rate 118 H 119 H 117 H Respiratory Rate 16 16 16 Blood Pressure 113/74 108/63 115/64 Pulse Oximetry 97 100 96 05/19/18 00:00 05/19/18 00:16 05/19/18 01:00 Temperature 99 F Pulse Rate 124 H 125 H Respiratory Rate 16 16 16 Blood Pressure 121/73 132/72 Pulse Oximetry 93 L 100 95 05/19/18 02:00 05/19/18 03:00 05/19/18 03:33 Temperature Pulse Rate 126 H 125 H Respiratory Rate 16 16 16 Blood Pressure 106/71 108/75 Pulse Oximetry 96 94 L 98 05/19/18 04:00 05/19/18 06:00 Temperature 98.6 F Pulse Rate 124 H 118 H Respiratory Rate 16 Blood Pressure 103/76 Pulse Oximetry 83 L Intake & Output 05/18/18 05/19/18 05/19/18 18:59 06:59 18:59 Intake Total 6100 / 6100 2024 Output Total 970 / 970 125 / 125 Balance 5130 / 5130 1900 / 1900 Weight 67 kg Intake: IV 1500 / 1500 2024 / 2024 Protonix Inj 80 MG In NS Inj 100 / 100 100 / 100 100 ML @ 10 mls/hr IV.CONT CONT [facility] Rx#:[id number] Sodium Bicarbonate 8.4% Inj 150 1000 / 1000 1000 / 1000 MEQ In 1/2 Normal Saline Inj 850 ML @ 125 mls/hr IV.CONT . Q8H G[facility]RAN Rx#:[id number] Cardizem Inj 125 MG In NS Inj 100 / 100 125 / 125 100 ML @ 5 MG/HR 5 mls/hr IV. CONT TITRATE PRN Rx#:[id number] Zosyn 4.5 GM Premix 4.5 gm In 200 / 200 300 / 300 100 ml @ 200 mls/hr IV.SIG Q6H [facility] Rx#:[id number] KCl 40 mEq Premix Inj 40 meq In 100 / 100 100 ml @ 25 mls/hr IV.SIG Q2H PRN Rx#:[id number] Tube Feeding 0 / 0 Anesthesia Amount 3000 / 3000 Mass Transfusion Protocol 1600 / 1600 Output: Urine 125 / 125 Estimated Blood Loss 20 / 20 Urine Amount (Catheter) 950 / 950 Indwelling Urethral Catheter 950 / 950 Result Diagrams: 05/19/18 04:07 05/19/18 04:07 Objective Remarks: GENERAL: Well-nourished, well-developed patient very ill appearing in moderate distress. Intubated sedated SKIN: warm/dry. HEAD: Normocephalic. EYES: No scleral icterus. No injection or drainage. Conjunctival pallor NECK: Supple, trachea midline. No JVD or lymphadenopathy. Orotracheally intubated CARDIOVASCULAR: Atrial fibrillation with RVR heart rate improved control with Cardizem infusion, without murmurs, gallops, or rubs. RESPIRATORY: Breath sounds equal bilaterally. No accessory muscle use. Slightly tachypneic GASTROINTESTINAL: Abdomen diffusely tender with voluntary guarding. Exam is limited due to severe pain NEURO: Patient is alert awake, currently sedated for comfort. Moves extremities spontaneously Assessment and Plan - Assessment and Plan Plan: Neuro: -Pain control with IV morphine -Use Versed and fentanyl for sedation and ventilator synchrony CV: Atrial fibrillation with SMA Severe lactic acidosis -Cardizem gtt. for rate control -Discontinue IV heparin due to futility -Severe lactic acidosis secondary to ischemic bowel, marginally improved RESP: Respiratory failure Metabolic acidosis -Intubated for OR yesterday, leave intubated until transitioning to comfort measures -PRN bronchodilators GI/HEME: Ischemic bowel Acute SMA occlusion GI bleed Anemia requiring transfusion Chronic Xarelto use -Vascular surgery Dr. Javier -patient has transmural ischemia involving entire length of small bowel from the ligament of Treitz, extending to the hepatic flexure. This a terminal condition. -No surgical resection done and incision was closed without any intervention -Broad-spectrum antibiotics as below -IV Protonix for GI prophylaxis -GI bleeding secondary to ischemic bowel and will Dc heparin due to futility, closely monitor H&H : Acute kidney injury metabolic acidosis -Due to above -Sodium bicarbonate infusion reduce rate to 50 mL/h -Monitor trend of lactic acid -Ma for accurate intake output ID Septic shock -Source of sepsis is ischemic bowel -Broad-spectrum antibiotics with Zosyn and 1 dose of vancomycin -Follow-up on blood cultures DVT GI prophylaxis -Teds SCDs -Protonix -IV heparin CCT 35 Patient is extremely critical appears terminal due to extensive small bowel ischemia. I had extensive discussion with granddaughter yesterday. Her condition does not seem to be compatible with life. Palliative care consulted to assist with transition to comfort care and possibly hospice. Currently a DNR Code Status: DNR
[2018-05-19] MEDS: Senna/Docusate Sodium 8.6/50 MG Tablet PO SCH (10:03)
[2018-05-19] MEDS: Chlorhexidine 0.12% Oral Kit 15 ML UDC OROPHARYNG SCH (10:03)
--- NOTE | 2018-05-19 12:15 | P.PNVS ---
Subjective Post Op Day #: 1 Subjective/Hospital Course: intubated episodes of hypotension treated with IV fluids Objective Vital Signs / I&O: Vital Signs 05/18/18 13:00 05/18/18 14:00 05/18/18 15:00 Temperature Pulse Rate 110 H 113 H 113 H Respiratory Rate 20 16 16 Blood Pressure 117/74 101/63 90/65 L Pulse Oximetry 97 97 97 05/18/18 15:19 05/18/18 16:00 05/18/18 17:00 Temperature 98.5 F Pulse Rate 116 H 111 H Respiratory Rate 16 16 16 Blood Pressure 95/59 L 85/58 L Pulse Oximetry 96 96 95 05/18/18 18:00 05/18/18 18:31 05/18/18 19:00 Temperature Pulse Rate 113 H 113 H 109 H Respiratory Rate 16 16 16 Blood Pressure 97/60 L 97/56 L 90/63 L Pulse Oximetry 95 95 95 05/18/18 19:45 05/18/18 19:50 05/18/18 20:00 Temperature 99.1 F Pulse Rate 115 H Respiratory Rate 16 16 Blood Pressure 96/73 L Pulse Oximetry 96 96 96 05/18/18 21:00 05/18/18 22:00 05/18/18 23:00 Temperature Pulse Rate 118 H 119 H 117 H Respiratory Rate 16 16 16 Blood Pressure 113/74 108/63 115/64 Pulse Oximetry 97 100 96 05/19/18 00:00 05/19/18 00:16 05/19/18 01:00 Temperature 99 F Pulse Rate 124 H 125 H Respiratory Rate 16 16 16 Blood Pressure 121/73 132/72 Pulse Oximetry 93 L 100 95 05/19/18 02:00 05/19/18 03:00 05/19/18 03:33 Temperature Pulse Rate 126 H 125 H Respiratory Rate 16 16 16 Blood Pressure 106/71 108/75 Pulse Oximetry 96 94 L 98 05/19/18 04:00 05/19/18 06:00 05/19/18 08:00 Temperature 98.6 F 97.5 F L Pulse Rate 124 H 118 H 91 H Respiratory Rate 16 16 Blood Pressure 103/76 Pulse Oximetry 83 L 94 L 05/19/18 08:37 05/19/18 10:00 Temperature Pulse Rate 94 H Respiratory Rate 16 Blood Pressure Pulse Oximetry 94 L Intake & Output 05/18/18 05/19/18 05/19/18 18:59 06:59 18:59 Intake Total 6100 / 6100 2024 Output Total 970 / 970 125 / 125 Balance 5130 / 5130 1900 / 1900 Weight 67 kg Intake: IV 1500 / 1500 2024 Protonix Inj 80 MG In NS Inj 100 / 100 100 / 100 100 ML @ 10 mls/hr IV.CONT CONT GIBRAN Rx#:[id number] Sodium Bicarbonate 8.4% Inj 150 1000 / 1000 1000 / 1000 MEQ In 1/2 Normal Saline Inj 850 ML @ 125 mls/hr IV.CONT . Q8H GIBRAN Rx#:[id number] Cardizem Inj 125 MG In NS Inj 100 / 100 125 / 125 100 ML @ 5 MG/HR 5 mls/hr IV. CONT TITRATE PRN Rx#:[id number] Zosyn 4.5 GM Premix 4.5 gm In 200 / 200 300 / 300 100 ml @ 200 mls/hr IV.SIG Q6H GIBRAN Rx#:[id number] KCl 40 mEq Premix Inj 40 meq In 100 / 100 100 ml @ 25 mls/hr IV.SIG Q2H PRN Rx#:[id number] Tube Feeding 0 / 0 Anesthesia Amount 3000 / 3000 Mass Transfusion Protocol 1600 / 1600 Output: Urine 125 / 125 Estimated Blood Loss 20 / 20 Urine Amount (Catheter) 950 / 950 Indwelling Urethral Catheter 950 / 950 Laboratory Results - last 24 hr 05/18/18 05/18/18 05/18/18 06:47 14:00 14:00 WBC 22.2 H RBC 5.04 Hgb 11.3 L D Hct 35.8 MCV 71.0 L D MCH 22.3 L MCHC 31.5 L RDW 29.7 H D Plt Count 246 D MPV 8.3 Prelim Diff (Auto) WBC Differential Seg Neuts % (Manual) Band Neuts % (Manual) Lymphocytes % (Manual) Monocytes % (Manual) Metamyelocytes % (Man) Abs Neuts (Manual) Nucleated RBCs/100 WBC Differential Comment Toxic Vacuolation Keratocytes PT 13.5 H INR 1.3 APTT 30.7 D Sodium Potassium Chloride Carbon Dioxide Anion Gap BUN Creatinine Estimated GFR POC Glucose Random Glucose Lactic Acid Calcium Calcium Adj for Albumin Phosphorus Magnesium Total Bilirubin AST ALT Alkaline Phosphatase Total Protein Albumin MTS Gel Crossmatch See Detail 05/18/18 05/18/18 05/19/18 14:00 23:08 04:07 WBC 33.6 H D RBC 5.12 Hgb 11.3 L Hct 35.6 MCV 69.5 L MCH 22.1 L MCHC 31.8 L RDW 29.8 H Plt Count 241 MPV 8.6 Prelim Diff (Auto) Manual diff required WBC Differential Manual diff final Seg Neuts % (Manual) 53 Band Neuts % (Manual) 38 H Lymphocytes % (Manual) 2 L Monocytes % (Manual) 2 Metamyelocytes % (Man) 5 H Abs Neuts (Manual) 32.3 H Nucleated RBCs/100 WBC 8 H Differential Comment . Toxic Vacuolation Present H Keratocytes Occ H PT INR APTT Sodium 140 D Potassium 3.2 L Chloride 101 D Carbon Dioxide 30.9 D Anion Gap 8 BUN 16 Creatinine 0.69 Estimated GFR 84 L POC Glucose 98 Random Glucose 126 H Lactic Acid Calcium 6.6 L* D Calcium Adj for Albumin 8.4 L Phosphorus Magnesium 1.9 Total Bilirubin 2.9 H AST 119 H ALT 57 H Alkaline Phosphatase 115 Total Protein 5.3 L D Albumin 1.8 L D MTS Gel Crossmatch 05/19/18 05/19/18 05/19/18 04:07 04:07 04:07 WBC RBC Hgb Hct MCV MCH MCHC RDW Plt Count MPV Prelim Diff (Auto) WBC Differential Seg Neuts % (Manual) Band Neuts % (Manual) Lymphocytes % (Manual) Monocytes % (Manual) Metamyelocytes % (Man) Abs Neuts (Manual) Nucleated RBCs/100 WBC Differential Comment Toxic Vacuolation Keratocytes PT 16.7 H INR 1.7 APTT 36.6 H Sodium 143 Potassium 3.6 Chloride 102 Carbon Dioxide 30.9 Anion Gap 10 BUN 24 H Creatinine 1.32 H Estimated GFR 40 L POC Glucose Random Glucose 113 H Lactic Acid 4.7 H* Calcium 6.4 L* Calcium Adj for Albumin 8.5 Phosphorus 2.6 Magnesium 1.8 Total Bilirubin 4.3 H AST 257 H ALT 127 H Alkaline Phosphatase 119 H Total Protein 4.9 L Albumin 1.4 L MTS Gel Crossmatch 05/19/18 07:50 WBC RBC Hgb Hct MCV MCH MCHC RDW Plt Count MPV Prelim Diff (Auto) WBC Differential Seg Neuts % (Manual) Band Neuts % (Manual) Lymphocytes % (Manual) Monocytes % (Manual) Metamyelocytes % (Man) Abs Neuts (Manual) Nucleated RBCs/100 WBC Differential Comment Toxic Vacuolation Keratocytes PT INR APTT Sodium Potassium Chloride Carbon Dioxide Anion Gap BUN Creatinine Estimated GFR POC Glucose Random Glucose Lactic Acid 5.0 H* Calcium Calcium Adj for Albumin Phosphorus Magnesium Total Bilirubin AST ALT Alkaline Phosphatase Total Protein Albumin MTS Gel Crossmatch Microbiology 05/18/18 04:00 Urine Culture - Preliminary Catheterized Urine No growth in 24 hours 05/18/18 02:40 Aerobic Blood Culture - Preliminary Blood - Peripheral No growth in 1 day Anaerobic Blood Culture - Preliminary No growth in 1 day 05/18/18 02:45 Aerobic Blood Culture - Preliminary Blood - Peripheral No growth in 1 day Anaerobic Blood Culture - Preliminary No growth in 1 day Assessment and Plan - Assessment (1) Thrombosis of superior mesenteric artery Code(s): K55.069 - Acute infarction of intestine, part and extent unspecified Status: Acute (2) Metabolic acidosis, increased anion gap Code(s): E87.2 - Acidosis Status: Acute (3) Acute mesenteric ischemia Code(s): K55.059 - Acute (reversible) ischemia of intestine, part and extent unspecified Status: Acute - Plan acute mesenteric ischemia. S/P exploratory laparotomy POD #1 Extensive nonreversible bowel ischemia, not compatible with life Discussed these findings with the patient's granddaughter and she agreed to proceed with comfort measures Awaiting for the patient's daughter today to withdrawal care Palliative care consult obtained
--- NOTE | 2018-05-19 12:47 | P.CONPAL ---
Consult Service: Palliative Care Requesting Physician: Kiko Nicolas Reason for Consult: a. To assist with evaluation and management of symptoms including: b. To assist medical decision maker(s) with: better understanding of current medical conditions; weighing benefits/burdens of medical treatment options; making medical treatment decisions. Primary Care Provider: Demetrius Villarreal History of Present Illness History of Present Illness: This 72-year-old female was admitted 05/18/18 with reports of fever, nausea and vomiting with coffee-ground emesis as well as altered mental status. She has known history of atrial fibrillation on Eliquis the reported has not been able to take her meds due to vomiting. Poor oral intake. At presentation fever 100.4. No recent antibiotics. Also with prior history gastritis with GI bleed , anemia. She lives with a granddaughter who is present at ED arrival providing additional history. * She is very ill, pale upon arrival, tachycardic. Presumed to be septic. Concern for colitis, mesenteric ischemia given prior history of GI issues. Started on IV fluid with bolus, type and screen for blood products. ordered for 2 U RBC. Started on Zosyn. CXR with no infiltrate. CT brain with bilateral encephalomalacia worse on the right. These findings present on prior exam. No acute hemorrhage or mass-effect. Small foci of fat posterior superior sagittal sinus, likely incidental finding. EKG with A. fib RVR rate 144. 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 Vascular surgery consulted, general surgery consulted. Heparin ordered. [proximal SMA occlusion and transverse colon induration and thickening concerning for ischemia.] She was admitted for further evaluation and management. * Vascular surgery consulted: Patient went emergently to operating room for exploratory lap, possible SMA thrombectomy/bypass possible bowel resection possible ostomy. 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 They wish to proceed with comfort measures. * GI also consulted for Hemoccult positive stools, will monitor for active bleeding, continue PPI, sign off as family requesting comfort measures following exploratory lap . * DNR status noted * 05/19 palliative care consulted to assist with comfort measures, transition to comfort, withdrawal of artificial life support. WBC today up to 33.6. Hemoglobin 11.3, hematocrit 35.6. Lactic acid 5. Met with family at length at bedside granddaughter and daughter. Granddaughter indicates patient with nausea and vomiting in the few days prior to presentation ,in the very last day she seemed more acutely ill hence they sought evaluation. She indicates the patient was verbal, ambulatory socialized with family. She verbalizes that the patient would not understand surgical intervention due to short-term memory impairments from dementia, status, nor would she understand complications from surgery, also indicates that the patient would not want to proceed with artificial measures if she would not get back to her usual life at home with her family. They request withdrawal of life support today and transition to comfort focus only. Function/Cognitive Trajectory: Lives at home with daughter and granddaughter and great-grandchildren. Ambulatory. Some assistance with ADLs. Mild cognitive impairment ; good long- term memory however impaired short-term memory. Review of Systems unobtainable due to endotracheal tube, unobtainable due to mental status PMFSH - History History Provided By: Family Member (Granddaughter: CVA anemia GI bleed atrial fibrillation copd coagulopathy) - Medical History Medical History: Medical History (Last Updated 05/19/18 @ 14:57 by YOSVANY Prince) A-fib Anemia CVA (cerebral vascular accident) GERD (gastroesophageal reflux disease) History of DVT (deep vein thrombosis) Hyperlipidemia Hypertension - Surgical History Surgical History: Surgical History (Last Updated 05/19/18 @ 14:59 by YOSVANY Prince) H/O spinal fusion History of cholecystectomy History of tonsillectomy - Family History Family History: Family History (Last Updated 05/19/18 @ 14:58 by YOSVANY Prince) Mother Myocardial infarction Diabetes Father Prostate cancer - Social History I have reviewed the patient's Social History: Yes - Tobacco History Second Hand Smoke Exposure: Yes Tobacco Use In Past 30 Days: No Smoking Status: Former smoker Tobacco Type: Cigarettes - Alcohol History How Often Do You Have a Drink Containing Alcohol: Never - Substance Use History Substance History: No History of Abuse - Travel History Recent Travel in the [place] Within the Last 8 Weeks: No Recent Travel Out of the Country Within the Last 8 Weeks: No - Immunization History Tetanus Immunization: Unsure Medications and Allergies Active Medications: Active Medications Acetaminophen (Tylenol) 650 mg PO Q6H PRN PRN Reason: PAIN 1-10 AND/OR FEVER >101F Al Hydroxide/Mg Hydroxide (Milk Of Jareth Liq) 30 ml PO Q12H PRN PRN Reason: Mild Constipation Albuterol (Duoneb Neb (Prn)) 1 ampul NEB Q2HR NEB PRN PRN Reason: WHEEZING Atorvastatin Calcium (Lipitor) 20 mg PO DAILY [facility] Last Admin: 05/18/18 13:57 Dose: 20 mg Bisacodyl (Dulcolax Supp) 10 mg RECTAL DAILY PRN PRN Reason: SEVERE CONSITIPATION Chlorhexidine Gluconate (Chlorhexidine 2% Cloth) 3 pack TOPICAL DAILY@0400 [facility] Stop: 05/24/18 03:59 Last Admin: 05/19/18 04:20 Dose: 3 pack Chlorhexidine Gluconate (Chlorhexidine 2% Cloth) 3 pack TOPICAL DAILY@0400 PRN PRN Reason: Extra cloth needed Stop: 05/24/18 03:59 Chlorhexidine Gluconate (Peridex 0.12% Oral Kit) 15 ml OROPHARYNG BID@0800, 2000 [facility] Last Admin: 05/19/18 10:03 Dose: 15 ml Donepezil HCl (Aricept) 10 mg PO DAILY [facility] Last Admin: 05/18/18 13:58 Dose: 10 mg Piperacillin/Tazobactam/Dextrose (Zosyn 4.5 Gm Premix) 4.5 gm in 100 mls @ 200 mls/hr IV.SIG ONCE [facility] Last Infusion: 05/18/18 03:52 Dose: Infused Pantoprazole Sodium 80 mg/ (Sodium Chloride) 100 mls @ 10 mls/hr IV.CONT CONT [facility] Last Infusion: 05/19/18 04:22 Dose: Infused Piperacillin/Tazobactam/Dextrose (Zosyn 4.5 Gm Premix) 4.5 gm in 100 mls @ 200 mls/hr IV.SIG Q6H [facility] Last Admin: 05/19/18 10:03 Dose: 200 mls/hr Sodium Bicarbonate 150 meq/ (Sodium Chloride) 1,000 mls @ 50 mls/hr IV.CONT .Q20H [facility] Last Infusion: 05/19/18 10:04 Dose: 50 mls/hr Diltiazem HCl 125 mg/ Sodium (Chloride) 125 mls @ 5 mls/hr IV.CONT TITRATE PRN ; Protocol PRN Reason: Per Protocol Last Titration: 05/19/18 06:18 Dose: 10 mg/hr, 10 mls/hr Potassium Chloride (Kcl 40 Meq Premix Inj) 40 meq in 100 mls @ 25 mls/hr IV.SIG Q2H PRN PRN Reason: For Potassium 2.8 - 3.2 mEq/L Last Infusion: 05/18/18 18:00 Dose: Infused Potassium Chloride (Kcl 20 Meq Premix Inj) 20 meq in 100 mls @ 50 mls/hr IV.SIG Q2H PRN PRN Reason: For Potassium 3.3 - 3.5 mEq/L Potassium Chloride (Kcl 40 Meq Premix Inj) 40 meq in 100 mls @ 25 mls/hr IV.SIG UNSCH PRN PRN Reason: For Potassium 3.3 - 3.5 mEq/L Sodium Phosphate 30 mmol/ (Sodium Chloride) 260 mls @ 42 mls/hr IV.SIG UNSCH PRN PRN Reason: For Phosphorus < 2.5 mg/dL Potassium Phosphate 30 mmol/ (Sodium Chloride) 260 mls @ 42 mls/hr IV.SIG UNSCH PRN PRN Reason: SEE LABEL COMMENTS Magnesium Sulfate 4 gm/ Sodium (Chloride) 100 mls @ 50 mls/hr IV.SIG UNSCH PRN PRN Reason: For Magnesium 0.9 - 1.1 mg/dL Potassium Chloride (Kcl 20 Meq Premix Inj) 20 meq in 100 mls @ 50 mls/hr IV.SIG Q2H PRN PRN Reason: For Potassium 2.8 - 3.2 mEq/L Magnesium Sulfate 2 gm/ Sodium (Chloride) 100 mls @ 50 mls/hr IV.SIG UNSCH PRN PRN Reason: For Magnesium 1.2 - 1.6 mg/dL Midazolam HCl (Versed Inj) 100 mg in 100 mls @ 2 mls/hr IV.CONT TITRATE PRN; Protocol PRN Reason: See protocol Last Titration: 05/18/18 21:28 Dose: 0 mg/hr, 0 mls/hr Fentanyl (Fentanyl 10 Mcg/Ml Premix Drip) 2,500 mcg in 250 mls @ 5 mls/hr IV.SIG TITRATE PRN; Protocol PRN Reason: Per Protocol Last Titration: 05/18/18 18:15 Dose: 50 mcg/hr, 5 mls/hr Lactulose (Lactulose Liq) 30 ml PO DAILY PRN PRN Reason: SEVERE CONSITIPATION Magnesium Oxide (Mag-Ox) 800 mg PO UNSCH PRN PRN Reason: For Magnesium 1.2 - 1.6 mg/dL Metoprolol Tartrate (Lopressor) 25 mg PO BID [facility] Last Admin: 05/18/18 13:58 Dose: 25 mg Miscellaneous Medication () 1 each OROPHARYNG 0000,0400,1200,1600 [facility] Last Admin: 05/19/18 04:20 Dose: 1 each Morphine Sulfate (Morphine Inj) 2 mg IV.PUSH Q2H PRN PRN Reason: PAIN SCALE 6 TO 10 Ondansetron HCl (Zofran Inj) 4 mg IV.PUSH Q6H PRN PRN Reason: NAUSEA OR VOMITING Pantoprazole Sodium (Protonix Inj) 40 mg IV.PUSH Q12H [facility] Last Admin: 05/19/18 04:25 Dose: 40 mg Potassium Bicarb/Potassium Chloride (K-Lyte Cl Eff) 50 meq PO UNSCH PRN PRN Reason: For Potassium 3.3 - 3.5 mEq/L Potassium Phosphate (K-Phos Original) 2,000 mg PO Q4H PRN PRN Reason: Phosphorus Less Than 2.5 mg/dL Potassium Phosphate (K-Phos Original) 2,000 mg PO UNSCH PRN PRN Reason: SEE LABEL COMMENTS Senna/Docusate Sodium (Aylin-Colace) 1 tab PO BID [facility] Last Admin: 05/19/18 10:03 Dose: 1 tab Sennosides (Senokot) 17.2 mg PO Q12H PRN PRN Reason: Moderate Constipation Sodium Chloride (Ns Flush) 2 ml IV.FLUSH BID [facility] Last Admin: 05/19/18 10:03 Dose: 2 ml Sodium Chloride (Ns Flush) 2 ml IV.FLUSH PRN PRN PRN Reason: FLUSH AFTER USING IV ACCESS Allergies Allergy/AdvReac Type Severity Reaction Status Date / Time Sulfa (Sulfonamide Allergy Intermediate Difficulty Verified 05/18/18 01:32 Antibiotics) Breathing Home Medications Medication Instructions Recorded Confirmed Type amlodipine [Norvasc] 5 mg PO DAILY 05/18/18 05/18/18 History atorvastatin [Lipitor] 20 mg PO DAILY 05/18/18 05/18/18 History donepezil [Aricept] 10 mg PO DAILY 05/18/18 05/18/18 History metoprolol tartrate 25 mg PO BID 05/18/18 05/18/18 History pantoprazole [Protonix] 40 mg PO DAILY 05/18/18 05/18/18 History rivaroxaban [Xarelto] 10 mg PO DAILY 05/18/18 05/18/18 History Physical Exam Vital Signs: Vital Signs - 24 hr 05/18/18 13:00 05/18/18 14:00 05/18/18 15:00 Temperature Pulse Rate 110 H 113 H 113 H Respiratory Rate 20 16 16 Blood Pressure 117/74 101/63 90/65 L Pulse Oximetry 97 97 97 05/18/18 15:19 05/18/18 16:00 05/18/18 17:00 Temperature 98.5 F Pulse Rate 116 H 111 H Respiratory Rate 16 16 16 Blood Pressure 95/59 L 85/58 L Pulse Oximetry 96 96 95 05/18/18 18:00 05/18/18 18:31 05/18/18 19:00 Temperature Pulse Rate 113 H 113 H 109 H Respiratory Rate 16 16 16 Blood Pressure 97/60 L 97/56 L 90/63 L Pulse Oximetry 95 95 95 05/18/18 19:45 05/18/18 19:50 05/18/18 20:00 Temperature 99.1 F Pulse Rate 115 H Respiratory Rate 16 16 Blood Pressure 96/73 L Pulse Oximetry 96 96 96 05/18/18 21:00 05/18/18 22:00 05/18/18 23:00 Temperature Pulse Rate 118 H 119 H 117 H Respiratory Rate 16 16 16 Blood Pressure 113/74 108/63 115/64 Pulse Oximetry 97 100 96 05/19/18 00:00 05/19/18 00:16 05/19/18 01:00 Temperature 99 F Pulse Rate 124 H 125 H Respiratory Rate 16 16 16 Blood Pressure 121/73 132/72 Pulse Oximetry 93 L 100 95 05/19/18 02:00 05/19/18 03:00 05/19/18 03:33 Temperature Pulse Rate 126 H 125 H Respiratory Rate 16 16 16 Blood Pressure 106/71 108/75 Pulse Oximetry 96 94 L 98 05/19/18 04:00 05/19/18 06:00 05/19/18 08:00 Temperature 98.6 F 97.5 F L Pulse Rate 124 H 118 H 91 H Respiratory Rate 16 16 Blood Pressure 103/76 Pulse Oximetry 83 L 94 L 05/19/18 08:37 05/19/18 10:00 Temperature Pulse Rate 94 H Respiratory Rate 16 Blood Pressure Pulse Oximetry 94 L I&O: Intake & Output 05/17/18 05/18/18 05/19/18 05/20/18 06:59 06:59 06:59 06:59 Intake Total 1750 / 1750 8125 / 8125 Output Total 1095 / 1095 Balance 1750 / 1750 7030 / 7030 Weight 64 kg 67 kg Physical Exam: CONSTITUTIONAL/GENERAL: This is a thin, elderly female lightly sedated on mechanical vent. TUBES/LINES/DRAINS: PIV UE, central line to IJ, ETT, OGT, woods cath SKIN: No jaundice, rashes, or lesions. midline abd dressing clean/dry. Skin warm, dry, feet are cool HEAD: Atraumatic. Normocephalic. EYES: Pupils equal and round and reactive. Extraocular motions intact. No scleral icterus. No injection or drainage. Fundi not examined. ENT: Nose without bleeding or purulent drainage. Limited oropharynx exam secondary to tubes no visible masses or lesions. NECK: Trachea midline. Supple, nontender. No palpable thyroid enlargement or nodularity. CARDIOVASCULAR: Irregular rate and rhythm. Atrial fibrillation observed on bedside monitor. Pedal pulses are thready. Feet are cool. RESPIRATORY/CHEST: Symmetric, unlabored respirations via mechanical vent. Clear to auscultation. Breath sounds equal bilaterally. GASTROINTESTINAL: Abdomen soft, distended, notably tender even with light touch. Limited palpation secondary to this discomfort abdomen is quite firm midline dressing clean and dry. Bowel sounds absent. GENITOURINARY: Without palpable bladder distension. Woods catheter in place. MUSCULOSKELETAL: Extremities without clubbing, cyanosis, or edema. No joint tenderness or effusion noted. Feet are cool LYMPHATICS: No palpable cervical or supraclavicular adenopathy. NEUROLOGICAL: Sedated on mechanical vent does stir slightly to exam grimaces with any touch to abdomen. Localizes and moves extremities to touch. PSYCHIATRIC: No obvious anxiety/depression. Diagnostic Tests Laboratory: Laboratory Results - last 72 hr 05/18/18 05/18/18 05/18/18 02:20 02:20 02:20 WBC 35.7 H RBC 4.29 Hgb 6.9 L* Hct 26.2 L MCV 61.0 L MCH 16.0 L MCHC 26.2 L RDW 22.2 H Plt Count 403 MPV 8.3 Prelim Diff (Auto) Slide review pending Neut % (Auto) 90.7 H Lymph % (Auto) 2.1 L [place] % (Auto) 5.9 Eos % (Auto) 0.0 Baso % (Auto) 1.3 Neut # (Auto) 32.4 H Lymph # (Auto) 0.8 L [place] # (Auto) 2.1 H Eos # (Auto) 0.0 Baso # (Auto) 0.5 H WBC Differential Manual diff final Seg Neuts % (Manual) 74 H Band Neuts % (Manual) 14 H Lymphocytes % (Manual) 4 L Monocytes % (Manual) 8 Metamyelocytes % (Man) Abs Neuts (Manual) 31.4 H Nucleated RBCs/100 WBC 12 H Differential Comment . Toxic Vacuolation Present H Dohle Bodies Present H Platelet Estimate Normal Platelet Morphology Normal Basophilic Stippling Faint H Ovalocytes 1+ H Acanthocytes (Spur) Occ H Keratocytes PT 12.6 H INR 1.2 APTT 24.5 Puncture Site Patient Temperature O2 Saturation ABG pH ABG pCO2 ABG pO2 ABG HCO3 ABG O2 Content ABG Base Excess ABG Methemoglobin Luke Test Hemoglobin Carboxyhemoglobin O2 Delivery Device Inspired O2 Critical Value Sodium 130 L Potassium 3.0 L Chloride 92 L Carbon Dioxide 17.0 L Anion Gap 21 H BUN 20 H Creatinine 1.19 H Estimated GFR 45 L POC Glucose Random Glucose 163 H Lactic Acid Calcium 8.6 Calcium Adj for Albumin Phosphorus Magnesium 2.3 Total Bilirubin 1.1 H AST 62 H ALT 26 Alkaline Phosphatase 159 H Ammonia Total Creatine Kinase 81 Troponin I 0.56 H Total Protein 8.5 H Albumin 3.0 L TSH 1.700 Urine Color Urine Clarity Urine pH Ur Specific [place] Urine Protein Urine Glucose (UA) Urine Ketones Urine Occult Blood Urine Nitrate Urine Bilirubin Urine Urobilinogen Ur Leukocyte Esterase Urine RBC Urine WBC Ur Squamous Epith Cells Amorphous Sediment Urine Bacteria Hyaline Casts Granular Casts Urine Mucus Micro UA Comment Ur Microscopic Review Urine Culture Comments Nasal Screen MRSA (PCR) Blood Type Antibody Screen MTS Gel Crossmatch Blood Bank Comment 05/18/18 05/18/18 05/18/18 02:20 02:20 02:20 WBC RBC Hgb Hct MCV MCH MCHC RDW Plt Count MPV Prelim Diff (Auto) Neut % (Auto) Lymph % (Auto) [place] % (Auto) Eos % (Auto) Baso % (Auto) Neut # (Auto) Lymph # (Auto) [place] # (Auto) Eos # (Auto) Baso # (Auto) WBC Differential Seg Neuts % (Manual) Band Neuts % (Manual) Lymphocytes % (Manual) Monocytes % (Manual) Metamyelocytes % (Man) Abs Neuts (Manual) Nucleated RBCs/100 WBC Differential Comment Toxic Vacuolation Dohle Bodies Platelet Estimate Platelet Morphology Basophilic Stippling Ovalocytes Acanthocytes (Spur) Keratocytes PT INR APTT Puncture Site Patient Temperature O2 Saturation ABG pH ABG pCO2 ABG pO2 ABG HCO3 ABG O2 Content ABG Base Excess ABG Methemoglobin Luke Test Hemoglobin Carboxyhemoglobin O2 Delivery Device Inspired O2 Critical Value Sodium Potassium Chloride Carbon Dioxide Anion Gap BUN Creatinine Estimated GFR POC Glucose Random Glucose Lactic Acid 14.0 H* Calcium Calcium Adj for Albumin Phosphorus Magnesium Total Bilirubin AST ALT Alkaline Phosphatase Ammonia 23 Total Creatine Kinase Troponin I Total Protein Albumin TSH Urine Color Urine Clarity Urine pH Ur Specific [place] Urine Protein Urine Glucose (UA) Urine Ketones Urine Occult Blood Urine Nitrate Urine Bilirubin Urine Urobilinogen Ur Leukocyte Esterase Urine RBC Urine WBC Ur Squamous Epith Cells Amorphous Sediment Urine Bacteria Hyaline Casts Granular Casts Urine Mucus Micro UA Comment Ur Microscopic Review Urine Culture Comments Nasal Screen MRSA (PCR) Blood Type O Positive Antibody Screen Negative MTS Gel Crossmatch See Detail Blood Bank Comment 05/18/18 05/18/18 05/18/18 04:00 04:20 04:59 WBC RBC Hgb Hct MCV MCH MCHC RDW Plt Count MPV Prelim Diff (Auto) Neut % (Auto) Lymph % (Auto) [place] % (Auto) Eos % (Auto) Baso % (Auto) Neut # (Auto) Lymph # (Auto) [place] # (Auto) Eos # (Auto) Baso # (Auto) WBC Differential Seg Neuts % (Manual) Band Neuts % (Manual) Lymphocytes % (Manual) Monocytes % (Manual) Metamyelocytes % (Man) Abs Neuts (Manual) Nucleated RBCs/100 WBC Differential Comment Toxic Vacuolation Dohle Bodies Platelet Estimate Platelet Morphology Basophilic Stippling Ovalocytes Acanthocytes (Spur) Keratocytes PT INR APTT Puncture Site Right radial Patient Temperature 98.6 O2 Saturation 89 L* ABG pH 7.44 H ABG pCO2 35 L ABG pO2 66 ABG HCO3 23 ABG O2 Content 9.1 L ABG Base Excess -0.7 ABG Methemoglobin 0.9 Luke Test Present Hemoglobin 7.1 L* Carboxyhemoglobin 2.0 O2 Delivery Device Room air Inspired O2 21 Critical Value Yes Sodium Potassium Chloride Carbon Dioxide Anion Gap BUN Creatinine Estimated GFR POC Glucose Random Glucose Lactic Acid 7.5 H* Calcium Calcium Adj for Albumin Phosphorus Magnesium Total Bilirubin AST ALT Alkaline Phosphatase Ammonia Total Creatine Kinase Troponin I Total Protein Albumin TSH Urine Color Yellow Urine Clarity Hazy H Urine pH 5.0 Ur Specific [place] 1.018 Urine Protein 100 H Urine Glucose (UA) Negative Urine Ketones Trace H Urine Occult Blood Small H Urine Nitrate Negative Urine Bilirubin Negative Urine Urobilinogen Less than 2 Ur Leukocyte Esterase Negative Urine RBC Less than 1 Urine WBC 3 Ur Squamous Epith Cells <1 Amorphous Sediment Rare H Urine Bacteria Few H Hyaline Casts 37 Granular Casts 11 Urine Mucus Few H Micro UA Comment Cath-culture ind Ur Microscopic Review Not Reportable Urine Culture Comments Cath-cult indicated Nasal Screen MRSA (PCR) Blood Type Antibody Screen MTS Gel Crossmatch Blood Bank Comment 05/18/18 05/18/18 05/18/18 05:20 05:50 06:46 WBC RBC Hgb Hct MCV MCH MCHC RDW Plt Count MPV Prelim Diff (Auto) Neut % (Auto) Lymph % (Auto) [place] % (Auto) Eos % (Auto) Baso % (Auto) Neut # (Auto) Lymph # (Auto) [place] # (Auto) Eos # (Auto) Baso # (Auto) WBC Differential Seg Neuts % (Manual) Band Neuts % (Manual) Lymphocytes % (Manual) Monocytes % (Manual) Metamyelocytes % (Man) Abs Neuts (Manual) Nucleated RBCs/100 WBC Differential Comment Toxic Vacuolation Dohle Bodies Platelet Estimate Platelet Morphology Basophilic Stippling Ovalocytes Acanthocytes (Spur) Keratocytes PT INR APTT Puncture Site Right radial Patient Temperature 98.6 O2 Saturation 86 L* ABG pH 7.45 H ABG pCO2 34 L ABG pO2 55 L* ABG HCO3 24 ABG O2 Content 9.1 L ABG Base Excess 0.3 ABG Methemoglobin 0.7 Luke Test Present Hemoglobin 7.5 L* Carboxyhemoglobin 2.0 O2 Delivery Device Room air Inspired O2 21 Critical Value Yes Sodium Potassium Chloride Carbon Dioxide Anion Gap BUN Creatinine Estimated GFR POC Glucose Random Glucose Lactic Acid Calcium Calcium Adj for Albumin Phosphorus Magnesium Total Bilirubin AST ALT Alkaline Phosphatase Ammonia Total Creatine Kinase Troponin I Total Protein Albumin TSH Urine Color Urine Clarity Urine pH Ur Specific [place] Urine Protein Urine Glucose (UA) Urine Ketones Urine Occult Blood Urine Nitrate Urine Bilirubin Urine Urobilinogen Ur Leukocyte Esterase Urine RBC Urine WBC Ur Squamous Epith Cells Amorphous Sediment Urine Bacteria Hyaline Casts Granular Casts Urine Mucus Micro UA Comment Ur Microscopic Review Urine Culture Comments Nasal Screen MRSA (PCR) Not detected Blood Type Antibody Screen MTS Gel Crossmatch Blood Bank Comment 05/18/18 05/18/18 05/18/18 06:47 07:02 14:00 WBC RBC Hgb Hct MCV MCH MCHC RDW Plt Count MPV Prelim Diff (Auto) Neut % (Auto) Lymph % (Auto) [place] % (Auto) Eos % (Auto) Baso % (Auto) Neut # (Auto) Lymph # (Auto) [place] # (Auto) Eos # (Auto) Baso # (Auto) WBC Differential Seg Neuts % (Manual) Band Neuts % (Manual) Lymphocytes % (Manual) Monocytes % (Manual) Metamyelocytes % (Man) Abs Neuts (Manual) Nucleated RBCs/100 WBC Differential Comment Toxic Vacuolation Dohle Bodies Platelet Estimate Platelet Morphology Basophilic Stippling Ovalocytes Acanthocytes (Spur) Keratocytes PT 13.5 H INR 1.3 APTT 30.7 D Puncture Site Patient Temperature O2 Saturation ABG pH ABG pCO2 ABG pO2 ABG HCO3 ABG O2 Content ABG Base Excess ABG Methemoglobin Luke Test Hemoglobin Carboxyhemoglobin O2 Delivery Device Inspired O2 Critical Value Sodium Potassium Chloride Carbon Dioxide Anion Gap BUN Creatinine Estimated GFR POC Glucose Random Glucose Lactic Acid Calcium Calcium Adj for Albumin Phosphorus Magnesium Total Bilirubin AST ALT Alkaline Phosphatase Ammonia Total Creatine Kinase Troponin I Total Protein Albumin TSH Urine Color Urine Clarity Urine pH Ur Specific [place] Urine Protein Urine Glucose (UA) Urine Ketones Urine Occult Blood Urine Nitrate Urine Bilirubin Urine Urobilinogen Ur Leukocyte Esterase Urine RBC Urine WBC Ur Squamous Epith Cells Amorphous Sediment Urine Bacteria Hyaline Casts Granular Casts Urine Mucus Micro UA Comment Ur Microscopic Review Urine Culture Comments Nasal Screen MRSA (PCR) Blood Type Antibody Screen MTS Gel Crossmatch See Detail See Detail Blood Bank Comment 05/18/18 05/18/18 05/18/18 14:00 14:00 23:08 WBC 22.2 H RBC 5.04 Hgb 11.3 L D Hct 35.8 MCV 71.0 L D MCH 22.3 L MCHC 31.5 L RDW 29.7 H D Plt Count 246 D MPV 8.3 Prelim Diff (Auto) Neut % (Auto) Lymph % (Auto) [place] % (Auto) Eos % (Auto) Baso % (Auto) Neut # (Auto) Lymph # (Auto) [place] # (Auto) Eos # (Auto) Baso # (Auto) WBC Differential Seg Neuts % (Manual) Band Neuts % (Manual) Lymphocytes % (Manual) Monocytes % (Manual) Metamyelocytes % (Man) Abs Neuts (Manual) Nucleated RBCs/100 WBC Differential Comment Toxic Vacuolation Dohle Bodies Platelet Estimate Platelet Morphology Basophilic Stippling Ovalocytes Acanthocytes (Spur) Keratocytes PT INR APTT Puncture Site Patient Temperature O2 Saturation ABG pH ABG pCO2 ABG pO2 ABG HCO3 ABG O2 Content ABG Base Excess ABG Methemoglobin Luke Test Hemoglobin Carboxyhemoglobin O2 Delivery Device Inspired O2 Critical Value Sodium 140 D Potassium 3.2 L Chloride 101 D Carbon Dioxide 30.9 D Anion Gap 8 BUN 16 Creatinine 0.69 Estimated GFR 84 L POC Glucose 98 Random Glucose 126 H Lactic Acid Calcium 6.6 L* D Calcium Adj for Albumin 8.4 L Phosphorus Magnesium 1.9 Total Bilirubin 2.9 H AST 119 H ALT 57 H Alkaline Phosphatase 115 Ammonia Total Creatine Kinase Troponin I Total Protein 5.3 L D Albumin 1.8 L D TSH Urine Color Urine Clarity Urine pH Ur Specific [place] Urine Protein Urine Glucose (UA) Urine Ketones Urine Occult Blood Urine Nitrate Urine Bilirubin Urine Urobilinogen Ur Leukocyte Esterase Urine RBC Urine WBC Ur Squamous Epith Cells Amorphous Sediment Urine Bacteria Hyaline Casts Granular Casts Urine Mucus Micro UA Comment Ur Microscopic Review Urine Culture Comments Nasal Screen MRSA (PCR) Blood Type Antibody Screen MTS Gel Crossmatch Blood Bank Comment 05/19/18 05/19/18 05/19/18 04:07 04:07 04:07 WBC 33.6 H D RBC 5.12 Hgb 11.3 L Hct 35.6 MCV 69.5 L MCH 22.1 L MCHC 31.8 L RDW 29.8 H Plt Count 241 MPV 8.6 Prelim Diff (Auto) Manual diff required Neut % (Auto) Lymph % (Auto) [place] % (Auto) Eos % (Auto) Baso % (Auto) Neut # (Auto) Lymph # (Auto) [place] # (Auto) Eos # (Auto) Baso # (Auto) WBC Differential Manual diff final Seg Neuts % (Manual) 53 Band Neuts % (Manual) 38 H Lymphocytes % (Manual) 2 L Monocytes % (Manual) 2 Metamyelocytes % (Man) 5 H Abs Neuts (Manual) 32.3 H Nucleated RBCs/100 WBC 8 H Differential Comment . Toxic Vacuolation Present H Dohle Bodies Platelet Estimate Platelet Morphology Basophilic Stippling Ovalocytes Acanthocytes (Spur) Keratocytes Occ H PT 16.7 H INR 1.7 APTT 36.6 H Puncture Site Patient Temperature O2 Saturation ABG pH ABG pCO2 ABG pO2 ABG HCO3 ABG O2 Content ABG Base Excess ABG Methemoglobin Luke Test Hemoglobin Carboxyhemoglobin O2 Delivery Device Inspired O2 Critical Value Sodium 143 Potassium 3.6 Chloride 102 Carbon Dioxide 30.9 Anion Gap 10 BUN 24 H Creatinine 1.32 H Estimated GFR 40 L POC Glucose Random Glucose 113 H Lactic Acid Calcium 6.4 L* Calcium Adj for Albumin 8.5 Phosphorus 2.6 Magnesium 1.8 Total Bilirubin 4.3 H AST 257 H ALT 127 H Alkaline Phosphatase 119 H Ammonia Total Creatine Kinase Troponin I Total Protein 4.9 L Albumin 1.4 L TSH Urine Color Urine Clarity Urine pH Ur Specific [place] Urine Protein Urine Glucose (UA) Urine Ketones Urine Occult Blood Urine Nitrate Urine Bilirubin Urine Urobilinogen Ur Leukocyte Esterase Urine RBC Urine WBC Ur Squamous Epith Cells Amorphous Sediment Urine Bacteria Hyaline Casts Granular Casts Urine Mucus Micro UA Comment Ur Microscopic Review Urine Culture Comments Nasal Screen MRSA (PCR) Blood Type Antibody Screen MTS Gel Crossmatch Blood Bank Comment 05/19/18 05/19/18 04:07 07:50 WBC RBC Hgb Hct MCV MCH MCHC RDW Plt Count MPV Prelim Diff (Auto) Neut % (Auto) Lymph % (Auto) [place] % (Auto) Eos % (Auto) Baso % (Auto) Neut # (Auto) Lymph # (Auto) [place] # (Auto) Eos # (Auto) Baso # (Auto) WBC Differential Seg Neuts % (Manual) Band Neuts % (Manual) Lymphocytes % (Manual) Monocytes % (Manual) Metamyelocytes % (Man) Abs Neuts (Manual) Nucleated RBCs/100 WBC Differential Comment Toxic Vacuolation Dohle Bodies Platelet Estimate Platelet Morphology Basophilic Stippling Ovalocytes Acanthocytes (Spur) Keratocytes PT INR APTT Puncture Site Patient Temperature O2 Saturation ABG pH ABG pCO2 ABG pO2 ABG HCO3 ABG O2 Content ABG Base Excess ABG Methemoglobin Luke Test Hemoglobin Carboxyhemoglobin O2 Delivery Device Inspired O2 Critical Value Sodium Potassium Chloride Carbon Dioxide Anion Gap BUN Creatinine Estimated GFR POC Glucose Random Glucose Lactic Acid 4.7 H* 5.0 H* Calcium Calcium Adj for Albumin Phosphorus Magnesium Total Bilirubin AST ALT Alkaline Phosphatase Ammonia Total Creatine Kinase Troponin I Total Protein Albumin TSH Urine Color Urine Clarity Urine pH Ur Specific [place] Urine Protein Urine Glucose (UA) Urine Ketones Urine Occult Blood Urine Nitrate Urine Bilirubin Urine Urobilinogen Ur Leukocyte Esterase Urine RBC Urine WBC Ur Squamous Epith Cells Amorphous Sediment Urine Bacteria Hyaline Casts Granular Casts Urine Mucus Micro UA Comment Ur Microscopic Review Urine Culture Comments Nasal Screen MRSA (PCR) Blood Type Antibody Screen MTS Gel Crossmatch Blood Bank Comment Result Diagrams: 05/19/18 04:07 05/19/18 04:07 Microbiology: Microbiology 05/18/18 04:00 Urine Culture - Preliminary Catheterized Urine No growth in 24 hours 05/18/18 02:40 Aerobic Blood Culture - Preliminary Blood - Peripheral No growth in 1 day Anaerobic Blood Culture - Preliminary No growth in 1 day 05/18/18 02:45 Aerobic Blood Culture - Preliminary Blood - Peripheral No growth in 1 day Anaerobic Blood Culture - Preliminary No growth in 1 day Imaging: Impressions Chest X-Ray 05/18/18 00:00 CONCLUSION: No acute cardiopulmonary disease. Chest X-Ray 05/18/18 02:05 CONCLUSION: No acute abnormality is seen. Head CT 05/18/18 02:12 CONCLUSION: 1. Bilateral areas of encephalomalacia being worse on the right. These findings were present on the prior exam. 2. No acute areas of hemorrhage or mass effect are seen. 3. Small foci of fat seen in the posterior aspect of the superior sagittal sinus region. This is very likely an incidental finding. . Thoracic Aorta CT 05/18/18 04:01 CONCLUSION: 1. 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 There is filling of the mid and distal aspects of the SMA via collaterals. 2. Thickening of the transverse colon. Given the vascular abnormality one could consider ischemia in this region. 3. Small bowel dilatation likely related to obstruction or ileus. There is also some dilatation of the stomach and esophagus. 4. Occlusion of the left external iliac and common femoral arteries. 5. Hypodensities in the liver likely related to cysts or hemangiomas. 6. Bilateral adrenal gland masses. These are nonspecific. They likely represent adenomas. 7. Degenerative and postoperative change in the lumbar spine. There is chronic deformity seen in the pelvic bones. Patient/Family Conference Family Conference Time: 25 Family Conference Location: Bedside Issues Discussed: Met with daughter, granddaughter discussed the following: * Palliative care role, purpose, approach * Additional medical, psychosocial, and spiritual history * Patients general health, functional status, and cognitive changes in the months leading up to the current hospitalization * Patient/family understanding of the current medical problems * Patient/family understanding of prognosis * Patients goals of care as best understood from advance directives and/or conversations and/or values * Current medical treatment options and benefits/burdens of those options * Likely scenarios comparing ongoing aggressive care with a transition to comfort measures only * Questions answered to the best of my ability * Palliative care contact information provided Met with family at length at bedside granddaughter and daughter. Granddaughter indicates patient with nausea and vomiting in the few days prior to presentation ,in the very last day she seemed more acutely ill hence they sought evaluation. She indicates the patient was verbal, ambulatory socialized with family. She verbalizes that the patient would not understand surgical intervention due to short-term memory impairments from dementia, status, nor would she understand complications from surgery, also indicates that the patient would not want to proceed with artificial measures if she would not get back to her usual life at home with her family. They request withdrawal of life support today and transition to comfort focus only. Assessment and Plan - Disease Oriented Problem List (1) COPD (chronic obstructive pulmonary disease) (2) GERD (gastroesophageal reflux disease) (3) Acidosis, lactic (4) Acute mesenteric ischemia (5) Thrombosis of superior mesenteric artery - Symptom Scale (1) Dyspnea 0-10 Scale: Unable to quantify (2) Pain 0-10 Scale: Unable to quantify Pertinent Non-Medical Issues: Psychosocial: Lives at home with her daughter, granddaughter and grandchildren. Daughter and granddaughter are her primary caregivers. 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 Spiritual: Taoism richard indicate dementia program director known to them has already been in to visit they declined detention officer visit. Legal: Patient reported with mild dementia. On mechanical vent at time of consultation. Completed healthcare surrogate upon hospital admission naming granddaughter whom she lives with and is her primary caregiver. Ethical issues impacting care: No ethical issues identified. Important Contacts: Daughter Sherice [facility] [phone] Granddaughter, [facility] [place], Deb [facility] [phone] Prognosis: This patient was admitted to the hospital yesterday due to altered mental status fever, and few days of nausea and vomiting. She was found to have significant mesenteric ischemia secondary to estimated and general surgery were consulted. She underwent exploratory laparotomy with findings of nonviable bowel with ischemia to almost the entire length of small bowel. [place] she would not likely survive long-term complications after complete bowel removal. Poor prognosis. Comfort was recommended by surgeon. Code Status: No Code DNR Plan: Legal decision maker: Pt with mild dementia. HCS completed upon admission naming granddaughter Deb. Goals:family requests comfort measures, hospice today. They wish to withdrawal ventilator/life support based on pt known wishes. They would like hospice care [facility] placement this evening if she is stable for transfer. They would like to premedicate as minimally as possible so pt able to interact with family. Comfort orders entered for pre withdrawal, withdrawal and post withdrawal. Hospice consult ordered, called to hospice admissions. *Exhibits B and C already signed by surgery and care. Discussed at length with primary nurse and critical care attending CODE STATUS: dnr SYMPTOMS: --Dyspnea-intubated for surgery procedure. Underlying COPD though no recent shortness of breath or respiratory difficulties. --Pain +grimace w abd palpation, +ischemic bowel, necrosis, will likely cont to have severe pain 2/2 to. Currently on fentanyl drip, 25-50mcgs, will require ongoing PRNs for comfort. * post withdrawal will plan to d/c fentanyl drip at time of transport to care center, and pre medicate with fentanyl bolus for comfort enroute. Palliative care will continue to follow during hospital course as condition evolves, to assist patient/decision-maker with understanding of medical conditions, weighing benefits/burdens of treatment options, for clarification of goals of treatment. Additionally will assist with any symptoms of palliative concern Appreciation Thank you for the opportunity to participate in the care of Ale Carroll. Attestation Attestation: To help prompt me to consider important information that might be impacting today's encounter and assessment, information from prior notes written by myself or my colleagues may have been "brought forward" into today's note. My signature on this note, however, is an attestation that I personally performed the exam, history, and/or decision-making noted today, and, unless otherwise indicated, the interactions with patient, family, and staff as well as the review of records all occurred today. I also attest that the listed assessment and stated plan reflect my best clinical judgment today based on the combination of historical information, prior notes, and today's exam/ interactions. When time spent is documented, it refers only to time spent today by the signer, or if indicated, combined time spent today by collaborating physician/nurse practitioner.
[2018-05-19] MEDS ORDERED: fentaNYL Citrate Inj 100 MCG/2 ML Ampul IV.PUSH ONE ×2 (13:33→17:00)
[2018-05-19] MEDS ORDERED: Morphine Inj 4 MG/ML Vial IV.PUSH PRN (13:45)
--- NOTE | 2018-05-19 16:44 | P.DS ---
Date of admission: 05/18/18 04:39 Primary care physician: Demetrius Villarreal Attending physician on discharge: Kiko Nicolas Anticipated date of discharge: 05/19/18 Brief History from admission: 72-year-old female with past medical history of atrial fibrillation, CVA on Xarelto reports recent fever (100.4 F yesterday) and 3 days of progressive worsening associated with multiple episodes of nausea vomiting stomach contents without hematemesis or coffee-ground emesis and loose watery stools without gross blood. Patient is prescribed Xarelto for her atrial fibrillation and has not been able to take it neither was able to take her blood pressure medication or medication for rate control of her atrial fibrillation due to multiple episodes of vomiting. Denies alcohol abuse, drug abuse, diabetes and or liver disease. Patient update on day of discharge: Going to Hospice, comfort measures only DS: Diagnosis - Discharge Diagnosis (1) Septic shock Status: Acute (2) Acute respiratory failure Status: Acute (3) Acidosis, lactic Status: Acute (4) Acute GI bleeding Status: Acute (5) Acute mesenteric ischemia Status: Acute (6) Elevated troponin I level Status: Acute (7) Metabolic acidosis, increased anion gap Status: Acute (8) Thrombosis of superior mesenteric artery Status: Acute (9) COPD (chronic obstructive pulmonary disease) Status: Chronic DS: Summary Hospital Course: 72-year-old female with past medical history of atrial fibrillation, CVA on Xarelto reports recent fever and 3 days of progressive worsening associated with multiple episodes of nausea vomiting stomach contents without hematemesis and loose watery stools without gross blood. Patient is prescribed Xarelto for her atrial fibrillation and has not been able to take it neither was able to take her blood pressure medication or medication for rate control of her atrial fibrillation due to multiple episodes of vomiting. Denies alcohol abuse, drug abuse, diabetes and or liver disease. 2-day history of abdominal pain that is significantly getting worse. On exam acute abdomen with leukocytosis and metabolic acidosis. A CT angiography shows occlusion of the proximal superior mesenteric artery with a large thrombus extending into the abdominal aorta The patient was started on a heparin drip and admitted to [facility]. SUBJ 05/18/18: Patient seen again at 6:30 AM she is very critical. Appears in acute distress due to severe abdominal pain and acute illness. She is tachycardic tachypneic heart rate is 140-150 range per minute. I have ordered additional 500 mL fluid bolus, additional 1 unit of PRBC. Vanco and Zosyn had been started. 10 mg additional IV push of Cardizem will be given and Cardizem infusion will be started. Discussed extensively with Dr. Javier. Patient is being taken emergently to the OR floor exploratory laparotomy, SMA thrombectomy possible bypass, possible bowel resection/possible ostomy. 05/19: Went to the OR yesterday, after laparotomy it was found that patient has transmural ischemia involving almost the entire length of the small bowel from the ligament of Treitz, extending to the hepatic flexure. This a terminal condition. Incision was closed no resection was carried out. Currently patient is remaining on the ventilator. Family has arrived in town. Palliative care consulted to assist with withdrawal of life support and transition to comfort measures and possibly hospice Palliative care met with family. Decision made to transition to comfort measures only. CODE STATUS changed to DNR. Comfort measures initiated after premedication patient was extubated. Family requested transfer to hospice care center. I have placed order for the same - Time Spent with Patient Total time spent providing and/or coordinating discharge services: Greater than 30 minutes Exam Vital signs: Vital Signs 05/18/18 17:00 05/18/18 18:00 05/18/18 18:31 Temperature Pulse Rate 111 H 113 H 113 H Respiratory Rate 16 16 16 Blood Pressure 85/58 L 97/60 L 97/56 L Pulse Oximetry 95 95 95 05/18/18 19:00 05/18/18 19:45 05/18/18 19:50 Temperature Pulse Rate 109 H Respiratory Rate 16 16 Blood Pressure 90/63 L Pulse Oximetry 95 96 96 05/18/18 20:00 05/18/18 21:00 05/18/18 22:00 Temperature 99.1 F Pulse Rate 115 H 118 H 119 H Respiratory Rate 16 16 16 Blood Pressure 96/73 L 113/74 108/63 Pulse Oximetry 96 97 100 05/18/18 23:00 05/19/18 00:00 05/19/18 00:16 Temperature Pulse Rate 117 H 124 H Respiratory Rate 16 16 16 Blood Pressure 115/64 121/73 Pulse Oximetry 96 93 L 100 05/19/18 01:00 05/19/18 02:00 05/19/18 03:00 Temperature 99 F Pulse Rate 125 H 126 H 125 H Respiratory Rate 16 16 16 Blood Pressure 132/72 106/71 108/75 Pulse Oximetry 95 96 94 L 05/19/18 03:33 05/19/18 04:00 05/19/18 06:00 Temperature 98.6 F Pulse Rate 124 H 118 H Respiratory Rate 16 16 Blood Pressure 103/76 Pulse Oximetry 98 83 L 05/19/18 08:00 05/19/18 08:37 05/19/18 10:00 Temperature 97.5 F L Pulse Rate 91 H 94 H Respiratory Rate 16 16 Blood Pressure Pulse Oximetry 94 L 94 L 05/19/18 12:00 05/19/18 12:41 05/19/18 14:00 Temperature 97.6 F Pulse Rate 96 H 102 H Respiratory Rate 16 16 Blood Pressure Pulse Oximetry 93 L 97 05/19/18 14:30 Temperature Pulse Rate 102 H Respiratory Rate Blood Pressure Pulse Oximetry Intake & Output 05/18/18 05/19/18 05/19/18 18:59 06:59 18:59 Intake Total 6100 / 6100 2024 / 2024 100 / 100 Output Total 970 / 970 125 / 125 Balance 5130 / 5130 1900 / 1900 100 / 100 Weight 67 kg Intake: IV 1500 / 1500 2024 100 / 100 Protonix Inj 80 MG In NS Inj 100 / 100 100 / 100 100 ML @ 10 mls/hr IV.CONT CONT GIBRAN Rx#:[id number] Sodium Bicarbonate 8.4% Inj 150 1000 / 1000 1000 / 1000 MEQ In 1/2 Normal Saline Inj 850 ML @ 125 mls/hr IV.CONT . Q8H GIBRAN Rx#:[id number] Cardizem Inj 125 MG In NS Inj 100 / 100 125 / 125 100 ML @ 5 MG/HR 5 mls/hr IV. CONT TITRATE PRN Rx#:[id number] Zosyn 4.5 GM Premix 4.5 gm In 200 / 200 300 / 300 100 / 100 100 ml @ 200 mls/hr IV.SIG Q6H GIBRAN Rx#:[id number] KCl 40 mEq Premix Inj 40 meq In 100 / 100 100 ml @ 25 mls/hr IV.SIG Q2H PRN Rx#:[id number] Tube Feeding 0 / 0 Anesthesia Amount 3000 / 3000 Mass Transfusion Protocol 1600 / 1600 Output: Urine 125 / 125 Estimated Blood Loss 20 / 20 Urine Amount (Catheter) 950 / 950 Indwelling Urethral Catheter 950 / 950 Narrative: GENERAL: Well-nourished, well-developed patient very ill appearing in moderate distress. Intubated sedated SKIN: warm/dry. HEAD: Normocephalic. EYES: No scleral icterus. No injection or drainage. Conjunctival pallor NECK: Supple, trachea midline. No JVD or lymphadenopathy. Orotracheally intubated CARDIOVASCULAR: Atrial fibrillation with RVR heart rate improved control with Cardizem infusion, without murmurs, gallops, or rubs. RESPIRATORY: Breath sounds equal bilaterally. No accessory muscle use. Slightly tachypneic GASTROINTESTINAL: Abdomen diffusely tender with voluntary guarding. Exam is limited due to severe pain NEURO: Patient is alert awake, currently sedated for comfort. Moves extremities spontaneously Results Procedures completed during hospitalization: Ex lap without resection 05/18/2018 Labs on day of discharge: Labs from last 24 hours 05/19/18 05/19/18 05/19/18 13:10 07:50 04:07 WBC RBC Hgb Hct MCV MCH MCHC RDW Plt Count MPV Prelim Diff (Auto) WBC Differential Seg Neuts % (Manual) Band Neuts % (Manual) Lymphocytes % (Manual) Monocytes % (Manual) Metamyelocytes % (Man) Abs Neuts (Manual) Nucleated RBCs/100 WBC Differential Comment Toxic Vacuolation Keratocytes PT INR APTT Sodium Potassium Chloride Carbon Dioxide Anion Gap BUN Creatinine Estimated GFR POC Glucose Random Glucose Lactic Acid 6.5 H* 5.0 H* 4.7 H* Calcium Calcium Adj for Albumin Phosphorus Magnesium Total Bilirubin AST ALT Alkaline Phosphatase Total Protein Albumin Blood Type Antibody Screen MTS Gel Crossmatch 05/19/18 05/19/18 05/19/18 04:07 04:07 04:07 WBC 33.6 H D RBC 5.12 Hgb 11.3 L Hct 35.6 MCV 69.5 L MCH 22.1 L MCHC 31.8 L RDW 29.8 H Plt Count 241 MPV 8.6 Prelim Diff (Auto) Manual diff required WBC Differential Manual diff final Seg Neuts % (Manual) 53 Band Neuts % (Manual) 38 H Lymphocytes % (Manual) 2 L Monocytes % (Manual) 2 Metamyelocytes % (Man) 5 H Abs Neuts (Manual) 32.3 H Nucleated RBCs/100 WBC 8 H Differential Comment . Toxic Vacuolation Present H Keratocytes Occ H PT 16.7 H INR 1.7 APTT 36.6 H Sodium 143 Potassium 3.6 Chloride 102 Carbon Dioxide 30.9 Anion Gap 10 BUN 24 H Creatinine 1.32 H Estimated GFR 40 L POC Glucose Random Glucose 113 H Lactic Acid Calcium 6.4 L* Calcium Adj for Albumin 8.5 Phosphorus 2.6 Magnesium 1.8 Total Bilirubin 4.3 H AST 257 H ALT 127 H Alkaline Phosphatase 119 H Total Protein 4.9 L Albumin 1.4 L Blood Type Antibody Screen MTS Gel Crossmatch 05/18/18 05/18/18 05/18/18 23:08 06:47 02:20 WBC RBC Hgb Hct MCV MCH MCHC RDW Plt Count MPV Prelim Diff (Auto) WBC Differential Seg Neuts % (Manual) Band Neuts % (Manual) Lymphocytes % (Manual) Monocytes % (Manual) Metamyelocytes % (Man) Abs Neuts (Manual) Nucleated RBCs/100 WBC Differential Comment Toxic Vacuolation Keratocytes PT INR APTT Sodium Potassium Chloride Carbon Dioxide Anion Gap BUN Creatinine Estimated GFR POC Glucose 98 Random Glucose Lactic Acid Calcium Calcium Adj for Albumin Phosphorus Magnesium Total Bilirubin AST ALT Alkaline Phosphatase Total Protein Albumin Blood Type O Positive Antibody Screen Negative MTS Gel Crossmatch See Detail See Detail Preliminary micro results at discharge 05/18/18 04:00 Urine Culture - Preliminary Catheterized Urine No growth in 24 hours 05/18/18 02:40 Aerobic Blood Culture - Preliminary Blood - Peripheral No growth in 1 day Anaerobic Blood Culture - Preliminary No growth in 1 day 05/18/18 02:45 Aerobic Blood Culture - Preliminary Blood - Peripheral No growth in 1 day Anaerobic Blood Culture - Preliminary No growth in 1 day - Impressions ITS Impressions Chest X-Ray 05/18/18 02:05 CONCLUSION: No acute abnormality is seen. Head CT 05/18/18 02:12 CONCLUSION: 1. Bilateral areas of encephalomalacia being worse on the right. These findings were present on the prior exam. 2. No acute areas of hemorrhage or mass effect are seen. 3. Small foci of fat seen in the posterior aspect of the superior sagittal sinus region. This is very likely an incidental finding. . Thoracic Aorta CT 05/18/18 04:01 CONCLUSION: 1. 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 There is filling of the mid and distal aspects of the SMA via collaterals. 2. Thickening of the transverse colon. Given the vascular abnormality one could consider ischemia in this region. 3. Small bowel dilatation likely related to obstruction or ileus. There is also some dilatation of the stomach and esophagus. 4. Occlusion of the left external iliac and common femoral arteries. 5. Hypodensities in the liver likely related to cysts or hemangiomas. 6. Bilateral adrenal gland masses. These are nonspecific. They likely represent adenomas. 7. Degenerative and postoperative change in the lumbar spine. There is chronic deformity seen in the pelvic bones. Discharge Plan - Discharge Disposition Patient Disposition: [facility] Hospice/Med Facility - Discharge Condition Condition: Serious - Discharge Order Discharge Orders: Discharge Order (Routine); Ordered 05/19/18 Ordered By: Kiko Nicolas ED Use Only Admit Order (Routine); Ordered 05/18/18 Ordered By: Waleska Anderson - Physicians Team Primary Care Provider: Demetrius Villarreal Attending Provider: Izaiah Leo Other Providers: Derek Negrete MD ; Juno Cabral MD ; Peter Manley MD
== END 2018-05-19 17:25 | disposition hospice, inpatient (51) ==
LOC: NEPE 00:59 → NEDA 04:39 → HIMC 05:35
PROVIDERS: ADMIT Internal Medicine Critical Care Medicine; ATTEND Internal Medicine Critical Care Medicine